=== PATIENT | female | born 1945 ===

== ENCOUNTER 2023-01-01 13:35 | Inpatient (IN) | payer OTHER ==
[2023-01-01 14:09] VITALS: BMI 24.6
[2023-01-01] MEDS ORDERED: ACETAMINOPHEN 500 MG TAB PO PRN ×2 (14:09→20:35)
--- OUTSIDE RECORDS SUMMARY | 2023-01-01 14:16 | XMS REPORT | Continuity of Care Document ---
:1945 Author Organization [facility] t Address [address] [place] [address] Care Team Providers Name Role Phone ASHLEE WILLIS Primary Care Physician Unavailable DARELL LENZ Attending Clinician Unavailable Maida Schilling Attending Clinician Unavailable Ryan Cárdenas Attending Clinician Unavailable AMAN JONES Attending Clinician Unavailable JOSE RAMSEY Attending Clinician Unavailable Eduardo Mcfarlane Attending Clinician Rohini Attending Clinician Unavailable Cathryn Attending Clinician Unavailable EDUARDO MCFARLANE Attending Clinician Unavailable MOY MATOS Attending Clinician Unavailable A_Byrd Attending Clinician Unavailable IHDE_G Attending Clinician Unavailable DR ASHLEE WILLIS Attending Clinician Unavailable [phone] Attending Clinician Unavailable JARROD FERRO Attending Clinician Unavailable Zuniga_S Attending Clinician Unavailable Jose Robledo MD Attending Clinician Kishore Miller MD Attending Clinician [phone] Ely Hurtado Attending Clinician JAQUELINE BAZZI Attending Clinician Unavailable AMBREEN_AFIAA Attending Clinician Unavailable Mina Christianson Attending Clinician Brandon Guerrero Attending Clinician BRANDON GUERRERO Attending Clinician Unavailable Brandon Guerrero Attending Clinician Curtis Attending Clinician Unavailable Kendell Pichardo Attending Clinician GIBSON MACIAS Attending Clinician Unavailable PRICE GEORGE Attending Clinician Unavailable DAYANARA LINDSEY Attending Clinician Unavailable MYAH LIU Attending Clinician Unavailable ARNOLDO DOTY Attending Clinician Unavailable TITO DILLARD Attending Clinician Unavailable FRANCIS KYLE Attending Clinician Unavailable SAVI SKINNER Attending Clinician Unavailable FRANNIE AYALA Attending Clinician Unavailable Maida Schilling Admitting Clinician Unavailable Ryan Cárdenas Admitting Clinician Unavailable G_Pappas Admitting Clinician Unavailable Cathryn Admitting Clinician Unavailable Lita_Star Admitting Clinician Unavailable TIAGO_G Admitting Clinician Unavailable DR ASHLEE WILLIS Admitting Clinician Unavailable Tamia_S Admitting Clinician Unavailable JOSE ROBLEDO Admitting Clinician Unavailable ALEX Admitting Clinician Unavailable Mina Christianson Admitting Clinician Brandon Guerrero Admitting Clinician BRANDON GUERRERO Admitting Clinician Unavailable Curtis Admitting Clinician Unavailable ARNOLDO DOTY Admitting Clinician Unavailable Payers Payer Name Policy Type Policy Number Effective Date Expiration Date S [facility] MEDICARE PART A AND [id number] 2010 B 00:00:00 MEDICARE [id number] MEDICARE [id number] MEDICARE [id number] [place]ICARE B-[place]: [id number] 2010 [employer] 00:00:00 [facility] [id number] 2017 OPTIONS (MEDICARE 00:00:00 SUPPLEMENT) MEDICARE A-[place]: [id number] 2010 [employer] - 00:00:00 [facility] Problems Condition Condition Condition Status Onset Resolution Last Treating Co mments Source Name Details Category Date Date Treatment Clinician Date Rheumatoid Rheumatoid Problem Active M [facility] arthritis Arthritis 2-14 da 00:00: Medical 00 Group Degenerati Degenerati Problem Active [facility] [place] on of on of 5-24 da lumbar Lumbar 00:00: Medical interverte Interverte 00 Gr oup bral disc bral Disc Pain of Pain of Problem Active [place] left hip Left Hip 5-24 da joint Joint 00:00: Medical 00 Group M54.50 M54.50 Diagnosis Active 2021-10-17 Me moria Active 10-15 08:56:00 l 10/15/2021 00:00: [place] [facility] [place] M54.16 M54.16 Diagnosis Active 2020-07-20 Me moria Active 07-13 08:12:00 l 07/13/2020 00:00: [place] [facility] [place] Thyroid Thyroid Problem Active [place] nodule Nodule 07-13 da 00:00: Medical 00 Group Umbilical Umbilical Problem Active [place] hernia Hernia 07-13 da 00:00: Medical 00 Group Uterovagin Uterovagin Problem Active M [place] al al 07-13 da prolapse Prolapse 00:00: Medica l 00 Group Gastroesop Gastroeso Problem Active 2021-10-19 Memoria hageal phageal 11-23 22:06:44 l reflux reflux 00:00: Alessandro disease disease 00 (disorder) (disorder) Active 11/23/2014 Problem 10/19/2021 Data migrated from [facility] on 12/27/14. 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 Herm ruby (disorder) (disorder) Active Problem 11/10/2022 [facility] [place] Neuropathy Neuropath Problem Active 2021-11-22 Memoria (disorder) y 07:02:22 l (disorder) Chacorta n Active Problem 11/22/2021 [facility] Palpitatio Palpitati Problem Active 2022-11-10 Memoria ns ons 15:11:11 l (finding) (finding) Herm ruby Active Problem 11/10/2022 [facility] [place] Disease of Disease Problem Active 2021-11-22 Memoria thyroid of thyroid 07:02:22 l gland gland Alessandro (disorder) (disorder) Active Problem 11/22/2021 [facility] Malignant Malignant Problem Resolve 2021-10-19 Memoria tumor of tumor of d 22:06:44 l thyroid thyroid [place] gland gland (disorder) (disorder) Resolved Problem 10/19/2021 [facility] [place] Hypertensi Hypertens Problem Active 2022-11-10 Memoria ve fidel 15:11:11 l disorder, disorder, Herm ruby systemic systemic arterial arterial (disorder) (disorder) Active Problem 11/10/2022 [facility] [place],[facility] Peripheral Periphera Problem Active 2022-11-10 Memoria nerve l nerve 15:11:11 l disease disease [place] (disorder) (disorder) Active Problem 11/10/2022 [facility] [place] Simple Simple Problem Active 2022-11-10 Yang dipak obesity obesity 15:11:11 l (disorder) (disorder) He rmann Active Problem 11/10/2022 Medical Group,[facility] Lumbosacra Lumbosacr Problem Active 2022-11-10 Memoria l stenosis al 15:11:11 l (disorder) stenosis Herm ruby (disorder) Active Problem 11/10/2022 [facility] [place] 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 15:11:11 l (disorder) (disorder) He rmann Active Problem 11/10/2022 [facility] [place] Deep Deep Problem Resolve 2021-11-22 Yang dipak venous venous d 07:02:22 l thrombosis thrombosis He rmann (disorder) (disorder) Resolved Problem 11/22/2021 [facility] Arthritis Arthritis Problem Active 2022-11-10 Memoria (disorder) (disorder) 15:11:11 l Active [place] Problem 11/10/2022 [facility] [place] Lumbar Lumbar Problem Active 2021-11-22 Yang dipak radiculopa radiculopa 07:02:22 l thy thy [place] (disorder) (disorder) Active Problem 11/22/2021 [facility] History of Past Illness Condition Condition Condition Status Onset Resolution Last Treating Co mments Source Name Details Category Date Date Treatment Clinician Date Radiculopa Radiculop Problem 2019-062020-06-21 2020-06-21 Memoria thy, athy, 2 08:02:07 08:02:07 l lumbar lumbar 18:00: Alessandro region region 00 06/20/2020 06/21/2020 [facility] Other Other Problem 2019-062020-05-25 2020-05-25 M emoria interverte interverte 2-02 05:02:23 05:02:23 l bral disc bral disc 18:00: Herm ruby displaceme displaceme 00 nt, lumbar nt, lumbar region region 05/23/2020 0 [facility] Allergies, Adverse Reactions, Alerts Allergy Allergy Status Severity Reaction(s) Onset Inactive Treating Comm ents Source Name Type Date Date Clinician codeine DA Active MO NAUSEA [facility] 6-29 Clear 00:00: Dey 00 [facility] carisopr DA Active MO REDNESS [facility] odol 6-29 Clear 00:00: Dey 00 [facility] tetracyc DA Active MO REDNESS [facility] line 6-29 Clear 00:00: Dey 00 [facility] Codeine Propensi Active GI Methodi ty to Intolerance 01-10 st adverse 00:00: Hospita reaction 00 l s to drug Codeine Allergy Active [place] to 5-03 da substanc 00:00: Medical e 00 Group Carisopr Allergy Active [place] odol to 5-03 da substanc 00:00: Medical e 00 Group codeine< codeine< Active Memori a sup>1</s sup>1</s 6-04 l up> up> 05:00: Alessandro 00 tetracyc tetracyc Active Memori a line line 6-04 l topical< topical< 05:00: [place] n sup>2</s sup>2</s 00 up> up> CODEINE DA Active UNKNOWN [facility] ADRIAMYC DA Active SEVERE [facility] [place] [facility] RELA Allergy Active [place] to da substanc Medical e Group Social History Social Habit Start Date Stop Date Quantity Comments Source [facility] History of Social 2022-01-13 2022-01-[address] function 00:00:00 00:00:00 Hospital Alcohol intake 2022-01-13 2022-01-13 Current drinker Metho dist 00:00:00 00:00:00 of alcohol Hospital (finding) Alcohol Comment 2022-01-10 2022-01-10 rarely [facility] 00:[facility] 00:[facility]00 Hospital Tobacco use and 2022-01-10 2022-01-10 Smokeless [facility] exposure 00:00:00 00:00:00 tobacco non-user Hospital Social History 2021-10-17 2021-10-17 [facility] 14:24:40 14:24:40 Sex Ass[birth year] [facility] 00:00[facility] 00:00:00 Hospital Smoking Status Start Date Stop Date Source Tobacco smoking status [facility] Medications Ordered Filled Start Stop Current Ordering Indication Dosage Frequency Signature Comments Components Source Medication Medication Date Date Medication? Clinician (SIG) Name Name gabapentin Yes 600 mg = 1 M emoria 600 mg oral 3-31 tab, PO, l tablet 19:29: QID, # 120 Liv nn 00 tab, 1 Refill(s), Pharmacy: [id number], 162.56, cm, 09/19/22 13:41:00 CDT, Height, 73.636, kg, 09/19/22 13:41:00 CDT, Weight gabapentin 3-0 Yes 600 mg = 1 M emoria 600 mg oral 3-31 tab, PO, l tablet 19:29: QID, # 120 Liv nn 00 tab, 1 Refill(s), Pharmacy: [id number], 162.56, cm, 09/19/22 13:41:00 CDT, Height, 73.636, kg, 09/19/22 13:41:00 CDT, Weight gabapentin 3-0 Yes 600 mg = 1 M emoria 600 mg oral 3-31 tab, PO, l tablet 19:29: QID, # 120 Liv nn 00 tab, 1 Refill(s), Pharmacy: [id number], 162.56, cm, 09/19/22 13:41:00 CDT, Height, 73.636, kg, 09/19/22 13:41:00 CDT, Weight Tylenol 3-0 Yes PO, 0 Memoria 3-31 Refill(s) l 19:06: Alessandro 00 Tylenol 2023-0 Yes PO, 0 Memoria 3-31 Refill(s) l 19:06: [place] 00 Tylenol 2023-0 Yes PO, 0 Memoria 3-31 Refill(s) l 19:06: Alessandro 00 levothyroxi 2021-0 Yes 150ug QD Take 150 M ethodi ne 7-[address] (SYNTHROID) 10:10: mouth Hospi ta 150 mcg 01 daily. l tablet metoprolol 2021-0 Yes 25mg QD Take 25 mg M ethodi succinate 7-[address] XL 10:10: daily. Hospita (TOPROL-XL) 01 l 25 mg 24 hr tablet dexamethaso 2021-0 Yes .5mg QD Take 0.5 Me thodi ne 7-[address] (DECADRON) 10:10: mouth Hospit a 0.5 MG 01 daily. l tablet meloxicam 2021-0 Yes 15mg QD Take 15 mg Me thodi (MOBIC) 15 7-[address] mg tablet 10:10: daily. Hospit a 01 l atorvastati Yes 20mg QD Take 20 mg Methodi n (LIPITOR) 7-[address] 20 mg 10:10: daily. Hospita tablet 01 Default OP l ins azaTHIOprin Yes 50mg QD Take 50 mg Methodi e (IMURAN) 7-[address] 50 mg 10:10: daily. Hospita tablet 01 l gabapentin 0 Yes 600mg Q.25D Take 600 M ethodi (NEURONTIN) 7-[address] 600 mg 10:10: mouth 4 Hospita tablet 01 (four) l times a day. zolpidem 0 Yes 10mg QD Take 10 mg Met hodi (AMBIEN) 10 7-[address] mg tablet 10:10: nightly as Ho spita 01 needed for l sleep. ergocalcife Yes 7000U QD Take 7,000 Methodi rol, 7-[address] vitamin D2, 10:10: mouth Hospi ta (VITAMIN D2 01 daily. l ORAL) ferrous Yes 325mg QD Take 325 Metho di sulfate 7-[address] (iron) 325 10:10: mouth Hospit a (65 FE) MG 01 daily with l tablet breakfast. vitamin B 0 Yes 300mg QD Take 300 Met hodi comp and 7-[address] vit C no.6 10:10: mouth Hospit a (VITAMIN B 01 daily. l COMP WITH VIT C NO.6 ORAL) KRILL OIL 0 Yes 350mg QD Take 350 Met hodi ORAL 7-[address] 10:10: mouth Hospita 01 daily. l red yeast 0 Yes 1200mg QD Take 1,200 Methodi rice 600 mg 7-[address] tablet 10:10: mouth Hospita 01 daily. l multivitami 2021-0 Yes 1{tbl} QD Take 1 Me thodi n tablet 7-[address] 10:10: mouth Hospita 01 daily. l beta-carote 2021-0 Yes QD Take by Met hodi ne,A,-vits 7-[address] C,E/mins 10:10: daily. Hospita (OCUVITE 01 l ORAL) calcium 2021-0 Yes 1200mg QD Take 1,200 Me thodi carbonate 7-[address] (CALCIUM 10:10: mouth Hospita 600 ORAL) 01 daily. l aspirin 2021-0 Yes 81mg QD Take 81 mg Meth gabbi (ECOTRIN) 7-[address] 81 MG 10:10: daily. Hospita enteric l coated tablet POTASSIUM 2021-0 Yes 99mg QD Take 99 mg Me thodi ORAL 7-[address] 10:10: daily. Hospita 01 l vitamin B 2021-0 Yes 300mg QD Take 300 Met hodi comp and 7-[address] vit C no.6 10:10: mouth Hospit a (VITAMIN B 01 daily. l COMP WITH VIT C NO.6 ORAL) KRILL OIL 2021-0 Yes 350mg QD Take 350 Met hodi ORAL 7-[address] 10:10: mouth Hospita 01 daily. l red yeast 0 Yes 1200mg QD Take 1,200 Methodi rice 600 mg 7-[address] tablet 10:10: mouth Hospita 01 daily. l multivitami 0 Yes 1{tbl} QD Take 1 Me thodi n tablet 7-[address] 10:10: mouth Hospita 01 daily. l beta-carote 0 Yes QD Take by Met hodi ne,A,-vits 7-[address] C,E/mins 10:10: daily. Hospita (OCUVITE 01 l ORAL) calcium 2021-0 Yes 1200mg QD Take 1,200 Me thodi carbonate 7-[address] (CALCIUM 10:10: mouth Hospita 600 ORAL) 01 daily. l aspirin 0 Yes 81mg QD Take 81 mg Meth gabbi (ECOTRIN) 7-[address] 81 MG 10:10: daily. Hospita enteric l coated tablet POTASSIUM 2021-0 Yes 99mg QD Take 99 mg Me thodi ORAL 7-[address] 10:10: daily. Hospita 01 l levothyroxi 2021-0 Yes 150ug QD Take 150 M ethodi ne 7-[address] (SYNTHROID) 10:10: mouth Hospi ta 150 mcg 01 daily. l tablet metoprolol 0 Yes 25mg QD Take 25 mg M ethodi succinate 7-[address] XL 10:10: daily. Hospita (TOPROL-XL) 01 l 25 mg 24 hr tablet dexamethaso 2022-0 Yes .5mg QD Take 0.5 Me thodi ne 7-[address] (DECADRON) 10:10: mouth Hospit a 0.5 MG 01 daily. l tablet meloxicam Yes 15mg QD Take 15 mg Me thodi (MOBIC) 15 7-[address] mg tablet 10:10: daily. Hospit a 01 l atorvastati Yes 20mg QD Take 20 mg Methodi n (LIPITOR) 7-[address] 20 mg 10:10: daily. Hospita tablet 01 Default OP l ins azaTHIOprin Yes 50mg QD Take 50 mg Methodi e (IMURAN) 7-[address] 50 mg 10:10: daily. Hospita tablet 01 l gabapentin 0 Yes 600mg Q.25D Take 600 M ethodi (NEURONTIN) 7-[address] 600 mg 10:10: mouth 4 Hospita tablet 01 (four) l times a day. zolpidem 0 Yes 10mg QD Take 10 mg Met hodi (AMBIEN) 10 7-[address] mg tablet 10:10: nightly as Ho spita 01 needed for l sleep. ergocalcife Yes 7000U QD Take 7,000 Methodi rol, 7-[address] vitamin D2, 10:10: mouth Hospi ta (VITAMIN D2 01 daily. l ORAL) ferrous 0 Yes 325mg QD Take 325 Metho di sulfate 7-[address] (iron) 325 10:10: mouth Hospit a (65 FE) MG 01 daily with l tablet breakfast. vitamin B 0 Yes 300mg QD Take 300 Met hodi comp and 7-[address] vit C no.6 10:10: mouth Hospit a (VITAMIN B 01 daily. l COMP WITH VIT C NO.6 ORAL) KRILL OIL 0 Yes 350mg QD Take 350 Met hodi ORAL 7-[address] 10:10: mouth Hospita 01 daily. l red yeast 0 Yes 1200mg QD Take 1,200 Methodi rice 600 mg 7-[address] tablet 10:10: mouth Hospita 01 daily. l multivitami 0 Yes 1{tbl} QD Take 1 Me thodi n tablet 7-[address] 10:10: mouth Hospita 01 daily. l beta-carote 2021-0 Yes QD Take by Met howell ne,A,-vits - mouth st C,E/mins 10:10: daily. Hospita (OCUVITE 01 l ORAL) calcium 2021-0 Yes 1200mg QD Take 1,200 Me thodi carbonate 7-[address] (CALCIUM 10:10: mouth Hospita 600 ORAL) 01 daily. l aspirin 2021-0 Yes 81mg QD Take 81 mg Meth gabbi (ECOTRIN) 7-[address] 81 MG 10:10: daily. Hospita enteric l coated tablet POTASSIUM Yes 99mg QD Take 99 mg Me thodi ORAL 7-[address] 10:10: daily. Hospita 01 l levothyroxi Yes 150ug QD Take 150 M ethodi ne 7-[address] (SYNTHROID) 10:10: mouth Hospi ta 150 mcg 01 daily. l tablet metoprolol Yes 25mg QD Take 25 mg M ethodi succinate - by mouth st XL 10:10: daily. Hospita (TOPROL-XL) l 25 mg 24 hr tablet dexamethaso 0 Yes .5mg QD Take 0.5 Me thodi ne 7-[address] (DECADRON) 10:10: mouth Hospit a 0.5 MG 01 daily. l tablet meloxicam 0 Yes 15mg QD Take 15 mg Me thodi (MOBIC) 15 - by mouth st mg tablet 10:10: daily. Hospit a 01 l atorvastati 0 Yes 20mg QD Take 20 mg Methodi n (LIPITOR) 7-[address] 20 mg 10:10: daily. Hospita tablet 01 Default OP l ins azaTHIOprin 2021-0 Yes 50mg QD Take 50 mg Methodi e (IMURAN) 7-[address] 50 mg 10:10: daily. Hospita tablet 01 l gabapentin 2021-0 Yes 600mg Q.25D Take 600 M ethodi (NEURONTIN) 7-[address] 600 mg 10:10: mouth 4 Hospita tablet 01 (four) l times a day. zolpidem 2021-0 Yes 10mg QD Take 10 mg Met hodi (AMBIEN) 10 7-[address] mg tablet 10:10: nightly as Ho spita 01 needed for l sleep. ergocalcife 0 Yes 7000U QD Take 7,000 Methodi rol, 7-[address] vitamin D2, 10:10: mouth Hospi ta (VITAMIN D2 01 daily. l ORAL) ferrous 0 Yes 325mg QD Take 325 Metho di sulfate 7-[address] (iron) 325 10:10: mouth Hospit a (65 FE) MG 01 daily with l tablet breakfast. vitamin B Yes 300mg QD Take 300 Met hodi comp and 7-[address] vit C no.6 10:10: mouth Hospit a (VITAMIN B 01 daily. l COMP WITH VIT C NO.6 ORAL) KRILL OIL Yes 350mg QD Take 350 Met hodi ORAL 7-[address] 10:10: mouth Hospita 01 daily. l red yeast Yes 1200mg QD Take 1,200 Methodi rice 600 mg 7-[address] tablet 10:10: mouth Hospita 01 daily. l multivitami Yes 1{tbl} QD Take 1 Me thodi n tablet 7-[address] 10:10: mouth Hospita 01 daily. l beta-carote Yes QD Take by Met hodi ne,A,-vits 7-[address] C,E/mins 10:10: daily. Hospita (OCUVITE 01 l ORAL) calcium 0 Yes 1200mg QD Take 1,200 Me thodi carbonate 7-[address] (CALCIUM 10:10: mouth Hospita 600 ORAL) 01 daily. l aspirin 0 Yes 81mg QD Take 81 mg Meth gabbi (ECOTRIN) 7-[address] 81 MG 10:10: daily. Hospita enteric l coated tablet POTASSIUM 0 Yes 99mg QD Take 99 mg Me thodi ORAL 7-[address] 10:10: daily. Hospita 01 l levothyroxi Yes 150ug QD Take 150 M ethodi ne 7-[address] (SYNTHROID) 10:10: mouth Hospi ta 150 mcg 01 daily. l tablet metoprolol Yes 25mg QD Take 25 mg M ethodi succinate 7-[address] XL 10:10: daily. Hospita (TOPROL-XL) 01 l 25 mg 24 hr tablet dexamethaso 2021-0 Yes .5mg QD Take 0.5 Me thodi ne 7-[address] (DECADRON) 10:10: mouth Hospit a 0.5 MG 01 daily. l tablet meloxicam 2021-0 Yes 15mg QD Take 15 mg Me thodi (MOBIC) 15 7-[address] mg tablet 10:10: daily. Hospit a 01 l atorvastati 2021-0 Yes 20mg QD Take 20 mg Methodi n (LIPITOR) 7-[address] 20 mg 10:10: daily. Hospita tablet 01 Default OP l ins azaTHIOprin 0 Yes 50mg QD Take 50 mg Methodi e (IMURAN) 7-[address] 50 mg 10:10: daily. Hospita tablet 01 l gabapentin 2021-0 Yes 600mg Q.25D Take 600 M ethodi (NEURONTIN) 7-[address] 600 mg 10:10: mouth 4 Hospita tablet 01 (four) l times a day. zolpidem 2021-0 Yes 10mg QD Take 10 mg Met hodi (AMBIEN) 10 7-[address] mg tablet 10:10: nightly as Ho spita 01 needed for l sleep. ergocalcife 2021-0 Yes 7000U QD Take 7,000 Methodi rol, 7-[address] vitamin D2, 10:10: mouth Hospi ta (VITAMIN D2 01 daily. l ORAL) ferrous 2021-0 Yes 325mg QD Take 325 Metho di sulfate 7-[address] (iron) 325 10:10: mouth Hospit a (65 FE) MG 01 daily with l tablet breakfast. vitamin B 2021-0 Yes 300mg QD Take 300 Met hodi comp and 7-[address] vit C no.6 10:10: mouth Hospit a (VITAMIN B 01 daily. l COMP WITH VIT C NO.6 ORAL) KRILL OIL 2021-0 Yes 350mg QD Take 350 Met hodi ORAL 7-[address] 10:10: mouth Hospita 01 daily. l red yeast 2021-0 Yes 1200mg QD Take 1,200 Methodi rice 600 mg 7-[address] tablet 10:10: mouth Hospita 01 daily. l multivitami 2021- Yes 1{tbl} QD Take 1 Me thodi n tablet 7-[address] 10:10: mouth Hospita 01 daily. l beta-carote 2021-0 Yes QD Take by Met hodi ne,A,-vits 7-[address] C,E/mins 10:10: daily. Hospita (OCUVITE 01 l ORAL) calcium Yes 1200mg QD Take 1,200 Me thodi carbonate 7-[address] (CALCIUM 10:10: mouth Hospita 600 ORAL) 01 daily. l aspirin Yes 81mg QD Take 81 mg Meth gabbi (ECOTRIN) 7-[address] 81 MG 10:10: daily. Hospita enteric l coated tablet POTASSIUM Yes 99mg QD Take 99 mg Me thodi ORAL 7-[address] 10:10: daily. Hospita 01 l levothyroxi Yes 150ug QD Take 150 M ethodi ne 7-[address] (SYNTHROID) 10:10: mouth Hospi ta 150 mcg 01 daily. l tablet metoprolol Yes 25mg QD Take 25 mg M ethodi succinate 7-[address] XL 10:10: daily. Hospita (TOPROL-XL) l 25 mg 24 hr tablet dexamethaso Yes .5mg QD Take 0.5 Me thodi ne 7-[address] (DECADRON) 10:10: mouth Hospit a 0.5 MG 01 daily. l tablet meloxicam Yes 15mg QD Take 15 mg Me thodi (MOBIC) 15 7-[address] mg tablet 10:10: daily. Hospit a l atorvastati Yes 20mg QD Take 20 mg Methodi n (LIPITOR) 7-[address] 20 mg 10:10: daily. Hospita tablet 01 Default OP l ins azaTHIOprin 0 Yes 50mg QD Take 50 mg Methodi e (IMURAN) 7-[address] 50 mg 10:10: daily. Hospita tablet l gabapentin 0 Yes 600mg Q.25D Take 600 M ethodi (NEURONTIN) 7-[address] 600 mg 10:10: mouth 4 Hospita tablet 01 (four) l times a day. zolpidem Yes 10mg QD Take 10 mg Met hodi (AMBIEN) 10 7-[address] mg tablet 10:10: nightly as Ho spita 01 needed for l sleep. ergocalcife Yes 7000U QD Take 7,000 Methodi rol, 7-[address] vitamin D2, 10:10: mouth Hospi ta (VITAMIN D2 01 daily. l ORAL) ferrous Yes 325mg QD Take 325 Metho di sulfate 7-[address] (iron) 325 10:10: mouth Hospit a (65 FE) MG 01 daily with l tablet breakfast. dexamethaso dexamethaso No dexamethas [place] ne 0.5 mg ne 0.5 mg 5-24 one 0.5 mg da tablet tablet 00:00: tablet Medical 00 Group Ocuvite Yes PO, Daily, Yang dipak 4-28 0 l 14:41: Refill(s) Alessandro 00 Ocuvite Yes PO, Daily, Yang dipak 4-28 0 l 14:41: Refill(s) Alessandro 00 Ocuvite 0 Yes PO, Daily, Yang dipak 4-28 0 l 14:41: Refill(s) Alessandro 00 Calcium 600 Yes 1 tab, PO, Memoria +D oral 4-28 BID, # 270 l tablet 14:40: tab, 0 Alessandro 00 Refill(s) Calcium 600 0 Yes 1 tab, PO, Memoria +D oral 4-28 BID, # 270 l tablet 14:40: tab, 0 Alessandro 00 Refill(s) Calcium 600 Yes 1 tab, PO, Memoria +D oral 4-28 BID, # 270 l tablet 14:40: tab, 0 [place] 00 Refill(s) Farnaz Yes See Memoria Antartic 4-28 Instructio l Krill Oil 14:37: ns, 350 mg He rmann 00 PO Daily, 0 Refill(s) Farnaz Yes See Memoria Antartic 4-28 Instructio l Krill Oil 14:37: ns, 350 mg He rmann 00 PO Daily, 0 Refill(s) Farnaz 2021-0 Yes See Memoria Antartic -28 Instructio l Krill Oil 14:37: ns, 350 mg He rmann 00 PO Daily, 0 Refill(s) Vitamin B6 2021-0 Yes 100 mg = 1 M emoria 100 mg oral 4-28 tab, PO, l tablet 14:36: TID, # 10 Chacorta n 00 tab, 0 Refill(s) Vitamin B6 0 Yes 100 mg = 1 M emoria 100 mg oral 4-28 tab, PO, l tablet 14:36: TID, # 10 [place] n 00 tab, 0 Refill(s) Vitamin B6 0 Yes 100 mg = 1 M emoria 100 mg oral 4-28 tab, PO, l tablet 14:36: TID, # 10 Ch[place] n 00 tab, 0 Refill(s) iron Yes See Memoria sulfate 4-28 Instructio l 14:35: ns, 65 mg Alessandro 00 PO daily, 0 Refill(s) iron 0 Yes See Memoria sulfate 4-28 Instructio l 14:35: ns, 65 mg Manlius 00 PO daily, 0 Refill(s) iron 0 Yes See Memoria sulfate 4-28 Instructio l 14:35: ns, 65 mg Man[place]us 00 PO daily, 0 Refill(s) atorvastati 0 Yes 20 mg = 1 M emoria n 20 mg 4-28 tab, PO, l oral tablet 14:34: Bedtime, # Manlius 00 30 tab, 0 Refill(s) atorvastati 0 Yes 20 mg = 1 M emoria n 20 mg 4-28 tab, PO, l oral tablet 14:34: Bedtime, # Manlius 00 30 tab, 0 Refill(s) atorvastati 2021-0 Yes 20 mg = 1 M emoria n 20 mg 4-28 tab, PO, l oral tablet 14:34: Bedtime, # Manlius 00 30 tab, 0 Refill(s) metoprolol 0 Yes 25 mg = 1 Me moria 25 mg oral 4-28 tab, PO, l tablet, 14:33: Daily, # Chacorta n extended 00 30 tab, 0 release Refill(s) dexamethaso 2021-0 Yes 0.5 mg = 1 Memoria ne 0.5 mg 4-28 tab, PO, l oral tablet 14:33: Daily, # Madhu rmann 00 20 tab, 0 Refill(s) metoprolol 2021-0 Yes 25 mg = 1 Me moria 25 mg oral 4-28 tab, PO, l tablet, 14:33: Daily, # Chacorta n extended 00 30 tab, 0 release Refill(s) dexamethaso 2021-0 Yes 0.5 mg = 1 Memoria ne 0.5 mg 4-28 tab, PO, l oral tablet 14:33: Daily, # Madhu rmann 00 20 tab, 0 Refill(s) metoprolol 2021-0 Yes 25 mg = 1 Me moria 25 mg oral 4-28 tab, PO, l tablet, 14:33: Daily, # Chacorta n extended 00 30 tab, 0 release Refill(s) dexamethaso 2021-0 Yes 0.5 mg = 1 Memoria ne 0.5 mg 4-28 tab, PO, l oral tablet 14:33: Daily, # Madhu rmann 00 20 tab, 0 Refill(s) levothyroxi 2021-0 Yes 150 Memori a ne 150 mcg 4-28 microgram l (0.15 mg) 14:32: = 1 tab, Herm ruby oral tablet 00 PO, Daily, # 30 tab, 0 Refill(s) Melatonin 5 2021-0 Yes 5 mg = 1 Me moria mg oral 4-28 tab, PO, l tablet 14:32: Bedtime, Manlius PRN for insomnia, # 60 tab, 0 Refill(s) levothyroxi 2021-0 Yes 150 Memori a ne 150 mcg 4-28 microgram l (0.15 mg) 14:32: = 1 tab, Herm ruby oral tablet 00 PO, Daily, # 30 tab, 0 Refill(s) Melatonin 5 2021-0 Yes 5 mg = 1 Me moria mg oral 4-28 tab, PO, l tablet 14:32: Bedtime, Manlius 00 PRN for insomnia, # 60 tab, 0 Refill(s) levothyroxi 2021-0 Yes 150 Memori a ne 150 mcg 4-28 microgram l (0.15 mg) 14:32: = 1 tab, Herm ruby oral tablet 00 PO, Daily, # 30 tab, 0 Refill(s) Melatonin 5 2021-0 Yes 5 mg = 1 Me moria mg oral 4-28 tab, PO, l tablet 14:32: Bedtime, Alessandro 00 PRN for insomnia, # 60 tab, 0 Refill(s) acetaminoph 2021-0 Yes 500 mg = 1 Memoria en 500 mg 4-28 tab, PO, l oral 14:31: BID, PRN Alessandro tablet. 00 Pain Score 4-6, # 28 tab, 0 Refill(s) acetaminoph 2021-0 Yes 500 mg = 1 Memoria en 500 mg 4-28 tab, PO, l oral 14:31: BID, PRN Alessandro tablet. 00 Pain Score 4-6, # 28 tab, 0 Refill(s) acetaminoph 2021-0 Yes 500 mg = 1 Memoria en 500 mg 4-28 tab, PO, l oral 14:31: BID, PRN Manlius tablet. 00 Pain Score 4-6, # 28 tab, 0 Refill(s) [facility] [place] No 500 mL, Memoria Medication 2-30 Soln-IV, l 14:41: IV, Once, first dose 06/20/20 8:41:00 [employer], stop date 06/20/20 8:41:00 [employer] [facility] [place] No 500 mL, Memoria Medication 2-30 Soln-IV, l 14:41: IV, Once, first dose 06/20/20 8:41:00 [employer], stop date 06/20/20 8:41:00 [employer] [facility] [place] No 500 mL, Memoria Medication 2-30 Soln-IV, l 14:41: IV, Once, first dose 06/20/20 8:41:00 [employer], stop date 06/20/20 8:41:00 [employer] [facility] [place] No 500 mL, Memoria Medication 2-30 Soln-IV, l 14:41: IV, Once, Alessandro 00 first dose 06/20/20 8:41:00 [employer], stop date 06/20/20 8:41:00 [employer] LR 1,000 mL 2019-06 No 1,000 mL, M emoria 2-30 IV, 75 l 14:25: mL/hr, Alessandro 00 start date 06/20/20 8:25:00 [employer], 1.89, m2 Saline Lock 2019-06 No 10 mL, Yang dipak Flush 2-30 Soln, IV l 14:25: Push, As Indicated PRN for flush, first dose 06/20/20 8:25:00 [employer] Ondansetron 2019-06 No 4 mg = 2 Me moria 2-30 mL, l 14:25: Injection, Alessandro 00 IV Push, q15min PRN for nausea, order duration: 2 doses, first dose 06/20/20 8:25:00 [employer], stop date Limited # of times Labetalol 2019-06 No 5 mg = 1 Yang dipak 2-30 mL, l 14:25: Injection, Alessandro 00 IV Push, As Indicated PRN for hypertensi on, first dose 06/20/20 8:25:00 [employer], SBP Hold Parameter: less than 110 mmHg, HR Hold Parameter: less than 60 bpm LR 1,000 mL 2019-06 No 1,000 mL, M emoria 2-30 IV, 75 l 14:25: mL/hr, start date 06/20/20 8:25:00 [employer], 1.89, m2 Saline Lock 2019-06 No 10 mL, Yang dipak Flush 2-30 Soln, IV l 14:25: Push, As Indicated PRN for flush, first dose 06/20/20 8:25:00 [employer] Ondansetron 2019-06 No 4 mg = 2 Me moria 2-30 mL, l 14:25: Injection, IV Push, q15min PRN for nausea, order duration: 2 doses, first dose 06/20/20 8:25:00 [employer], stop date Limited # of times Labetalol 2019-06 No 5 mg = 1 Yang dipak 2-30 mL, l 14:25: Injection, Alessandro 00 IV Push, As Indicated PRN for hypertensi on, first dose 06/20/20 8:25:00 [employer] HEL[employer], SBP Hold Parameter: less than 110 mmHg, HR Hold Parameter: less than 60 bpm LR 1,000 mL 2019-06 No 1,000 mL, M emoria 2-30 IV, 75 l 14:25: mL/hr, start date 06/20/20 8:25:00 [employer], 1.89, m2 Saline Lock 2019-06 No 10 mL, Yang dipak Flush 2-30 Soln, IV l 14:25: Push, As Indicated PRN for flush, first dose 06/20/20 8:25:00 [employer] Ondansetron 2019-06 No 4 mg = 2 Me moria 2-30 mL, l 14:25: Injection, IV Push, q15min PRN for nausea, order duration: 2 doses, first dose 06/20/20 8:25:00 [employer], stop date Limited # of times Labetalol 2019-06 No 5 mg = 1 Yang dipak 2-30 mL, l 14:25: Injection, Manlius 00 IV Push, As Indicated PRN for hypertensi on, first dose 06/20/20 8:25:00 [employer]MAN HEL[employer], SBP Hold Parameter: less than 110 mmHg, HR Hold Parameter: less than 60 bpm LR 1,000 mL 2019-06 No 1,000 mL, M emoria 2-30 IV, 75 l 14:25: mL/hr, start date 06/20/20 8:25:00 [employer]MAN HEL[employer], 1.89, m2 Saline Lock 2019-06 No 10 mL, Yang dipak Flush 2-30 Soln, IV l 14:25: Push, As Indicated PRN for flush, first dose 06/20/20 8:25:00 [employer] Ondansetron 2019-06 No 4 mg = 2 Me moria 2-30 mL, l 14:25: Injection, IV Push, q15min PRN for nausea, order duration: 2 doses, first dose 06/20/20 8:25:00 [employer], stop date Limited # of times Labetalol 2019-06 No 5 mg = 1 Yang dipak 2-30 mL, l 14:25: Injection, IV Push, As Indicated PRN for hypertensi on, first dose 06/20/20 8:25:00 [employer], SBP Hold Parameter: less than 110 mmHg, HR Hold Parameter: less than 60 bpm midazolam 2019-06 No 1 mg = 1 Yang dipak 2-30 mL, l 14:23: Injection, IV, Once, first dose 06/20/20 8:23:00 [employer], stop date 06/20/20 8:23:00 [employer] fentaNYL 2019- No 50 mcg = 1 Mem oria 2-30 mL, l 14:23: Injection, Alessandro 00 IV, Once, first dose 06/20/20 8:23:00 [employer], stop date 06/20/20 8:23:00 [employer] midazolam 2019- No 1 mg = 1 Yang dipak 2-30 mL, l 14:23: Injection, Alessandro 00 IV, Once, first dose 06/20/20 8:23:00 [employer], stop date 06/20/20 8:23:00 [employer]MAN HEL[employer] fentaNYL 2019- No 50 mcg = 1 Mem oria 2-30 mL, l 14:23: Injection, Manlius 00 IV, Once, first dose 06/20/20 8:23:00 [employer], stop date 06/20/20 8:23:00 [employer] midazolam 2019- No 1 mg = 1 Yang dipak 2-30 mL, l 14:23: Injection, Alessandro 00 IV, Once, first dose 06/20/20 8:23:00 [employer]MAN [employer], stop date 06/20/20 8:23:00 [employer]MAN HEL[employer] fentaNYL 2019- No 50 mcg = 1 Mem oria 2-30 mL, l 14:23: Injection, Alessandro 00 IV, Once, first dose 06/20/20 8:23:00 [employer]MAN HEL[employer], stop date 06/20/20 8:23:00 [employer] midazolam 2019- No 1 mg = 1 Yang dipak 2-30 mL, l 14:23: Injection, Man[place]us 00 IV, Once, first dose 06/20/20 8:23:00 [employer]MAN HEL[employer], stop date 06/20/20 8:23:00 [employer]MAN HEL[employer] fentaNYL 2019- No 50 mcg = 1 Mem oria 2-30 mL, l 14:23: Injection, Alessandro 00 IV, Once, first dose 06/20/20 8:23:00 [employer]MAN HEL[employer], stop date 06/20/20 8:23:00 [employer] midazolam 2020- No 1 mg = 1 Yang dipak 2-30 mL, l 14:18: Injection, Alessandro 00 IV, Once, first dose 06/20/20 8:18:00 [employer]MAN HEL[employer], stop date 06/20/20 8:18:00 [employer]MAN HELPER fentaNYL 2020- No 50 mcg = 1 Mem oria 2-30 mL, l 14:18: Injection, Manlius 00 IV, Once, first dose 06/20/20 8:18:00 [employer]MAN HEL[employer], stop date 06/20/20 8:18:00 [employer]MAN [employer] midazolam 2019- No 1 mg = 1 Yang dipak 2-30 mL, l 14:18: Injection, Manlius 00 IV, Once, first dose 06/20/20 8:18:00 [employer]MAN HEL[employer], stop date 06/20/20 8:18:00 [employer]MAN HEL[employer] fentaNYL 2019-06 No 50 mcg = 1 Mem oria 2-30 mL, l 14:18: Injection, Alessandro 00 IV, Once, first dose 06/20/20 8:18:00 [employer]MAN HELPER, stop date 06/20/20 8:18:00 [employer]MAN HEL[employer] midazolam 2019-06 No 1 mg = 1 Yang dipak 2-30 mL, l 14:18: Injection, Man[place]us 00 IV, Once, first dose 06/20/20 8:18:00 [employer]MAN HELPER, stop date 06/20/20 8:18:00 FI[employer]MAN HELPER fentaNYL 2019-06 No 50 mcg = 1 Mem oria 2-30 mL, l 14:18: Injection, Alessandro 00 IV, Once, first dose 06/20/20 8:18:00 [employer]MAN HEL[employer], stop date 06/20/20 8:18:00 [employer]MAN HEL[employer] midazolam 2019-06 No 1 mg = 1 Yang dipak 2-30 mL, l 14:18: Injection, Alessandro 00 IV, Once, first dose 06/20/20 8:18:00 [employer]MAN HELPER, stop date 06/20/20 8:18:00 [employer]MAN HELPER fentaNYL 2019-06 No 50 mcg = 1 Mem oria 2-30 mL, l 14:18: Injection, Alessandro 00 IV, Once, first dose 06/20/20 8:18:00 [employer]MAN HEL[employer], stop date 06/20/20 8:18:00 [employer]MAN HEL[employer] LR 1,000 mL 2019-06 No 1,000 mL, M emoria 2-30 IV, 30 l 12:31: mL/hr, Alessandro 00 start date 06/20/20 6:31:00 [employer] HEL[employer], 1.89, m2 Lidocaine 2019-06 No 0.2 mL, Memor ia 2% 0.2 mL 2-30 Injection, l IV Start 12:31: Subcutaneo Her martinez [[facility]] 00 us, Once PRN for other (see comment), first dose 06/20/20 6:31:00 [employer]MAN HEL[employer] LR 1,000 mL 2019-06 No 1,000 mL, M emoria 2-30 IV, 30 l 12:31: mL/hr, start date 06/20/20 6:31:00 [employer]MAN HELPER, 1.89, m2 Lidocaine 2019-06 No 0.2 mL, Memor ia 2% 0.2 mL 2-30 Injection, l IV Start 12:31: Subcutaneo [facility] [[facility]] us, Once PRN for other (see comment), first dose 06/20/20 6:31:00 [employer]MAN HELPER LR 1,000 mL 2019-06 No 1,000 mL, M emoria 2-30 IV, 30 l 12:31: mL/hr, start date 06/20/20 6:31:00 [employer]MAN HELPER, 1.89, m2 Lidocaine 2019-06 No 0.2 mL, Memor ia 2% 0.2 mL 2-30 Injection, l IV Start 12:31: Subcutaneo [facility] [[facility]] , Once PRN for other (see comment), first dose 06/20/20 6:31:00 [employer]MAN HEL[employer] LR 1,000 mL 2019-06 No 1,000 mL, M emoria 2-30 IV, 30 l 12:31: mL/hr, start date 06/20/20 6:31:00 [employer]MAN HELPER, 1.89, m2 Lidocaine 2019-06 No 0.2 mL, Memor ia 2% 0.2 mL 2-30 Injection, l IV Start 12:31: Subcutaneo [facility] [[facility]] us, Once PRN for other (see comment), first dose 06/20/20 6:31:00 [employer] Misc 2019-06 No 600 mL, Memoria Medication 2-02 Soln-IV, l 18:05: IV, Once, first dose 05/23/20 12:05:00 [employer]MAN HEL[employer], stop date 05/23/20 12:05:00 [employer]MAN [employer] Misc 2019-06 No 600 mL, Memoria Medication 2-02 Soln-IV, l 18:05: IV, Once, first dose 05/23/20 12:05:00 [employer]MAN HELPER, stop date 05/23/20 12:05:00 [employer]MAN [employer] Misc 2019-06 No 600 mL, Memoria Medication 2- Soln-IV, l 18:05: IV, Once, first dose 05/23/20 12:05:00 FI[employer]MAN HELPER, stop date 05/23/20 12:05:00 [employer]MAN HELPER Misc 2019-06 No 600 mL, Memoria Medication - Soln-IV, l 18:05: IV, Once, first dose 05/23/20 12:05:00 [employer]MAN HELPER, stop date 05/23/20 12:05:00 FIREMAN HELPER LR 1,000 mL 2019-06 No 1,000 mL, M emoria 2-02 IV, 75 l 17:57: mL/hr, start date 05/23/20 11:57:00 FI[employer]MAN HELPER, 1.89, m2 Saline Lock 2019-06 No 10 mL, Yang dipak Flush - Soln, IV l 17:57: Push, As Indicated PRN for flush, first dose 05/23/20 11:57:00 [employer] Demerol HCl 2019-06 No 12.5 mg = M emoria 2-02 0.5 mL, l 17:57: Injection, IV Push, Once PRN for shivers, first dose 05/23/20 11:57:00 [employer] Albuterol 2019-06 No 2.5 mg = 3 Me moria 0.83 MG/ML 2-02 mL, Soln, l Inhalant 17:57: NEB, Once Herm ruby Solution 00 PRN for wheezing, first dose 05/23/20 11:57:00 [employer] Levalbutero 2019-06 No 0.63 mg = M emoria l 0.21 -02 3 mL, l MG/ML 17:57: Soln, NEB, Chacorta n Inhalant 00 Once PRN Solution for [Xopenex] wheezing, first dose 05/23/20 11:57:00 [employer] Ondansetron 2019-06 No 4 mg = 2 Me moria 2-02 mL, l 17:57: Injection, IV Push, q15min PRN for nausea, order duration: 2 doses, first dose 05/23/20 11:57:00 [employer]MAN HEL[employer], stop date Limited # of times Promethazin 2019-06 No 12.5 mg = M emoria e 2-02 0.5 mL, l 17:57: Injection, Manlius 00 IM, Once PRN for vomiting, first dose 05/23/20 11:57:00 [employer] Diphenhydra 2019-06 No 25 mg = Mem oria mine 2-02 0.5 mL, l 17:57: Injection, IV Push, Once PRN for itching, first dose 05/23/20 11:57:00 FIREMAN HELPER LR 1,000 mL 2019-06 No 1,000 mL, M emoria 2-02 IV, 75 l 17:57: mL/hr, start date 05/23/20 11:57:00 FIREMAN HELPER, 1.89, m2 Saline Lock 2019-06 No 10 mL, Yang dipak Flush -02 Soln, IV l 17:57: Push, As Indicated PRN for flush, first dose 05/23/20 11:57:00 [employer]MAN HEL[employer] Demerol HCl 2019-06 No 12.5 mg = M emoria 2-02 0.5 mL, l 17:57: Injection, IV Push, Once PRN for shivers, first dose 05/23/20 11:57:00 [employer] Albuterol 2019-06 No 2.5 mg = 3 Me moria 0.83 MG/ML 2-02 mL, Soln, l Inhalant 17:57: NEB, Once Herm ruby Solution 00 PRN for wheezing, first dose 05/23/20 11:57:00 [employer] Levalbutero 2019-06 No 0.63 mg = M emoria l 0.21 2-02 3 mL, l MG/ML 17:57: Soln, NEB, Chacorta n Inhalant 00 Once PRN Solution for [Xopenex] wheezing, first dose 05/23/20 11:57:00 [employer]MAN HELPER Ondansetron 2019-06 No 4 mg = 2 Me moria 2-02 mL, l 17:57: Injection, IV Push, q15min PRN for nausea, order duration: 2 doses, first dose 05/23/20 11:57:00 [employer]MAN HELPER, stop date Limited # of times Promethazin 2019-06 No 12.5 mg = M emoria e 2-02 0.5 mL, l 17:57: Injection, Manlius IM, Once PRN for vomiting, first dose 05/23/20 11:57:00 [employer]MAN HELPER Diphenhydra 2019-06 No 25 mg = Mem oria mine 2-02 0.5 mL, l 17:57: Injection, Alessandro IV Push, Once PRN for itching, first dose 05/23/20 11:57:00 FIREMAN HELPER LR 1,000 mL 2019-06 No 1,000 mL, M emoria 2-02 IV, 75 l 17:57: mL/hr, start date 05/23/20 11:57:00 FI[employer]MAN HELPER, 1.89, m2 Saline Lock 2019-06 No 10 mL, Yang dipak Flush -02 Soln, IV l 17:57: Push, As Alessandro 00 Indicated PRN for flush, first dose 05/23/20 11:57:00 [employer]MAN HELPER Demerol HCl 2019-06 No 12.5 mg = M emoria 2-02 0.5 mL, l 17:57: Injection, Alessandro 00 IV Push, Once PRN for shivers, first dose 05/23/20 11:57:00 [employer] HEL[employer] Albuterol 2019-06 No 2.5 mg = 3 Me moria 0.83 MG/ML 2-02 mL, Soln, l Inhalant 17:57: NEB, Once Herm ruby Solution 00 PRN for wheezing, first dose 05/23/20 11:57:00 [employer]MAN HELPER Levalbutero 2019-06 No 0.63 mg = M emoria l 0.21 2-02 3 mL, l MG/ML 17:57: Soln, NEB, Chacorta n Inhalant 00 Once PRN Solution for [Xopenex] wheezing, first dose 05/23/20 11:57:00 [employer]MAN HELPER Ondansetron 2019-06 No 4 mg = 2 Me moria 2-02 mL, l 17:57: Injection, Manlius IV Push, q15min PRN for nausea, order duration: 2 doses, first dose 05/23/20 11:57:00 FI[employer]MAN HELPER, stop date Limited # of times Promethazin 2019-06 No 12.5 mg = M emoria e 2-02 0.5 mL, l 17:57: Injection, Alessandro 00 IM, Once PRN for vomiting, first dose 05/23/20 11:57:00 [employer] HEL[employer] Diphenhydra 2019-06 No 25 mg = Mem oria mine 2-02 0.5 mL, l 17:57: Injection, Manlius IV Push, Once PRN for itching, first dose 05/23/20 11:57:00 FIREMAN HELPER LR 1,000 mL 2019-06 No 1,000 mL, M emoria 2-02 IV, 75 l 17:57: mL/hr, Manlius start date 05/23/20 11:57:00 FIREMAN HELPER, 1.89, m2 Saline Lock 2019-06 No 10 mL, Yang dipak Flush -02 Soln, IV l 17:57: Push, As Manlius Indicated PRN for flush, first dose 05/23/20 11:57:00 FI[employer]MAN HELPER Demerol HCl 2019-06 No 12.5 mg = M emoria 2-02 0.5 mL, l 17:57: Injection, Manlius IV Push, Once PRN for shivers, first dose 05/23/20 11:57:00 [employer]MAN HELPER Albuterol 2019-06 No 2.5 mg = 3 Me moria 0.83 MG/ML 2-02 mL, Soln, l Inhalant 17:57: NEB, Once Herm ruby Solution 00 PRN for wheezing, first dose 05/23/20 11:57:00 [employer]MAN HELPER Levalbutero 2019-06 No 0.63 mg = M emoria l 0.21 2-02 3 mL, l MG/ML 17:57: Soln, NEB, Chacorta n Inhalant 00 Once PRN Solution for [Xopenex] wheezing, first dose 05/23/20 11:57:00 [employer]MAN HELPER Ondansetron 2019-06 No 4 mg = 2 Me moria 2-02 mL, l 17:57: Injection, Alessandro IV Push, q15min PRN for nausea, order duration: 2 doses, first dose 05/23/20 11:57:00 FI[employer]MAN HELPER, stop date Limited # of times Promethazin 2019-06 No 12.5 mg = M emoria e 2-02 0.5 mL, l 17:57: Injection, Manlius 00 IM, Once PRN for vomiting, first dose 05/23/20 11:57:00 [employer]MAN HELPER Diphenhydra 2019-06 No 25 mg = Mem oria mine 2-02 0.5 mL, l 17:57: Injection, Man[place]us 00 IV Push, Once PRN for itching, first dose 05/23/20 11:57:00 FI[employer]MAN HELPER fentaNYL 2019-06 No 100 mcg = Yang dipak 2-02 2 mL, l 17:48: Injection, Manlius 00 IV, Once, first dose 05/23/20 11:48:00 FI[employer]MAN HELPER, stop date 05/23/20 11:48:00 [employer]MAN HELPER midazolam 2019-06 No 2 mg = 2 Yang dipak 2-02 mL, l 17:48: Injection, Alessandro 00 IV, Once, first dose 05/23/20 11:48:00 FI[employer]MAN HELPER, stop date 05/23/20 11:48:00 FI[employer]MAN HELPER fentaNYL 2019-06 No 100 mcg = Yang dipak 2-02 2 mL, l 17:48: Injection, Alessandro 00 IV, Once, first dose 05/23/20 11:48:00 FI[employer]MAN HELPER, stop date 05/23/20 11:48:00 [employer]MAN HELPER midazolam 2019-06 No 2 mg = 2 Yang dipak 2-02 mL, l 17:48: Injection, Alessandro 00 IV, Once, first dose 05/23/20 11:48:00 FIREMAN HELPER, stop date 05/23/20 11:48:00 FIREMAN HELPER fentaNYL 2019-06 No 100 mcg = Yang dipak 2-02 2 mL, l 17:48: Injection, Manlius 00 IV, Once, first dose 05/23/20 11:48:00 FIREMAN HELPER, stop date 05/23/20 11:48:00 FI[employer]MAN HELPER midazolam 2019-06 No 2 mg = 2 Yang dipak 2-02 mL, l 17:48: Injection, Alessandro 00 IV, Once, first dose 05/23/20 11:48:00 FIREMAN HELPER, stop date 05/23/20 11:48:00 FIREMAN HELPER fentaNYL 2019-06 No 100 mcg = Yang dipak 2-02 2 mL, l 17:48: Injection, Manlius 00 IV, Once, first dose 05/23/20 11:48:00 FIREMAN HELPER, stop date 05/23/20 11:48:00 FI[employer]MAN HELPER midazolam 2019-06 No 2 mg = 2 Yang dipak 2-02 mL, l 17:48: Injection, Manlius 00 IV, Once, first dose 05/23/20 11:48:00 FI[employer]MAN HELPER, stop date 05/23/20 11:48:00 [employer]MAN HELPER Aspirin 81 2019- Yes 81 mg = 1 Me moria MG Enteric 2-02 tabs, l Coated 16:37: Oral, Manlius Tablet 00 Daily, 0 Refill(s), [facility] aspirin 81 2019-06 Yes 81 mg = 1 Me moria mg oral 2-02 tabs, l delayed 16:37: Oral, Manlius release 00 Daily, 0 tablet Refill(s), [facility] aspirin 81 2019-06 Yes 81 mg = 1 Me moria mg oral 2-02 tabs, l delayed 16:37: Oral, Alessandro release 00 Daily, 0 tablet Refill(s), [facility] Aspirin 81 2019-06 Yes 81 mg = 1 Me moria MG Enteric 2-02 tabs, l Coated 16:37: Oral, Alessandro Tablet 00 Daily, 0 Refill(s), [facility] Aspirin 81 2019-06 Yes 81 mg = 1 Me moria MG Enteric 2-02 tabs, l Coated 16:37: Oral, Manlius Tablet 00 Daily, 0 Refill(s), [facility] aspirin 81 2019-06 Yes 81 mg = 1 Me moria mg oral 2-02 tabs, l delayed 16:37: Oral, Alessandro release 00 Daily, 0 tablet Refill(s), [facility] Aspirin 81 2019-06 Yes 81 mg = 1 Me moria MG Enteric 2-02 tabs, l Coated 16:37: Oral, Alessandro Tablet 00 Daily, 0 Refill(s), [facility] aspirin 81 2019-06 Yes 81 mg = 1 Me moria mg oral 2-02 tabs, l delayed 16:37: Oral, Alessandro release 00 Daily, 0 tablet Refill(s), [facility] Dexamethaso 2019-06 Yes 0.5 mg = 1 Memoria ne 0.5 MG 2-02 tabs, l Oral Tablet 16:34: Oral, Liv nn 00 Daily, 0 Refill(s), pain/infla mmation azaTHIOprin 2019-06 Yes 50 mg = 1 M emoria e 50 mg 2-02 tabs, l oral tablet 16:34: Oral, Liv nn 00 Daily, 0 Refill(s), Arthritis meloxicam 2019-06 Yes 15 mg = 1 Mem oria 15 MG Oral 2-02 tabs, l Tablet 16:34: Oral, Manlius 00 Daily, 0 Refill(s), Back Pain dexamethaso 2019-06 Yes 0.5 mg = 1 Memoria ne 0.5 mg 2-02 tabs, l oral tablet 16:34: Oral, Liv nn 00 Daily, 0 Refill(s), pain/infla mmation meloxicam 2020- Yes 15 mg = 1 Mem oria 15 mg oral 2-02 tabs, l tablet 16:34: Oral, Manlius 00 Daily, 0 Refill(s), Back Pain dexamethaso 2020- Yes 0.5 mg = 1 Memoria ne 0.5 mg 2-02 tabs, l oral tablet 16:34: Oral, Liv nn 00 Daily, 0 Refill(s), pain/infla mmation azaTHIOprin 2020- Yes 50 mg = 1 M emoria e 50 mg 2-02 tabs, l oral tablet 16:34: Oral, Liv nn 00 Daily, 0 Refill(s), Arthritis meloxicam 2019- Yes 15 mg = 1 Mem oria 15 mg oral 2-02 tabs, l tablet 16:34: Oral, Manlius 00 Daily, 0 Refill(s), Back Pain Dexamethaso 2019- Yes 0.5 mg = 1 Memoria ne 0.5 MG 2-02 tabs, l Oral Tablet 16:34: Oral, Liv nn 00 Daily, 0 Refill(s), pain/infla mmation meloxicam 2020-1 Yes 15 mg = 1 Mem oria 15 MG Oral 2-02 tabs, l Tablet 16:34: Oral, Alessandro 00 Daily, 0 Refill(s), Back Pain Dexamethaso 2020- Yes 0.5 mg = 1 Memoria ne 0.5 MG 2-02 tabs, l Oral Tablet 16:34: Oral, Liv nn 00 Daily, 0 Refill(s), pain/infla mmation azaTHIOprin 2020-1 Yes 50 mg = 1 M emoria e 50 mg 2-02 tabs, l oral tablet 16:34: Oral, Liv nn 00 Daily, 0 Refill(s), Arthritis meloxicam 2020- Yes 15 mg = 1 Mem oria 15 MG Oral 2-02 tabs, l Tablet 16:34: Oral, Alessandro 00 Daily, 0 Refill(s), Back Pain dexamethaso 2020- Yes 0.5 mg = 1 Memoria ne 0.5 mg 2-02 tabs, l oral tablet 16:34: Oral, Liv nn 00 Daily, 0 Refill(s), pain/infla mmation meloxicam 2019-06 Yes 15 mg = 1 Mem oria 15 mg oral 2-02 tabs, l tablet 16:34: Oral, Manlius 00 Daily, 0 Refill(s), Back Pain Dexamethaso 2019-06 Yes 0.5 mg = 1 Memoria ne 0.5 MG 2-02 tabs, l Oral Tablet 16:34: Oral, Liv nn 00 Daily, 0 Refill(s), pain/infla mmation azaTHIOprin 2019-06 Yes 50 mg = 1 M emoria e 50 mg 2-02 tabs, l oral tablet 16:34: Oral, Liv nn 00 Daily, 0 Refill(s), Arthritis meloxicam 2019-06 Yes 15 mg = 1 Mem oria 15 MG Oral 2-02 tabs, l Tablet 16:34: Oral, Alessandro 00 Daily, 0 Refill(s), Back Pain dexamethaso 2019-06 Yes 0.5 mg = 1 Memoria ne 0.5 mg 2-02 tabs, l oral tablet 16:34: Oral, Liv nn 00 Daily, 0 Refill(s), pain/infla mmation meloxicam 2019-06 Yes 15 mg = 1 Mem oria 15 mg oral 2-02 tabs, l tablet 16:34: Oral, Alessandro 00 Daily, 0 Refill(s), Back Pain Levothyroxi 2019-06 Yes 150 mcg = M emoria ne Sodium 2-02 1 tabs, l 0.15 MG 16:33: Oral, Manlius Oral Tablet 00 Daily, 0 [Euthyrox] Refill(s), Hypothyroi d Metoprolol 2019-06 Yes 25 mg = 1 Me moria Succinate 2-02 tabs, l ER 25 mg 16:33: Oral, Alessandro oral 00 Daily, 0 tablet, Refill(s), extended HTN release Euthyrox 2019-06 Yes 150 mcg = Yang dipak 150 mcg 2-02 1 tabs, l (0.15 mg) 16:33: Oral, Alessandro oral tablet 00 Daily, 0 Refill(s), Hypothyroi d Euthyrox 2019-06 Yes 150 mcg = Yang dipak 150 mcg - 1 tabs, l (0.15 mg) 16:33: Oral, Manlius oral tablet 00 Daily, 0 Refill(s), Hypothyroi d Metoprolol 2019-06 Yes 25 mg = 1 Me moria Succinate 2-02 tabs, l ER 25 mg 16:33: Oral, Alessandro oral 00 Daily, 0 tablet, Refill(s), extended HTN release Levothyroxi 2019-06 Yes 150 mcg = M emoria ne Sodium 2-02 1 tabs, l 0.15 MG 16:33: Oral, Manlius Oral Tablet 00 Daily, 0 [Euthyrox] Refill(s), Hypothyroi d Levothyroxi 2019-06 Yes 150 mcg = M emoria ne Sodium 2-02 1 tabs, l 0.15 MG 16:33: Oral, Alessandro Oral Tablet 00 Daily, 0 [Euthyrox] Refill(s), Hypothyroi d Metoprolol 2019-06 Yes 25 mg = 1 Me moria Succinate 2-02 tabs, l ER 25 mg 16:33: Oral, Alessandro oral 00 Daily, 0 tablet, Refill(s), extended HTN release Euthyrox 2019-06 Yes 150 mcg = Yang dipak 150 mcg 2- 1 tabs, l (0.15 mg) 16:33: Oral, Manlius oral tablet 00 Daily, 0 Refill(s), Hypothyroi d Levothyroxi 2019-06 Yes 150 mcg = M emoria ne Sodium 2-02 1 tabs, l 0.15 MG 16:33: Oral, Manlius Oral Tablet 00 Daily, 0 [Euthyrox] Refill(s), Hypothyroi d Metoprolol 2019-06 Yes 25 mg = 1 Me moria Succinate 2-02 tabs, l ER 25 mg 16:33: Oral, Manlius oral 00 Daily, 0 tablet, Refill(s), extended HTN release Euthyrox 2019-06 Yes 150 mcg = Yang dipak 150 mcg 2- 1 tabs, l (0.15 mg) 16:33: Oral, Alessandro oral tablet 00 Daily, 0 Refill(s), Hypothyroi d gabapentin 2019-06 Yes 600 mg = 1 M emoria 600 MG Oral 2-02 tabs, l Tablet 16:32: Oral, TID, Liv nn 00 0 Refill(s), Back Pain atorvastati 2020- Yes 20 mg = 1 M emoria n 20 mg 2-02 tabs, l oral tablet 16:32: Oral, Liv nn 00 Daily, 0 Refill(s), High cholestero l gabapentin 2020- Yes 600 mg = 1 M emoria 600 mg oral 2-02 tabs, l tablet 16:32: Oral, TID, Liv nn 00 0 Refill(s), Back Pain gabapentin 2019-06 Yes 600 mg = 1 M emoria 600 mg oral 2-02 tabs, l tablet 16:32: Oral, TID, Liv nn 00 0 Refill(s), Back Pain atorvastati 2019-06 Yes 20 mg = 1 M emoria n 20 mg 2-02 tabs, l oral tablet 16:32: Oral, Liv nn 00 Daily, 0 Refill(s), High cholestero l gabapentin 2019-06 Yes 600 mg = 1 M emoria 600 MG Oral 2-02 tabs, l Tablet 16:32: Oral, TID, Liv nn 00 0 Refill(s), Back Pain gabapentin 2019-06 Yes 600 mg = 1 M emoria 600 MG Oral 2-02 tabs, l Tablet 16:32: Oral, TID, Liv nn 00 0 Refill(s), Back Pain atorvastati 2019-06 Yes 20 mg = 1 M emoria n 20 mg 2-02 tabs, l oral tablet 16:32: Oral, Liv nn 00 Daily, 0 Refill(s), High cholestero l gabapentin 2019- Yes 600 mg = 1 M emoria 600 mg oral 2-02 tabs, l tablet 16:32: Oral, TID, Liv nn 00 0 Refill(s), Back Pain gabapentin 2019-06 Yes 600 mg = 1 M emoria 600 MG Oral 2-02 tabs, l Tablet 16:32: Oral, TID, Liv nn 00 0 Refill(s), Back Pain atorvastati 2019-06 Yes 20 mg = 1 M emoria n 20 mg 2-02 tabs, l oral tablet 16:32: Oral, Liv nn 00 Daily, 0 Refill(s), High cholestero l gabapentin 2019-06 Yes 600 mg = 1 M emoria 600 mg oral 2-02 tabs, l tablet 16:32: Oral, TID, Liv nn 00 0 Refill(s), Back Pain LR 1,000 mL 2019- No 1,000 mL, M emoria 2-02 IV, 30 l 15:32: mL/hr, start date 05/23/20 9:32:00 [employer] Lidocaine 2019-06 No 0.2 mL, Memor ia 2% 0.2 mL 2- Injection, l IV Start 15:32: Subcutaneo [facility]] us, Once PRN for other (see comment), first dose 05/23/20 9:32:00 [employer] LR 1,000 mL 2019-06 No 1,000 mL, M emoria 2-02 IV, 30 l 15:32: mL/hr, start date 05/23/20 9:32:00 [employer] Lidocaine 2019-06 No 0.2 mL, Memor ia 2% 0.2 mL 2 Injection, l IV Start 15:32: Subcutaneo [facility] [[facility]] us, Once PRN for other (see comment), first dose 05/23/20 9:32:00 [employer] LR 1,000 mL 2019-06 No 1,000 mL, M emoria 2-02 IV, 30 l 15:32: mL/hr, start date 05/23/20 9:32:00 [employer] Lidocaine 2019-06 No 0.2 mL, Memor ia 2% 0.2 mL 202 Injection, l IV Start 15:32: Subcutaneo [facility] [[facility]] us, Once PRN for other (see comment), first dose 05/23/20 9:32:00 [employer] LR 1,000 mL 2019-06 No 1,000 mL, M emoria 2-02 IV, 30 l 15:32: mL/hr, start date 05/23/20 9:32:00 [employer] Lidocaine 2019-06 No 0.2 mL, Memor ia 2% 0.2 mL 2-02 Injection, l IV Start 15:32: Subcutaneo [facility] [[facility]] us, Once PRN for other (see comment), first dose 05/23/20 9:32:00 [employer] Calcium 600 2019-0 Yes 1 tab, PO, Memoria +D oral 7-08 TID, 0 l tablet 19:41: Refill(s) Chacorta n 00 Aspirin 2018-0 Yes 0 Memoria 7-08 Refill(s) l 19:41: Alessandro 00 Elliott 2018-0 Yes 99 mg = 1 Memoria Potassium 7-08 tab, PO, l 99 oral 19:41: Daily, 0 Chacorta n tablet 00 Refill(s) meloxicam Yes 15 mg = 1 Mem oria 15 mg oral 7-08 tab, PO, l tablet 19:41: Daily, # Man[place]us 00 30 tab, 0 Refill(s) azaTHIOprin Yes 50 mg = 1 M emoria e 50 mg 7-08 tab, PO, l oral tablet 19:41: Daily, 0 He rmann 00 Refill(s) Elliott Yes 99 mg = 1 Memoria Potassium 7-08 tab, PO, l 99 oral 19:41: Daily, 0 Chacorta n tablet 00 Refill(s) red yeast Yes 1,200 mg = Me moria rice 600 mg 708 2 cap, PO, l oral 19:41: Daily, 0 [place] capsule 00 Refill(s) aspirin 2018-0 Yes 81 mg, Memoria 7-08 Daily, 0 l 19:41: Refill(s) [place] 00 Aqueous 2018-0 Yes See Memoria Vitamin D 7-08 Instructio l 19:41: ns, 7000 Alessandro 00 PO Daily, 0 Refill(s) fluconazole 2018-0 Yes 100 mg = 1 Memoria 100 mg oral 7-08 tab, PO, l tablet 19:41: Daily, 0 Man[place]us 00 Refill(s) metoprolol 2018- Yes 50 mg = 1 Me moria 50 mg oral 7-08 tab, PO, l tablet, 19:41: Daily, # Chacorta n extended 00 30 tab, 0 release Refill(s) atorvastati Yes 40 mg = 1 M emoria n 40 mg 7-08 tab, PO, l oral tablet 19:41: Bedtime, # Manlius 00 30 tab, 0 Refill(s) rivaroxaban 2018-0 Yes 20 mg = 1 M emoria 20 MG Oral 7-08 tab, PO, l Tablet 19:41: QPM, # 30 Chacorta n [Xarelto] 00 tab, 3 Refill(s) gabapentin Yes 600 mg = 1 M emoria 600 MG Oral 7-08 tab, PO, l Tablet 19:41: TID, 0 Alessandro 00 Refill(s) Dexamethaso Yes 0 Memori a ne 708 Refill(s) l 19:41: [place] Folcaps Yes 1 cap, PO, Yang dipak [place] 3 7-08 Daily, 0 l oral 19:41: Refill(s) [place] capsule 00 Ocuvite 0 Yes PO, Daily, Yang dipak 7-08 0 l 19:41: Refill(s) [place] zolpidem 10 Yes 10 mg = 1 M emoria mg oral 7-08 tab, PO, l tablet 19:41: Bedtime, 0 Liv nn 00 Refill(s) fluconazole Yes 100 mg = 1 Memoria 100 mg oral 7-08 tab, PO, l tablet 19:41: Daily, 0 Alessandro 00 Refill(s) metoprolol Yes 50 mg = 1 Me moria 50 mg oral 7-08 tab, PO, l tablet, 19:41: Daily, # Chacorta n extended 00 30 tab, 0 release Refill(s) atorvastati Yes 40 mg = 1 M emoria n 40 mg 7-08 tab, PO, l oral tablet 19:41: Bedtime, # Alessandro 00 30 tab, 0 Refill(s) rivaroxaban Yes 20 mg = 1 M emoria 20 MG Oral 7-08 tab, PO, l Tablet 19:41: QPM, # 30 Chacorta n [Xarelto] 00 tab, 3 Refill(s) gabapentin Yes 600 mg = 1 M emoria 600 MG Oral 7-08 tab, PO, l Tablet 19:41: TID, 0 Man[place]us 00 Refill(s) Dexamethaso Yes 0 Memori a ne 708 Refill(s) l 19:41: Alessandro Folcaps Yes 1 cap, PO, Yang dipak [place] 3 7-08 Daily, 0 l oral 19:41: Refill(s) [place] capsule 00 Ocuvite 2019-0 Yes PO, Daily, Yang dipak 7-08 0 l 19:41: Refill(s) [place] 00 zolpidem 10 Yes 10 mg = 1 M emoria mg oral 7-08 tab, PO, l tablet 19:41: Bedtime, 0 Liv nn 00 Refill(s) Calcium 600 2019-0 Yes 1 tab, PO, Memoria +D oral 7-08 TID, 0 l tablet 19:41: Refill(s) Chacorta n 00 Aspirin 2018-0 Yes 0 Memoria 7-08 Refill(s) l 19:41: Alessandro 00 Elliott Yes 99 mg = 1 Memoria Potassium 7-08 tab, PO, l 99 oral 19:41: Daily, 0 Chacorta n tablet 00 Refill(s) meloxicam Yes 15 mg = 1 Mem oria 15 mg oral 7-08 tab, PO, l tablet 19:41: Daily, # Alessandro 00 30 tab, 0 Refill(s) azaTHIOprin Yes 50 mg = 1 M emoria e 50 mg 7-08 tab, PO, l oral tablet 19:41: Daily, 0 He rmann 00 Refill(s) Elliott Yes 99 mg = 1 Memoria Potassium 7-08 tab, PO, l 99 oral 19:41: Daily, 0 Chacorta n tablet 00 Refill(s) red yeast 0 Yes 1,200 mg = Me moria rice 600 mg 7-08 2 cap, PO, l oral 19:41: Daily, 0 Alessandro capsule 00 Refill(s) aspirin Yes 81 mg, Memoria 7-08 Daily, 0 l 19:41: Refill(s) Man[place]us 00 Aqueous 2018-0 Yes See Memoria Vitamin D 7-08 Instructio l 19:41: ns, 7000 Manlius 00 PO Daily, 0 Refill(s) fluconazole 2018-0 Yes 100 mg = 1 Memoria 100 mg oral 7-08 tab, PO, l tablet 19:41: Daily, 0 Man[place]us 00 Refill(s) metoprolol Yes 50 mg = 1 Me moria 50 mg oral 7-08 tab, PO, l tablet, 19:41: Daily, # Chacorta n extended 00 30 tab, 0 release Refill(s) atorvastati 2019- Yes 40 mg = 1 M emoria n 40 mg 7-08 tab, PO, l oral tablet 19:41: Bedtime, # Manlius 00 30 tab, 0 Refill(s) rivaroxaban 2019-0 Yes 20 mg = 1 M emoria 20 MG Oral 7-08 tab, PO, l Tablet 19:41: QPM, # 30 Chacorta n [Xarelto] 00 tab, 3 Refill(s) gabapentin 2019- Yes 600 mg = 1 M emoria 600 MG Oral 7-08 tab, PO, l Tablet 19:41: TID, 0 Manlius 00 Refill(s) Dexamethaso 2019-0 Yes 0 Memori a ne 7-08 Refill(s) l 19:41: Man[place] 00 Folcaps 0 Yes 1 cap, PO, Yang dipak [place] 3 7-08 Daily, 0 l oral 19:41: Refill(s) Alessandro capsule 00 Ocuvite 2019-0 Yes PO, Daily, Yang dipak 7-08 0 l 19:41: Refill(s) [place] 00 zolpidem 10 Yes 10 mg = 1 M emoria mg oral 7-08 tab, PO, l tablet 19:41: Bedtime, 0 Liv nn 00 Refill(s) Calcium 600 2018-0 Yes 1 tab, PO, Memoria +D oral 7-08 TID, 0 l tablet 19:41: Refill(s) Chacorta n 00 Aspirin 2018-0 Yes 0 Memoria 7-08 Refill(s) l 19:41: Man[place]us 00 Elliott 2018-0 Yes 99 mg = 1 Memoria Potassium 7-08 tab, PO, l 99 oral 19:41: Daily, 0 Chacorta n tablet 00 Refill(s) meloxicam 2018-0 Yes 15 mg = 1 Mem oria 15 mg oral 7-08 tab, PO, l tablet 19:41: Daily, # Alessandro 00 30 tab, 0 Refill(s) azaTHIOprin 2019-0 Yes 50 mg = 1 M emoria e 50 mg 7-08 tab, PO, l oral tablet 19:41: Daily, 0 He rmann 00 Refill(s) Elliott 2019-0 Yes 99 mg = 1 Memoria Potassium 7-08 tab, PO, l 99 oral 19:41: Daily, 0 Chacorta n tablet 00 Refill(s) red yeast Yes 1,200 mg = Me moria rice 600 mg 12-27 2 cap, PO, l oral 19:41: Daily, 0 Alessandro capsule 00 Refill(s) aspirin Yes 81 mg, Memoria 12-27 Daily, 0 l 19:41: Refill(s) Alessandro 00 Aqueous Yes See Memoria Vitamin D 12-27 Instructio l 19:41: ns, 7000 Alessandro 00 PO Daily, 0 Refill(s) metoprolol metoprolol No metoprolol [place] succinate succinate succinate da ER 25 mg ER 25 mg ER 25 mg Med ical tablet,exte tablet,exte tablet,ext Group nded nded ended release 24 release 24 release 24 hr TAKE 1 hr TAKE 1 hr TAKE 1 TABLET BY TABLET BY TABLET BY MOUTH ONCE MOUTH ONCE MOUTH ONCE DAILY DAILY DAILY atorvastati atorvastati No atorvastat [place] n 20 mg n 20 mg in 20 mg da tablet TAKE tablet TAKE tablet Medical 1 TABLET BY 1 TABLET BY TAKE 1 Group MOUTH ONCE MOUTH ONCE TABLET BY DAILY DAILY MOUTH ONCE DAILY azathioprin azathioprin No azathiopri [place] e 50 mg e 50 mg ne 50 mg da tablet Take tablet Take tablet Medical 1 tablet 1 tablet Take 1 Group every day every day tablet by oral by oral every day route for route for by oral 90 days. 90 days. route for 90 days. [facility] No 1 Q1D [facility] [place] Chewable Chewable Chewable da Low Dose Low Dose Low Dose Med ical Aspirin 81 Aspirin 81 Aspirin 81 Group mg tablet mg tablet mg tablet Chew 1 Chew 1 Chew 1 tablet tablet tablet every day every day every day by oral by oral by oral route. route. route. dexamethaso dexamethaso No dexamethas [place] ne 0.5 mg ne 0.5 mg one 0.5 mg da tablet tablet tablet Medical Group Euthyrox Euthyrox No Euthyrox [facility] 150 mcg 150 mcg 150 mcg da tablet TAKE tablet TAKE tablet Medical 1 TABLET BY 1 TABLET BY TAKE 1 Group MOUTH IN MOUTH IN TABLET BY THE MORNING THE MORNING MOUTH IN ON AN EMPTY ON AN EMPTY THE STOMACH STOMACH MORNING ON AN EMPTY STOMACH gabapentin gabapentin No gabapentin [place] 600 mg 600 mg 600 mg da tablet TAKE tablet TAKE tablet Medical 1 TABLET BY 1 TABLET BY TAKE 1 Group MOUTH 4 MOUTH 4 TABLET BY TIMES DAILY TIMES DAILY MOUTH 4 TIMES DAILY meloxicam meloxicam No meloxicam [place] 15 mg 15 mg 15 mg da tablet Take tablet Take tablet Medical 1 tablet 1 tablet Take 1 Group every day every day tablet by oral by oral every day route for route for by oral 90 days. 90 days. route for 90 days. metoprolol metoprolol No metoprolol [place] succinate succinate succinate da ER 25 mg ER 25 mg ER 25 mg Med ical tablet,exte tablet,exte tablet,ext Group nded nded ended release 24 release 24 release 24 hr TAKE 1 hr TAKE 1 hr TAKE 1 TABLET BY TABLET BY TABLET BY MOUTH ONCE MOUTH ONCE MOUTH ONCE DAILY DAILY DAILY atorvastati atorvastati No atorvastat [place] n 20 mg n 20 mg in 20 mg da tablet TAKE tablet TAKE tablet Medical 1 TABLET BY 1 TABLET BY TAKE 1 Group MOUTH ONCE MOUTH ONCE TABLET BY DAILY DAILY MOUTH ONCE DAILY azathioprin azathioprin No azathiopri [place] e 50 mg e 50 mg ne 50 mg da tablet Take tablet Take tablet Medical 1 tablet 1 tablet Take 1 Group every day every day tablet by oral by oral every day route for route for by oral 90 days. 90 days. route for 90 days. [facility] No 1 Q1D [facility] [place] Chewable Chewable Chewable da Low Dose Low Dose Low Dose Med ical Aspirin 81 Aspirin 81 Aspirin 81 Group mg tablet mg tablet mg tablet Chew 1 Chew 1 Chew 1 tablet tablet tablet every day every day every day by oral by oral by oral route. route. route. Calcium 600 Calcium 600 No Calcium [place] + D(3) 1 + D(3) 1 600 + D(3) d a TAB PO BID TAB PO BID 1 TAB PO Medical BID Group Complete Complete No Complete [facility] [place] Multivitami Multivitami Multivitam da n 1 TAB PO n 1 TAB PO in 1 TAB Medical QD QD PO QD Group Euthyrox Euthyrox No Euthyrox [facility] 150 mcg 150 mcg 150 mcg da tablet TAKE tablet TAKE tablet Medical 1 TABLET BY 1 TABLET BY TAKE 1 Group MOUTH IN MOUTH IN TABLET BY THE MORNING THE MORNING MOUTH IN ON AN EMPTY ON AN EMPTY THE STOMACH STOMACH MORNING ON AN EMPTY STOMACH gabapentin gabapentin No gabapentin [place] 600 mg 600 mg 600 mg da tablet TAKE tablet TAKE tablet Medical 1 TABLET BY 1 TABLET BY TAKE 1 Group MOUTH 4 MOUTH 4 TABLET BY TIMES DAILY TIMES DAILY MOUTH 4 TIMES DAILY iron 65 mg iron 65 mg No 1 Q1D iron 65 mg [place] tablet Take tablet Take tablet da 1 tablet 1 tablet Take 1 Medic al every day every day tablet Mireya up by oral by oral every day route. route. by oral route. MegaRed MegaRed No MegaRed [place]-3 [place]-3 da [employer] [facility] [employer] [facility] meloxicam meloxicam No meloxicam [place] 15 mg 15 mg 15 mg da tablet Take tablet Take tablet Medical 1 tablet 1 tablet Take 1 Group every day every day tablet by oral by oral every day route for route for by oral 90 days. 90 days. route for 90 days. metoprolol metoprolol No metoprolol [place] succinate succinate succinate da ER 25 mg ER 25 mg ER 25 mg Med ical tablet,exte tablet,exte tablet,ext Group nded nded ended release 24 release 24 release 24 hr TAKE 1 hr TAKE 1 hr TAKE 1 TABLET BY TABLET BY TABLET BY MOUTH ONCE MOUTH ONCE MOUTH ONCE DAILY DAILY DAILY Ocuvite 1 Ocuvite 1 No Ocuvite 1 [place] TAB PO BID TAB PO BID TAB PO BID da Medical Group potassium potassium No potassium [place] gluconate 1 gluconate 1 gluconate da TAB PO QD TAB PO QD 1 TAB PO M edical QD Group valacyclovi valacyclovi No valacyclov [place] r 1 gram r 1 gram ir 1 gram da tablet TAKE tablet TAKE tablet Medical 1 TABLET BY 1 TABLET BY TAKE 1 Group MOUTH EVERY MOUTH EVERY TABLET BY 8 HOURS FOR 8 HOURS FOR MOUTH 7 DAYS 7 DAYS EVERY 8 HOURS FOR 7 DAYS Vitamin D3 Vitamin D3 No 2 TID Vitamin D3 [place] 25 mcg 25 mcg 25 mcg da (1,000 (1,000 (1,000 Medical unit) unit) unit) Group tablet Take tablet Take tablet 2 tablets 3 2 tablets 3 Take 2 times a day times a day tablets 3 by oral by oral times a route. route. day by oral route. atorvastati atorvastati No atorvastat [place] n 20 mg n 20 mg in 20 mg da tablet TAKE tablet TAKE tablet Medical 1 TABLET BY 1 TABLET BY TAKE 1 Group MOUTH ONCE MOUTH ONCE TABLET BY DAILY DAILY MOUTH ONCE DAILY azathioprin azathioprin No azathiopri [place] e 50 mg e 50 mg ne 50 mg da tablet Take tablet Take tablet Medical 1 tablet 1 tablet Take 1 Group every day every day tablet by oral by oral every day route for route for by oral 90 days. 90 days. route for 90 days. [facility] No 1 Q1D [facility] [place] Chewable Chewable Chewable da Low Dose Low Dose Low Dose Med ical Aspirin 81 Aspirin 81 Aspirin 81 Group mg tablet mg tablet mg tablet Chew 1 Chew 1 Chew 1 tablet tablet tablet every day every day every day by oral by oral by oral route. route. route. Calcium 600 Calcium 600 No Calcium [place] + D(3) 1 + D(3) 1 600 + D(3) d a TAB PO BID TAB PO BID 1 TAB PO Medical BID Group Complete Complete No Complete [place] Multivitami Multivitami Multivitam da n 1 TAB PO n 1 TAB PO in 1 TAB Medical QD QD PO QD Group dexamethaso dexamethaso No dexamethas [place] ne 0.5 mg ne 0.5 mg one 0.5 mg da tablet tablet tablet Medical Group Euthyrox Euthyrox No Euthyrox [place] 150 mcg 150 mcg 150 mcg da tablet TAKE tablet TAKE tablet Medical 1 TABLET BY 1 TABLET BY TAKE 1 Group MOUTH IN MOUTH IN TABLET BY THE MORNING THE MORNING MOUTH IN ON AN EMPTY ON AN EMPTY THE STOMACH STOMACH MORNING ON AN EMPTY STOMACH gabapentin gabapentin No gabapentin [place] 600 mg 600 mg 600 mg da tablet TAKE tablet TAKE tablet Medical 1 TABLET BY 1 TABLET BY TAKE 1 Group MOUTH 4 MOUTH 4 TABLET BY TIMES DAILY TIMES DAILY MOUTH 4 TIMES DAILY iron 65 mg iron 65 mg No 1 Q1D iron 65 mg [place] tablet Take tablet Take tablet da 1 tablet 1 tablet Take 1 Medic al every day every day tablet Mireya up by oral by oral every day route. route. by oral route. MegaRed MegaRed No MegaRed [place]-3 [place]-3 da [employer] [facility] meloxicam meloxicam No meloxicam [place] 15 mg 15 mg 15 mg da tablet Take tablet Take tablet Medical 1 tablet 1 tablet Take 1 Group every day every day tablet by oral by oral every day route for route for by oral 90 days. 90 days. route for 90 days. metoprolol metoprolol No metoprolol [place] succinate succinate succinate da ER 25 mg ER 25 mg ER 25 mg Med ical tablet,exte tablet,exte tablet,ext Group nded nded ended release 24 release 24 release 24 hr TAKE 1 hr TAKE 1 hr TAKE 1 TABLET BY TABLET BY TABLET BY MOUTH ONCE MOUTH ONCE MOUTH ONCE DAILY DAILY DAILY Ocuvite 1 Ocuvite 1 No Ocuvite 1 [place] TAB PO BID TAB PO BID TAB PO BID da Medical Group potassium potassium No potassium [place] gluconate 1 gluconate 1 gluconate da TAB PO QD TAB PO QD 1 TAB PO M edical QD Group valacyclovi valacyclovi No valacyclov [place] r 1 gram r 1 gram ir 1 gram da tablet TAKE tablet TAKE tablet Medical 1 TABLET BY 1 TABLET BY TAKE 1 Group MOUTH EVERY MOUTH EVERY TABLET BY 8 HOURS FOR 8 HOURS FOR MOUTH 7 DAYS 7 DAYS EVERY 8 HOURS FOR 7 DAYS Vitamin D3 Vitamin D3 No 2 TID Vitamin D3 [place] 25 mcg 25 mcg 25 mcg da (1,000 (1,000 (1,000 Medical unit) unit) unit) Group tablet Take tablet Take tablet 2 tablets 3 2 tablets 3 Take 2 times a day times a day tablets 3 by oral by oral times a route. route. day by oral route. atorvastati atorvastati No atorvastat [place] n 20 mg n 20 mg in 20 mg da tablet TAKE tablet TAKE tablet Medical 1 TABLET BY 1 TABLET BY TAKE 1 Group MOUTH ONCE MOUTH ONCE TABLET BY DAILY DAILY MOUTH ONCE DAILY azathioprin azathioprin No azathiopri [place] e 50 mg e 50 mg ne 50 mg da tablet Take tablet Take tablet Medical 1 tablet 1 tablet Take 1 Group every day every day tablet by oral by oral every day route for route for by oral 90 days. 90 days. route for 90 days. [facility] No 1 Q1D [facility] [place] Chewable Chewable Chewable da Low Dose Low Dose Low Dose Med ical Aspirin 81 Aspirin 81 Aspirin 81 Group mg tablet mg tablet mg tablet Chew 1 Chew 1 Chew 1 tablet tablet tablet every day every day every day by oral by oral by oral route. route. route. Calcium 600 Calcium 600 No Calcium [place] + D(3) 1 + D(3) 1 600 + D(3) d a TAB PO BID TAB PO BID 1 TAB PO Medical BID Group Complete Complete No Complete [place] Multivitami Multivitami Multivitam da n 1 TAB PO n 1 TAB PO in 1 TAB Medical QD QD PO QD Group dexamethaso dexamethaso No dexamethas [place] ne 0.5 mg ne 0.5 mg one 0.5 mg da tablet tablet tablet Medical Group Euthyrox Euthyrox No Euthyrox [place] 150 mcg 150 mcg 150 mcg da tablet TAKE tablet TAKE tablet Medical 1 TABLET BY 1 TABLET BY TAKE 1 Group MOUTH IN MOUTH IN TABLET BY THE MORNING THE MORNING MOUTH IN ON AN EMPTY ON AN EMPTY THE STOMACH STOMACH MORNING ON AN EMPTY STOMACH gabapentin gabapentin No gabapentin [place] 600 mg 600 mg 600 mg da tablet TAKE tablet TAKE tablet Medical 1 TABLET BY 1 TABLET BY TAKE 1 Group MOUTH 4 MOUTH 4 TABLET BY TIMES DAILY TIMES DAILY MOUTH 4 TIMES DAILY iron 65 mg iron 65 mg No 1 Q1D iron 65 mg [place] tablet Take tablet Take tablet da 1 tablet 1 tablet Take 1 Medic al every day every day tablet Mireya up by oral by oral every day route. route. by oral route. MegaRed MegaRed No MegaRed [place]-3 [place]-3 da [employer] [facility] [employer] [facility] meloxicam meloxicam No meloxicam [place] 15 mg 15 mg 15 mg da tablet Take tablet Take tablet Medical 1 tablet 1 tablet Take 1 Group every day every day tablet by oral by oral every day route for route for by oral 90 days. 90 days. route for 90 days. metoprolol metoprolol No metoprolol [place] succinate succinate succinate da ER 25 mg ER 25 mg ER 25 mg Med ical tablet,exte tablet,exte tablet,ext Group nded nded ended release 24 release 24 release 24 hr TAKE 1 hr TAKE 1 hr TAKE 1 TABLET BY TABLET BY TABLET BY MOUTH ONCE MOUTH ONCE MOUTH ONCE DAILY DAILY DAILY Ocuvite 1 Ocuvite 1 No Ocuvite 1 [place] TAB PO BID TAB PO BID TAB PO BID da Medical Group potassium potassium No potassium [place] gluconate 1 gluconate 1 gluconate da TAB PO QD TAB PO QD 1 TAB PO M edical QD Group valacyclovi valacyclovi No valacyclov [place] r 1 gram r 1 gram ir 1 gram da tablet TAKE tablet TAKE tablet Medical 1 TABLET BY 1 TABLET BY TAKE 1 Group MOUTH EVERY MOUTH EVERY TABLET BY 8 HOURS FOR 8 HOURS FOR MOUTH 7 DAYS 7 DAYS EVERY 8 HOURS FOR 7 DAYS Vitamin D3 Vitamin D3 No 2 TID Vitamin D3 [place] 25 mcg 25 mcg 25 mcg da (1,000 (1,000 (1,000 Medical unit) unit) unit) Group tablet Take tablet Take tablet 2 tablets 3 2 tablets 3 Take 2 times a day times a day tablets 3 by oral by oral times a route. route. day by oral route. atorvastati atorvastati No atorvastat [place] n 20 mg n 20 mg in 20 mg da tablet TAKE tablet TAKE tablet Medical 1 TABLET BY 1 TABLET BY TAKE 1 Group MOUTH ONCE MOUTH ONCE TABLET BY DAILY DAILY MOUTH ONCE DAILY azathioprin azathioprin No azathiopri [place] e 50 mg e 50 mg ne 50 mg da tablet Take tablet Take tablet Medical 1 tablet 1 tablet Take 1 Group every day every day tablet by oral by oral every day route for route for by oral 90 days. 90 days. route for 90 days. [facility] No 1 Q1D [facility] [place] Chewable Chewable Chewable da Low Dose Low Dose Low Dose Med ical Aspirin 81 Aspirin 81 Aspirin 81 Group mg tablet mg tablet mg tablet Chew 1 Chew 1 Chew 1 tablet tablet tablet every day every day every day by oral by oral by oral route. route. route. Calcium 600 Calcium 600 No Calcium [place] + D(3) 1 + D(3) 1 600 + D(3) d a TAB PO BID TAB PO BID 1 TAB PO Medical BID Group Complete Complete No Complete [place] Multivitami Multivitami Multivitam da n 1 TAB PO n 1 TAB PO in 1 TAB Medical QD QD PO QD Group dexamethaso dexamethaso No dexamethas [place] ne 0.5 mg ne 0.5 mg one 0.5 mg da tablet tablet tablet Medical Group Euthyrox Euthyrox No Euthyrox [place] 150 mcg 150 mcg 150 mcg da tablet TAKE tablet TAKE tablet Medical 1 TABLET BY 1 TABLET BY TAKE 1 Group MOUTH IN MOUTH IN TABLET BY THE MORNING THE MORNING MOUTH IN ON AN EMPTY ON AN EMPTY THE STOMACH STOMACH MORNING ON AN EMPTY STOMACH gabapentin gabapentin No gabapentin [place] 600 mg 600 mg 600 mg da tablet TAKE tablet TAKE tablet Medical 1 TABLET BY 1 TABLET BY TAKE 1 Group MOUTH 4 MOUTH 4 TABLET BY TIMES DAILY TIMES DAILY MOUTH 4 TIMES DAILY iron 65 mg iron 65 mg No 1 Q1D iron 65 mg [facility] tablet Take tablet Take tablet da 1 tablet 1 tablet Take 1 Medic al every day every day tablet Mireya up by oral by oral every day route. route. by oral route. MegaRed MegaRed No MegaRed [place]-[facility] [place]-3 da [employer] [facility] [employer] [facility] meloxicam meloxicam No meloxicam [place] 15 mg 15 mg 15 mg da tablet Take tablet Take tablet Medical 1 tablet 1 tablet Take 1 Group every day every day tablet by oral by oral every day route for route for by oral 90 days. 90 days. route for 90 days. metoprolol metoprolol No metoprolol [place] succinate succinate succinate da ER 25 mg ER 25 mg ER 25 mg Med ical tablet,exte tablet,exte tablet,ext Group nded nded ended release 24 release 24 release 24 hr TAKE 1 hr TAKE 1 hr TAKE 1 TABLET BY TABLET BY TABLET BY MOUTH ONCE MOUTH ONCE MOUTH ONCE DAILY DAILY DAILY Ocuvite 1 Ocuvite 1 No Ocuvite 1 [place] TAB PO BID TAB PO BID TAB PO BID da Medical Group potassium potassium No potassium [place] gluconate 1 gluconate 1 gluconate da TAB PO QD TAB PO QD 1 TAB PO M edical QD Group valacyclovi valacyclovi No valacyclov [place] r 1 gram r 1 gram ir 1 gram da tablet TAKE tablet TAKE tablet Medical 1 TABLET BY 1 TABLET BY TAKE 1 Group MOUTH EVERY MOUTH EVERY TABLET BY 8 HOURS FOR 8 HOURS FOR MOUTH 7 DAYS 7 DAYS EVERY 8 HOURS FOR 7 DAYS Vitamin D3 Vitamin D3 No 2 TID Vitamin D3 [place] 25 mcg 25 mcg 25 mcg da (1,000 (1,000 (1,000 Medical unit) unit) unit) Group tablet Take tablet Take tablet 2 tablets 3 2 tablets 3 Take 2 times a day times a day tablets 3 by oral by oral times a route. route. day by oral route. atorvastati atorvastati No atorvastat [place] n 20 mg n 20 mg in 20 mg da tablet TAKE tablet TAKE tablet Medical 1 TABLET BY 1 TABLET BY TAKE 1 Group MOUTH ONCE MOUTH ONCE TABLET BY DAILY DAILY MOUTH ONCE DAILY azathioprin azathioprin No azathiopri [place] e 50 mg e 50 mg ne 50 mg da tablet Take tablet Take tablet Medical 1 tablet 1 tablet Take 1 Group every day every day tablet by oral by oral every day route for route for by oral 90 days. 90 days. route for 90 days. [facility] No 1 Q1D [facility] [place] Chewable Chewable Chewable da Low Dose Low Dose Low Dose Med ical Aspirin 81 Aspirin 81 Aspirin 81 Group mg tablet mg tablet mg tablet Chew 1 Chew 1 Chew 1 tablet tablet tablet every day every day every day by oral by oral by oral route. route. route. BinaxNOW BinaxNOW No BinaxNOW [facility] COVID-19 Ag COVID-19 Ag COVID-19 da Self Test Self Test Ag Self Me dical kit Use as kit Use as Test kit Group Directed on Directed on Use as the Package the Package Directed on the Package Calcium 600 Calcium 600 No Calcium [place] + D(3) 1 + D(3) 1 600 + D(3) d a TAB PO BID TAB PO BID 1 TAB PO Medical BID Group Complete Complete No Complete [facility] [place] Multivitami Multivitami Multivitam da n 1 TAB PO n 1 TAB PO in 1 TAB Medical QD QD PO QD Group dexamethaso dexamethaso No dexamethas [place] ne 0.5 mg ne 0.5 mg one 0.5 mg da tablet tablet tablet Medical Group Euthyrox Euthyrox No Euthyrox [place] 150 mcg 150 mcg 150 mcg da tablet TAKE tablet TAKE tablet Medical 1 TABLET BY 1 TABLET BY TAKE 1 Group MOUTH IN MOUTH IN TABLET BY THE MORNING THE MORNING MOUTH IN ON AN EMPTY ON AN EMPTY THE STOMACH STOMACH MORNING ON AN EMPTY STOMACH gabapentin gabapentin No gabapentin [facility] 600 mg 600 mg 600 mg da tablet TAKE tablet TAKE tablet Medical 1 TABLET BY 1 TABLET BY TAKE 1 Group MOUTH 4 MOUTH 4 TABLET BY TIMES DAILY TIMES DAILY MOUTH 4 TIMES DAILY iron 65 mg iron 65 mg No 1 Q1D iron 65 mg [facility] tablet Take tablet Take tablet da 1 tablet 1 tablet Take 1 Medic al every day every day tablet Mireya up by oral by oral every day route. route. by oral route. MegaRed MegaRed No [facility]Red [facility] [place] [place] [place] meloxicam meloxicam No meloxicam [facility] 15 mg 15 mg 15 mg da tablet Take tablet Take tablet Medical 1 tablet 1 tablet Take 1 Group every day every day tablet by oral by oral every day route for route for by oral 90 days. 90 days. route for 90 days. metoprolol metoprolol No metoprolol [facility] succinate succinate succinate da ER 25 mg ER 25 mg ER 25 mg Med ical tablet,exte tablet,exte tablet,ext Group nded nded ended release 24 release 24 release 24 hr TAKE 1 hr TAKE 1 hr TAKE 1 TABLET BY TABLET BY TABLET BY MOUTH ONCE MOUTH ONCE MOUTH ONCE DAILY DAILY DAILY Ocuvite 1 Ocuvite 1 No Ocuvite 1 [facility] TAB PO BID TAB PO BID TAB PO BID [facility] potassium potassium No potassium [facility] gluconate 1 gluconate 1 gluconate da TAB PO QD TAB PO QD 1 TAB PO M edical QD Group valacyclovi valacyclovi No valacyclov [place] r 1 gram r 1 gram ir 1 gram da tablet TAKE tablet TAKE tablet Medical 1 TABLET BY 1 TABLET BY TAKE 1 Group MOUTH EVERY MOUTH EVERY TABLET BY 8 HOURS FOR 8 HOURS FOR MOUTH 7 DAYS 7 DAYS EVERY 8 HOURS FOR 7 DAYS Vitamin D3 Vitamin D3 No 2 TID Vitamin D3 [facility] 25 mcg 25 mcg 25 mcg da (1,000 (1,000 (1,000 Medical unit) unit) unit) Group tablet Take tablet Take tablet 2 tablets 3 2 tablets 3 Take 2 times a day times a day tablets 3 by oral by oral times a route. route. day by oral route. atorvastati atorvastati No atorvastat [place] n 20 mg n 20 mg in 20 mg da tablet TAKE tablet TAKE tablet Medical 1 TABLET BY 1 TABLET BY TAKE 1 Group MOUTH ONCE MOUTH ONCE TABLET BY DAILY DAILY MOUTH ONCE DAILY azathioprin azathioprin No azathiopri [place] e 50 mg e 50 mg ne 50 mg da tablet Take tablet Take tablet Medical 1 tablet 1 tablet Take 1 Group every day every day tablet by oral by oral every day route for route for by oral 90 days. 90 days. route for 90 days. [facility] No 1 Q1D [facility] Chewable Chewable Chewable da Low Dose Low Dose Low Dose Med ical Aspirin 81 Aspirin 81 Aspirin 81 Group mg tablet mg tablet mg tablet Chew 1 Chew 1 Chew 1 tablet tablet tablet every day every day every day by oral by oral by oral route. route. route. BinaxNOW BinaxNOW No BinaxNOW [facility] COVID-19 Ag COVID-19 Ag COVID-19 da Self Test Self Test Ag Self Me dical kit Use as kit Use as Test kit Group Directed on Directed on Use as the Package the Package Directed on the Package Calcium 600 Calcium 600 No Calcium [facility] + D(3) 1 + D(3) 1 600 + D(3) d a TAB PO BID TAB PO BID 1 TAB PO Medical BID Group Complete Complete No Complete [facility] Multivitami Multivitami Multivitam da n 1 TAB PO n 1 TAB PO in 1 TAB Medical QD QD PO QD Group dexamethaso dexamethaso No dexamethas [facility] ne 0.5 mg ne 0.5 mg one 0.5 mg da tablet tablet tablet Medical Group Euthyrox Euthyrox No Euthyrox [facility] 150 mcg 150 mcg 150 mcg da tablet TAKE tablet TAKE tablet Medical 1 TABLET BY 1 TABLET BY TAKE 1 Group MOUTH IN MOUTH IN TABLET BY THE MORNING THE MORNING MOUTH IN ON AN EMPTY ON AN EMPTY THE STOMACH STOMACH MORNING ON AN EMPTY STOMACH gabapentin gabapentin No gabapentin [facility] 600 mg 600 mg 600 mg da tablet TAKE tablet TAKE tablet Medical 1 TABLET BY 1 TABLET BY TAKE 1 Group MOUTH 4 MOUTH 4 TABLET BY TIMES DAILY TIMES DAILY MOUTH 4 TIMES DAILY iron 65 mg iron 65 mg No 1 Q1D iron 65 mg [facility] tablet Take tablet Take tablet da 1 tablet 1 tablet Take 1 Medic al every day every day tablet Mireya up by oral by oral every day route. route. by oral route. MegaRed MegaRed No [facility]Red [facility] [place] [place] [place] [employer] [facility] Take (1) Take (1) Take (1) M[facility]ya up capsule by capsule by capsule by mouth once mouth once mouth once daily daily daily meloxicam meloxicam No meloxicam [facility] 15 mg 15 mg 15 mg da tablet Take tablet Take tablet Medical 1 tablet 1 tablet Take 1 Group every day every day tablet by oral by oral every day route for route for by oral 90 days. 90 days. route for 90 days. metoprolol metoprolol No metoprolol [facility] succinate succinate succinate da ER 25 mg ER 25 mg ER 25 mg Med ical tablet,exte tablet,exte tablet,ext Group nded nded ended release 24 release 24 release 24 hr TAKE 1 hr TAKE 1 hr TAKE 1 TABLET BY TABLET BY TABLET BY MOUTH ONCE MOUTH ONCE MOUTH ONCE DAILY DAILY DAILY Ocuvite 1 Ocuvite 1 No Ocuvite 1 [facility] TAB PO BID TAB PO BID TAB PO BID [facility] potassium potassium No potassium [facility] gluconate 1 gluconate 1 gluconate da TAB PO QD TAB PO QD 1 TAB PO M edical QD Group Vitamin D3 Vitamin D3 No 2 TID Vitamin D3 [facility] 25 mcg 25 mcg 25 mcg da (1,000 (1,000 (1,000 Medical unit) unit) unit) Group tablet Take tablet Take tablet 2 tablets 3 2 tablets 3 Take 2 times a day times a day tablets 3 by oral by oral times a route. route. day by oral route. atorvastati atorvastati No atorvastat [place] n 20 mg n 20 mg in 20 mg da tablet TAKE tablet TAKE tablet Medical 1 TABLET BY 1 TABLET BY TAKE 1 Group MOUTH ONCE MOUTH ONCE TABLET BY DAILY DAILY MOUTH ONCE DAILY azathioprin azathioprin No azathiopri [place] e 50 mg e 50 mg ne 50 mg da tablet Take tablet Take tablet Medical 1 tablet 1 tablet Take 1 Group every day every day tablet by oral by oral every day route for route for by oral 90 days. 90 days. route for 90 days. [facility] No 1 Q1D [facility] Chewable Chewable Chewable da Low Dose Low Dose Low Dose Med ical Aspirin 81 Aspirin 81 Aspirin 81 Group mg tablet mg tablet mg tablet Chew 1 Chew 1 Chew 1 tablet tablet tablet every day every day every day by oral by oral by oral route. route. route. BinaxNOW BinaxNOW No BinaxNOW [facility] COVID-19 Ag COVID-19 Ag COVID-19 da Self Test Self Test Ag Self Me dical kit Use as kit Use as Test kit Group Directed on Directed on Use as the Package the Package Directed on the Package Calcium 600 Calcium 600 No Calcium [facility] + D(3) 1 + D(3) 1 600 + D(3) d a TAB PO BID TAB PO BID 1 TAB PO Medical BID Group Complete Complete No Complete [facility] Multivitami Multivitami Multivitam da n 1 TAB PO n 1 TAB PO in 1 TAB Medical QD QD PO QD Group dexamethaso dexamethaso No dexamethas [place] ne 0.5 mg ne 0.5 mg one 0.5 mg da tablet tablet tablet Medical Group Euthyrox Euthyrox No Euthyrox [facility] 150 mcg 150 mcg 150 mcg da tablet TAKE tablet TAKE tablet Medical 1 TABLET BY 1 TABLET BY TAKE 1 Group MOUTH IN MOUTH IN TABLET BY THE MORNING THE MORNING MOUTH IN ON AN EMPTY ON AN EMPTY THE STOMACH STOMACH MORNING ON AN EMPTY STOMACH gabapentin gabapentin No gabapentin [place] 600 mg 600 mg 600 mg da tablet TAKE tablet TAKE tablet Medical 1 TABLET BY 1 TABLET BY TAKE 1 Group MOUTH 4 MOUTH 4 TABLET BY TIMES DAILY TIMES DAILY MOUTH 4 TIMES DAILY iron 65 mg iron 65 mg No 1 Q1D iron 65 mg [facility] tablet Take tablet Take tablet da 1 tablet 1 tablet Take 1 Medic al every day every day tablet Mireya up by oral by oral every day route. route. by oral route. MegaRed MegaRed No [facility]Red [facility] [facility] [place] [place] [place] [employer] [facility] Take (1) Take (1) Take (1) M[facility] up capsule by capsule by capsule by mouth once mouth once mouth once daily daily daily meloxicam meloxicam No meloxicam [facility] 15 mg 15 mg 15 mg da tablet Take tablet Take tablet Medical 1 tablet 1 tablet Take 1 Group every day every day tablet by oral by oral every day route for route for by oral 90 days. 90 days. route for 90 days. metoprolol metoprolol No metoprolol [facility] succinate succinate succinate da ER 25 mg ER 25 mg ER 25 mg Med ical tablet,exte tablet,exte tablet,ext Group nded nded ended release 24 release 24 release 24 hr TAKE 1 hr TAKE 1 hr TAKE 1 TABLET BY TABLET BY TABLET BY MOUTH ONCE MOUTH ONCE MOUTH ONCE DAILY DAILY DAILY Ocuvite 1 Ocuvite 1 No Ocuvite 1 [facility] TAB PO BID TAB PO BID TAB PO BID [facility] potassium potassium No potassium [facility] gluconate 1 gluconate 1 gluconate da TAB PO QD TAB PO QD 1 TAB PO M edical QD Group Vitamin D3 Vitamin D3 No 2 TID Vitamin D3 [facility] 25 mcg 25 mcg 25 mcg da (1,000 (1,000 (1,000 Medical unit) unit) unit) Group tablet Take tablet Take tablet 2 tablets 3 2 tablets 3 Take 2 times a day times a day tablets 3 by oral by oral times a route. route. day by oral route. atorvastati atorvastati No atorvastat [place] n 20 mg n 20 mg in 20 mg da tablet TAKE tablet TAKE tablet Medical 1 TABLET BY 1 TABLET BY TAKE 1 Group MOUTH ONCE MOUTH ONCE TABLET BY DAILY DAILY MOUTH ONCE DAILY azathioprin azathioprin No azathiopri [place] e 50 mg e 50 mg ne 50 mg da tablet Take tablet Take tablet Medical 1 tablet 1 tablet Take 1 Group every day every day tablet by oral by oral every day route for route for by oral 90 days. 90 days. route for 90 days. [facility] No 1 Q1D [facility] Chewable Chewable Chewable da Low Dose Low Dose Low Dose Med ical Aspirin 81 Aspirin 81 Aspirin 81 Group mg tablet mg tablet mg tablet Chew 1 Chew 1 Chew 1 tablet tablet tablet every day every day every day by oral by oral by oral route. route. route. dexamethaso dexamethaso No dexamethas [place] ne 0.5 mg ne 0.5 mg one 0.5 mg da tablet tablet tablet Medical Group Euthyrox Euthyrox No Euthyrox [facility] 150 mcg 150 mcg 150 mcg da tablet TAKE tablet TAKE tablet Medical 1 TABLET BY 1 TABLET BY TAKE 1 Group MOUTH IN MOUTH IN TABLET BY THE MORNING THE MORNING MOUTH IN ON AN EMPTY ON AN EMPTY THE STOMACH STOMACH MORNING ON AN EMPTY STOMACH gabapentin gabapentin No gabapentin [place] 600 mg 600 mg 600 mg da tablet TAKE tablet TAKE tablet Medical 1 TABLET BY 1 TABLET BY TAKE 1 Group MOUTH 4 MOUTH 4 TABLET BY TIMES DAILY TIMES DAILY MOUTH 4 TIMES DAILY meloxicam meloxicam No meloxicam [facility] 15 mg 15 mg 15 mg da tablet Take tablet Take tablet Medical 1 tablet 1 tablet Take 1 Group every day every day tablet by oral by oral every day route for route for by oral 90 days. 90 days. route for 90 days. Immunizations Ordered Immunization Filled Immunization Date Status Commen ts Source Name Name [id number]- 2021-04-01 Completed [facility] [id number] 00:00:00 [facility] ruby [id number]- 2021-04-01 Completed [facility] [id number] 00:00:00 [facility] ruby [id number] 2021-04-01 Completed [facility] [id number] 00:00:00 [facility] [id number] 2020-09-27 Completed [facility] [id number] 00:00:00 [facility] [id number] 2020-09-27 Completed [facility] [id number] 00:00:00 [facility] [id number] 2020-09-27 Completed [facility] [id number] 00:00:00 [facility] [id number] 2020-09-06 Completed [facility] [id number] 00:00:00 [facility] [id number] 2020-09-06 Completed [facility] [id number] 00:00:00 [facility] [id number] 2020-09-06 Completed [facility] [id number] 00:00:00 [facility] Vital Signs Vital Name Observation Time Observation Value Comments Source BP Diastolic 2022-10-02 00:00:00 66 mm[Hg] [facility] Height 2022-10-02 00:00:00 66 [in_i] [facility] BMI (Body Mass 2022-10-02 00:00:00 26.3 kg/m2 [facility] BP Systolic 2022-10-02 00:00:00 135 mm[Hg] [facility] Body Weight 2022-10-02 00:00:00 163 [lb_av] [facility] BP Diastolic 2022-09-30 00:00:00 67 mm[Hg] [facility] Height 2022-09-30 00:00:00 66 [in_i] [facility] BMI (Body Mass 2022-09-30 00:00:00 26 kg/m2 [facility] BP Systolic 2022-09-30 00:00:00 117 mm[Hg] [facility] Body Weight 2022-09-30 00:00:00 161 [lb_av] [facility] BP Diastolic 2022-08-05 00:00:00 72 mm[Hg] [facility] Height 2022-08-05 00:00:00 66 [in_i] [facility] BMI (Body Mass 2022-08-05 00:00:00 26.1 kg/m2 [facility]) [facility] BP Systolic 2022-08-05 00:00:00 164 mm[Hg] [facility] Body Weight 2022-08-05 00:00:00 2587.2 [oz_av] [facility] BP Diastolic 2022-06-03 00:00:00 73 mm[Hg] [facility] Height 2022-06-03 00:00:00 66 [in_i] [facility] BMI (Body Mass 2022-06-03 00:00:00 25.5 kg/m2 [facility] BP Systolic 2022-06-03 00:00:00 146 mm[Hg] [facility] Body Weight 2022-06-03 00:00:00 2529.6 [oz_av] [facility] BP Diastolic 2022-04-29 00:00:00 72 mm[Hg] [facility] Height 2022-04-29 00:00:00 66 [in_i] [facility] BMI (Body Mass 2022-04-29 00:00:00 25.5 kg/m2 [facility] BP Systolic 2022-04-29 00:00:00 138 mm[Hg] [facility] Body Weight 2022-04-29 00:00:00 158 [lb_av] [facility] BP Diastolic 2022-04-15 00:00:00 64 mm[Hg] [facility] Height 2022-04-15 00:00:00 66 [in_i] [facility] BMI (Body Mass 2022-04-15 00:00:00 25.7 kg/m2 [facility] BP Systolic 2022-04-15 00:00:00 130 mm[Hg] [facility] Body Weight 2022-04-15 00:00:00 159 [lb_av] [facility] BP Diastolic 2022-04-01 00:00:00 64 mm[Hg] [facility] Height 2022-04-01 00:00:00 66 [in_i] [facility] BP Systolic 2022-04-01 00:00:00 136 mm[Hg] [facility] Body Weight 2022-04-01 00:00:00 157 [lb_av] [facility] BP Diastolic 2022-01-07 00:00:00 71 mm[Hg] [facility] Height 2022-01-07 00:00:00 66 [in_i] [facility] BMI (Body Mass 2022-01-07 00:00:00 25 kg/m2 [facility] BP Systolic 2022-01-07 00:00:00 158 mm[Hg] [facility] Body Weight 2022-01-07 00:00:00 2473.6 [oz_av] [facility] BP Diastolic 2021-11-12 00:00:00 73 mm[Hg] [facility] Height 2021-11-12 00:00:00 66 [in_i] [facility] BMI (Body Mass 2021-11-12 00:00:00 25.6 kg/m2 [facility] BP Systolic 2021-11-12 00:00:00 147 mm[Hg] [facility] Body Weight 2021-11-12 00:00:00 2540.8 [oz_av] [facility] BP Diastolic 2021-10-01 00:00:00 68 mm[Hg] [facility] Height 2021-10-01 00:00:00 66 [in_i] [facility] BMI (Body Mass 2021-10-01 00:00:00 26.3 kg/m2 [facility] BP Systolic 2021-10-01 00:00:00 136 mm[Hg] [facility] Body Weight 2021-10-01 00:00:00 163 [lb_av] [facility] BP Diastolic 2021-09-17 00:00:00 60 mm[Hg] [facility] Height 2021-09-17 00:00:00 66 [in_i] [facility] BMI (Body Mass 2021-09-17 00:00:00 26.8 kg/m2 [facility] BP Systolic 2021-09-17 00:00:00 120 mm[Hg] [facility] Body Weight 2021-09-17 00:00:00 166 [lb_av] [facility] BP Diastolic 2021-09-03 00:00:00 62 mm[Hg] [facility] Height 2021-09-03 00:00:00 66 [in_i] [facility] BMI (Body Mass 2021-09-03 00:00:00 26.8 kg/m2 [facility] BP Systolic 2021-09-03 00:00:00 124 mm[Hg] [facility] Body Weight 2021-09-03 00:00:00 166 [lb_av] [facility] BP Diastolic 2021-07-15 00:00:00 69 mm[Hg] [facility] Height 2021-07-15 00:00:00 66 [in_i] [facility] BMI (Body Mass 2021-07-15 00:00:00 28.1 kg/m2 [facility] BP Systolic 2021-07-15 00:00:00 146 mm[Hg] [facility] Body Weight 2021-07-15 00:00:00 174.2 [lb_av] [facility] BP Diastolic 2021-01-10 00:00:00 59 mm[Hg] [facility] Height 2021-01-10 00:00:00 66 [in_i] [facility] BMI (Body Mass 2021-01-10 00:00:00 28.4 kg/m2 [facility] BP Systolic 2021-01-10 00:00:00 98 mm[Hg] [facility] Body Weight 2021-01-10 00:00:00 176 [lb_av] [facility] BP Diastolic 2020-05-04 00:00:00 59 mm[Hg] [facility] Height 2020-05-04 00:00:00 66 [in_i] [facility] BMI (Body Mass 2020-05-04 00:00:00 28.8 kg/m2 [facility] BP Systolic 2020-05-04 00:00:00 103 mm[Hg] [facility] Body Weight 2020-05-04 00:00:00 2851 [oz_av] [facility] BP Diastolic 2020-04-23 00:00:00 65 mm[Hg] [facility] Height 2020-04-23 00:00:00 66 [in_i] [facility] BMI (Body Mass 2020-04-23 00:00:00 28.8 kg/m2 [facility] BP Systolic 2020-04-23 00:00:00 143 mm[Hg] [facility] Body Weight 2020-04-23 00:00:00 178.7 [lb_av] [facility] BP Diastolic 2020-04-09 00:00:00 61 mm[Hg] [facility] Height 2020-04-09 00:00:00 66 [in_i] [facility] BMI (Body Mass 2020-04-09 00:00:00 28.6 kg/m2 [facility] BP Systolic 2020-04-09 00:00:00 129 mm[Hg] [facility] Body Weight 2020-04-09 00:00:00 177 [lb_av] [facility] BP Diastolic 2020-03-19 00:00:00 76 mm[Hg] [facility] Height 2020-03-19 00:00:00 66 [in_i] [facility] BMI (Body Mass 2020-03-19 00:00:00 28.3 kg/m2 [facility] BP Systolic 2020-03-19 00:00:00 140 mm[Hg] [facility] Body Weight 2020-03-19 00:00:00 175.4 [lb_av] [facility] BP Diastolic 2019-05-27 00:00:00 65 mm[Hg] [facility] Height 2019-05-27 00:00:00 66 [in_i] [facility] BMI (Body Mass 2019-05-27 00:00:00 28.6 kg/m2 [facility] BP Systolic 2019-05-27 00:00:00 130 mm[Hg] [facility] Body Weight 2019-05-27 00:00:00 2834 [oz_av] [facility] BP Diastolic 2019-01-20 00:00:00 62 mm[Hg] [facility] Height 2019-01-20 00:00:00 66 [in_i] [facility] BMI (Body Mass 2019-01-20 00:00:00 28.9 kg/m2 [facility] BP Systolic 2019-01-20 00:00:00 125 mm[Hg] [facility] Body Weight 2019-01-20 00:00:00 179 [lb_av] [facility] BP Diastolic 2019-01-06 00:00:00 62 mm[Hg] [facility] Height 2019-01-06 00:00:00 66 [in_i] [facility] BMI (Body Mass 2019-01-06 00:00:00 28.9 kg/m2 [facility] BP Systolic 2019-01-06 00:00:00 130 mm[Hg] [facility] Body Weight 2019-01-06 00:00:00 179 [lb_av] [facility] BP Diastolic 2018-07-13 00:00:00 51 mm[Hg] [facility] Height 2018-07-13 00:00:00 66 [in_i] [facility] BMI (Body Mass 2018-07-13 00:00:00 29.2 kg/m2 [facility] BP Systolic 2018-07-13 00:00:00 129 mm[Hg] [facility] Body Weight 2018-07-13 00:00:00 181 [lb_av] [facility] Systolic (mm Hg) 2022-11-07 14:41:00 [facility] Diastolic (mm Hg) 2022-11-07 14:41:00 [facility] Heart Rate 2022-11-07 14:41:00 [facility] Height 2022-11-07 14:41:00 5 [ft_i] [facility] Weight 2022-11-07 14:41:00 [facility] BMI Calculated 2022-11-07 14:41:00 [facility] Systolic (mm Hg) 2022-09-19 18:41:00 [facility] Diastolic (mm Hg) 2022-09-19 18:41:00 [facility] Heart Rate 2022-09-19 18:41:00 [facility] Height 2022-09-19 18:41:00 5 [ft_i] [facility] Weight 2022-09-19 18:41:00 [facility] BMI Calculated 2022-09-19 18:41:00 [facility] Systolic blood 2022-01-10 14:48:00 141 mm[Hg] [facility] pressure Diastolic blood 2022-01-10 14:48:00 67 mm[Hg] [facility] pressure Heart rate 2022-01-10 14:48:00 63 /min [facility] Respiratory rate 2022-01-10 14:48:00 20 /min [facility] Oxygen saturation in 2022-01-10 14:48:00 95 /min [facility] Arterial blood by Pulse oximetry Body temperature 2022-01-10 14:30:00 36.56 Casi [facility] Body height 2022-01-10 12:37:00 167.6 cm [facility] Body weight 2022-01-10 12:37:00 69.854 kg [facility] BMI 2022-01-10 12:37:00 24.86 kg/m2 [facility] Systolic (mm Hg) 2021-10-17 16:15:00 [facility] Diastolic (mm Hg) 2021-10-17 16:15:00 [facility] Respitory Rate 2021-10-17 16:15:00 [facility] Systolic (mm Hg) 2021-10-17 16:00:00 [facility] [place] Diastolic (mm Hg) 2021-10-17 16:00:00 [facility] [place] Respitory Rate 2021-10-17 16:00:00 [facility] Systolic (mm Hg) 2021-10-17 15:45:00 [facility] Diastolic (mm Hg) 2021-10-17 15:45:00 [facility] Respitory Rate 2021-10-17 15:45:00 [facility] Height 2021-10-17 14:23:00 167.64 cm [facility] Weight 2021-10-17 14:23:00 [facility] BMI Calculated 2021-10-17 14:23:00 [facility] Systolic (mm Hg) 2020-07-20 16:30:00 [facility] Diastolic (mm Hg) 2020-07-20 16:30:00 [facility] Respitory Rate 2020-07-20 16:30:00 [facility] Systolic (mm Hg) 2020-07-20 16:15:00 [facility] Diastolic (mm Hg) 2020-07-20 16:15:00 [facility] Respitory Rate 2020-07-20 16:15:00 [facility] Systolic (mm Hg) 2020-07-20 16:00:00 [facility] Diastolic (mm Hg) 2020-07-20 16:00:00 [facility] Respitory Rate 2020-07-20 16:00:00 [facility] Height 2020-07-20 14:51:00 167.64 cm [facility] Weight 2020-07-20 14:51:00 [facility] BMI Calculated 2020-07-20 14:51:00 [facility] Respitory Rate 2020-06-20 15:25:00 [facility] Systolic (mm Hg) 2020-06-20 15:25:00 [facility] [place] Diastolic (mm Hg) 2020-06-20 15:25:00 [facility] Systolic (mm Hg) 2020-06-20 14:50:00 [facility] Diastolic (mm Hg) 2020-06-20 14:50:00 [facility] Heart Rate 2020-06-20 14:50:00 [facility] Respitory Rate 2020-06-20 14:50:00 [facility] Heart Rate 2020-06-20 14:40:00 [facility] Respitory Rate 2020-06-20 14:40:00 [facility] Systolic (mm Hg) 2020-06-20 14:40:00 [facility] Diastolic (mm Hg) 2020-06-20 14:40:00 [facility] Temperature Oral (F) 2020-06-20 14:30:00 37 Casi [facility] Heart Rate 2020-06-20 14:30:00 [facility] Temperature Oral (F) 2020-06-20 12:37:00 36.5 Casi [facility] Height 2020-06-20 12:37:00 167.64 cm [facility] Height 2020-06-18 20:43:00 167.64 cm [facility] Respitory Rate 2020-05-23 18:48:00 [facility] Systolic (mm Hg) 2020-05-23 18:48:00 [facility] Diastolic (mm Hg) 2020-05-23 18:48:00 [facility] Heart Rate 2020-05-23 18:20:00 [facility] Respitory Rate 2020-05-23 18:20:00 [facility] Systolic (mm Hg) 2020-05-23 18:20:00 [facility] Diastolic (mm Hg) 2020-05-23 18:20:00 [facility] Heart Rate 2020-05-23 18:10:00 [facility] Respitory Rate 2020-05-23 18:10:00 [facility] Systolic (mm Hg) 2020-05-23 18:10:00 [facility] Diastolic (mm Hg) 2020-05-23 18:10:00 [facility] Temperature Oral (F) 2020-05-23 18:00:00 37 Casi [facility] Heart Rate 2020-05-23 18:00:00 [facility] Temperature Oral (F) 2020-05-23 16:20:00 37 Casi [facility] Height 2020-05-23 16:20:00 167.64 cm [facility] Weight 2018-12-27 19:35:00 [facility] BMI Calculated 2018-12-27 19:35:00 [facility] Height 2018-12-27 19:35:00 165.1 cm [facility] Systolic (mm Hg) 2018-12-27 19:35:00 [facility] Diastolic (mm Hg) 2018-12-27 19:35:00 [facility] Heart Rate 2018-12-27 19:35:00 [facility] Procedures Procedure Date / Time Performing Clinician Source Performed [id number] 2022-12-24 00:00:00 KYLSU [facility] unlisted imaging order 2022-10-02 00:00:00 [facility] [place] < 1 HOUR 2022-01-10 14:27:00 [facility], STEROID, SPINE, 2022-01-10 14:10:00 [facility] LUMBAR, EPIDURAL, SINGLE XR, hip, unilateral 2021-11-12 00:00:00 [facility] FLUOROSCOPIC GUIDANCE AND 2020-06-20 14:24:00 Me morial Manlius LOCALIZATION OF NEEDLE OR CATHETER TIP; SPINE INJ. 71766 (Bilateral)<sup>1</sup> INJ.CATH PLACE OF 2020-06-20 14:24:00 [facility] ermann DIAG/THERA.SUBSTANCE EPIDURAL OR SUBARACHNOID LUMBAR/SACRAL 05117 (Bilateral)<sup>2</sup> FLUOROSCOPIC GUIDANCE AND 2020-05-23 17:55:00 Me morial Alessandro LOCALIZATION OF NEEDLE OR CATHETER TIP; SPINE INJ. 50803 (Left)<sup>1</sup> INJ.CATH PLACE OF 2020-05-23 17:55:00 [facility] ermann DIAG/THERA.SUBSTANCE EPIDURAL OR SUBARACHNOID LUMBAR/SACRAL 94204 (Left)<sup>2</sup> US, transvaginal 2020-04-09 00:00:00 [facility] US, transvaginal 2020-03-19 00:00:00 [facility] US, pelvis 2019-05-27 00:00:00 [facility] Colonoscopy 2011-06-22 00:00:00 [facility] Thyroid Surgery [facility] Anesth Repair of Hernia [facility] Caesarean Section [facility] Tubal Ligation [facility] Tonsillectomy [facility] Biopsy<sup>1</sup> [facility] ruby Fundoplication [facility] Cholecystectomy [facility] Bilateral tubal ligation Memoria l [facility] section [facility] Thyroide[facility] Tonsillectomy [facility] C/S [facility] cholecystectomy [facility] Hiatal hernia [facility] T&A [facility] thyroidectomy [facility] Plan of Care Planned Activity Planned Date Details Comments Source Future Scheduled Test 2022-12-29 Hepatitis C screening [facility] 08:35:45 (procedure) [code = 537044163] Future Scheduled Test 2022-12-29 SHINGLES VACCINES (1 [facility] 08:35:45 of 2) [code = SHINGLES VACCINES (1 of 2)] Future Scheduled Test 2022-12-29 [address] [facility] 08:35:45 VACCINE (1 - PCV) [code = 65+ PNEUMOCOCCAL VACCINE (1 - PCV)] Future Scheduled Test 2022-12-29 COVID-19 VACCINE (4 - [facility] 08:35:45 Booster for Pfizer series) [code = COVID-19 VACCINE (4 - Booster for Pfizer series)] Future Scheduled Test 2022-12-29 INFLUENZA VACCINE [facility] 08:35:45 [code = INFLUENZA VACCINE] Future Scheduled Test 2022-12-29 Hepatitis C screening [facility] 08:35:45 (procedure) [code = 045205046] Future Scheduled Test 2022-12-29 SHINGLES VACCINES (1 [facility] 08:35:45 of 2) [code = SHINGLES VACCINES (1 of 2)] Future Scheduled Test 2022-12-29 65+ [address]UMOC[address] [facility] 08:35:45 VACCINE (1 - PCV) [code = 65+ PNEUMOCOCCAL VACCINE (1 - PCV)] Future Scheduled Test 2022-12-29 COVID-19 VACCINE (4 [facility] 08:35:45 Booster for Pfizer series) [code = COVID-19 VACCINE (4 - Booster for Pfizer series)] Future Scheduled Test 2022-12-29 INFLUENZA VACCINE [facility] 08:35:45 [code = INFLUENZA VACCINE] Future Scheduled Test 2022-12-08 Hepatitis C screening [facility] 19:26:05 (procedure) [code = 161303500] Future Scheduled Test 2022-12-08 SHINGLES VACCINES (1 [facility] 19:26:05 of 2) [code = SHINGLES VACCINES (1 of 2)] Future Scheduled Test 2022-12-08 [address]+ [address] [facility] 19:26:05 VACCINE (1 - PCV) [code = 65+ PNEUMOCOCCAL VACCINE (1 - PCV)] Future Scheduled Test 2022-12-08 COVID-19 VACCINE ([address] [place] [address] 19:26:05 Booster for Pfizer series) [code = COVID-19 VACCINE (4 - Booster for Pfizer series)] Future Scheduled Test 2022-12-08 INFLUENZA VACCINE [facility] 19:26:05 [code = INFLUENZA VACCINE] Diagnostic Test 2022-10-02 urinalysis, dipstick [facility] Pending 00:00:00 [code = urinalysis, Group dipstick] Diagnostic Test 2022-10-02 culture, urine [code [facility] Pending 00:00:00 = culture, urine] Group Future Scheduled Test 2022-02-12 HEPATITIS B VACCINES [facility] 10:48:57 (1 of 3 - 3-dose series) [code = HEPATITIS B VACCINES (1 of 3 - 3-dose series)] Future Scheduled Test 2022-02-12 Hepatitis C screening [facility] 10:48:57 (procedure) [code = [id number]] Future Scheduled Test 2022-02-12 SHINGLES VACCINES (1 [facility] 10:48:57 of 2) [code = SHINGLES VACCINES (1 of 2)] Future Scheduled Test 2022-02-12 COLONOSCOPY SCREENING [facility] 10:48:57 [code = COLONOSCOPY SCREENING] Future Scheduled Test 2022-02-12 65+ PNEUMOCOCCAL [facility] 10:48:57 VACCINE (1 - PCV) [code = 65+ PNEUMOCOCCAL VACCINE (1 - PCV)] Future Scheduled Test 2022-02-12 COVID-19 VACCINE (4 - [facility] 10:48:57 Booster for Pfizer series) [code = COVID-19 VACCINE (4 - Booster for Pfizer series)] Future Scheduled Test 2022-02-12 INFLUENZA VACCINE [facility] 10:48:57 [code = INFLUENZA VACCINE] Future Scheduled Test 2022-02-12 HEPATITIS B VACCINES [facility] 10:48:57 (1 of 3 - 3-dose series) [code = HEPATITIS B VACCINES (1 of 3 - 3-dose series)] Future Scheduled Test 2022-02-12 Hepatitis C screening [facility] 10:48:57 (procedure) [code = [id number]] Future Scheduled Test 2022-02-12 SHINGLES VACCINES (1 [facility] 10:48:57 of 2) [code = SHINGLES VACCINES (1 of 2)] Future Scheduled Test 2022-02-12 COLONOSCOPY SCREENING [facility] 10:48:57 [code = COLONOSCOPY SCREENING] Future Scheduled Test 2022-02-12 65+ PNEUMOCOCCAL [facility] 10:48:57 VACCINE (1 - PCV) [code = 65+ PNEUMOCOCCAL VACCINE (1 - PCV)] Future Scheduled Test 2022-02-12 COVID-19 VACCINE (4 - [facility] 10:48:57 Booster for Pfizer series) [code = COVID-19 VACCINE (4 - Booster for Pfizer series)] Future Scheduled Test 2022-02-12 INFLUENZA VACCINE [facility] 10:48:57 [code = INFLUENZA VACCINE] Future Appointment 2029-01-20 Mike Vanegas, [address] [place] [address] Medical 00:00:00 [facility] [address], [place] [address] Instructions [facility] Encounters Start End Encounter Admission Attending Care Care Encounter Source Date/Time Date/Time Type Type Clinicians Facility Department ID 2022-12-31 Outpatient [facility] [id number] [place] 11:22:04 [id number] [facility] 2022-12-29 Outpatient [facility] [id number] [place] 09:11:57 [id number] [facility] 2022-12-26 Outpatient [facility] [id number] [place] 00:44:50 [id number] [facility] 2022-11-03 Inpatient JOSE RAUL LENZ [facility] [id number] [facility] 14:00:00 DARELL [id number] Critical access hospital 2021-12-30 Outpatient ELCAMPO ELCAMPO [id number] El 11:21:30 [id number] [facility] 2021-12-29 Outpatient ELCAMPO ELCAMPO [id number] El 15:53:17 [id number] [facility] 2023-03-05 2023-03-05 Outpatient TAMMI PANG [id number] Memoria 10:30:00 10:30:00 03 jay jay Man[facility] 2023-03-05 2023-03-05 Outpatient POLY PANG [id number] [facility]oria 10:30:00 10:30:00 03 l Manlius 2022-12-24 2023-01-01 Inpatient GEM Montesinos INTE [id number] [facility] 06:50:00 12:28:00 Musaddiq 00 [facility] 2022-12-18 2022-12-18 Outpatient JOSE RAUL Schilling, HCAPM 3DAY [id number] [facility] 08:00:00 09:00:00 Musaddiq 68 [facility] 2022-10-21 2022-11-19 Outpatient JOSE RAUL JONES [facility] [id number] [place] 07:00:00 00:01:00 BJARTIE -[id number] Critical access hospital 2022-11-11 2022-11-11 Outpatient JOSE RAUL RAMSEY [facility] [id number] [place] 12:57:00 12:57:00 GLEN -[id number] Critical access hospital 2022-11-10 2022-11-10 Outpatient JOSE RAUL LENZ [facility] [id number] [place] 13:54:00 13:54:00 DARELL -[id number] Critical access hospital 2022-11-07 2022-11-08 Outpatient MHIE MNA [id number] Memoria 15:00:00 04:59:59 Neurology 02 l Antonio Francois 2022-11-07 2022-11-08 Outpatient MHIE MNA [id number] Memoria 15:00:00 04:59:59 Neurology 02 l Antonio Francois 2022-11-07 2022-11-07 Outpatient DEMOND Mcfarlane MHMISCHER [id number] 10:00:00 23:59:59 Eduardo 02 Nile 2022-11-07 2022-11-07 Outpatient MHIE MHIE [id number] Memoria 10:00:00 10:00:00 02 jay jay Francois 2022-10-17 2022-10-19 Outpatient JOSE RAUL JONES [facility] [id number] [place] 13:00:00 00:01:00 EDWARD -[id number] Critical access hospital 2022-10-15 2022-10-15 Outpatient JOSE RAUL JONES [facility] [id number] [place] 13:00:00 13:00:00 EDWARD -[id number] Critical access hospital 2022-10-13 2022-10-13 Outpatient JOSE RAUL KAREN [facility] [id number] [place] 13:00:00 13:00:00 AMAN -[id number] Critical access hospital 2022-10-10 2022-10-10 Outpatient JOSE RAUL JONES, [facility] [id number] [place] 13:00:00 13:00:00 EDWARD -[id number] da [facility] 2022-10-08 2022-10-08 Outpatient JOSE RAUL JONES, [facility] [id number] [place] 13:00:00 13:00:00 EDWARD -[id number] da [facility] 2022-10-06 2022-10-06 Outpatient JOSE RAUL JONES, [facility] [id number] [place] 13:00:00 13:00:00 EDWARD -[id number] da [facility] 2022-10-03 2022-10-03 Outpatient JOSE RAUL JONES [facility] [id number] [place] 12:58:00 12:58:00 EDWARD -[id number] da [facility] 2022-10-02 2022-10-02 Outpatient JOSE RAUL YOANNA [facility] [id number] [place] 14:30:00 14:30:00 DARELL -[id number] da [facility] 2022-10-02 2022-10-02 [place] [id number] [place] 00:00:00 00:00:00 0413 [facility] 2022-10-02 2022-10-02 Outpatient G_Pappas MMG MMG [id number] [place] 00:00:00 00:00:00 0417 da [facility] 2022-10-02 2022-10-02 Outpatient G_Pappas MMG MMG [id number] [place] 00:00:00 00:00:00 0510 da [facility] 2022-10-02 2022-10-02 Darell [facility] [place] - [id number] M atagor 00:00:00 00:00:00 Discovery vianey Lenz MD: [address] [place] [address] , Ph. [phone] 2022-10-01 2022-10-01 Outpatient JOSE RAUL JONES [facility] [id number] [place] 13:00:00 13:00:00 EDWARD -[id number] Critical access hospital 2022-09-30 2022-09-30 [facility] [place] [facility] [id number] M at[facility]or 00:00:00 00:00:00 Discovery vianey Huff MD: [address] [facility], [facility] [address], [place] [address] , Ph. 2022-09-29 2022-09-29 Outpatient JOSE RAUL JONES [facility] [id number] [place] 08:01:00 08:01:00 EDWARD -[id number] Critical access hospital 2022-09-29 2022-09-29 Outpatient SoteroNishlissette [facility] [id number] [place] 00:00:00 00:00:00 0410 [facility] 2022-09-29 2022-09-29 Outpatient [facility]ishlissette [facility] [id number] [place] 00:00:00 00:00:00 0411 [facility] 2022-09-24 2022-09-24 Outpatient JOSE RAUL MCFARLANE [facility] [id number] [place] 07:50:00 07:50:00 EDUARDO -[id number] Critical access hospital 2022-09-19 2022-09-20 Outpatient MHIE MNA [id number] Memoria 18:30:00 04:59:59 Neurology 01 l Antonio Francois 2022-09-19 2022-09-20 Outpatient MHIE MNA [id number] Memoria 18:30:00 04:59:59 Neurology 01 l Antonio Francois 2022-09-19 2022-09-19 Outpatient Denys, MISCHER MHMISCHER [id number] 13:30:00 23:59:59 Eduardo Dowd 2022-09-19 2022-09-19 Outpatient MHIE MHIE [id number] Memoria 13:30:00 13:30:00 01 jay jay Francois 2022-09-15 2022-09-15 Outpatient JOSE RAUL MATOS [facility] [id number] [place] 13:14:00 13:14:00 MOY -[id number] Critical access hospital 2022-08-05 2022-08-05 Jaqueline N MMG [place] - [id number] M atagor 00:00:00 00:00:00 MD Star: Discovery winters [address] [place] [address], [facility] [address] , Ph. 2022-08-04 2022-08-04 Outpatient A_Byrd MMG MMG [id number] [place] 00:00:00 00:00:00 0213 Medical Group 2022-08-04 2022-08-04 Outpatient A_Byrd MMG MMG [id number] [place] 00:00:00 00:00:00 0214 [facility] 2022-06-04 2022-06-04 Outpatient JOSE RAUL RAMSEY, [facility] [id number] [place] 10:05:00 10:05:00 [id number] Critical [facility] hospital 2022-06-03 2022-06-03 Outpatient IHDE_G MMG MMG [id number] [place] 00:00:00 00:00:00 1213 [facility] 2022-06-03 2022-06-03 Jaqueline N MMG [place] - [id number] M at[place]or 00:00:00 00:00:00 MD Star: Discovery winters [address] [place] [address] [place] [address] , Ph. 2022-04-29 2022-04-29 Outpatient IHDE_G MMG MMG [id number] [place] 00:00:00 00:00:00 1108 [facility] 2022-04-29 2022-04-29 Óscar MMG [place] - [id number] M atagor 00:00:00 00:00:00 Gareth Juan MD: Medical Medica [address], [place] [address] , Ph. [phone] 2022-04-15 2022-04-15 Outpatient IHDE_G MMG MMG [id number] [place] 00:00:00 00:00:00 1025 Medical Group 2022-04-15 2022-04-15 Óscar MMG [place] - [id number] M atagor 00:00:00 00:00:00 Gareth Juan MD: Medical Medica [address] [facility] [address], [place] [address] , Ph. [phone] 2022-04-01 2022-04-01 [place] [id number] [place] 00:00:00 00:00:00 1011 Medical Group 2022-04-01 2022-04-01 Óscar MMG [place] - [id number] M atagor 00:00:00 00:00:00 Gareth Juan MD: Medical Medica [address] [facility] [address], [place] [address] , Ph. [phone] 2022-02-26 2022-02-26 Outpatient ASHLEE TERRY [facility] [id number] 11:15:00 11:45:00 [id number] [facility] 2022-02-19 2022-02-19 Emergency ER [facility] [id number] [place] 12:31:00 13:32:00 [id number] Critical [facility] hospital 2022-02-19 2022-02-19 Outpatient Zuniga_S MMG MMG [id number] [place] 00:00:00 00:00:00 0831 Medical Group 2022-01-10 2022-01-10 [facility], 1.2.840.1 [id number] Methodi 07:11:00 10:10:00 Encounter Jose 11043.1.[address] 3.430.2.7 Hospit a .3.259808 l .8 2022-01-10 2022-01-10 [facility], 1.2.840.1 [id number] Methodi 07:11:00 10:10:00 Encounter Jose 14819.1.[address] 3.430.2.7 Hospit a .3.205178 l .8 2022-01-10 2022-01-10 Anesthesia Kishore Miller 1.2.8 40.1 [id number] Methodi 09:09:00 09:27:00 Event Ely Pfeiffer 42686.1.[address] 3.430.2.7 Hospit a .3.166085 l .8 2022-01-10 2022-01-10 Anesthesia Kishore Miller 1.2.8 40.1 [id number] Methodi 09:09:00 09:27:00 Event Ely Pfeiffer 03994.1.[address] 3.430.2.7 Hospit a .3.716401 l .8 2022-01-10 2022-01-10 Surgery Basava, 1.2.840.1 [id number] 1583 Methodi 09:00:00 09:16:[address] 3.430.2.7 Hospit a .3.735712 l .8 2022-01-10 2022-01-10 Surgery Basava, 1.2.840.1 [id number] 4634 Methodi 09:00:00 09:16:[address] 3.430.2.7 Hospit a .3.108285 l .8 2022-01-10 2022-01-10 Travel 1.2.840.1 1.2.378.841 6534 [id number] Methodi 00:00:00 00:00:[address] 3.430.2.7 0.2.7.3.698 Ho spita .3.026860 084.8 l .8 2022-01-10 2022-01-10 Travel 1.2.840.1 1.2.647.437 7197 [id number] Methodi 00:00:00 00:00:[address] 3.430.2.7 0.2.7.3.698 Ho spita .3.261111 084.8 l .8 2022-01-07 2022-01-07 Outpatient JOSE RAUL JAQUELINE BAZZI [facility] [id number] [place] 09:14:00 09:14:00 -[id number] Critical access hospital 2022-01-07 2022-01-07 Jaqueline Garcia [facility] [place] - [id number] [place] 00:00:00 00:00:00 MD Star: [address] [employer] [facility] [address], [facility], [place] [address] , Ph. 2022-01-01 2022-01-01 Outpatient [facility] [id number] [place] 03:06:00 03:06:00 HAN 0713 [facility] 2021-12-29 2021-12-29 Outpatient ASHLEE TERRY [facility] [id number] El 15:58:00 16:30:00 [id number] [facility] 2021-11-21 2021-11-22 Outpatient [facility] [id number] Memoria 18:45:34 04:59:59 r [facility] 2021-11-21 2021-11-22 Outpatient [facility] [id number] Memoria 18:45:34 04:59:59 r [facility] 2021-11-21 2021-11-21 Outpatient nullFlavo [facility] [id number] Memoria 13:45:34 23:59:59 r jay jay Manlius 2021-11-21 2021-11-21 Outpatient Etminan, [id number] 13:45:34 23:59:59 Mohammad 8 2021-11-12 2021-11-12 Outpatient JAQUELINE OLSEN [facility] D000 [id number] [place] 14:17:00 14:17:00 -[id number] Critical access hospital 2021-11-12 2021-11-12 Jaqueline Garcia [facility] [place] - [id number] [place] 00:00:00 00:00:00 MD Star: [address] [place] [address] 201[facility] [address] , Ph. 2021-10-17 2021-10-17 Bedded [facility] [id number] Memoria 13:48:00 17:00:00 Outpatient r Manlius 01 l [place] [facility] 2021-10-17 2021-10-17 [facility] [id number] Memoria 13:48:00 17:00:00 Outpatient r Manlius 01 l [place] [facility] [place] 2021-10-17 2021-10-17 Outpatient Barge, MHSL SL [id number] 08:48:00 12:00:00 Brandon 01 Ace 2021-10-17 2021-10-17 Outpatient BARGE, MHFB MHFB [id number] MHFB 08:48:00 12:00:00 BRANDON 2021-10-01 2021-10-01 Óscar IHDE_G [facility] [place] - [id number] [place] 00:00:00 00:00:00 Gareth Juan MD: [address], [place] [address] , Ph. [phone] 2021-09-17 2021-09-17 Óscar IHDE_G [facility] [place] - [id number] [place] 00:00:00 00:00:00 Gareth Juan MD: [address], [place] [address] , Ph. [phone] 2021-09-03 2021-09-03 Óscar IHDE_G [facility] [place] - [id number] [place] 00:00:00 00:00:00 Gareth Juan MD: [address], [place] [address] , Ph. [phone] 2021-07-15 2021-07-15 Darell G_Pappas MM [place] - [id number] [place] 00:00:00 00:00:00 Discovery Yoanna 0124 da MD: [address] [place] [address] , Ph. [phone] 2021-01-10 2021-01-10 Darell Jim[place]app[place] - [id number] [place] 00:00:00 00:00:00 Discovery Yoanna 0722 da MD: [address] [place] [address] , Ph. [phone] 2021-01-04 2021-01-04 Outpatient TonyPappas BELKISG [facility] [id number] [place] 11:44:00 11:44:00 0716 [facility] 2020-10-22 2020-10-22 Outpatient JOSE RAUL RAMSEY, [facility] [id number] [place] 05:37:00 05:37:00 [id number] Critical access hospital 2020-10-05 2020-10-05 Outpatient JOSE RAUL RAMSEY [facility] [id number] [place] 09:00:00 09:00:00 [id number] Critical access hospital 2020-09-04 2020-09-04 Outpatient JOSE RAUL RAMSEY [facility] [id number] [place] 10:32:00 10:32:00 [id number] Critical access hospital 2020-07-20 2020-07-20 [facility]ded [facility] [id number] Memoria 14:01:00 16:45:00 Outpatient r Manlius 00 l [place] [facility] 2020-07-20 2020-07-20 Bedded nullFlavo [facility] [id number] Memoria 14:01:00 16:45:00 Outpatient r Alessandro 00 l [place] [facility] 2020-07-20 2020-07-20 Outpatient ENOC GuerreroSL S [id number] 08:01:00 10:45:00 Brandon U 00 2020-07-20 2020-07-20 Outpatient Yolanda MHSL [facility] [id number] 08:01:00 10:45:00 Brandon U 2020-07-20 2020-07-20 Outpatient YOLANDA, MHFB MHFB [id number] MHFB 08:01:00 10:45:00 BRANDON 2020-06-20 2020-06-20 Outpatient nullFlavo [facility] [id number] Memoria 12:23:05 15:34:00 [facility] 2020-06-20 2020-06-20 Outpatient nullFlavo [facility] [id number] Memoria 12:23:05 15:34:00 [facility] 2020-06-20 2020-06-20 Outpatient Etminan, [id number] 06:23:05 09:34:00 [place] [address] 2020-06-20 2020-06-20 Outpatient nullFlavo [facility] [id number] Memoria 06:23:05 09:34:00 r [facility] 2020-05-27 2020-05-27 Outpatient Hawkins_M MMG MMG [id number] [place] 01:04:00 01:04:00 1206 [facility] 2020-05-23 2020-05-23 Outpatient nullFlavo [facility] [id number] Memoria 15:49:02 18:58:00 r [facility] 2020-05-23 2020-05-23 Outpatient nullFlavo [facility] [id number] Memoria 15:49:02 18:58:00 r [facility] 2020-05-23 2020-05-23 Outpatient Etminan, [id number] 09:49:02 12:58:00 [facility] 2020-05-23 2020-05-23 Outpatient nullFlavo SGS [id number] Memoria 09:49:02 12:58:00 r [facility] 2020-05-09 2020-05-09 Outpatient Hawkins_M MMG MMG [id number] [place] 02:45:00 02:45:00 1118 [facility] 2020-05-07 2020-05-07 Outpatient Hawkins_M MMG MMG [id number] [place] 07:32:00 07:32:00 1116 [facility] 2020-05-04 2020-05-04 Marcelina Bus[place] - [id number] [place] 00:00:00 00:00:00 Debby Leonard 1113 [place] [facility] METALS ANALYST: [address] [place] [address] , Ph. 2020-04-24 2020-04-24 Outpatient G_Pappas MMG MMG [id number] [place] 12:18:00 12:18:00 1103 vianey [facility] 2020-04-23 2020-04-23 Darell G_[place] - [id number] [place] 00:00:00 00:00:00 Discovery Yoanna 1102 da MD: [address] [place] [phone] , Ph. [phone] 2020-04-20 2020-04-20 Outpatient G[facility] [id number] [place] 11:52:00 11:52:00 1030 [facility] 2020-04-09 2020-04-09 Darell G_[place] MMG [place] - [id number] [place] 00:00:00 00:00:00 Discovery Yoanna 1019 da MD: [address] [place] [phone] , Ph. [phone] 2020-03-19 2020-03-19 Darell G_[place] MMG [place] - [address] [place] 00:00:00 00:00:00 Discovery Yoanna 0928 da MD: [address] [place] [phone] , Ph. [phone] 2019-07-02 2019-07-02 Outpatient G_[facility] [id number] [place] 11:53:00 11:53:00 0111 [facility] 2019-05-27 2019-05-27 [place] MMG [place] - [address] [place] 00:00:00 00:00:00 Discovery Yoanna 1206 vianey MD: [address] [place] [address] [address] [address] , Ph. [phone] 2019-01-20 2019-01-20 [place] - [address] [place] 00:00:00 00:00:00 Guilherme DO: Discovery [address] [place] [address] 201, [facility] [place] [address] , Ph. [phone] 2019-01-06 2019-01-06 Mike PIÑA [place] - [address] [place] 00:00:00 00:00:00 Guilherme, DO: [address] [place] [address] 201, [place] [address] , Ph. [phone] 2018-12-27 2018-12-28 Outpatient nullFlavo [facility] [id number] [place] 19:30:00 04:59:59 r Gastroenter 00 l phillip Contreras 2018-12-27 2018-12-28 Outpatient nullFlavo [facility] [id number] [place] 19:30:00 04:59:59 r Gastroenter 00 l phillip Francois Seymour 2018-12-27 2018-12-27 Outpatient Pichardo, [facility] [id number] 14:30:00 23:59:59 Kendell Sung 00 2018-12-27 2018-12-27 Outpatient MHIE MHIE [id number] [place] 14:30:00 14:30:00 00 jay jay Francois 2018-07-13 2018-07-13 Outpatient JOSE RAUL LENZ, VICTORINAC [facility] [id number] [place] 10:41:00 10:41:00 DARELL [id number] vianey [facility] 2018-07-13 2018-07-13 [place] - [id number] [place] 00:00:00 00:00:00 Discovery Yoanna 0122 vianey MD: 17[address] [facility] [id number] , Ph. [phone] 2018-04-28 2018-04-29 Emergency ER COLLEEN, [facility] [id number] [place] 20:33:00 00:55:00 GIBSON -[id number] salma a [facility] 2017-07-10 2017-07-10 Outpatient JOSE RAUL GEORGE, [facility] [id number] [place] 15:25:00 15:25:00 PRICE -[id number] Critical access hospital 2016-03-17 2016-03-17 Outpatient JOSE RAUL LENZ, [facility] [id number] [place] 16:45:00 16:45:00 DARELL -[id number] Critical access hospital 2016-01-24 2016-01-24 Outpatient JOSE RAUL RAMSEY, [facility] [id number] [place] 09:03:00 09:03:00 JOSE -[id number] Critical access hospital 2015-12-10 2015-12-10 Outpatient JOSE RAUL LENZ, [facility] [id number] [place] 12:52:00 12:52:00 DARELL -[id number] Critical access hospital 2015-09-07 2015-09-07 Outpatient JOSE RAUL LINDSEY, [facility] [id number] [place] 15:09:00 15:09:00 DAYANARA -[id number] Critical access hospital 2015-02-15 2015-02-15 Outpatient JOSE RAUL LIU, [facility] [id number] [place] 10:25:00 10:25:00 MYAH -[id number] Critical access hospital 2014-01-08 2014-01-09 Inpatient ER SOREN, [facility] [id number] [place] 18:30:00 19:21:00 ARNOLDO -[id number] Critical access hospital 2013-02-16 2013-02-16 Outpatient JOSE RAUL RAMSEY, [facility] [id number] [place] 08:09:00 08:09:00 JOSE -[id number] Critical access hospital 2012-07-28 2012-07-28 Outpatient JOSE RAUL RAMSEY, [facility] [id number] [place] 08:05:00 08:05:00 JOSE -[id number] Critical access hospital 2008-03-26 2008-03-27 Emergency ER BA, TITO [facility] [id number] [place] 22:33:00 01:00:00 -[id number] Critical access hospital 2006-07-25 2006-07-26 Emergency ER ALEJANDRA [facility] [id number] [place] 22:19:00 00:45:00 SILVINA, -[id number] FRANCIS [facility] 2005-11-08 2005-11-08 Emergency ER SUSANNE, [facility] [id number] [place] 09:19:00 12:20:00 SAVI -[id number] Critical access hospital 2003-05-29 2003-05-29 Emergency ER JAMIE, [facility] [id number] [place] 12:05:00 15:00:00 FRANNIE -[id number] Critical access hospital Results Test Description Test Time Test Comments Results Result Comments Source BASIC METABOLIC PANEL 2023-01-01 04:23:00 Test Item Value Reference Range Interpretation Comme nts SODIUM (test code = NA) 138 mmol/L 134-147 N POTASSIUM (test code = 3.8 mmol/L 3.4-5.0 N K) CHLORIDE (test code = 104 mmol/L 100-108 N CL) CARBON DIOXIDE (test 26 mmol/L 21-32 N code = CO2) ANION GAP (test code = 8.0 GAP calc 4.0-15.0 N GAP) GLUCOSE (test code = 116 MG/DL 70-110 H GLU) BLOOD UREA NITROGEN 19 MG/DL 7-18 H (test code = BUN) GLOMERULAR FILTRATION >=60 max estimate >60 T he Glomerular Filtration RATE (test code = GFR) estGFR Rate is a calculated parameterbased on serum Creatinine, pat ient age and sex. GFR values less than 60 mL/min/1.73 squ are meters are indicative ofChronic Kidney Disease. Values less than 15 mL/min/ 1.73square meters indicate Kidney failure. The ca lculation forGFR is based on the CKD-EPI (2020) calculation. This formulais race indifferent and is the recommended for karlos for GFRby the [facility] Kidney Foundation for Adults.The GFR will not ca lculate if the sex is unkn own or if thepatient's ag e is <18 years. CREATININE (test code = 0.8 MG/DL 0.6-1.0 N CREAT) CALCIUM (test code = CA) 8.0 MG/DL 8.5-10.1 L [id number] 04:23:00 Test Item Value Reference Range Interpretation Comments PHOSPHOROUS (test code = PHOS) 3.6 MG/DL 2.5-4.9 N [id number] 04:23:00 Test Item Value Reference Range Interpretation Comments MAGNESIUM (test code = MAG) 2.1 MG/DL 1.8-2.4 N CBC W/AUTO [id number] 04:15:00 Test Item Value Reference Range Interpretation Comments WHITE BLOOD CELL (test code = 6.8 K/mm3 3.5-11.0 N WBC) RED BLOOD CELL (test code = 2.61 M/mm3 4.70-6.10 L RBC) HEMOGLOBIN (test code = HGB) 7.7 G/DL 10.4-14.9 L HEMATOCRIT (test code = HCT) 23.6 % 31.5-44.1 L MEAN CELL VOLUME (test code = 90.4 Fl 84.5-98.6 N MCV) MEAN CELL HGB (test code = MCH) 29.5 pg 27.0-34.2 N MEAN CELL HGB CONCETRATION 32.6 G/DL 31.5-34.0 N (test code = MCHC) RED CELL DISTRIBUTION WIDTH 13.8 SD 11.5-14.5 N (test code = RDW) PLATELET COUNT (test code = 267 K/mm3 150-450 N PLT) MEAN PLATELET VOLUME (test code 10.00 fL 7.0-10.5 N = MPV) NEUTROPHIL % (test code = NT%) 72.7 % 40-76 N IMMATURE GRANULOCYTE % (test 4.0 % 0.0-5.0 N code = IG%) LYMPHOCYTE % (test code = LY%) 12.3 % 20.5-51.1 L MONOCYTE % (test code = MO%) 9.2 % 1.7-9.3 N EOSINOPHIL % (test code = EO%) 1.5 % 0.0-6.0 N BASOPHIL % (test code = BA%) 0.3 % 0.0-2.0 N NUCLEATED RBC % (test code = 0.0 /100WBC% 0.0-1.0 N NRBC%) NEUTROPHIL # (test code = NT#) 4.9 K/mm3 1.8-7.6 N IMMATURE GRANULOCYTE # (test 0.27 x10 3/uL 0.00-0.03 H code = IG#) LYMPHOCYTE # (test code = LY#) 0.8 K/mm3 0.6-3.2 N MONOCYTE # (test code = MO#) 0.6 K/mm3 0.3-1.1 N EOSINOPHIL # (test code = EO#) 0.1 K/mm3 0.0-0.4 N BASOPHIL # (test code = BA#) 0.0 K/mm3 0.0-0.1 N NUCLEATED RBC # (test code = 0.0 K/mm3 0.0-0.1 N NRBC#) MANUAL DIFF REQUIRED (test code NO DIFF/SCN CRITERIA = MDIFF) - XR CHEST 1 [id number] 20:08:00 [facility] 1945 Sex: F Name: MALISSA BEAVERS [facility] : 1945 Age/S: 77 / F [id number] Unit #: [id number] Loc: [place] [address] Phys: Pal Forrest MD Acct: [id number] Dis Date: Status: ADM IN PHONE #:[phone] Exam Date: 12/31/2022 8837 FAX #: Reason: SOB EXAMS: CPT: [id number] XR CHEST 1 V 74720 Fluoro Time: DAP (Gy m2): Air Kerma (mGy): EXAMINATION: - XR CHEST 1 V INDICATION: SOB COMPARISON: 12/25/2022 LOCATION: H96 FINDINGS/ IMPRESSION: Right upper extremity PICC terminates at level of superior cavoatrial junction. Mildly enlarged cardiac silhouette. Scattered atelectasis similar to prior. No pneumothorax or visible pleural fluid. at 2007 Reported and signed by: Meng Pickering M.D. CC: Pal Forrest MD; Ryan Cárdenas MD; Maida Schilling MD PAGE 1 Signed Report Name: AMLISSA BEAVERS : 1945 Age/S: 77 / F [id number] Unit #: [id number] Loc: [place] [address] Phys: Pal Forrest MD Acct: [id number] Dis Date: Status: ADM IN PHONE #: [phone] Exam Date: 12/31/2022 1846 FAX #: Reason: SOB EXAMS: CPT: [id number] XR CHEST 1 V 72312 Fluoro Time: DAP (Gy m2): Air Kerma (mGy): (Continued) Technologist: Marcelina Wynne RT(R)(CT) Trnscb Date/Time: 12/31/2022 (2007) [id number] Orig Print D/T: S: 12/31/2022 (2010) PAGE 2 Signed ReportBASIC METABOLIC [id number] 04:11:00 Test Item Value Reference Range Interpretation Comments SODIUM (test code 138 mmol/L 134-147 N = NA) POTASSIUM (test 4.1 mmol/L 3.4-5.0 N code = K) CHLORIDE (test 105 mmol/L 100-108 N code = CL) CARBON DIOXIDE 26 mmol/L 21-32 N (test code = CO2) ANION GAP (test 7.0 GAP calc 4.0-15.0 N code = GAP) GLUCOSE (test code 112 MG/DL 70-110 H = GLU) BLOOD UREA 16 MG/DL 7-18 N NITROGEN (test code = BUN) GLOMERULAR >=60 max >60 The Glomerular FILTRATION RATE estimate estGFR Filtratio n Rate is a (test code = GFR) calculated parameterbased on serum Creatinin e, patient age and sex. GFR valuesless than 60 mL/min/1.73 square meters are julián cative ofChronic Kidne y Disease. Values less than 15 mL/min/1.73squa re meters indicate Kidney failure. The calculation for GFR is based on the CK D-EPI (2020) calculat ion. This formulais race indifferent and is the recommended formula for GFR by the National Kidney Foundation for Adults.The GFR will not calculate i f the sex is unknown or if thepatient's ag e is <18 years. CREATININE (test 0.6 MG/DL 0.6-1.0 N code = CREAT) CALCIUM (test code 8.3 MG/DL 8.5-10.1 L = CA) [id number] 04:11:00 Test Item Value Reference Range Interpretation Comments PHOSPHOROUS (test code = PHOS) 3.2 MG/DL 2.5-4.9 N [id number] 04:11:00 Test Item Value Reference Range Interpretation Comments MAGNESIUM (test code = MAG) 2.2 MG/DL 1.8-2.4 N CBC W/AUTO [id number] 03:43:00 Test Item Value Reference Range Interpretation Comments WHITE BLOOD CELL (test code = 6.0 K/mm3 3.5-11.0 N WBC) RED BLOOD CELL (test code = 2.46 M/mm3 4.70-6.10 L RBC) HEMOGLOBIN (test code = HGB) 7.3 G/DL 10.4-14.9 L HEMATOCRIT (test code = HCT) 22.3 % 31.5-44.1 L MEAN CELL VOLUME (test code = 90.7 Fl 84.5-98.6 N MCV) MEAN CELL HGB (test code = MCH) 29.7 pg 27.0-34.2 N MEAN CELL HGB CONCETRATION 32.7 G/DL 31.5-34.0 N (test code = MCHC) RED CELL DISTRIBUTION WIDTH 13.6 SD 11.5-14.5 N (test code = RDW) PLATELET COUNT (test code = 240 K/mm3 150-450 N PLT) MEAN PLATELET VOLUME (test code 10.20 fL 7.0-10.5 N = MPV) NEUTROPHIL % (test code = NT%) 71.5 % 40-76 IMMATURE GRANULOCYTE % (test 1.3 % 0.0-5.0 N code = IG%) LYMPHOCYTE % (test code = LY%) 15.9 % 20.5-51.1 L MONOCYTE % (test code = MO%) 9.3 % 1.7-9.3 N EOSINOPHIL % (test code = EO%) 1.7 % 0.0-6.0 N BASOPHIL % (test code = BA%) 0.3 % 0.0-2.0 N NUCLEATED RBC % (test code = 0.0 /100WBC% 0.0-1.0 N NRBC%) NEUTROPHIL # (test code = NT#) 4.3 K/mm3 1.8-7.6 N IMMATURE GRANULOCYTE # (test 0.08 x10 3/uL 0.00-0.03 H code = IG#) LYMPHOCYTE # (test code = LY#) 1.0 K/mm3 0.6-3.2 N MONOCYTE # (test code = MO#) 0.6 K/mm3 0.3-1.1 N EOSINOPHIL # (test code = EO#) 0.1 K/mm3 0.0-0.4 N BASOPHIL # (test code = BA#) 0.0 K/mm3 0.0-0.1 N NUCLEATED RBC # (test code = 0.0 K/mm3 0.0-0.1 N NRBC#) MANUAL DIFF REQUIRED (test code NO DIFF/SCN CRITERIA = MDIFF) - [facility] [id number] 14:55:00 [facility] 1945 Sex: F Name: MALISSA BEAVERS [facility] : 1945 Age/S: 77 / F [address] Unit #: [id number]: [place] [address] Phys: Maida Schilling MD Acct: [id number] Dis Date: Status: ADM IN PHONE #: [phone] Exam Date: 12/30/2022 1454 FAX #: Reason: RLE swelling, r/o DVT EXAMS: CPT: [id number] [address] EXAMINATION: - DUP VEIN UNI RT INDICATION: RLE swelling, r/o DVT COMPARISON: 12/27/2022 LOCATION: H96 TECHNIQUE: Grayscale, color Doppler, and spectral Doppler images were obtained of the deep veins of the right lower extremity, including compression maneuvers. FINDINGS: Common femoral, femoral, popliteal, and visualized calf veins are patent. Left common femoral vein is also patent. Visualized segments opacified with color Doppler analysis and exhibited waveforms on spectral Doppler analysis. IMPRESSION: No evidence of deep vein thrombosis in the right lower extremity. at 1455 Reported and signed by: Meng Pickering M.D. CC: Ryan Cárdenas MD; Maida Schilling MD Technologist: Angelic Jones Trnhib Date/Time: 12/30/2022 (1455) [id number] PAGE 1 Signed Report Name: MALISSA BEAVERS : 1945 Age/S: 77 / F [address] [facility] Unit #: [id number] Loc: [place] [address] Phys: Maida Schilling MD Acct: [id number] Dis Date: Status: ADM IN PHONE #: [phone] Exam Date: 12/30/2022 1453 FAX #: Reason: RLE swelling, r/o DVT EXAMS: CPT: [id number] [place] [address] (Continued) Orig Print D/T: S: 12/30/2022 (1458) Probe: PAGE 2 Signed ReportBASIC METABOLIC [id number] 05:48:00 Test Item Value Reference Range Interpretation Comments SODIUM (test code 139 mmol/L 134-147 N = NA) POTASSIUM (test 4.0 mmol/L 3.4-5.0 N code = K) CHLORIDE (test 107 mmol/L 100-108 N code = CL) CARBON DIOXIDE 25 mmol/L 21-32 N (test code = CO2) ANION GAP (test 7.0 GAP calc 4.0-15.0 N code = GAP) GLUCOSE (test code 109 MG/DL 70-110 N = GLU) BLOOD UREA 17 MG/DL 7-18 N NITROGEN (test code = BUN) GLOMERULAR >=60 max >60 The Glomerular FILTRATION RATE estimate estGFR Filtratio n Rate is a (test code = GFR) calculated parameterbased on serum Creatinin e, patient age and sex. GFR valuesless than 60 mL/min/1.73 square meters are julián cative ofChronic Kidne y Disease. Values less than 15 mL/min/1.73squa re meters indicate Kidney failure. The calculation for GFR is based on the CK D-EPI (2020) calculat ion. This formulais race indifferent and is the recommended formula for GFR by the National Kidney Foundation for Adults.The GFR will not calculate i f the sex is unknown or if thepatient's ag e is <18 years. CREATININE (test 0.6 MG/DL 0.6-1.0 N code = CREAT) CALCIUM (test code 7.9 MG/DL 8.5-10.1 L = CA) [id number] 05:48:00 Test Item Value Reference Range Interpretation Comments PHOSPHOROUS (test code = PHOS) 2.5 MG/DL 2.5-4.9 N [id number] 05:48:00 Test Item Value Reference Range Interpretation Comments MAGNESIUM (test code = MAG) 2.1 MG/DL 1.8-2.4 N CBC W/AUTO [id number] 05:31:00 Test Item Value Reference Range Interpretation Comments WHITE BLOOD CELL (test code = 7.0 K/mm3 3.5-11.0 N WBC) RED BLOOD CELL (test code = 2.50 M/mm3 4.70-6.10 L RBC) HEMOGLOBIN (test code = HGB) 7.6 G/DL 10.4-14.9 L HEMATOCRIT (test code = HCT) 23.2 % 31.5-44.1 L MEAN CELL VOLUME (test code = 92.8 Fl 84.5-98.6 N MCV) MEAN CELL HGB (test code = MCH) 30.4 pg 27.0-34.2 N MEAN CELL HGB CONCETRATION 32.8 G/DL 31.5-34.0 N (test code = MCHC) RED CELL DISTRIBUTION WIDTH 13.8 SD 11.5-14.5 N (test code = RDW) PLATELET COUNT (test code = 200 K/mm3 150-450 N PLT) MEAN PLATELET VOLUME (test code 10.20 fL 7.0-10.5 N = MPV) NEUTROPHIL % (test code = NT%) 80.3 % 40-76 H IMMATURE GRANULOCYTE % (test 0.9 % 0.0-5.0 N code = IG%) LYMPHOCYTE % (test code = LY%) 11.0 % 20.5-51.1 L MONOCYTE % (test code = MO%) 6.8 % 1.7-9.3 N EOSINOPHIL % (test code = EO%) 0.9 % 0.0-6.0 N BASOPHIL % (test code = BA%) 0.1 % 0.0-2.0 N NUCLEATED RBC % (test code = 0.0 /100WBC% 0.0-1.0 N NRBC%) NEUTROPHIL # (test code = NT#) 5.7 K/mm3 1.8-7.6 N IMMATURE GRANULOCYTE # (test 0.06 x10 3/uL 0.00-0.03 H code = IG#) LYMPHOCYTE # (test code = LY#) 0.8 K/mm3 0.6-3.2 N MONOCYTE # (test code = MO#) 0.5 K/mm3 0.3-1.1 N EOSINOPHIL # (test code = EO#) 0.1 K/mm3 0.0-0.4 N BASOPHIL # (test code = BA#) 0.0 K/mm3 0.0-0.1 N NUCLEATED RBC # (test code = 0.0 K/mm3 0.0-0.1 N NRBC#) MANUAL DIFF REQUIRED (test code NO DIFF/SCN CRITERIA = MDIFF) CBC W/AUTO [id number] 06:13:00 Test Item Value Reference Range Interpretation Comments WHITE BLOOD CELL 7.8 K/mm3 3.5-11.0 N (test code = WBC) RED BLOOD CELL (test 2.48 M/mm3 4.70-6.10 L code = RBC) HEMOGLOBIN (test code 7.4 G/DL 10.4-14.9 L = HGB) HEMATOCRIT (test code 23.2 % 31.5-44.1 L = HCT) MEAN CELL VOLUME 93.5 Fl 84.5-98.6 N (test code = MCV) MEAN CELL HGB (test 29.8 pg 27.0-34.2 N code = MCH) MEAN CELL HGB 31.9 G/DL 31.5-34.0 N CONCETRATION (test code = MCHC) RED CELL DISTRIBUTION 13.6 SD 11.5-14.5 N WIDTH (test code = RDW) PLATELET COUNT (test 192 K/mm3 150-450 N code = PLT) MEAN PLATELET VOLUME 10.10 fL 7.0-10.5 N (test code = MPV) NEUTROPHIL % (test 83.8 % 40-76 H code = NT%) IMMATURE GRANULOCYTE 0.5 % 0.0-5.0 N % (test code = IG%) LYMPHOCYTE % (test 7.5 % 20.5-51.1 L code = LY%) MONOCYTE % (test code 7.5 % 1.7-9.3 N = MO%) EOSINOPHIL % (test 0.6 % 0.0-6.0 N code = EO%) BASOPHIL % (test code 0.1 % 0.0-2.0 N = BA%) NUCLEATED RBC % (test 0.0 /100WBC% 0.0-1.0 N code = NRBC%) NEUTROPHIL # (test 6.5 K/mm3 1.8-7.6 N code = NT#) IMMATURE GRANULOCYTE 0.04 x10 3/uL 0.00-0.03 H # (test code = IG#) LYMPHOCYTE # (test 0.6 K/mm3 0.6-3.2 N code = LY#) MONOCYTE # (test code 0.6 K/mm3 0.3-1.1 N = MO#) EOSINOPHIL # (test 0.1 K/mm3 0.0-0.4 N code = EO#) BASOPHIL # (test code 0.0 K/mm3 0.0-0.1 N = BA#) NUCLEATED RBC # (test 0.0 K/mm3 0.0-0.1 N code = NRBC#) MANUAL DIFF REQUIRED NO DIFF/SCN CRITERIA SLIDE Shea ACOSTA (test code = MDIFF) CONSISTA NT WITH AUTO DIFFERENTI AL. BASIC METABOLIC [id number] 03:32:00 Test Item Value Reference Range Interpretation Comments SODIUM (test code 140 mmol/L 134-147 N = NA) POTASSIUM (test 4.0 mmol/L 3.4-5.0 N code = K) CHLORIDE (test 109 mmol/L 100-108 H code = CL) CARBON DIOXIDE 26 mmol/L 21-32 N (test code = CO2) ANION GAP (test 5.0 GAP calc 4.0-15.0 N code = GAP) GLUCOSE (test code 124 MG/DL 70-110 H = GLU) BLOOD UREA 16 MG/DL 7-18 N NITROGEN (test code = BUN) GLOMERULAR >=60 max >60 The Glomerular FILTRATION RATE estimate estGFR Filtratio n Rate is a (test code = GFR) calculated parameterbased on serum Creatinin e, patient age and sex. GFR valuesless than 60 mL/min/1.73 square meters are julián cative ofChronic Kidne y Disease. Values less than 15 mL/min/1.73squa re meters indicate Kidney failure. The calculation for GFR is based on the CK D-EPI (2020) calculat ion. This formulais race indifferent and is the recommended formula for GFR by the National Kidney Foundation for Adults.The GFR will not calculate i f the sex is unknown or if thepatient's ag e is <18 years. CREATININE (test 0.7 MG/DL 0.6-1.0 N code = CREAT) CALCIUM (test code 7.6 MG/DL 8.5-10.1 L = CA) [id number] 03:32:00 Test Item Value Reference Range Interpretation Comments PHOSPHOROUS (test code = PHOS) 2.4 MG/DL 2.5-4.9 L [id number] 03:32:00 Test Item Value Reference Range Interpretation Comments MAGNESIUM (test code = MAG) 2.1 MG/DL 1.8-2.4 N CBC W/AUTO [id number] 04:00:00 Test Item Value Reference Range Interpretation Comments WHITE BLOOD CELL (test code = 7.3 K/mm3 3.5-11.0 N WBC) RED BLOOD CELL (test code = 2.46 M/mm3 4.70-6.10 L RBC) HEMOGLOBIN (test code = HGB) 7.4 G/DL 10.4-14.9 L HEMATOCRIT (test code = HCT) 22.2 % 31.5-44.1 L MEAN CELL VOLUME (test code = 90.2 Fl 84.5-98.6 N MCV) MEAN CELL HGB (test code = MCH) 30.1 pg 27.0-34.2 N MEAN CELL HGB CONCETRATION 33.3 G/DL 31.5-34.0 N (test code = MCHC) RED CELL DISTRIBUTION WIDTH 13.5 SD 11.5-14.5 N (test code = RDW) PLATELET COUNT (test code = 184 K/mm3 150-450 N PLT) MEAN PLATELET VOLUME (test code 10.30 fL 7.0-10.5 N = MPV) NEUTROPHIL % (test code = NT%) 85.4 % 40-76 H IMMATURE GRANULOCYTE % (test 0.4 % 0.0-5.0 N code = IG%) LYMPHOCYTE % (test code = LY%) 6.7 % 20.5-51.1 L MONOCYTE % (test code = MO%) 7.3 % 1.7-9.3 N EOSINOPHIL % (test code = EO%) 0.1 % 0.0-6.0 N BASOPHIL % (test code = BA%) 0.1 % 0.0-2.0 N NUCLEATED RBC % (test code = 0.0 /100WBC% 0.0-1.0 N NRBC%) NEUTROPHIL # (test code = NT#) 6.2 K/mm3 1.8-7.6 N IMMATURE GRANULOCYTE # (test 0.03 x10 3/uL 0.00-0.03 N code = IG#) LYMPHOCYTE # (test code = LY#) 0.5 K/mm3 0.6-3.2 L MONOCYTE # (test code = MO#) 0.5 K/mm3 0.3-1.1 N EOSINOPHIL # (test code = EO#) 0.0 K/mm3 0.0-0.4 N BASOPHIL # (test code = BA#) 0.0 K/mm3 0.0-0.1 N NUCLEATED RBC # (test code = 0.0 K/mm3 0.0-0.1 N NRBC#) MANUAL DIFF REQUIRED (test code NO DIFF/SCN CRITERIA = MDIFF) BASIC METABOLIC [id number] 03:32:00 Test Item Value Reference Range Interpretation Comments SODIUM (test code 138 mmol/L 134-147 N = NA) POTASSIUM (test 4.0 mmol/L 3.4-5.0 N code = K) CHLORIDE (test 109 mmol/L 100-108 H code = CL) CARBON DIOXIDE 26 mmol/L 21-32 N (test code = CO2) ANION GAP (test 3.0 GAP calc 4.0-15.0 L code = GAP) GLUCOSE (test code 121 MG/DL 70-110 H = GLU) BLOOD UREA 12 MG/DL 7-18 N NITROGEN (test code = BUN) GLOMERULAR >=60 max >60 The Glomerular FILTRATION RATE estimate estGFR Filtratio n Rate is a (test code = GFR) calculated parameterbased on serum Creatinin e, patient age and sex. GFR valuesless than 60 mL/min/1.73 square meters are julián cative ofChronic Kidne y Disease. Values less than 15 mL/min/1.73squa re meters indicate Kidney failure. The calculation for GFR is based on the CK D-EPI (2020) calculat ion. This formulais race indifferent and is the recommended formula for GFR by the National Kidney Foundation for Adults.The GFR will not calculate i f the sex is unknown or if thepatient's ag e is <18 years. CREATININE (test 0.6 MG/DL 0.6-1.0 N code = CREAT) CALCIUM (test code 7.9 MG/DL 8.5-10.1 L = CA) [id number] 03:32:00 Test Item Value Reference Range Interpretation Comments PHOSPHOROUS (test code = PHOS) 2.6 MG/DL 2.5-4.9 N [id number] 03:32:00 Test Item Value Reference Range Interpretation Comments MAGNESIUM (test code = MAG) 2.1 MG/DL 1.8-2.4 N - DUP VEIN [id number] 14:14:00 [facility] 1945 Sex: F Name: MALISSA BEAVERS [facility] : 1945 Age/S: 77 / F [address] [place] Unit #: [id number]: Eve Bruno [address] Phys: Christy Daniel Acct: [id number] Dis Date: Status: ADM IN PHONE #: [phone] Exam Date: 12/27/2022 1404 FAX #: Reason: r/o dvt EXAMS: CPT: [id number] DUP VEIN CASTRO [id number] LOCATION: [facility] INDICATION: Rule out DVT STUDY: Duplex venous ultrasound examination of the bilateral lower extremities. COMPARISON: None TECHNIQUE: Grayscale, color Doppler and spectral imagesof the bilateral lower extremity venous systems was performed. FINDINGS: The right common femoral, deep femoral and greater saphenous veins are not visualized on this exam due to overlying bandaging. The left common femoral, bilateral femoral (proximal, mid, and distal aspects), bilateral popliteal, bilateral anterior tibial and bilateral posterior tibial veins are compressible without evidence of a filling defect to suggest venous thrombosis. Spectral images demonstrate normal augmentation. IMPRESSION: No evidence of DVT within the visualized portions of the deep veins with limitations as above. at 1414 Reported and signed by: Gucci Dowd M.D. CC: Ryan Cárdenas MD; Christy Daniel; Maida Schilling MD Technologist: Jasmine Nguyen Trnhib Date/Time: 12/27/2022 (5969) [email or web address] PAGE 1 Signed Report Name: MALISSA BEAVERS [facility] : 1945 Age/S: 77 / F [address] [place] Unit #: [id number] Loc: [place] [address] Phys: EulogioevinmichaeleveChristy MSN Acct: [id number] Dis Date: Status: ADM IN PHONE #: [phone] Exam Date:12/27/2022 1404 FAX #: Reason: r/o dvt EXAMS: CPT: [id number] DUP VEIN CASTRO [id number] (Continued) Orig Print D/T: S: 12/27/2022 (1417) Probe: PAGE 2 Signed ReportTROP-I HIGH [id number] 10:38:00 Test Item Value Reference Range Interpretation Comments TROP-I HIGH 451.5 ng/L 0-54 HH CAUTION: Units of the SENSITIVITY (test current te st methodology code = TROPIHS) (ng/L) diffe rfrom the prior test meth odology (ng/mL) by a fa ctor of 1000. 9 9th Percentile Uppe r Reference Limit (URL):Females: 54 ng/LMales: 79 n g/L In order to distin guish acute elevation s of high sensitivitytrop onin from other clinical conditions, the FourthUniversal Definition of M yocardial Infarction stressesclinica l assessment and the demonstration o f a rise and/orfall in s erial troponin result s above the URL. Result s from different metho dologies should not be c omparedto one another as quantitative re sults and URLs may varyby method. CBC W/AUTO [id number] 05:46:00 Test Item Value Reference Range Interpretation Comments WHITE BLOOD CELL (test code = 6.9 K/mm3 3.5-11.0 N WBC) RED BLOOD CELL (test code = 2.56 M/mm3 4.70-6.10 L RBC) HEMOGLOBIN (test code = HGB) 7.7 G/DL 10.4-14.9 L HEMATOCRIT (test code = HCT) 23.5 % 31.5-44.1 L MEAN CELL VOLUME (test code = 91.8 Fl 84.5-98.6 N MCV) MEAN CELL HGB (test code = MCH) 30.1 pg 27.0-34.2 N MEAN CELL HGB CONCETRATION 32.8 G/DL 31.5-34.0 N (test code = MCHC) RED CELL DISTRIBUTION WIDTH 13.8 SD 11.5-14.5 N (test code = RDW) PLATELET COUNT (test code = 182 K/mm3 150-450 N PLT) MEAN PLATELET VOLUME (test code 10.90 fL 7.0-10.5 H = MPV) NEUTROPHIL % (test code = NT%) 83.8 % 40-76 H IMMATURE GRANULOCYTE % (test 0.4 % 0.0-5.0 N code = IG%) LYMPHOCYTE % (test code = LY%) 8.1 % 20.5-51.1 L MONOCYTE % (test code = MO%) 7.3 % 1.7-9.3 N EOSINOPHIL % (test code = EO%) 0.1 % 0.0-6.0 N BASOPHIL % (test code = BA%) 0.3 % 0.0-2.0 N NUCLEATED RBC % (test code = 0.0 /100WBC% 0.0-1.0 N NRBC%) NEUTROPHIL # (test code = NT#) 5.8 K/mm3 1.8-7.6 N IMMATURE GRANULOCYTE # (test 0.03 x10 3/uL 0.00-0.03 N code = IG#) LYMPHOCYTE # (test code = LY#) 0.6 K/mm3 0.6-3.2 N MONOCYTE # (test code = MO#) 0.5 K/mm3 0.3-1.1 N EOSINOPHIL # (test code = EO#) 0.0 K/mm3 0.0-0.4 N BASOPHIL # (test code = BA#) 0.0 K/mm3 0.0-0.1 N NUCLEATED RBC # (test code = 0.0 K/mm3 0.0-0.1 N NRBC#) MANUAL DIFF REQUIRED (test code NO DIFF/SCN CRITERIA = MDIFF) BASIC METABOLIC [id number] 03:34:00 Test Item Value Reference Range Interpretation Comments SODIUM (test code 137 mmol/L 134-147 N = NA) POTASSIUM (test 4.1 mmol/L 3.4-5.0 N code = K) CHLORIDE (test 109 mmol/L 100-108 H code = CL) CARBON DIOXIDE 25 mmol/L 21-32 N (test code = CO2) ANION GAP (test 3.0 GAP calc 4.0-15.0 L code = GAP) GLUCOSE (test code 118 MG/DL 70-110 H = GLU) BLOOD UREA 16 MG/DL 7-18 N NITROGEN (test code = BUN) GLOMERULAR >=60 max >60 The Glomerular FILTRATION RATE estimate estGFR Filtratio n Rate is a (test code = GFR) calculated parameterbased on serum Creatinin e, patient age and sex. GFR valuesless than 60 mL/min/1.73 square meters are julián cative ofChronic Kidne y Disease. Values less than 15 mL/min/1.73squa re meters indicate Kidney failure. The calculation for GFR is based on the CK D-EPI (2020) calculat ion. This formulais race indifferent and is the recommended formula for GFR by the National Kidney Foundation for Adults.The GFR will not calculate i f the sex is unknown or if thepatient's ag e is <18 years. CREATININE (test 0.7 MG/DL 0.6-1.0 N code = CREAT) CALCIUM (test code 7.7 MG/DL 8.5-10.1 L = CA) [id number] 03:34:00 Test Item Value Reference Range Interpretation Comments PHOSPHOROUS (test code = PHOS) 2.9 MG/DL 2.5-4.9 N [id number] 03:34:00 Test Item Value Reference Range Interpretation Comments MAGNESIUM (test code = MAG) 2.1 MG/DL 1.8-2.4 N CBC W/AUTO [id number] 05:26:00 Test Item Value Reference Range Interpretation Comments WHITE BLOOD CELL (test code = 7.2 K/mm3 3.5-11.0 N WBC) RED BLOOD CELL (test code = 2.83 M/mm3 4.70-6.10 L RBC) HEMOGLOBIN (test code = HGB) 8.4 G/DL 10.4-14.9 L HEMATOCRIT (test code = HCT) 26.3 % 31.5-44.1 L MEAN CELL VOLUME (test code = 92.9 Fl 84.5-98.6 N MCV) MEAN CELL HGB (test code = MCH) 29.7 pg 27.0-34.2 N MEAN CELL HGB CONCETRATION 31.9 G/DL 31.5-34.0 N (test code = MCHC) RED CELL DISTRIBUTION WIDTH 13.5 SD 11.5-14.5 N (test code = RDW) PLATELET COUNT (test code = 174 K/mm3 150-450 N PLT) MEAN PLATELET VOLUME (test code 10.20 fL 7.0-10.5 N = MPV) NEUTROPHIL % (test code = NT%) 83.6 % 40-76 H IMMATURE GRANULOCYTE % (test 0.4 % 0.0-5.0 N code = IG%) LYMPHOCYTE % (test code = LY%) 6.6 % 20.5-51.1 L MONOCYTE % (test code = MO%) 9.0 % 1.7-9.3 N EOSINOPHIL % (test code = EO%) 0.1 % 0.0-6.0 N BASOPHIL % (test code = BA%) 0.3 % 0.0-2.0 N NUCLEATED RBC % (test code = 0.0 /100WBC% 0.0-1.0 N NRBC%) NEUTROPHIL # (test code = NT#) 6.1 K/mm3 1.8-7.6 N IMMATURE GRANULOCYTE # (test 0.03 x10 3/uL 0.00-0.03 N code = IG#) LYMPHOCYTE # (test code = LY#) 0.5 K/mm3 0.6-3.2 L MONOCYTE # (test code = MO#) 0.7 K/mm3 0.3-1.1 N EOSINOPHIL # (test code = EO#) 0.0 K/mm3 0.0-0.4 N BASOPHIL # (test code = BA#) 0.0 K/mm3 0.0-0.1 N NUCLEATED RBC # (test code = 0.0 K/mm3 0.0-0.1 N NRBC#) MANUAL DIFF REQUIRED (test code NO DIFF/SCN CRITERIA = MDIFF) BASIC METABOLIC [id number] 02:05:00 Test Item Value Reference Range Interpretation Comments SODIUM (test code 137 mmol/L 134-147 N = NA) POTASSIUM (test 4.2 mmol/L 3.4-5.0 N code = K) CHLORIDE (test 107 mmol/L 100-108 N code = CL) CARBON DIOXIDE 25 mmol/L 21-32 N (test code = CO2) ANION GAP (test 5.0 GAP calc 4.0-15.0 N code = GAP) GLUCOSE (test code 136 MG/DL 70-110 H = GLU) BLOOD UREA 19 MG/DL 7-18 H NITROGEN (test code = BUN) GLOMERULAR >=60 max >60 The Glomerular FILTRATION RATE estimate estGFR Filtratio n Rate is a (test code = GFR) calculated parameterbased on serum Creatinin e, patient age and sex. GFR valuesless than 60 mL/min/1.73 square meters are julián cative ofChronic Kidne y Disease. Values less than 15 mL/min/1.73squa re meters indicate Kidney failure. The calculation for GFR is based on the CK D-EPI (2020) calculat ion. This formulais race indifferent and is the recommended formula for GFR by the National Kidney Foundation for Adults.The GFR will not calculate i f the sex is unknown or if thepatient's ag e is <18 years. CREATININE (test 0.9 MG/DL 0.6-1.0 N code = CREAT) CALCIUM (test code 7.6 MG/DL 8.5-10.1 L = CA) [id number] 02:05:00 Test Item Value Reference Range Interpretation Comments PHOSPHOROUS (test code = PHOS) 3.1 MG/DL 2.5-4.9 N [id number] 02:05:00 Test Item Value Reference Range Interpretation Comments MAGNESIUM (test code = MAG) 2.1 MG/DL 1.8-2.4 N - CTA CHEST FOR [id number] 17:17:00 [facility] 1945 Sex: F Name: MALISSA BEAVERS : 1945 Age/S: 77 / F [address] Unit #: [id number]: [place] [address] Phys: Chrsity Daniel MSN Acct: [id number] Dis Date: Status: ADM IN PHONE #: [phone] Exam Date: 12/25/2022 4580 FAX #: Reason: hypoxia/elevated dimer EXAMS: CPT: [id number] [place] [id number] EXAMINATION: - CTA CHEST FOR PE LOCATION: T18 CLINICAL HISTORY/INDICATION:hypoxia/elevated dimer COMPARISON: Radiograph obtained on the same date TECHNIQUE: Axial CT images were obtained from the thoracic inlet to the adrenal glands after intravenous contrast administration, per PE protocol. Maximum intensity projection reconstruction images were also performed on a separate workstation and submitted for interpretation. This examination was performed according to our departmental dose optimization program, which includes automated exposure control, adjustment of the mA and/or kV according to patient size, and/or use of iterative reconstruction technique. FINDINGS: STATE MENT: Unless otherwise specified, incidental findings do not require dedicated imaging follow-up. PULMONARY ARTERIES: There are no filling defects in the pulmonary arteries. The main pulmonary artery is upper normal in size to slightly enlarged measuring 3 cm. LINES/TUBES/DEVICE: Right-sided PICC linetip is in the right atrium. THYROID GLAND: Not well-visualized and may be very small or surgically absent. HEART AND MEDIASTINUM: The heart is mildly enlarged. There is no pericardial effusion.. Conventional branching pattern of the aorta without aneurysm or dissection. Origins of great vessels are patent.. Coronary artery calcification is noted. Esophagus is unremarkable. ADENOPATHY: None. LUNGS AND AIRWAYS: There are low lung volumes with dependent consolidative opacities and some air bronchogramsthe lower lobes and dependent upper lobes which likely represent dependent atelectasis. Aspiration changes can also be considered. Mild mosaic/groundglass appearance to the lungs may be related to atelectasis and air trapping. Pneumonitis or mild edema is also on the differential. PAGE 1 Signed Report(CONTINUED) Name: MALISSA BEAVERS [facility] : 1945 Age/S: 77 / F [address] [place] Unit #: [id number] Loc: [place] [address] Phys: Chrisyt Daniel MSN Acct: [id number] Dis Date: Status: ADM IN PHONE #: [phone] Exam Date: 12/25/2022 1655 FAX #: Reason: hypoxia/elevated dimer EX AMS: CPT: [id number] [place] [address] (Continued) PLEURA: No pneumothorax or pleural effusion.EXTERNAL SOFT TISSUE: No abnormalities. UPPER ABDOMEN: The liver, pancreas, spleen and adrenal glands are unremarkable. BONES: Degenerative change involving the spine is present. IMPRESSION: No evidence of pulmonary embolus. Mild prominence of the main pulmonary artery be seen with pulmonary artery hypertension. Mild cardiomegaly. Low lung volumes with bilateral lung opacities likely related to atelectasis. Correlate clinically for pneumonia, aspiration or mild edema. Coronary artery calcification. at 1717 Reported and signed by: Kelley Ogden MD CC: Ryan Cárdenas MD; Christy Daniel; Maida Schilling MD Technologist:Benedicto Coker, RT(R); Abdulaziz CTDI: DLP: Trnscb Date/Time: 12/25/2022 (1717) [email or web address] Orig Print D/T: S: 12/25/2022 (1720) PAGE 2 Signed Report- XR CHEST 1 [id number] 11:51:00 [facility] 1945 Sex: F Name: MALISSA BEAVERS : 1945 Age/S: 77 / F [address] Unit #: [id number]: [place] [address] Phys: Paolo Miller MD Acct: [id number] Dis Date: Status: ADM IN PHONE #: [phone] Exam Date: 12/25/2022 1138 FAX #: Reason: POST RIGHT PICC PLACEMENT EXAMS: CPT: [id number] XR CHEST 1 V 20187 Fluoro Time: DAP (Gy m2): Air Kerma (mGy): Location Code: S17 EXAMINATION: - XRCHEST 1 V CLINICAL INDICATION: Female, 77 years year old with POST RIGHT PICC PLACEMENT COMPARISON: Chest x-ray December 25, 2022 at 1040 hours FINDINGS: Single view(s) of the chest submitted. Support Devices: Right-sided PICC line tip is projected over the cavoatrial junction. Heart: Enlarged cardiac silhouette is stable in size. Mediastinum: Mediastinal contours are unchanged. Lungs: Pulmonary vessels are enlarged consistent with congestion. Streaky left lung base opacities probably represent atelectasis. No evidence of new focal consolidation. Pleura: No pleural effusion is identified. No pneumothorax is present. Bones: Visualized skeleton is stable in appearance. IMPRESSION: Right-sided PICC line tip is projected over the cavoatrial junction. at 1151 Reported and signed by: Paolo Miller M.D. CC: Ryan Cárdenas MD; Paolo Miller MD; Maida Schilling MD PAGE 1 Signed Report Name: MALISSA BEAVERS : 1945 Age/S: [id number] Unit #: [id number] Loc: [place] [address] Phys: Paolo Miller MD Acct: [id number] Dis Date: Status: ADM IN PHONE #: [phone] Exam Date: 12/25/2022 1138 FAX #: Reason: POST RIGHT PICC PLACEMENT EXAMS: CPT: [id number] XR CHEST 1 V 20426 Fluoro Time: DAP (Gy m2): Air Kerma (mGy): (Continued) Technologist: Kayy Franks Trnscb Date/Time: 12/25/2022 (1151) [email or web address] Orig Print D/T: S: 12/25/2022 (0822) PAGE 2 Signed Report- XR CHEST 1 [id number] 10:57:00 [facility] : 1945 Sex: F Name: MALISSA BEAVERS [facility] : 1945 Age/S: 77 / F [address] Unit #: [id number]: [place] [address] Phys: Pal Forrest MD Acct: [id number] Dis Date: Status: ADM IN PHONE #: [phone] Exam Date: 12/25/2022 1042 FAX #: Reason: SOB EXAMS: CPT: [id number] XR CHEST 1 V 09703 F luoro Time: DAP (Gy m2): Air Kerma (mGy): Location: B2 EXAM: - XR CHEST 1 V DATE: 12/25/2022 10:41 AMHISTORY: SOB COMPARISON: Chest x-ray 12/18/2022 FINDINGS: No airspace consolidation or large pleural effusions. No pneumothorax. Subsegmental atelectasis in both lung bases. Prominence of the cardiac joão houette.. No bony lesions. IMPRESSION: Segmental atelectasis in both lung bases. at 1057 Reported and signed by: Brenda Reyes M.D. CC: Pal Forrest MD; Ryan Cárdenas MD; Maida Schilling MD PAGE 1 Signed Report Name: MALISSA BEAVERS [place] : 1945 Age/S: 77 / F [address] Unit #: [id number] Loc: [place] [address] Phys: Pal Forrest MD Acct: [id number] Dis Date: Status: ADM IN PHONE #: [phone] Date: 12/25/2022 1042 FAX #: Reason: SOB EXAMS: CPT: [id number] XR CHEST 1 V 25271 Fluoro Time:DAP (Gy m2): Air Kerma (mGy): (Continued) Technologist: Kayy Franks Trnscb Date/Time: 12/25/2022 ( 1756) [email or web address] Orig Print D/T: S: 12/25/2022 (7395) PAGE 2 Signed ReportCBC W/AUTO [id number] 08:32:00 Test Item Value Reference Range Interpretation Comments WHITE BLOOD CELL (test code = 10.9 K/mm3 3.5-11.0 N WBC) RED BLOOD CELL (test code = 2.84 M/mm3 4.70-6.10 L RBC) HEMOGLOBIN (test code = HGB) 8.5 G/DL 10.4-14.9 L HEMATOCRIT (test code = HCT) 26.2 % 31.5-44.1 L MEAN CELL VOLUME (test code = 92.3 Fl 84.5-98.6 N MCV) MEAN CELL HGB (test code = MCH) 29.9 pg 27.0-34.2 N MEAN CELL HGB CONCETRATION 32.4 G/DL 31.5-34.0 N (test code = MCHC) RED CELL DISTRIBUTION WIDTH 13.9 SD 11.5-14.5 N (test code = RDW) PLATELET COUNT (test code = 279 K/mm3 150-450 N PLT) MEAN PLATELET VOLUME (test code 10.80 fL 7.0-10.5 H = MPV) NEUTROPHIL % (test code = NT%) 83.6 % 40-76 H IMMATURE GRANULOCYTE % (test 0.4 % 0.0-5.0 N code = IG%) LYMPHOCYTE % (test code = LY%) 7.1 % 20.5-51.1 L MONOCYTE % (test code = MO%) 8.8 % 1.7-9.3 N EOSINOPHIL % (test code = EO%) 0.0 % 0.0-6.0 N BASOPHIL % (test code = BA%) 0.1 % 0.0-2.0 N NUCLEATED RBC % (test code = 0.0 /100WBC% 0.0-1.0 N NRBC%) NEUTROPHIL # (test code = NT#) 9.1 K/mm3 1.8-7.6 H IMMATURE GRANULOCYTE # (test 0.04 x10 3/uL 0.00-0.03 H code = IG#) LYMPHOCYTE # (test code = LY#) 0.8 K/mm3 0.6-3.2 N MONOCYTE # (test code = MO#) 1.0 K/mm3 0.3-1.1 N EOSINOPHIL # (test code = EO#) 0.0 K/mm3 0.0-0.4 N BASOPHIL # (test code = BA#) 0.0 K/mm3 0.0-0.1 N NUCLEATED RBC # (test code = 0.0 K/mm3 0.0-0.1 N NRBC#) MANUAL DIFF REQUIRED (test code NO DIFF/SCN CRITERIA = MDIFF) BASIC METABOLIC [id number] 08:30:00 Test Item Value Reference Range Interpretation Comments SODIUM (test code = 133 mmol/L 134-147 L NA) POTASSIUM (test 4.3 mmol/L 3.4-5.0 N code = K) CHLORIDE (test code 103 mmol/L 100-108 N = CL) CARBON DIOXIDE 24 mmol/L 21-32 N (test code = CO2) ANION GAP (test 6.0 GAP calc 4.0-15.0 N code = GAP) GLUCOSE (test code 128 MG/DL 70-110 H = GLU) BLOOD UREA NITROGEN 23 MG/DL 7-18 H (test code = BUN) GLOMERULAR 58 estGFR >60 L The Glomerular FILTRATION RATE Filtration R ate is a (test code = GFR) calculated parameterbased on serum Creatinin e, patient age and sex. GFR valuesless than 60 mL/min/1.73 squ are meters are julián cative ofChronic Kidne y Disease. Values less than 15 mL/min/1.73squa re meters indicate Kidney failure. The calculation for GFR is based on the CK D-EPI (2020) calculat ion. This formulais race indifferent and is the recommended for karlos for GFRby the N ational Kidney Foundati on for Adults.The GFR will not calculate i f the sex is unknown or if thepatient's ag e is <18 years. CREATININE (test 1.0 MG/DL 0.6-1.0 N code = CREAT) CALCIUM (test code 8.0 MG/DL 8.5-10.1 L = CA) PROTHROMBIN [id number] 00:15:00 Test Item Value Reference Range Interpretation Comments PT PATIENT (test 11.4 SECONDS 9.3-12.9 N code = PTP) INTERNATIONAL NORMAL 1.03 INR Unit 0.8-1.2 N TARGE T INR BY RATIO (test code = INDICATIO N Indication INR) INR1. Prophylax is of venous thrombos is 2.0 - 3.0 (orthoped ic surgery), Proph ylaxis of venous throm bosis (other than hig h-risk surgery), Treat ment of Deep Vein Thrombosis/Pulm onary Embolism, Preve ntion of systemic emb olism - Tissue heart va lves, Acute Myocardia l Infarction (to prevent systemic emboli sm), Valvular heart disease, Acute Myocardial Infa rction (to prevent sys temic embolism), Valv ular heart disease, Atrial Fibrillation, Bileaflet mecha nical valve in aortic position.2. Mec hanical prosthetic valv es (high risk), 2. 5 - 3.5 Presence of Lup us Anticoagulant o r Antiphospholipi d Antibodies, Pre vention of systemic emb olism - Acute Myocardia l Infarction (to prevent recurrent infar ct). THROMBOPLASTIN TIME [id number] 00:15:00 Test Item Value Reference Range Interpretation Comments THROMBOPLASTIN TIME PARTIAL 27.0 SECONDS 26-35 N (test code = PTT) [id number] 00:15:00 Test Item Value Reference Range Interpretation Comments FIBRINOGEN (test code = FIB) 357 mg/dL 185-453 N [id number] 00:15:00 Test Item Value Reference Range Interpretation Comments D-DIMER (test 2574 ng/mLFEU 215-500 HH THROMBOSIS AN D/OR PULMONARY code = EMBOLISM AND TH E CLINICAL DDIMER) CUT-OFF VALUE F OR EXCLUSION (500 ng/mL FEU) OF THESE CONDITIONSIS VA LIDATED BY THE MANUFACTURE R OF THE METHOD. A NEGAT FIDEL D-DIMER RESULT WHEN COM BINED WITH A CLINICALASSESSM ENT OF LOW PRETEST PROBABI LITY HAS BEEN SHOWN TO H AVEA HIGH NEGATIVE PREDIC TIVE VALUE OF DVT OR PE. D -DIMER VALUES >500 ng/ mL FEU ARE NOT DIAGNOSTIC FOR DVT, PEor DIC WITHOU T OTHER CONFIRMATORY TE STS AND APPROPRIATECLIN ICAL EUALUATIONS. CBC W/O [id number] 23:02:00 Test Item Value Reference Range Interpretation Comments WHITE BLOOD CELL (test code = WBC) 13.9 K/mm3 3.5-11.0 H RED BLOOD CELL (test code = RBC) 3.15 M/mm3 4.70-6.10 L HEMOGLOBIN (test code = HGB) 9.4 G/DL 10.4-14.9 L HEMATOCRIT (test code = HCT) 28.8 % 31.5-44.1 L MEAN CELL VOLUME (test code = MCV) 91.4 Fl 84.5-98.6 N MEAN CELL HGB (test code = MCH) 29.8 pg 27.0-34.2 N MEAN CELL HGB CONCETRATION (test 32.6 G/DL 31.5-34.0 N code = MCHC) RED CELL DISTRIBUTION WIDTH (test 13.5 SD 11.5-14.5 N code = RDW) PLATELET COUNT (test code = PLT) 284 K/mm3 150-450 N MEAN PLATELET VOLUME (test code = 10.70 fL 7.0-10.5 H MPV) BASIC METABOLIC [id number] 23:00:00 Test Item Value Reference Range Interpretation Comments SODIUM (test code 135 mmol/L 134-147 N = NA) POTASSIUM (test 4.7 mmol/L 3.4-5.0 N code = K) CHLORIDE (test 102 mmol/L 100-108 N code = CL) CARBON DIOXIDE 23 mmol/L 21-32 N (test code = CO2) ANION GAP (test 10.0 GAP calc 4.0-15.0 N code = GAP) GLUCOSE (test code 192 MG/DL 70-110 H = GLU) BLOOD UREA 24 MG/DL 7-18 H NITROGEN (test code = BUN) GLOMERULAR 42 estGFR >60 L The Glomerular FILTRATION RATE Filtration R ate is a (test code = GFR) calculated parameterbased on serum Creatinin e, patient age and sex. GFR valuesless than 60 mL/min/1.73 squ are meters are julián cative ofChronic Kidne y Disease. Values less than 15 mL/min/1.73squa re meters indicate Kidney failure. The calculation for GFR is based on the CK D-EPI (2020) calculat ion. This formulais race indifferent and is the recommended for karlos for GFRby the [facility] Kidney Foundati on for Adults.The GFR will not calculate i f the sex is unknown or if thepatient's ag e is <18 years. CREATININE (test 1.3 MG/DL 0.6-1.0 H code = CREAT) CALCIUM (test code 8.2 MG/DL 8.5-10.1 L = CA) - XR [id number] 20:20:00 [facility] 1945 Sex: F Name: MALISSA BEAVERS [facility] : 1945 Age/S: 77 / F [address] [place] Unit #: [id number]: [place] [address] Phys: Ryan Cárdenas MD Acct: [id number] Dis Date: Status: ADM IN PHONE #: [phone] Exam Date: 12/24/20222011 FAX #: Reason: postop EXAMS: CPT: [id number] XR PELVIS 92158 Fluoro Time: DAP (Gy m2): Air Kerma (mGy): Location code: H5 Pelvis: Single frontal view Indication: postop. Comparison: None Findings: No evidence of fracture. No sclerotic or lytic lesion is seen.The sacroiliac joints and pubic symphysis are unremarkable. Left hip joint is unremarkable. Recentlyplaced right hip prosthesis. Components are in good alignment and are well seated. Overlying skin yomaira and small air in the soft tissues. Visualized aspects of the sacrum are normal in appearance. The lowermost lumbar spine is unremarkable. Air-filled nondistended small bowel loops in the pelvis, consistent with ileus. Impression: 1. Right hip prosthesis. No evidence of complication. 2.Air-filled nondistended small bowel loops in the pelvis, consistent with ileus. at 2019 Reported and signed by: Leon Orozco M.D. CC: Ryan Cárdenas MD PAGE 1 Signed Report Name: [facility]AV[facility] 1945 Age/S:77 / F [address] [place] Unit #: [id number] Loc: [place] [address] Phys: Ryan Cárdenas MD Acct: [id number] Dis Date: Status: ADM IN PHONE #: [phone] Exam Date: 12/24/20222011 FAX #: Reason:postop EXAMS: CPT: [id number] XR PELVIS 71447 Fluoro Time: DAP (Gy m2): Air Kerma (mGy): (Continued)Technologist: Aubrie Todd Trnscb Date/Time: 12/24/2022 (2019) [email or web address] Orig Print D/T: S: 12/24/2022 (2022) PAGE 2 Signed ReportTROP-I HIGH [id number] 16:58:00 Test Item Value Reference Range Interpretation Comments TROP-I HIGH 10.9 ng/L 0-54 N CAUTION: Units of the SENSITIVITY (test current te st methodology code = TROPIHS) (ng/L) diffe rfrom the prior test meth odology (ng/mL) by a fa ctor of 1000. 99t h Percentile Uppe r Reference Limit (URL):Fem ales: 54 ng/LMales: 79 n g/L In order to distin [facility] acute elevations of h igh sensitivitytrop onin from other clinical conditions, the FourthUnive rsal Definition of M yocardial Infarction stressesclinica l assessment and the demonstration o f a rise and/orfall in s erial troponin result s above the URL. Results fr om different metho dologies should not be c omparedto one another as quantitative re sults and URLs may varyby method. [id number] 16:57:00 Test Item Value Reference Range Interpretation Comments MAGNESIUM (test code = MAG) 1.9 MG/DL 1.8-2.4 N THYROID STIMULATING [id number] 16:57:00 Test Item Value Reference Range Interpretation Comments THYROID STIMULATING HORMONE 0.878 mcIU/ML 0.340-4.820 N (test code = TSH) TROP-I HIGH [id number] 16:57:00 Test Item Value Reference Range Interpretation Comments TROP-I HIGH 10.6 ng/L 0-54 N CAUTION: Units of the SENSITIVITY (test current te st methodology code = TROPIHS) (ng/L) diffe rfrom the prior test meth odology (ng/mL) by a fa ctor of 1000. 99t h Percentile Uppe r Reference Limit (URL):Fem ales: 54 ng/LMales: 79 n g/L In order to distin [facility] acute elevations of h igh sensitivitytrop onin from other clinical conditions, the FourthUnive rsal Definition of M yocardial Infarction stressesclinica l assessment and the demonstration o f a rise and/orfall in s erial troponin result s above the URL. Results fr om different metho dologies should not be c omparedto one another as quantitative re sults and URLs may varyby method. - XR FLUOROSCOPY 0-60 [id number] 10:36:00 [facility] 1945 Sex: F Name: MALISSA BEAVERS [facility] : 1945 Age/S: 77 / F [address] Unit #: [id number] Loc: [place] [address] Phys: Ryan Cárdenas MD Acct: [id number] Dis Date: Status: ADM IN PHONE #: [phone] Exam Date: 12/24/2022 1029 FAX #: Reason: R TOT HIP EXAMS: CPT: [id number] XR FLUOROSCOPY 0-60 MIN 67759 Fluoro Time: 29 DAP (Gy m2): Air Kerma (mGy): EXAM: - XR FLUOROSCOPY 0-60 MIN HISTORY: R TOT HIP Location code:C3 COMPARISON: None available time of interpretation. FINDINGS: Intraoperative fluoroscopy was provided for ORIF. Radiologist was not present for the procedure. Please see west rgical report. IMPRESSION: 1. As above. Reference air kerma: 3.7 mGy at 1036 Reported and signed by: Gonsalo Vaughn MD CC: Ryan Cárdenas MD PAGE 1 Signed Report [facility] 1945 Age/S: 77 / F [address] Unit #: [id number] Loc: [place] [address] Phys: Ryan Cárdenas MD Acct: [id number] Dis Date: Status: ADM IN PHONE #: [phone] Exam Date: 12/24/2022 1029 FAX #: Reason: R TOT HIP EXAMS: CPT: [id number] XR FLUOROSCOPY 0-60 MIN 05600 Fluoro Time: 29 DAP (Gy m2): AirKerma (mGy): (Continued) Technologist: Rashad Paiz, RT(R) Trnscb Date/Time: 12/24/2022 (1036)[email or web address] Orig Print D/T: S: 12/24/2022 (2749) PAGE 2 Signed Report- XR CHEST 1 [id number] 15:08:00 [facility] : 1945 Sex: F Name: MALISSA BEAVERS [facility] : 1945 Age/S: 77 / F [address] Unit #: [id number] Loc: [place] [address] Phys: Gucci Collins MD Acct: [id number] Dis Date: Status: PRE SDC PHONE#: [phone] Exam Date: 12/18/2022 1239 FAX #: Reason: PRE OP EXAMS: CPT: [id number] XR CHEST 1 [id number] Fluoro Time: DAP (Gy m2): Air Kerma (mGy): Location Code: S17 EXAMINATION: - XR CHEST 1 V CLINICAL INDICATION: Female, 77 years year old with PRE OP COMPARISON: None. FINDINGS: Single view(s) of the chest submitted. Support Devices: None. Heart: Cardiac silhouette is normal in size. Mediastinum: Mediastinal contours are normal. Lungs: Pulmonary vessels are normal in size. Streaky bibasilar opacities may represent atelectasis or scarring. Slightly more patchy appearance of the left lung base.Pleura: No pleural effusion is identified. No pneumothorax is present. Bones: Visualized skeleton isintact. IMPRESSION: Streaky bibasilar opacities may represent atelectasis or scarring. Slightly morepatchy appearance of the left lung base, cannot exclude superimposed infection. Correlation with lateral chest radiograph or CT may be of further value if indicated. at [id number] Reported and signed by: Paolo Miller M.D. CC: Ryan Cárdenas MD; Gucci Collins MD PAGE 1 Signed Report Name: MALISSA BEAVERS [place] [facility] [facility] 1945 Age/S: 77 / F [id number] [place] Unit #: [id number] Loc: [place] [address] Phys: Gucci Collins MD Acct: [id number] Dis Date: Status: PRE SDC PHONE #: [phone] Exam Date: 12/18/2022 1234 FAX #: Reason: PREOP EXAMS: CPT: [id number] XR CHEST 1 V [id number] Fluoro Time: DAP (Gy m2): Air Kerma (mGy): (Continued) Technologist: Aubrie Ponce Trnscb Date/Time: 12/18/2022 (1508) [id number] Orig Print D/T: S: 12/18/2022 (0471) PAGE 2 Signed ReportSED [id number] 14:09:00 Test Item Value Reference Range Interpretation Comments SED RATE (test code = SEDW) 21 mm/hr 0-20 H SED RATE [id number] 14:08:00 Test Item Value Reference Range Interpretation Comments SED RATE WESTERGREN (test code = 21 mm/hr 0-20 H SEDW) THROMBOPLASTIN TIME [id number] 12:56:00 Test Item Value Reference Range Interpretation Comments THROMBOPLASTIN TIME PARTIAL 31.3 SECONDS 26-35 N (test code = PTT) PROTHROMBIN [id number] 12:56:00 Test Item Value Reference Range Interpretation Comments PT PATIENT (test 10.5 SECONDS 9.3-12.9 N code = PTP) INTERNATIONAL NORMAL 0.95 INR Unit 0.8-1.2 N TARGE T INR BY RATIO (test code = INDICATIO N Indication INR) INR1. Prophylax is of venous thrombos is 2.0 - 3.0 (orthoped ic surgery), Proph ylaxis of venous throm bosis (other than hig h-risk surgery), Treat ment of Deep Vein Thrombosis/Pulm onary Embolism, Preve ntion of systemic emb olism - Tissue heart va lves, Acute Myocardia l Infarction (to prevent systemic emboli sm), Valvular heart disease, Acute Myocardial Infa rction (to prevent sys temic embolism), Valv ular heart disease, Atrial Fibrillation, Bileaflet mecha nical valve in aortic position.2. Mec hanical prosthetic valv es (high risk), 2. 5 - 3.5 Presence of Lup us Anticoagulant o r Antiphospholipi d Antibodies, Pre vention of systemic emb olism - Acute Myocardia l Infarction (to prevent recurrent infar ct). CBC W/AUTO [id number] 12:37:00 Test Item Value Reference Range Interpretation Comments WHITE BLOOD CELL (test code = 4.4 K/mm3 3.5-11.0 N WBC) RED BLOOD CELL (test code = 3.94 M/mm3 4.70-6.10 L RBC) HEMOGLOBIN (test code = HGB) 11.7 G/DL 10.4-14.9 N HEMATOCRIT (test code = HCT) 36.2 % 31.5-44.1 N MEAN CELL VOLUME (test code = 91.9 Fl 84.5-98.6 N MCV) MEAN CELL HGB (test code = MCH) 29.7 pg 27.0-34.2 N MEAN CELL HGB CONCETRATION 32.3 G/DL 31.5-34.0 N (test code = MCHC) RED CELL DISTRIBUTION WIDTH 13.3 SD 11.5-14.5 N (test code = RDW) PLATELET COUNT (test code = 289 K/mm3 150-450 N PLT) MEAN PLATELET VOLUME (test code 10.70 fL 7.0-10.5 H = MPV) NEUTROPHIL % (test code = NT%) 61.2 % 40-76 N IMMATURE GRANULOCYTE % (test 0.5 % 0.0-5.0 N code = IG%) LYMPHOCYTE % (test code = LY%) 24.5 % 20.5-51.1 N MONOCYTE % (test code = MO%) 10.6 % 1.7-9.3 H EOSINOPHIL % (test code = EO%) 2.5 % 0.0-6.0 N BASOPHIL % (test code = BA%) 0.7 % 0.0-2.0 N NUCLEATED RBC % (test code = 0.0 /100WBC% 0.0-1.0 N NRBC%) NEUTROPHIL # (test code = NT#) 2.7 K/mm3 1.8-7.6 N IMMATURE GRANULOCYTE # (test 0.02 x10 3/uL 0.00-0.03 N code = IG#) LYMPHOCYTE # (test code = LY#) 1.1 K/mm3 0.6-3.2 N MONOCYTE # (test code = MO#) 0.5 K/mm3 0.3-1.1 N EOSINOPHIL # (test code = EO#) 0.1 K/mm3 0.0-0.4 N BASOPHIL # (test code = BA#) 0.0 K/mm3 0.0-0.1 N NUCLEATED RBC # (test code = 0.0 K/mm3 0.0-0.1 N NRBC#) MANUAL DIFF REQUIRED (test code NO DIFF/SCN CRITERIA = MDIFF) BASIC METABOLIC [id number] 12:35:00 Test Item Value Reference Range Interpretation Comments SODIUM (test code 136 mmol/L 134-147 N = NA) POTASSIUM (test 4.2 mmol/L 3.4-5.0 N code = K) CHLORIDE (test 105 mmol/L 100-108 N code = CL) CARBON DIOXIDE 27 mmol/L 21-32 N (test code = CO2) ANION GAP (test 4.0 GAP calc 4.0-15.0 N code = GAP) GLUCOSE (test code 99 MG/DL 70-110 N = GLU) BLOOD UREA 22 MG/DL 7-18 H NITROGEN (test code = BUN) GLOMERULAR >=60 max >60 The Glomerular FILTRATION RATE estimate estGFR Filtratio n Rate is a (test code = GFR) calculated parameterbased on serum Creatinin e, patient age and sex. GFR valuesless than 60 mL/min/1.73 square meters are julián cative ofChronic Kidne y Disease. Values less than 15 mL/min/1.73squa re meters indicate Kidney failure. The calculation for GFR is based on the CK D-EPI (2020) calculat ion. This formulais race indifferent and is the recommended formula for GFR by the National Kidney Foundation for Adults.The GFR will not calculate i f the sex is unknown or if thepatient's ag e is <18 years. CREATININE (test 0.9 MG/DL 0.6-1.0 N code = CREAT) CALCIUM (test code 8.7 MG/DL 8.5-10.1 N = CA) C REACTIVE [id number] 12:35:00 Test Item Value Reference Range Interpretation Comments C REACTIVE PROTEIN (test code = 0.349 MG/DL 0.000-0.3 H CRP) culture,urine pres id [id number] 08:46:00 Test Item Value Reference Range Interpretation Comments culture,urine (test scant skin ole. no code = culture,urine) pathogen present at 2 days. [facility] Urine by [id number] 08:48:00 Test Item Value Reference Range Interpretation Comments culture,urine (test no growth after 1 day code = culture,urine) [facility] CentralUrinalysis macro (dipstick) panel - [id number] 13:33:04 Test Item Value Reference Range Interpretation Comments Leukocytes (test code = Leukocytes) Small Nitrite (test code = Nitrite) negative Urobilinogen (test code = .2 Urobilinogen) Protein (test code = Protein) Negative pH (test code = pH) 6.0 Blood (test code = Blood) Negative Specific [place] (test code = 1.020 Specific [place]) Ketone (test code = Ketone) Negative Bilirubin (test code = Bilirubin) Negative Glucose (test code = Glucose) Negative Appearance (test code = Appearance) Clear Color (test code = Color) Yellow [facility] Central[facility]inalysis macro (dipstick) panel - [id number] 13:33:04 Test Item Value Reference Range Interpretation Comments Leukocytes (test code = Leukocytes) Small Nitrite (test code = Nitrite) negative Urobilinogen (test code = .2 Urobilinogen) Protein (test code = Protein) Negative pH (test code = pH) 6.0 Blood (test code = Blood) Negative Specific [place] (test code = 1.020 Specific [place]) Ketone (test code = Ketone) Negative Bilirubin (test code = Bilirubin) Negative Glucose (test code = Glucose) Negative Appearance (test code = Appearance) Clear Color (test code = Color) Yellow [facility] [id number] 07:59:00 Test Item Value Reference Range Interpretation Comments quest collection (test code = quest quest collection) [facility] [id number] 07:59:00 Test Item Value Reference Range Interpretation Comments quest collection (test code = quest quest collection) [facility] [id number] 07:59:00 Test Item Value Reference Range Interpretation Comments quest collection (test code = quest quest collection) [facility]2023-04-05 05:00:00 Test Item Value Reference Range Interpretation Comments Vitamin B1 (test code = Vitamin B1) 145 78-185 [facility] HospitalXxqjbduKYCPENNEG2847-69-76 05:00:00 Test Item Value Reference Range Interpretation Comments Vitamin B6 (test code = Vitamin B6) 120.2 2.1-21.7 [facility] HospitalOuznmekCIPVUPVLJ4262-80-02 05:00:00 Test Item Value Reference Range Interpretation Comments Vitamin B1 (test code = Vitamin B1) 145 78-185 [facility] CampusWrcmuzePHLIQRMQC6357-69-73 05:00:00 Test Item Value Reference Range Interpretation Comments Vitamin B1 (test code = Vitamin B1) 145 78-185 [facility] HospitalAnfwfzuNDQWMMNHA4357-01-32 05:00:00 Test Item Value Reference Range Interpretation Comments Vitamin B6 (test code = Vitamin B6) 120.2 2.1-21.7 [facility] HospitalTwonzafZQOPZPROF1536-30-15 05:00:00 Test Item Value Reference Range Interpretation Comments Vitamin B6 (test code = Vitamin B6) 120.2 2.1-21.7 [facility]PsswcfvLWNZVKEPFPKO8716-89-14 14:25:00 Test Item Value Reference Range Interpretation Comments POC Sodium (test code = POC Sodium) 136 135-145 [facility] HospitalWlzxtrgVNGIVWYOPBDD5184-52-96 14:25:00 Test Item Value Reference Range Interpretation Comments POC Potassium (test code = POC 5.0 3.5-5.1 Potassium) [facility] HospitalIxbsfjdZTBKFFOHQOHR6439-33-18 14:25:00 Test Item Value Reference Range Interpretation Comments POC Chloride (test code = POC Chloride) 100 95-109 [facility] HospitalMnqnpnbACCGGGWLUUPO1114-09-26 14:25:00 Test Item Value Reference Range Interpretation Comments POC Carbon Dioxide (test code = POC 27 24-32 Carbon Dioxide) [facility] HospitalZmvthkbHLDEZIBFHQLU7496-24-14 14:25:00 Test Item Value Reference Range Interpretation Comments POC BUN (test code = POC BUN) 20 7-22 [facility] HospitalKiiyjstTPMKNYLGJKLI2101-48-54 14:25:00 Test Item Value Reference Range Interpretation Comments POC Creatinine (test code = POC 0.9 0.5-1.4 Creatinine) [facility] HospitalKijsukaULFABEWKLJYY2858-36-13 14:25:00 Test Item Value Reference Range Interpretation Comments POC Glucose (test code = POC Glucose) 92 70-99 [facility] HospitalGttcyilHQFVFAEGCIKG5494-80-07 14:25:00 Test Item Value Reference Range Interpretation Comments POC Ion Ca (test code = POC Ion Ca) 1.21 1.05-1.25 [facility] HospitalZpdunirAEVRTEZVPCUF8291-85-73 14:25:00 Test Item Value Reference Range Interpretation Comments POC Hemoglobin (test code = POC 12.2 12.0-16.0 Hemoglobin) [facility] HospitalQiblbxjEEJOQHIZQJFE8203-80-47 14:25:00 Test Item Value Reference Range Interpretation Comments POC Hematocrit (test code = POC 36.0 36.0-48.0 Hematocrit) [facility] HospitalEknfozeDDGMHBROUEIK8830-80-33 14:25:00 Test Item Value Reference Range Interpretation Comments POC AGAP (test code = POC AGAP) 15.0 10.0-20.0 [facility] HospitalZpkzewfIRTKDLBXNGKF4877-04-07 14:25:00 Test Item Value Reference Range Interpretation Comments eGFR (test code = eGFR) 62 [facility] HospitalEpkgvrpTFKJORGZNHYG1835-82-07 14:25:00 Test Item Value Reference Range Interpretation Comments POC Sodium (test code = POC Sodium) 136 135-145 [facility] HospitalRaajanoDIZVWMDGYFQL7249-21-19 14:25:00 Test Item Value Reference Range Interpretation Comments POC Potassium (test code = POC 5.0 3.5-5.1 Potassium) [facility] HospitalDipuobiFBAZDUGAMUSL0398-92-90 14:25:00 Test Item Value Reference Range Interpretation Comments POC Chloride (test code = POC Chloride) 100 95-109 [facility] HospitalKjgdqkhMELJSQYECTHT2103-09-34 14:25:00 Test Item Value Reference Range Interpretation Comments POC Carbon Dioxide (test code = POC 27 24-32 Carbon Dioxide) [facility] HospitalAmnxlmzNQPLXPMJYKOY4478-82-92 14:25:00 Test Item Value Reference Range Interpretation Comments POC BUN (test code = POC BUN) 20 7-22 [facility] HospitalAhwbtziBQCCXLKFFRMO5355-04-72 14:25:00 Test Item Value Reference Range Interpretation Comments POC Creatinine (test code = POC 0.9 0.5-1.4 Creatinine) [facility] HospitalCrdgihoWPPQFNHFZEEU9932-89-85 14:25:00 Test Item Value Reference Range Interpretation Comments POC Glucose (test code = POC Glucose) 92 70-99 [facility] HospitalZwraujmELBHSKRFFBPH0367-38-60 14:25:00 Test Item Value Reference Range Interpretation Comments POC Ion Ca (test code = POC Ion Ca) 1.21 1.05-1.25 [facility] HospitalDifxivkDZQEHZQJOREC9691-22-87 14:25:00 Test Item Value Reference Range Interpretation Comments POC Hemoglobin (test code = POC 12.2 12.0-16.0 Hemoglobin) [facility] HospitalMmftqxvEEYOLOZGHCAA0918-09-35 14:25:00 Test Item Value Reference Range Interpretation Comments POC Hematocrit (test code = POC 36.0 36.0-48.0 Hematocrit) [facility] HospitalRjlcswoYSBEAHXQQREC4356-23-59 14:25:00 Test Item Value Reference Range Interpretation Comments POC AGAP (test code = POC AGAP) 15.0 10.0-20.0 [facility] HospitalFeyirjeHAMITASPWNCB0147-88-73 14:25:00 Test Item Value Reference Range Interpretation Comments eGFR (test code = eGFR) 62 [facility] HospitalIyijbuqZZOPHVRSNXCC4113-87-71 14:25:00 Test Item Value Reference Range Interpretation Comments POC Sodium (test code = POC Sodium) 136 135-145 [facility] HospitalWllrplrKOJAIYEECWVZ9434-33-68 14:25:00 Test Item Value Reference Range Interpretation Comments POC Potassium (test code = POC 5.0 3.5-5.1 Potassium) [facility] HospitalIokbrduEACHXKTHOQVF0039-37-89 14:25:00 Test Item Value Reference Range Interpretation Comments POC Chloride (test code = POC Chloride) 100 95-109 [facility] HospitalUylwtqeOSCEYRRTXJHV4317-84-56 14:25:00 Test Item Value Reference Range Interpretation Comments POC Carbon Dioxide (test code = POC 27 24-32 Carbon Dioxide) [facility] HospitalDijblkgFFZTGSGZVXQM8268-99-60 14:25:00 Test Item Value Reference Range Interpretation Comments POC BUN (test code = POC BUN) 20 7-22 [facility] HospitalQvfevovVJBHMHWYMOXC2448-56-66 14:25:00 Test Item Value Reference Range Interpretation Comments POC Creatinine (test code = POC 0.9 0.5-1.4 Creatinine) [facility] HospitalEotfqymLSWWPMUJNMMW9967-55-18 14:25:00 Test Item Value Reference Range Interpretation Comments POC Glucose (test code = POC Glucose) 92 70-99 [facility] HospitalHrdbmqpVUGZZURPZUVT8768-39-76 14:25:00 Test Item Value Reference Range Interpretation Comments POC Ion Ca (test code = POC Ion Ca) 1.21 1.05-1.25 [facility] HospitalVihilfpVHSHGXERMUBD1914-58-01 14:25:00 Test Item Value Reference Range Interpretation Comments POC Hemoglobin (test code = POC 12.2 12.0-16.0 Hemoglobin) [facility] HospitalOaempksWTMWUGNQGXBD6336-29-78 14:25:00 Test Item Value Reference Range Interpretation Comments POC Hematocrit (test code = POC 36.0 36.0-48.0 Hematocrit) [facility] HospitalQrzapgzVKELLIWAQVSW7926-53-72 14:25:00 Test Item Value Reference Range Interpretation Comments POC AGAP (test code = POC AGAP) 15.0 10.0-20.0 [facility] HospitalCqfdwmcIPTTJYCDFSYH3617-02-54 14:25:00 Test Item Value Reference Range Interpretation Comments eGFR (test code = eGFR) 62 [facility] AllianceannMicroscopic observation [Identifier] in Vaginal fluid by Wet pnwhzbxmjug9807-65-42 14:32:30 Test Item Value Reference Range Interpretation Comments Clue Cells (test code = Clue Cells) negative WBCs (test code = WBCs) positive Trichomonads (test code = negative Trichomonads) Epithelial cells (test code = abnormal Epithelial cells) RBCs (test code = RBCs) negative [facility] CentralUcvvtSTILXOXXVDIJ1954-08-48 14:52:00 Test Item Value Reference Range Interpretation Comments POC Sodium (test code = POC Sodium) 138 135-145 [facility] HospitalPrfrkihEBEAUGRDFFXM1078-94-76 14:52:00 Test Item Value Reference Range Interpretation Comments POC Potassium (test code = POC 4.9 3.5-5.1 Potassium) [facility] HospitalNdyyasdXNFWLJRQKBHE6429-15-00 14:52:00 Test Item Value Reference Range Interpretation Comments POC Chloride (test code = POC Chloride) 99 95-109 [facility] HospitalSrkxbwfAOYNHSWDYJRO2094-34-05 14:52:00 Test Item Value Reference Range Interpretation Comments POC Carbon Dioxide (test code = POC 27 24-32 Carbon Dioxide) [facility] HospitalApynlvdEVLBATEXLYTS9616-48-25 14:52:00 Test Item Value Reference Range Interpretation Comments POC BUN (test code = POC BUN) 18 7-22 [facility] HospitalVfrpvknRLVAUMFNEDSK2674-01-63 14:52:00 Test Item Value Reference Range Interpretation Comments POC Creatinine (test code = POC 0.9 0.5-1.4 Creatinine) [facility] HospitalXadommoYRDFRDHPMNMZ6056-11-12 14:52:00 Test Item Value Reference Range Interpretation Comments POC Glucose (test code = POC Glucose) 115 70-99 [facility] HospitalOtrnpuoDVXNOSZSGKSU1514-32-66 14:52:00 Test Item Value Reference Range Interpretation Comments POC Ion Ca (test code = POC Ion Ca) 1.25 1.05-1.25 [facility] HospitalFyiubnwHGWZVUAQQRHR4687-34-67 14:52:00 Test Item Value Reference Range Interpretation Comments POC Hemoglobin (test code = POC 12.2 12.0-16.0 Hemoglobin) [facility] HospitalFhapzbeGLYGFPMQEBVB2708-73-69 14:52:00 Test Item Value Reference Range Interpretation Comments POC Hematocrit (test code = POC 36.0 36.0-48.0 Hematocrit) [facility] HospitalYhzxfvbYDMTIBTNZIJN0416-37-55 14:52:00 Test Item Value Reference Range Interpretation Comments POC AGAP (test code = POC AGAP) 18.0 10.0-20.0 [facility] HospitalBzwibymSBHPISEUSPAK5670-27-48 14:52:00 Test Item Value Reference Range Interpretation Comments eGFR (test code = eGFR) 63 [facility] HospitalNlksfynBWWVPCOVDOSK5568-00-19 14:52:00 Test Item Value Reference Range Interpretation Comments POC Disclaimer (test code See Note = POC Disclaimer) *NA*(07/20/20 8:52 AM) [facility] HospitalMnuicmhTDOWUAJMYYED4533-85-20 14:52:00 Test Item Value Reference Range Interpretation Comments POC Sodium (test code = POC Sodium) 138 135-145 [facility] HospitalPfygloaOVWKKLPXEXLM0403-86-81 14:52:00 Test Item Value Reference Range Interpretation Comments POC Potassium (test code = POC 4.9 3.5-5.1 Potassium) [facility] HospitalOzsriigIOEYOYJOJNBJ6314-10-23 14:52:00 Test Item Value Reference Range Interpretation Comments POC Chloride (test code = POC Chloride) 99 95-109 [facility] HospitalYdimxzkAPQZMTXJKRMH7536-54-20 14:52:00 Test Item Value Reference Range Interpretation Comments POC Carbon Dioxide (test code = POC 27 24-32 Carbon Dioxide) [facility] HospitalOwasdyjMTKLNKXIXDDJ8097-93-39 14:52:00 Test Item Value Reference Range Interpretation Comments POC BUN (test code = POC BUN) 18 7-22 [facility] HospitalKqdcgjwJTHSZLHMAAHB7337-09-99 14:52:00 Test Item Value Reference Range Interpretation Comments POC Creatinine (test code = POC 0.9 0.5-1.4 Creatinine) [facility] HospitalGsouoztJWHRVNTHJTQI4109-78-39 14:52:00 Test Item Value Reference Range Interpretation Comments POC Glucose (test code = POC Glucose) 115 70-99 [facility] HospitalXosupqiWBZCUHFHTAYB1193-45-04 14:52:00 Test Item Value Reference Range Interpretation Comments POC Ion Ca (test code = POC Ion Ca) 1.25 1.05-1.25 [facility] HospitalRaugwsgPIXWYJQQVQUA2676-50-54 14:52:00 Test Item Value Reference Range Interpretation Comments POC Hemoglobin (test code = POC 12.2 12.0-16.0 Hemoglobin) [facility] HospitalGlcpyuoMZVQHBTPMADZ0786-88-15 14:52:00 Test Item Value Reference Range Interpretation Comments POC Hematocrit (test code = POC 36.0 36.0-48.0 Hematocrit) [facility] HospitalEyrwagfQQTZLUJLQUFF9184-90-85 14:52:00 Test Item Value Reference Range Interpretation Comments POC AGAP (test code = POC AGAP) 18.0 10.0-20.0 [facility] HospitalLshcwluVYWFQEGHJEVN3042-45-90 14:52:00 Test Item Value Reference Range Interpretation Comments eGFR (test code = eGFR) 63 [facility] HospitalEmgibcpEIKDOPJHMQAQ5665-06-11 14:52:00 Test Item Value Reference Range Interpretation Comments POC Disclaimer (test code See Note = POC Disclaimer) *NA*(07/20/20 8:52 AM) [facility] HospitalNpfwnrtATRXJMUUEUGI6866-83-97 14:52:00 Test Item Value Reference Range Interpretation Comments POC Sodium (test code = POC Sodium) 138 135-145 [facility] HospitalPtlcbnvRIYQCQBSYOXH1533-74-22 14:52:00 Test Item Value Reference Range Interpretation Comments POC Potassium (test code = POC 4.9 3.5-5.1 Potassium) [facility] HospitalCkxkskxTXDYSCQACZYR9862-59-64 14:52:00 Test Item Value Reference Range Interpretation Comments POC Chloride (test code = POC Chloride) 99 95-109 [facility] HospitalIcascflSDLTVOIKSIEW6637-38-02 14:52:00 Test Item Value Reference Range Interpretation Comments POC Carbon Dioxide (test code = POC 27 24-32 Carbon Dioxide) [facility] HospitalOmvndpkNCTJEMGCIZOE0986-08-36 14:52:00 Test Item Value Reference Range Interpretation Comments POC BUN (test code = POC BUN) 18 7-22 [facility] HospitalKzaebreKWQCGOKUPNVB7749-95-22 14:52:00 Test Item Value Reference Range Interpretation Comments POC Creatinine (test code = POC 0.9 0.5-1.4 Creatinine) [facility] HospitalGmkexpdGFNWFUKGFSRO3677-91-43 14:52:00 Test Item Value Reference Range Interpretation Comments POC Glucose (test code = POC Glucose) 115 70-99 [facility] HospitalNxpbcprIGMMUTCLYPCV4509-64-92 14:52:00 Test Item Value Reference Range Interpretation Comments POC Ion Ca (test code = POC Ion Ca) 1.25 1.05-1.25 [facility] HospitalOgpggcdZTOTTMRZPFOJ3763-96-34 14:52:00 Test Item Value Reference Range Interpretation Comments POC Hemoglobin (test code = POC 12.2 12.0-16.0 Hemoglobin) [facility] HospitalMwljnvxXKJYBYRTIWQP5078-35-54 14:52:00 Test Item Value Reference Range Interpretation Comments POC Hematocrit (test code = POC 36.0 36.0-48.0 Hematocrit) [facility] HospitalUcbdindOGARHFUXHKKJ4358-89-33 14:52:00 Test Item Value Reference Range Interpretation Comments POC AGAP (test code = POC AGAP) 18.0 10.0-20.0 [facility] HospitalGlmqblcTFGLEPZCJERL8809-89-25 14:52:00 Test Item Value Reference Range Interpretation Comments eGFR (test code = eGFR) 63 [facility] HospitalIbycuyrKRSRBJPWUOMF6209-40-05 14:52:00 Test Item Value Reference Range Interpretation Comments POC Disclaimer (test code See Note = POC Disclaimer) *NA*(07/20/20 8:52 AM) [facility]plfkqbKWJNAYVHUZ2825-03-81 20:02:00 Test Item Value Reference Range Interpretation Comments Coronavirus (COVID-19) Not Detected CAMELIA (test code = *NA*(07/18/20 2:02 PM) Coronavirus (COVID-19) CAMELIA) [facility] DallasBqazissQEPCEPROQT1552-17-02 20:02:00 Test Item Value Reference Range Interpretation Comments Coronavirus (COVID-19) Not Detected CAMELIA (test code = *NA*(07/18/20 2:02 PM) Coronavirus (COVID-19) CAMELIA) [facility] DallasZijhbksDWBLNLNDXY8884-82-68 20:02:00 Test Item Value Reference Range Interpretation Comments Coronavirus (COVID-19) Not Detected CAMELIA (test code = *NA*(07/18/20 2:02 PM) Coronavirus (COVID-19) CAMELIA) [facility] Pathology biopsy [id number] 00:00:00 Test Item Value Reference Range Interpretation Comments gynecologic biopsy (test code = see results gynecologic biopsy) [facility] Pathology biopsy mssxwx9522-14-29 00:00:00 Test Item Value Reference Range Interpretation Comments gynecologic biopsy (test code = see results gynecologic biopsy) [facility] Pathology biopsy kpjdkt5689-26-75 00:00:00 Test Item Value Reference Range Interpretation Comments gynecologic biopsy (test code = see results gynecologic biopsy) [facility] (dipstick) panel - Tlqfz6084-56-77 14:49:10 Test Item Value Reference Range Interpretation Comments Leukocytes (test code = Large Leukocytes) Nitrite (test code = Nitrite) negative Urobilinogen (test code = .2 Urobilinogen) Protein (test code = Protein) 30 pH (test code = pH) 5.5 Blood (test code = Blood) Moderate Specific [place] (test code = 1.025 Specific [place]) Ketone (test code = Ketone) Trace Bilirubin (test code = Negative Bilirubin) Glucose (test code = Glucose) Negative Appearance (test code = Slightly Cloudy Appearance) Color (test code = Color) Yellow [facility] macro (dipstick) panel - [id number] 14:49:10 Test Item Value Reference Range Interpretation Comments Leukocytes (test code = Large Leukocytes) Nitrite (test code = Nitrite) negative Urobilinogen (test code = .2 Urobilinogen) Protein (test code = Protein) 30 pH (test code = pH) 5.5 Blood (test code = Blood) Moderate Specific [place] (test code = 1.025 Specific [place]) Ketone (test code = Ketone) Trace Bilirubin (test code = Negative Bilirubin) Glucose (test code = Glucose) Negative Appearance (test code = Slightly Cloudy Appearance) Color (test code = Color) Yellow [facility] (dipstick) panel - [id number] 14:49:10 Test Item Value Reference Range Interpretation Comments Leukocytes (test code = Large Leukocytes) Nitrite (test code = Nitrite) negative Urobilinogen (test code = .2 Urobilinogen) Protein (test code = Protein) 30 pH (test code = pH) 5.5 Blood (test code = Blood) Moderate Specific [place] (test code = 1.025 Specific [place]) Ketone (test code = Ketone) Trace Bilirubin (test code = Negative Bilirubin) Glucose (test code = Glucose) Negative Appearance (test code = Slightly Cloudy Appearance) Color (test code = Color) Yellow [facility] macro (dipstick) panel - [id number] 14:49:10 Test Item Value Reference Range Interpretation Comments Leukocytes (test code = Large Leukocytes) Nitrite (test code = Nitrite) negative Urobilinogen (test code = .2 Urobilinogen) Protein (test code = Protein) 30 pH (test code = pH) 5.5 Blood (test code = Blood) Moderate Specific [place] (test code = 1.025 Specific [place]) Ketone (test code = Ketone) Trace Bilirubin (test code = Negative Bilirubin) Glucose (test code = Glucose) Negative Appearance (test code = Slightly Cloudy Appearance) Color (test code = Color) Yellow [facility] (dipstick) panel - [id number] 16:16:47 Test Item Value Reference Range Interpretation Comments Leukocytes (test code = Leukocytes) Large Nitrite (test code = Nitrite) negative Urobilinogen (test code = .2 Urobilinogen) Protein (test code = Protein) Negative pH (test code = pH) 5.5 Blood (test code = Blood) Negative Specific [place] (test code = 1.020 Specific [place]) Ketone (test code = Ketone) Negative Bilirubin (test code = Bilirubin) Negative Glucose (test code = Glucose) Negative Appearance (test code = Appearance) Cloudy Color (test code = Color) Yellow [facility] macro (dipstick) panel - [id number] 16:16:47 Test Item Value Reference Range Interpretation Comments Leukocytes (test code = Leukocytes) Large Nitrite (test code = Nitrite) negative Urobilinogen (test code = .2 Urobilinogen) Protein (test code = Protein) Negative pH (test code = pH) 5.5 Blood (test code = Blood) Negative Specific [place] (test code = 1.020 Specific [place]) Ketone (test code = Ketone) Negative Bilirubin (test code = Bilirubin) Negative Glucose (test code = Glucose) Negative Appearance (test code = Appearance) Cloudy Color (test code = Color) Yellow [facility] [id number] 23:30:29 Test Item Value Reference Range Interpretation Comments Cholesterol Total 105 mg/dL 0-200 RISK OF HE ART (test code = DISEASEPublishe d by Cholesterol Total) [employer] [place] Optimal Borderl ine Increased RiskC HOL <200 200-239 >240TRI G <150 150-199 >200HDL Male >60 <40HDL Fema le >60 <50LDL <100 130 -159 >160LDL Near op timal is 100-129 Triglycerides (test 123 mg/dL 9-200 code = Triglycerides) HDL (test code = HDL) 39 mg/dL 50-60 L LDL (test code = LDL) 41 mg/dL 0-130 The eq uation being used in this calcula tion is LDL = (Chol - H DL) - (Trig / 5) VLDL (test code = 25 mg/dL 5-40 The equati on being used VLDL) in this calcula tion is VLDL = Trig / 5 Chol/HDL (test code = 2.7 ratio 0.0-4.4 Chol/HDL) LDL/HDL Ratio (test 1 N The equa tion being used code = LDL/HDL Ratio) in thi s calculation is LDL/HDL Ratio=L DL Calc/HDL Chol Comprehensive Metabolic [id number] 23:30:28 Test Item Value Reference Range Interpretation Comments Sodium Level (test 142.0 mmol/L 135.0-145.0 code = Sodium Level) Potassium Level 4.6 mmol/L 3.5-5.1 (test code = Potassium Level) Chloride Level (test 104 mmol/L 98-105 code = Chloride Level) CO2 (test code = 27 mmol/L 22-29 CO2) Anion Gap (test code 11 mmol/L 7-16 = Anion Gap) BUN (test code = 22.80 mg/dL 8.00-23.00 BUN) Creatinine Level 1.00 mg/dL 0.50-0.90 H (test code = Creatinine Level) BUN/Creat Ratio 23 N (test code = BUN/Creat Ratio) Glucose Level (test 103 mg/dL 70-115 code = Glucose Level) Calcium Level (test 8.9 mg/dL 8.3-10.5 code = Calcium Level) Alk Phos (test code 71 U/L 35-104 = Alk Phos) Bilirubin Total 0.4 mg/dL 0.1-0.9 (test code = Bilirubin Total) Albumin Level (test 4.3 g/dL 3.5-5.2 code = Albumin Level) Protein Total (test 6.4 g/dL 6.4-8.3 code = Protein Total) ALT (test code = 16 U/L 1-33 ALT) AST (test code = 25 U/L 1-32 AST) Globulin (test code 2.1 g/dL 2.9-3.1 L = Globulin) A/G Ratio (test code 2.0 ratio N = A/G Ratio) eGFR AA (test code = >60 N eGFR (e stimated eGFR AA) mL/min/1.73 m2 Glomerular Filtration Rate ) is an estimated va lue, calculated from the patient's serum creatinine usin g the MDRD equation. It is NOT the patient 's actual GFR. The eGFR provides a more clinically usef ul measure of kidn ey disease than se rum creatinine alone.This calculation souleymane es sex and race in to account, if the information is provided. If th e race is not provided, and t he patient is -Kaylee n, multiply by 1.2 12. If sex is not provided, and t he patient is fema le, multiply by 0.7 42. Results for pat ients <18 years of ag e have not been validated by th e MDRD study and should be interpreted wit h caution. eGFR R esult Interpretation: eGFR > or = 60 is in the Normal RangeeGF R < 60 may mean kid kasey diseaseeGFR < 1 5 may mean kidney failure Rang es recommended by the National Kidney Foundation, http://nkdep.ni h.gov Comprehensive Metabolic [id number] 23:30:28 Test Item Value Reference Range Interpretation Comments Sodium Level (test 142.0 mmol/L 135.0-145.0 code = Sodium Level) Potassium Level 4.6 mmol/L 3.5-5.1 (test code = Potassium Level) Chloride Level (test 104 mmol/L 98-105 code = Chloride Level) CO2 (test code = 27 mmol/L 22-29 CO2) Anion Gap (test code 11 mmol/L 7-16 = Anion Gap) BUN (test code = 22.80 mg/dL 8.00-23.00 BUN) Creatinine Level 1.00 mg/dL 0.50-0.90 H (test code = Creatinine Level) BUN/Creat Ratio 23 N (test code = BUN/Creat Ratio) Glucose Level (test 103 mg/dL 70-115 code = Glucose Level) Calcium Level (test 8.9 mg/dL 8.3-10.5 code = Calcium Level) Alk Phos (test code 71 U/L 35-104 = Alk Phos) Bilirubin Total 0.4 mg/dL 0.1-0.9 (test code = Bilirubin Total) Albumin Level (test 4.3 g/dL 3.5-5.2 code = Albumin Level) Protein Total (test 6.4 g/dL 6.4-8.3 code = Protein Total) ALT (test code = 16 U/L 1-33 ALT) AST (test code = 25 U/L 1-32 AST) Globulin (test code 2.1 g/dL 2.9-3.1 L = Globulin) A/G Ratio (test code 2.0 ratio N = A/G Ratio) eGFR AA (test code = >60 N eGFR (e stimated eGFR AA) mL/min/1.73 m2 Glomerular Filtration Rate ) is an estimated va lue, calculated from the patient's serum creatinine usin g the MDRD equation. It is NOT the patient 's actual GFR. The eGFR provides a more clinically usef ul measure of kidn ey disease than se rum creatinine alone.This calculation souleymane es sex and race in to account, if the information is provided. If th e race is not provided, and t he patient is -Kaylee n, multiply by 1.2 12. If sex is not provided, and t he patient is fema le, multiply by 0.7 42. Results for pat ients <18 years of ag e have not been validated by [facility] MDRD study and should be interpreted wit h caution. eGFR R esult Interpretation: eGFR > or = 60 is in the Normal RangeeGF R < 60 may mean kid kasey diseaseeGFR < 1 5 may mean kidney failure Rang es recommended by the National Kidney Foundation, http://nkdep.ni h.gov eGFR Non-AA (test 54.35 N eGFR (iraida mated code = eGFR Non-AA) mL/min/1.73 m2 Glomer ular Filtration Rate ) is an estimated va lue, calculated from the patient's serum creatinine usin g the MDRD equation. It is NOT the patient 's actual GFR. The eGFR provides a more clinically usef ul measure of kidn ey disease than se rum creatinine alone.This calculation souleymane es sex and race in to account, if the information is provided. If th e race is not provided, and t he patient is -Kaylee n, multiply by 1.2 12. If sex is not provided, and t he patient is fema le, multiply by 0.7 42. Results for pat ients <18 years of ag e have not been validated by [facility] MDRD study and should be interpreted wit h caution. eGFR R esult Interpretation: eGFR > or = 60 is in the Normal RangeeGF R < 60 may mean kid kasey diseaseeGFR < 1 5 may mean kidney failure Rang es recommended by the National Kidney Foundation, http://nkdep.ni h.gov Comprehensive Metabolic [id number] 23:30:28 Test Item Value Reference Range Interpretation Comments Sodium Level (test code = Sodium 142.0 mmol/L 135.0-145.0 Level) Potassium Level (test code = 4.6 mmol/L 3.5-5.1 Potassium Level) Chloride Level (test code = 104 mmol/L 98-105 Chloride Level) CO2 (test code = CO2) 27 mmol/L 22-29 Anion Gap (test code = Anion 11 mmol/L 7-16 Gap) BUN (test code = BUN) 22.80 mg/dL 8.00-23.00 Creatinine Level (test code = 1.00 mg/dL 0.50-0.90 H Creatinine Level) BUN/Creat Ratio (test code = 23 N BUN/Creat Ratio) Glucose Level (test code = 103 mg/dL 70-115 Glucose Level) Calcium Level (test code = 8.9 mg/dL 8.3-10.5 Calcium Level) Alk Phos (test code = Alk Phos) 71 U/L 35-104 Bilirubin Total (test code = 0.4 mg/dL 0.1-0.9 Bilirubin Total) Albumin Level (test code = 4.3 g/dL 3.5-5.2 Albumin Level) Protein Total (test code = 6.4 g/dL 6.4-8.3 Protein Total) ALT (test code = ALT) 16 U/L 1-33 AST (test code = AST) 25 U/L 1-32 Globulin (test code = Globulin) 2.1 g/dL 2.9-3.1 L A/G Ratio (test code = A/G 2.0 ratio N Ratio) Complete Blood Count with [id number] 23:22:39 Test Item Value Reference Range Interpretation Comments WBC (test code = WBC) 5.3 x10 4.4-10.5 RBC (test code = RBC) 3.23 x10 3.75-5.20 L Hgb (test code = Hgb) 9.6 g/dL 12.2-14.8 L MCV (test code = MCV) 95.70 fL 80.00-100.00 Hct (test code = Hct) 30.9 % 36.5-44.4 L MCHC (test code = 31.10 g/dL 32.00-37.50 L MCHC) RDW CV (test code = 14.5 % 11.5-14.5 RDW CV) MCH (test code = MCH) 29.7 pg 27.0-32.5 Platelets (test code = 261.0 x10 140.0-440.0 Platelets) MPV (test code = MPV) 12.0 fL N Slide Review (test Auto Auto Result cr eated by code = Slide Review) GL_SJM_ SLIDE_REV_AUTO nRBC (test code = 0 N nRBC) NRBC Abs (test code = 0.00 x10 N NRBC Abs) IPF (test code = IPF) 0 % N Automated [id number] 23:22:39 Test Item Value Reference Range Interpretation Comments Neutro Auto (test code = Neutro 65.7 % 36.0-70.0 Auto) Lymph Auto (test code = Lymph Auto) 21.7 % 12.0-44.0 Coos Auto (test code = Coos Auto) 8.9 % 0.0-11.0 Eos, Auto (test code = Eos, Auto) 2.5 % 0.0-7.0 Basophil Auto (test code = Basophil 0.8 % 0.0-2.0 Auto) Neutro Absolute (test code = Neutro 3.5 x10 1.6-7.4 Absolute) Lymph Absolute (test code = Lymph 1.14 x10 .50-4.60 Absolute) Coos Absolute (test code = Coos .47 x10 .00-1.20 Absolute) Eos Absolute (test code = Eos 0.13 x10 0.00-0.74 Absolute) Baso Absolute (test code = Baso 0.04 x10 0.00-0.21 Absolute) IG [id number] 23:22:39 Test Item Value Reference Range Interpretation Comments IG (test code = IG) 0.4 % 0.0-5.0 IG Abs (test code = IG Abs) 0 x10 N Urinalysis macro (dipstick) panel - [id number] 10:07:00 Test Item Value Reference Range Interpretation Comments Leukocytes (test code = Large Leukocytes) Nitrite (test code = negative Nitrite) Urobilinogen (test code = .2 Urobilinogen) Protein (test code = Negative Protein) pH (test code = pH) 6.5 Blood (test code = Blood) Hemolyzed: Trace Specific [place] (test code 1.020 = Specific [place]) Ketone (test code = Ketone) Negative Bilirubin (test code = Negative Bilirubin) Glucose (test code = Negative Glucose) Appearance (test code = Clear Appearance) Color (test code = Color) Yellow [facility] Notes Date/Time Note Provider Source 2023-01-01 10:24:00-00:00 [facility] ([facility]) Pulmonology Progress Note REPORT#:[id number] REPORT STATUS: Signed DATE:01/01/23 TIME:1024 PATIENT: MALISSA BEAVERS UNIT #: [id number] ROOM/BED: [address] : [birth year] AGE: 77 SEX: F ATTEND: Laz Schilling MD ADM AUTHOR: Pal Forrest MD * ALL edits or amendments must be made on the [employer]/computer document * Subjective Chief complaint: less SOB Mild cough no chest pain Review of Systems ROS Eyes: Denies: diplopia, eye pain. Respiratory: Denies: pleurisy, pleuritic pain. GI: Denies: hematemesis, hematochezia. Musculoskeletal: Reports: joint pain, myalgias. Psych: Denies: hostile, insomnia. Objective General VS/I O: Last Documented: Result Date Time Pulse Ox 96 01/02 912 B/P 99/54 01/02 912 B/P Mean 69.0 01/02 912 O2 Delivery Room air 01/02 912 Temp 36.6 01/02 912 Pulse 99 01/02 912 Resp 16 01/02 912 FiO2 21 01/01 709 O2 Flow Rate 2 12/29 1049 PATIENT WEIGHT: Weight (lb): 163 Weight (oz): 5.48 Weight (kg): 74.091 Medications: Active Meds + DC'd Last 24 Hrs Albuterol/Ipratropium (DUONEB) 3 ML RTQ6H NEB Dexamethasone (DECADRON) 1 MG TID PO Enoxaparin Sodium (lovENOX) 40 MG DAILY SUBQ Sodium Chloride (SODIUM CHLORIDE) 10 ML BID IV Sodium Chloride (SODIUM CHLORIDE) 10 ML ASDIR MT N IV Dopamine HCl/Dextrose (DOPamine 400MG IN 5% DEXT BRO) 250 ML ASDIR IV Iopamidol (ISOVUE-370) 100 ML ONCE PRN IV Sodium Chloride (SODIUM CHLORIDE 0.9%) 100 ML ON CE PRN IV Docusate Sodium (COLACE) 100 MG BID PO Meloxicam (MOBIC) 15 MG DAILY PO Norepinephrine/Dextrose (LEVOPHED 4 MG/250 ML) 2 50 ML ASDIR IV Levothyroxine Sodium (SYNTHROID) 150 MCG DAILY@0 600 PO Atorvastatin Calcium (LIPITOR) 20 MG BEDTIME PO Gabapentin (NEURONTIN) 600 MG TID PO Ondansetron HCl (ZOFRAN) 8 MG Q8H PRN PRN PO Ondansetron HCl (ZOFRAN) 8 MG Q8H PRN PRN IV Acetaminophen (TYLENOL) 650 MG Q4H PRN PRN PO Hydrocodone Bitart/Acetaminophen (NORCO 7.5/325) 1 TAB Q4H PRN PRN PO Hydrocodone Bitart/Acetaminophen (NORCO 7.5/325) 2 TAB Q4H PRN PRN PO Results Findings/Data: Laboratory Tests 01/01/23357: [Embedded Image Not Available] Laboratory Tests 01/01 358 Chemistry Sodium (134 - 147 mmol/L) 138 Potassium (3.4 - 5.0 mmol/L) 3.8 Chloride (100 - 108 mmol/L) 104 Carbon Dioxide (21 - 32 mmol/L) 26 Anion Gap (4.0 - 15.0 GAP calc) 8.0 BUN (7 - 18 MG/DL) 19 H Creatinine (0.6 - 1.0 MG/DL) 0.8 Glomerular Filtr Rate (>60 estGFR) >=60 max est imate Glucose (70 - 110 MG/DL) 116 H Calcium (8.5 - 10.1 MG/DL) 8.0 L Phosphorus (2.5 - 4.9 MG/DL) 3.6 Magnesium (1.8 - 2.4 MG/DL) 2.1 Laboratory Tests 01/01 358 Hematology WBC (3.5 - 11.0 K/mm3) 6.8 RBC (4.70 - 6.10 M/mm3) 2.61 L Hgb (10.4 - 14.9 G/DL) 7.7 L Hct (31.5 - 44.1 %) 23.6 L MCV (84.5 - 98.6 Fl) 90.4 MCH (27.0 - 34.2 pg) 29.5 MCHC (31.5 - 34.0 G/DL) 32.6 RDW (11.5 - 14.5 SD) 13.8 Plt Count (150 - 450 K/mm3) 267 MPV (7.0 - 10.5 fL) 10.00 Neut % (Auto) (40 - 76 %) 72.7 Lymph % (Auto) (20.5 - 51.1 %) 12.3 L [place] % (Auto) (1.7 - 9.3 %) 9.2 Eos % (Auto) (0.0 - 6.0 %) 1.5 Baso % (Auto) (0.0 - 2.0 %) 0.3 Neut # (Auto) (1.8 - 7.6 K/mm3) 4.9 Lymph # (Auto) (0.6 - 3.2 K/mm3) 0.8 [place] # (Auto) (0.3 - 1.1 K/mm3) 0.6 Eos # (Auto) (0.0 - 0.4 K/mm3) 0.1 Baso # (Auto) (0.0 - 0.1 K/mm3) 0.0 Abs Immat Gran (auto) (0.00 - 0.03 x10 3/uL) 0. 27 H Add Manual Diff (CRITERIA DIFF/SCN) NO Immature Gran % (0.0 - 5.0 %) 4.0 Nucleated RBC % (0.0 - 1.0 /100WBC%) 0.0 Radiology data: Recent Impressions: RADIOLOGY - XR CHEST 1 V 12/31 598 Report Impression - Status: SIGNED Entered: 12/31/20222010 IMPRESSION: Right upper extremity PICC terminates at level o f superior cavoatrial junction. Mildly enlarged cardiac silhouette. Sc attered atelectasis similar to prior. No pneumothorax or visible ple ural fluid. Impression By: [email or web address] - Meng Pickering M.D. Free Text Obj Notes Free Text Obj Notes: General appearance: Alert and oriented not in di stress Head and neck. Normocephalic atraumatic, no pall or no jaundice, no goiter CV: S1-S2 regular rate and rhythm, no murmur Lungs: Fair air entry bilaterally, no rales no w heezes no rhonchi Abdomen: Soft lax nontender, no masses Extremities: No lower limb edema, no cyanosis no clubbing Neurologic: Alert and oriented, intact cranial n erves, no focal deficit Skin: Intact, no lesions Lymphatic: No lymphadenopathy appreciated Diagnosis, Assessment Plan Hospital course to date: 1. Status post encephalopathy and seizure 2/ , bradycardia with intermittent tachycardia 3. Status post hip surgery Seen and examined CXR reviewed and stable Duonbes Q 6 hours EP and cardiology are on board PT OT placement planning today Input and output monitoring Supportive care' DVT prophylaxis Consultants: orthopedics Electronically Signed by Pal Forrest MD on 12/20 09/11 at 1025 RPT #: [id number] END OF REPORT 2022-12-31 16:17:00-00:00 [facility] ([facility]) Discharge Summary REPORT#:[id number] REPORT STATUS: Signed DATE:12/31/22 TIME:1617 PATIENT: MALISSA BEAVERS UNIT #: [id number] ROOM/BED: [place] [address] : 45 AGE: 77 SEX: F ATTEND: Laz Schilling MD ADM AUTHOR: Maida Schilling MD * ALL edits or amendments must be made on the [employer]/computer document * See Addendum General Information Discharge date: 12/31/22 Discharge diagnosis: 77-year-old female patient w ith history of hypertension hypothyroidism, admitted for: Symptomatic bradycardia due to beta-cheryl give n secondary to arrhythmias- significantly improved, held all beta-blockers, transfer out of ICU #Arrhythmia, symptomatic-for which patient was started on metoprolol 25 mg every 6 hours the patient became hypotensive a nd developed bradycardia-resolved, may resume low-dose beta-cheryl when okay with card iology as out patient Patient reported recent cardiac work-up with a c ardiologist prior to surgery Monitor closely on telemetry and treat genia manany Cardiology consult, appreciate input #Hypotension-resolved Given IV fluids Cardiology consult PAD No vascular intervention planned per Dr. Miller #Osteoarthritis, severe right lower extremity Status post right to do hip arthroplasty Pain management with [place] and morphine as neede d PT OT evaluate and treat Dheeraj Wu following #Possible CAD Per patient and , her recent cardiac work -up shows some blockage. She could not describe the results of the cardiac wo rk-up Records requested from patient's cardiology Cardiology consulted here On aspirin and statin #Hypertension, controlled Resume home medications, held BB #Hypothyroidism Resume home dose levothyroxine #Elevated D-dimer CTA neg for PE # anemia - monitor h and h DVT prophylaxis with Lovenox Full code Case management for rehab placement, continue PT OT Right lower extremity pain a nd swelling-venous Dopplers - neg and ruled out DVT ok to dc to SNF Hospital course: 77-year-old female patient w ith history of hypertension hypothyroidism, admitted for: Symptomatic bradycardia due to beta-cheryl give n secondary to arrhythmias- significantly improved, held all beta-blockers, transfer out of ICU #Arrhythmia, symptomatic-for which patient was started on metoprolol 25 mg every 6 hours the patient became hypotensive a nd developed bradycardia-resolved, may resume low-dose beta-cheryl when okay with card iology as out patient Patient reported recent cardiac work-up with a c ardiologist prior to surgery Monitor closely on telemetry and treat yesica yoder Cardiology consult, appreciate input #Hypotension-resolved Given IV fluids Cardiology consult PAD No vascular intervention planned per Dr. Miller #Osteoarthritis, severe right lower extremity Status post right to do hip arthroplasty Pain management with [place] and morphine as neede d PT OT evaluate and treat Dheeraj Wu following #Possible CAD Per patient and , her recent cardiac work -up shows some blockage. She could not describe the results of the cardiac wo rk-up Records requested from patient's cardiology Cardiology consulted here On aspirin and statin #Hypertension, controlled Resume home medications, held BB #Hypothyroidism Resume home dose levothyroxine #Elevated D-dimer CTA neg for PE # anemia - monitor h and h DVT prophylaxis with Lovenox Full code Case management for rehab placement, continue PT OT Right lower extremity pain a nd swelling-venous Dopplers - neg and ruled out DVT ok to dc to SNF Consultants: orthopedics Pt. condition on discharge: improved, stable Med Rec Med Rec Discharge meds: Stop taking the following medications: LEVOTHYROXINE (SYNTHROID) 150 MCG TAB 150 MICROGRAM ORAL DAILY. Continue taking these medications: LEVOTHYROXINE (SYNTHROID) 150 MCG TAB 150 MICROGRAM ORAL DAILY. METOPROLOL SUCC XL (TOPROL XL) 25 MG TAB.SR.24H 25 MILLIGRAM ORAL DAILY. dexAMETHasone (dexAMETHasone) 0.5 MG TAB 1 MILLIGRAM ORAL THREE TIMES A DAY. MELOXICAM (MOBIC) 15 MG TAB 15 MILLIGRAM ORAL DAILY. ATORVASTATIN (LIPITOR) 20 MG TAB 20 MILLIGRAM ORAL DAILY. azaTHIOprine (IMURAN) 50 MG TAB 50 MILLIGRAM ORAL DAILY. GABAPENTIN (NEURONTIN) 600 MG TAB 600 MILLIGRAM ORAL FOUR TIMES A DAY. ACETAMINOPHEN (TYLENOL) 325 MG TAB 325 MILLIGRAM ORAL EVERY 6 HOURS NEEDED. as needed for PAIN [KRILL OIL] 350 MILLIGRAM ORAL DAILY. [VIT D] 7,000 MILLIGRAM ORAL DAILY. CALCIUM CARBONATE (CALTRATE 600 MG) 600 MG CALCI UM (1,500 MG) TAB 600 MILLIGRAM ORAL TWICE DAILY. POTASSIUM GLUCONATE (POTASSIUM) 595 MG (99 MG) T AB 99 MILLIGRAM ORAL DAILY. VIT C/E/ZN/COPPR/LUTEIN/ZEAXAN (OCUVITE LUTEIN) 60 MG-13.5 MG-15 MG-2 MG-6 MG CAP 1 CAPSULE ORAL DAILY. RED YEAST RICE EXTRACT (RED YEAST 600MG RICE EXT RACT) 600 MG CAP 1,200 MILLIGRAM ORAL DAILY. Objective VS/I O Last Documented: Result Date Time Pulse Ox 97 12/31 1617 O2 Delivery Room air 12/31 1617 B/P 125/58 12/31 1610 B/P Mean 80.5 12/31 1610 Temp 98.1 12/31 1610 Pulse 68 12/31 1610 Resp 18 12/31 1610 FiO2 21 12/30 2021 O2 Flow Rate 2 12/29 1049 24 hour I O ending at 0700: 12/31 0700 12/30 1900 Intake Total 440 Output Total 3100 1025 Balance -3100 -585 Intake, Oral 440 Output, Urine 3100 1025 PATIENT WEIGHT: Weight (lb): 163 Weight (oz): 5.48 Weight (kg): 74.091 General appearance: awake ENT: normal nose Cardiovascular: regular rate rhythm GI: soft Discharge Instructions PCP PCP: PCP: Ryan Cárdenas MD )( [facility] to: [facility] Discharge Instructions Additional Discharge Routines: PCP Follow-Up )( Diet: Regular )( Activity: As Tolerated Prescriptions: none Discharge management: greater than 30 mins Follow-up Appointments PCP follow up: PCP: Ryan Cárdenas MD PCP follow up timeframe: In 1-2 weeks Electronically Signed by Maida Schilling MD on 0 12/31/22 at 1619 Addendum 1: 01/01/23 1027 by Maida Schilling MD ok to dc to rehab today Electronically Signed by Maida Schilling MD on 0 01/01/23 at 1027 RPT #: [id number] END OF REPORT 2022-12-31 15:52:00-00:00 [facility] ([facility]) Pulmonology Progress Note REPORT#:[id number] REPORT STATUS: Signed DATE:12/31/22 TIME:1552 PATIENT: MALISSA BEAVERS UNIT #: [id number] ROOM/BED: [place] [address] : 45 AGE: 77 SEX: F ATTEND: Laz Schilling MD ADM AUTHOR: Pal Forrest MD * ALL edits or amendments must be made on the [employer]/computer document * Subjective Chief complaint: mild SOB Mild cough no chest pain Review of Systems ROS Eyes: Denies: diplopia, eye pain. Respiratory: Denies: pleurisy, pleuritic pain. GI: Denies: hematemesis, hematochezia. Musculoskeletal: Reports: joint pain, myalgias. Psych: Denies: hostile, insomnia. Objective General VS/I O: Last Documented: Result Date Time Pulse Ox 97 12/31 1203 B/P 137/57 12/31 1203 B/P Mean 83.6 12/31 1203 Temp 36.5 12/31 1203 Pulse 65 12/31 1203 Resp 18 12/31 1203 O2 Delivery Room air 12/31 0450 FiO2 21 12/30 2021 O2 Flow Rate 2 12/29 1049 24 hour I O ending at 0700: 12/31 0700 12/30 1900 Intake Total 440 Output Total 3100 1025 Balance -3100 -585 Intake, Oral 440 Output, Urine 3100 1025 PATIENT WEIGHT: Weight (lb): 163 Weight (oz): 5.48 Weight (kg): 74.091 Medications: Active Meds + DC'd Last 24 Hrs Dexamethasone (DECADRON) 1 MG TID PO Enoxaparin Sodium (lovENOX) 40 MG DAILY SUBQ Sodium Chloride (SODIUM CHLORIDE) 10 ML BID IV Sodium Chloride (SODIUM CHLORIDE) 10 ML ASDIR MT N IV Dopamine HCl/Dextrose (DOPamine 400MG IN 5% DEXT BRO) 250 ML ASDIR IV Iopamidol (ISOVUE-370) 100 ML ONCE PRN IV Sodium Chloride (SODIUM CHLORIDE 0.9%) 100 ML ON CE PRN IV Docusate Sodium (COLACE) 100 MG BID PO Meloxicam (MOBIC) 15 MG DAILY PO Norepinephrine/Dextrose (LEVOPHED 4 MG/250 ML) 2 50 ML ASDIR IV Levothyroxine Sodium (SYNTHROID) 150 MCG DAILY@0 600 PO Atorvastatin Calcium (LIPITOR) 20 MG BEDTIME PO Celecoxib (CeleBREX) 200 MG 0900,2100 PO (DC) Gabapentin (NEURONTIN) 600 MG TID PO Ondansetron HCl (ZOFRAN) 8 MG Q8H PRN PRN PO Ondansetron HCl (ZOFRAN) 8 MG Q8H PRN PRN IV Acetaminophen (TYLENOL) 650 MG Q4H PRN PRN PO Hydrocodone Bitart/Acetaminophen (NORCO 7.5/325) 1 TAB Q4H PRN PRN PO Hydrocodone Bitart/Acetaminophen (NORCO 7.5/325) 2 TAB Q4H PRN PRN PO Results Findings/Data: Laboratory Tests 12/31/22 033: [Embedded Image Not Available] 12/31/22331: [Embedded Image Not Available] Laboratory Tests 12/31 332 Chemistry Sodium (134 - 147 mmol/L) 138 Potassium (3.4 - 5.0 mmol/L) 4.1 Chloride (100 - 108 mmol/L) 105 Carbon Dioxide (21 - 32 mmol/L) 26 Anion Gap (4.0 - 15.0 GAP calc) 7.0 BUN (7 - 18 MG/DL) 16 Creatinine (0.6 - 1.0 MG/DL) 0.6 Glomerular Filtr Rate (>60 estGFR) >=60 max est imate Glucose (70 - 110 MG/DL) 112 H Calcium (8.5 - 10.1 MG/DL) 8.3 L Phosphorus (2.5 - 4.9 MG/DL) 3.2 Magnesium (1.8 - 2.4 MG/DL) 2.2 Laboratory Tests 12/31 0332 Hematology WBC (3.5 - 11.0 K/mm3) 6.0 RBC (4.70 - 6.10 M/mm3) 2.46 L Hgb (10.4 - 14.9 G/DL) 7.3 L Hct (31.5 - 44.1 %) 22.3 L MCV (84.5 - 98.6 Fl) 90.7 MCH (27.0 - 34.2 pg) 29.7 MCHC (31.5 - 34.0 G/DL) 32.7 RDW (11.5 - 14.5 SD) 13.6 Plt Count (150 - 450 K/mm3) 240 MPV (7.0 - 10.5 fL) 10.20 Neut % (Auto) (40 - 76 %) 71.5 Lymph % (Auto) (20.5 - 51.1 %) 15.9 L Coos % (Auto) (1.7 - 9.3 %) 9.3 Eos % (Auto) (0.0 - 6.0 %) 1.7 Baso % (Auto) (0.0 - 2.0 %) 0.3 Neut # (Auto) (1.8 - 7.6 K/mm3) 4.3 Lymph # (Auto) (0.6 - 3.2 K/mm3) 1.0 Coos # (Auto) (0.3 - 1.1 K/mm3) 0.6 Eos # (Auto) (0.0 - 0.4 K/mm3) 0.1 Baso # (Auto) (0.0 - 0.1 K/mm3) 0.0 Abs Immat Gran (auto) (0.00 - 0.03 x10 3/uL) 0. 08 H Add Manual Diff (CRITERIA DIFF/SCN) NO Immature Gran % (0.0 - 5.0 %) 1.3 Nucleated RBC % (0.0 - 1.0 /100WBC%) 0.0 Free Text Obj Notes Free Text Obj Notes: General appearance: Alert and oriented not in di stress Head and neck. Normocephalic atraumatic, no pall or no jaundice, no goiter CV: S1-S2 regular rate and rhythm, no murmur Lungs: Fair air entry bilaterally, no rales no w heezes no rhonchi Abdomen: Soft lax nontender, no masses Extremities: No lower limb edema, no cyanosis no clubbing Neurologic: Alert and oriented, intact cranial n erves, no focal deficit Skin: Intact, no lesions Lymphatic: No lymphadenopathy appreciated Diagnosis, Assessment Plan Hospital course to date: 1. Status post encephalopathy and seizure 2/ , bradycardia with intermittent tachycardia 3. Status post hip surgery Seen and examined CXR ordered Duonbes Q 6 hours EP and cardiology are on board PT OT placement planning Input and output monitoring Supportive care' DVT prophylaxis Electronically Signed by Pal Forrest MD on 12/20 08/14 at 1553 RPT #: [id number] END OF REPORT 2022-12-30 11:29:00-00:00 [facility] ([facility]) Hospitalist Progress Note REPORT#:[id number] REPORT STATUS: Signed DATE:12/30/22 TIME:1129 PATIENT: MALISSA BEAVERS UNIT #: [id number] ROOM/BED: [address] : 45 AGE: 77 SEX: F ATTEND: Laz Schilling MD ADM AUTHOR: Maida Schilling MD * ALL edits or amendments must be made on the [employer]/computer document * Subjective Chief complaint: Complains of right lower extremity swelling and pain, no fever, no chills HPI: Patient admitted for postoperative manag ement of hip arthroplasty. She has had arrhythmia postprocedure. Rajinder prado was initially tachycardic in the 120s to 140s and beta-cheryl was ordered. Earlier today, she bec traci bradycardic and was symptomatic with. She was also hypotensive and w as started on Levophed. D- dimer significantly elevated now with CTA to rul e out PE. She is only therapeutic dose Lovenox at this time. She was o n prophylactic dose postoperatively. We are transferring her to ICU for close observation. Cardiology is consulted Objective General VS/I O: Vital Signs: Date Time Temp Pulse Resp B/P B/P Pulse O2 O2 F low FiO2 Mean Ox Delivery Rate 12/30 1107 98.1 68 16 130/66 87.7 98 Room air 12/30 0705 97.9 69 16 148/70 95.6 97 Room air 12/30 0445 98.4 65 17 158/64 95.5 97 12/30 0012 99.1 70 17 152/66 94.7 96 12/29 2117 96 Room air 21 12/29 1916 97.7 68 17 130/58 81.9 96 12/29 1548 97.9 70 18 147/61 89.9 96 12/29 1134 98.1 74 18 114/64 80.4 93 24 hour I O ending at 0700: 12/30 0700 12/29 1900 Intake Total Output Total 1200 1500 Balance -1200 -1500 Number 1 Bowel Movements Output, Urine 1200 1500 PATIENT WEIGHT: Weight (lb): 163 Weight (oz): 5.48 Weight (kg): 74.091 Dietitian nutrition assessment The data set between the solid lines has been im ported from the dietitian's assessment. BMI Calculated: 28.0 Nutrition related diagnosis: Overweight Nutrition diagnosis details: BMI 25-29.9 Nutrition problem: No nutrition diagnosis Nutrition etiology: Nutrition signs and symptoms: Nutrition prescription: Recommend continue regul ar diet and add Ensure High Protein supplement once daily. Encourage intake at least 50% meals and supplements Dietitian name: Vasyl Song, DIET Assessment completed: 12/26/22 Physical Exam General appearance: awake Head/Eyes: atraumatic, clear cornea, EOMI, normo cephalic, PERRL Neck: full range of motion, non-tender, normal t hyroid Cardiovascular: bradycardic, tachycardic, No pal pable pedal pulses Respiratory: aerating well, clear to auscultatio n, symmetric expansion Abdomen: non-tender, normal bowel sounds, soft Extremities: abnormal capillary refill ( RLE pain/swelling), decreased range of motion, ble w/o palpable pulses Musculoskeletal: decreased ROM Neuro/SNAKER DRIVING HORSES: alert, oriented X 3, normal speech Skin: dressing and brace over incision Lymphatics: no lymphadenopathy Results Findings/Data: Laboratory Tests 12/30 0506 Chemistry Sodium (134 - 147 mmol/L) 139 Potassium (3.4 - 5.0 mmol/L) 4.0 Chloride (100 - 108 mmol/L) 107 Carbon Dioxide (21 - 32 mmol/L) 25 Anion Gap (4.0 - 15.0 GAP calc) 7.0 BUN (7 - 18 MG/DL) 17 Creatinine (0.6 - 1.0 MG/DL) 0.6 Glomerular Filtr Rate (>60 estGFR) >=60 max es timate Glucose (70 - 110 MG/DL) 109 Calcium (8.5 - 10.1 MG/DL) 7.9 L Phosphorus (2.5 - 4.9 MG/DL) 2.5 Magnesium (1.8 - 2.4 MG/DL) 2.1 Laboratory Tests 12/30 0506 Hematology WBC (3.5 - 11.0 K/mm3) 7.0 RBC (4.70 - 6.10 M/mm3) 2.50 L Hgb (10.4 - 14.9 G/DL) 7.6 L Hct (31.5 - 44.1 %) 23.2 L MCV (84.5 - 98.6 Fl) 92.8 MCH (27.0 - 34.2 pg) 30.4 MCHC (31.5 - 34.0 G/DL) 32.8 RDW (11.5 - 14.5 SD) 13.8 Plt Count (150 - 450 K/mm3) 200 MPV (7.0 - 10.5 fL) 10.20 Neut % (Auto) (40 - 76 %) 80.3 H Lymph % (Auto) (20.5 - 51.1 %) 11.0 L Coos % (Auto) (1.7 - 9.3 %) 6.8 Eos % (Auto) (0.0 - 6.0 %) 0.9 Baso % (Auto) (0.0 - 2.0 %) 0.1 Neut # (Auto) (1.8 - 7.6 K/mm3) 5.7 Lymph # (Auto) (0.6 - 3.2 K/mm3) 0.8 Coos # (Auto) (0.3 - 1.1 K/mm3) 0.5 Eos # (Auto) (0.0 - 0.4 K/mm3) 0.1 Baso # (Auto) (0.0 - 0.1 K/mm3) 0.0 Abs Immat Gran (auto) (0.00 - 0.03 x10 3/uL) 0. 06 H Add Manual Diff (CRITERIA DIFF/SCN) NO Immature Gran % (0.0 - 5.0 %) 0.9 Nucleated RBC % (0.0 - 1.0 /100WBC%) 0.0 Diagnosis, Assessment Plan Free Text DxA P Notes Free text DxA P notes: 77-year-old female patient w ith history of hypertension hypothyroidism, admitted for: Symptomatic bradycardia due to beta-cheryl give n secondary to arrhythmias- significantly improved, held all beta-blockers, transfer out of ICU #Arrhythmia, symptomatic-for which patient was started on metoprolol 25 mg every 6 hours the patient became hypotensive a nd developed bradycardia-resolved, may resume low-dose beta-cheryl when okay with card iology Patient reports recent cardiac work-up with a ca rdiologist prior to surgery Monitor closely on telemetry and treat yesica yoder Cardiology consult, appreciate input #Hypotension-resolved Given IV fluids Cardiology consult PAD No vascular intervention planned per Dr. Miller #Osteoarthritis, severe right lower extremity Status post right to do hip arthroplasty Admit to telemetry Routine vital signs Strict I's and O's Pain management with [place] and morphine as neede d PT OT evaluate and treat Dr. Cárdenas, Ortho following #Possible CAD Per patient and , her recent cardiac work -up shows some blockage. She could not describe the results of the cardiac wo rk-up Records requested from patient's cardiology Cardiology consulted here On aspirin and statin #Hypertension, controlled Resume home medications, held BB #Hypothyroidism Resume home dose levothyroxine #Elevated D-dimer CTA neg for PE # anemia - monitor h and h DVT prophylaxis with Lovenox Full code Case management for rehab placement, continue PT OT Right lower extremity pain and swelling-venous D opplers rule out DVT Electronically Signed by Maida Schilling MD on 0 12/30/22 at 1130 RPT #: [id number] END OF REPORT 2022-12-29 15:31:00-00:00 [facility] ([facility]) Hospitalist Progress Note REPORT#:[id number] REPORT STATUS: Signed DATE:12/29/22 TIME:1531 PATIENT: MALISSA BEAVERS UNIT #: [id number] ROOM/BED: [place] [address] : 45 AGE: 77 SEX: F ATTEND: Curtis Schilling MD ADM AUTHOR: Maida Schilling MD * ALL edits or amendments must be made on the [employer]/computer document * Subjective Chief complaint: Stable no new complaints HPI: Patient admitted for postoperative manag ement of hip arthroplasty. She has had arrhythmia postprocedure. Sh e was initially tachycardic in the 120s to 140s and beta-cheryl was ordered. Earlier today, she bec traci bradycardic and was symptomatic with. She was also hypotensive and w as started on Levophed. D- dimer significantly elevated now with CTA to rul e out PE. She is only therapeutic dose Lovenox at this time. She was o n prophylactic dose postoperatively. We are transferring her to ICU for close observation. Cardiology is consulted Objective General VS/I O: Vital Signs: Date Time Temp Pulse Resp B/P B/P Pulse O2 O2 F low FiO2 Mean Ox Delivery Rate 12/29 1134 98.1 74 18 114/64 80.4 93 12/29 1049 2 12/29 0726 98.2 65 18 153/62 92.2 97 12/29 0403 98.6 68 16 136/70 91.8 93 Room air 12/29 0042 Nasal 2 cannula 12/29 0010 98.6 73 16 159/70 99.6 95 Room air 07/09 2054 96 Nasal 2 28 cannula 12/28 1929 98.4 75 16 139/61 87.1 96 Room air 12/28 1711 98.2 75 12 125/56 78.8 96 24 hour I O ending at 0700: 12/29 0712/28 1900 Intake Total Output Total 1999 170 Balance -1999 -1699 Output, Urine 1999 1700 PATIENT WEIGHT: Weight (lb): 163 Weight (oz): 5.48 Weight (kg): 74.091 Dietitian nutrition assessment General any The data set between the solid lines has been imported from the dietitian's assessment. BMI Calculated: 28.0 Nutrition related diagnosis: Overweight Nutrition diagnosis details: BMI 25-29.9 Nutrition problem: No nutrition diagnosis Nutrition etiology: Nutrition signs and symptoms: Nutrition prescription: Recommend continue regul ar diet and add Ensure High Protein supplement once daily. Encourage intake at least 50% meals and supplements Dietitian name: Vasyl Song, DIET Assessment completed: 12/26/22 Physical Exam General appearance: awake Head/Eyes: atraumatic, clear cornea, EOMI, normo cephalic, PERRL Neck: full range of motion, non-tender, normal t hyroid Cardiovascular: bradycardic, tachycardic, No pal pable pedal pulses Respiratory: aerating well, clear to auscultatio n, symmetric expansion Abdomen: non-tender, normal bowel sounds, soft Extremities: decreased range of motion, ble w/o palpable pulses Musculoskeletal: decreased ROM Neuro/SNAKER DRIVING HORSES: alert, oriented X 3, normal speech Skin: dressing and brace over incision Lymphatics: no lymphadenopathy Results Findings/Data: Laboratory Tests 12/29 031 Chemistry Sodium (134 - 147 mmol/L) 140 Potassium (3.4 - 5.0 mmol/L) 4.0 Chloride (100 - 108 mmol/L) 109 H Carbon Dioxide (21 - 32 mmol/L) 26 Anion Gap (4.0 - 15.0 GAP calc) 5.0 BUN (7 - 18 MG/DL) 16 Creatinine (0.6 - 1.0 MG/DL) 0.7 Glomerular Filtr Rate (>60 estGFR) >=60 max es timate Glucose (70 - 110 MG/DL) 124 H Calcium (8.5 - 10.1 MG/DL) 7.6 L Phosphorus (2.5 - 4.9 MG/DL) 2.4 L Magnesium (1.8 - 2.4 MG/DL) 2.1 Laboratory Tests 12/29 0311 Hematology WBC (3.5 - 11.0 K/mm3) 7.8 RBC (4.70 - 6.10 M/mm3) 2.48 L Hgb (10.4 - 14.9 G/DL) 7.4 L Hct (31.5 - 44.1 %) 23.2 L MCV (84.5 - 98.6 Fl) 93.5 MCH (27.0 - 34.2 pg) 29.8 MCHC (31.5 - 34.0 G/DL) 31.9 RDW (11.5 - 14.5 SD) 13.6 Plt Count (150 - 450 K/mm3) 192 MPV (7.0 - 10.5 fL) 10.10 Neut % (Auto) (40 - 76 %) 83.8 H Lymph % (Auto) (20.5 - 51.1 %) 7.5 L Coos % (Auto) (1.7 - 9.3 %) 7.5 Eos % (Auto) (0.0 - 6.0 %) 0.6 Baso % (Auto) (0.0 - 2.0 %) 0.1 Neut # (Auto) (1.8 - 7.6 K/mm3) 6.5 Lymph # (Auto) (0.6 - 3.2 K/mm3) 0.6 Coos # (Auto) (0.3 - 1.1 K/mm3) 0.6 Eos # (Auto) (0.0 - 0.4 K/mm3) 0.1 Baso # (Auto) (0.0 - 0.1 K/mm3) 0.0 Abs Immat Gran (auto) (0.00 - 0.03 x10 3/uL) 0 .04 H Add Manual Diff (CRITERIA DIFF/SCN) NO Immature Gran % (0.0 - 5.0 %) 0.5 Nucleated RBC % (0.0 - 1.0 /100WBC%) 0.0 Diagnosis, Assessment Plan Free Text DxA P Notes Free text DxA P notes: 77-year-old female patient w ith history of hypertension hypothyroidism, admitted for: Symptomatic bradycardia due to beta-cheryl give n secondary to arrhythmias- significantly improved, held all beta-blockers, transfer out of ICU #Arrhythmia, symptomatic-for which patient was started on metoprolol 25 mg every 6 hours the patient became hypotensive a nd developed bradycardia-resolved, may resume low-dose beta-cheryl when okay with card iology Patient reports recent cardiac work-up with a ca rdiologist prior to surgery Monitor closely on telemetry and treat genia paresh Cardiology consult, appreciate input #Hypotension-resolved Given IV fluids Cardiology consult PAD No vascular intervention planned per Dr. Miller #Osteoarthritis, severe right lower extremity Status post right to do hip arthroplasty Admit to telemetry Routine vital signs Strict I's and O's Pain management with [place] and morphine as neede d PT OT evaluate and treat Dr. Cárdenas, Ortho following #Possible CAD Per patient and , her recent cardiac work -up shows some blockage. She could not describe the results of the cardiac wo rk-up Records requested from patient's cardiology Cardiology consulted here On aspirin and statin #Hypertension, controlled Resume home medications, held BB #Hypothyroidism Resume home dose levothyroxine #Elevated D-dimer CTA neg for PE # anemia - monitor h and h DVT prophylaxis with Lovenox Full code Case management for rehab placement, continue PT OT Electronically Signed by Maida Schilling MD on 0 12/29/22 at 1532 RPT #: [id number] END OF REPORT 2022-12-29 13:33:00-00:00 [facility] ([facility]) Pulmonology Progress Note REPORT#:[id number] REPORT STATUS: Signed DATE:12/29/22 TIME:1333 PATIENT: MALISSA BEAVERS UNIT #: [id number] ROOM/BED: [address]1 : 45 AGE: 77 SEX: F ATTEND: Laz Schilling MD ADM AUTHOR: Pal Forrest MD * ALL edits or amendments must be made on the [employer]/computer document * Subjective Chief complaint: no chest pain mild dizziness No distress Review of Systems ROS Eyes: Denies: diplopia, eye pain. Respiratory: Denies: pleurisy, pleuritic pain. GI: Denies: hematemesis, hematochezia. Musculoskeletal: Reports: joint pain, myalgias. Psych: Denies: hostile, insomnia. Objective General VS/I O: Last Documented: Result Date Time Pulse Ox 93 12/29 1134 B/P 114/64 12/29 1134 B/P Mean 80.4 12/29 1134 Temp 36.7 12/29 1134 Pulse 74 12/29 1134 Resp 18 12/29 1134 O2 Flow Rate 2 12/29 1049 O2 Delivery Room air 12/29 0403 FiO2 28 12/28 2054 24 hour I O ending at 0700: 12/29 0700 12/28 1900 Intake Total Output Total 1999 1700 Balance -1999 -1700 Output, Urine 1999 1700 PATIENT WEIGHT: Weight (lb): 163 Weight (oz): 5.48 Weight (kg): 74.091 Medications: Active Meds + DC'd Last 24 Hrs Sodium Chloride (SODIUM CHLORIDE) 10 ML BID IV Enoxaparin Sodium (lovENOX) 74 MG Q12HR@1800,060 0 SUBQ Sodium Chloride (SODIUM CHLORIDE) 10 ML ASDIR MT N IV Dopamine HCl/Dextrose (DOPamine 400MG IN 5% DEXT BRO) 250 ML ASDIR IV Iopamidol (ISOVUE-370) 100 ML ONCE PRN IV Sodium Chloride (SODIUM CHLORIDE 0.9%) 100 ML ON CE PRN IV Docusate Sodium (COLACE) 100 MG BID PO Meloxicam (MOBIC) 15 MG DAILY PO Mupirocin (BACTROBAN NASAL-ADULT ICU/KYLER MRSA PATIENTS) 1 APPLIC 0900,1700 NASAL (DC) Norepinephrine/Dextrose (LEVOPHED 4 MG/250 ML) 2 50 ML ASDIR IV Levothyroxine Sodium (SYNTHROID) 150 MCG DAILY@0 600 PO Atorvastatin Calcium (LIPITOR) 20 MG BEDTIME PO Celecoxib (CeleBREX) 200 MG 0900,2100 PO Dexamethasone (DECADRON) 1 MG TID PO Gabapentin (NEURONTIN) 600 MG TID PO Cefazolin Sodium (KEFZOL) 1 GM Q8HR IV Sterile Water (WATER FOR INJECTION) 10 ML Ondansetron HCl (ZOFRAN) 8 MG Q8H PRN PRN PO Ondansetron HCl (ZOFRAN) 8 MG Q8H PRN PRN IV Acetaminophen (TYLENOL) 650 MG Q4H PRN PRN PO Hydrocodone Bitart/Acetaminophen (NORCO 7.5/325) 1 TAB Q4H PRN PRN PO Hydrocodone Bitart/Acetaminophen (NORCO 7.5/325) 2 TAB Q4H PRN PRN PO Results Findings/Data: Laboratory Tests 12/29/22310: [Embedded Image Not Available] Laboratory Tests 12/29 310 Chemistry Sodium (134 - 147 mmol/L) 140 Potassium (3.4 - 5.0 mmol/L) 4.0 Chloride (100 - 108 mmol/L) 109 H Carbon Dioxide (21 - 32 mmol/L) 26 Anion Gap (4.0 - 15.0 GAP calc) 5.0 BUN (7 - 18 MG/DL) 16 Creatinine (0.6 - 1.0 MG/DL) 0.7 Glomerular Filtr Rate (>60 estGFR) >=60 max es timate Glucose (70 - 110 MG/DL) 124 H Calcium (8.5 - 10.1 MG/DL) 7.6 L Phosphorus (2.5 - 4.9 MG/DL) 2.4 L Magnesium (1.8 - 2.4 MG/DL) 2.1 Laboratory Tests 12/29 310 Hematology WBC (3.5 - 11.0 K/mm3) 7.8 RBC (4.70 - 6.10 M/mm3) 2.48 L Hgb (10.4 - 14.9 G/DL) 7.4 L Hct (31.5 - 44.1 %) 23.2 L MCV (84.5 - 98.6 Fl) 93.5 MCH (27.0 - 34.2 pg) 29.8 MCHC (31.5 - 34.0 G/DL) 31.9 RDW (11.5 - 14.5 SD) 13.6 Plt Count (150 - 450 K/mm3) 192 MPV (7.0 - 10.5 fL) 10.10 Neut % (Auto) (40 - 76 %) 83.8 H Lymph % (Auto) (20.5 - 51.1 %) 7.5 L Coos % (Auto) (1.7 - 9.3 %) 7.5 Eos % (Auto) (0.0 - 6.0 %) 0.6 Baso % (Auto) (0.0 - 2.0 %) 0.1 Neut # (Auto) (1.8 - 7.6 K/mm3) 6.5 Lymph # (Auto) (0.6 - 3.2 K/mm3) 0.6 Coos # (Auto) (0.3 - 1.1 K/mm3) 0.6 Eos # (Auto) (0.0 - 0.4 K/mm3) 0.1 Baso # (Auto) (0.0 - 0.1 K/mm3) 0.0 Abs Immat Gran (auto) (0.00 - 0.03 x10 3/uL) 0 .04 H Add Manual Diff (CRITERIA DIFF/SCN) NO Immature Gran % (0.0 - 5.0 %) 0.5 Nucleated RBC % (0.0 - 1.0 /100WBC%) 0.0 Free Text Obj Notes Free Text Obj Notes: General appearance: Alert and oriented not in di stress Head and neck. Normocephalic atraumatic, no pall or no jaundice, no goiter CV: S1-S2 regular rate and rhythm, no murmur Lungs: Fair air entry bilaterally, no rales no w heezes no rhonchi Abdomen: Soft lax nontender, no masses Extremities: No lower limb edema, no cyanosis no clubbing Neurologic: Alert and oriented, intact cranial n erves, no focal deficit Skin: Intact, no lesions Lymphatic: No lymphadenopathy appreciated Diagnosis, Assessment Plan Hospital course to date: 1. Status post encephalopathy and seizure 2/ , bradycardia with intermittent tachycardia 3. Status post hip surgery Seen and examined tele EP and cardiology are on board Discussed with EP and ID and need for pacemaker at this point PT OT placement planning Input and output monitoring Supportive care' DVT prophylaxis Discussed with patient and family Electronically Signed by Pal Forrest MD on 12/20 at 1334 RPT #: [id number] END OF REPORT 2022-12-28 14:09:00-00:00 [facility] ([facility] Pulmonology Progress Note REPORT#:[id number] REPORT STATUS: Signed DATE:12/28/22 TIME:1409 PATIENT: MALISSA BEAVERS UNIT #: [id number] ROOM/BED: [place] [address] : 45 AGE: 77 SEX: F ATTEND: Laz Schilling MD ADM AUTHOR: Pal Forrest MD * ALL edits or amendments must be made on the [employer] document * Subjective Chief complaint: no chest pain on room air No distress Review of Systems ROS Eyes: Denies: diplopia, eye pain. Respiratory: Denies: pleurisy, pleuritic pain. GI: Denies: hematemesis, hematochezia. Musculoskeletal: Reports: joint pain, myalgias. Psych: Denies: hostile, insomnia. Objective General VS/I O: Last Documented: Result Date Time Pulse Ox 98 12/28 1139 B/P 133/64 12/28 1139 B/P Mean 87.3 12/28 1139 Temp 36.9 12/28 1139 Pulse 67 12/28 1139 Resp 12 12/28 1139 FiO2 28 12/28 0722 O2 Delivery Nasal cannula 12/28 721 O2 Flow Rate 2 12/28 0722 24 hour I O ending at 0700: 12/28 0700 12/27 1900 Intake Total 1662.00 Output Total 1800 1125 Balance -1800 537.00 Intake, IV 375.00 Intake, Oral 927 Intake, Oral 360 Supplement Output, Urine 1800 1125 PATIENT WEIGHT: Weight (lb): 163 Weight (oz): 5.48 Weight (kg): 74.091 Medications: Active Meds + DC'd Last 24 Hrs Famotidine (PEPCID) 20 MG BID PO (DC) Sodium Chloride (SODIUM CHLORIDE) 10 ML BID IV Enoxaparin Sodium (lovENOX) 74 MG Q12HR@1800,060 0 SUBQ Sodium Chloride (SODIUM CHLORIDE) 10 ML ASDIR P RN IV Dopamine HCl/Dextrose (DOPamine 400MG IN 5% DEXT BRO) 250 ML ASDIR IV Iopamidol (ISOVUE-370) 100 ML ONCE PRN IV Sodium Chloride (SODIUM CHLORIDE 0.9%) 100 ML ON CE PRN IV Docusate Sodium (COLACE) 100 MG BID PO Meloxicam (MOBIC) 15 MG DAILY PO Mupirocin (BACTROBAN NASAL-ADULT ICU/KYLER MRSA PATIENTS) 1 APPLIC 0900,1700 NASAL Norepinephrine/Dextrose (LEVOPHED 4 MG/250 ML) 2 50 ML ASDIR IV Levothyroxine Sodium (SYNTHROID) 150 MCG DAILY@0 600 PO Atorvastatin Calcium (LIPITOR) 20 MG BEDTIME PO Celecoxib (CeleBREX) 200 MG 0900,2100 PO Dexamethasone (DECADRON) 1 MG TID PO Gabapentin (NEURONTIN) 600 MG TID PO Cefazolin Sodium (KEFZOL) 1 GM Q8HR IV Sterile Water (WATER FOR INJECTION) 10 ML Ondansetron HCl (ZOFRAN) 8 MG Q8H PRN PRN PO Ondansetron HCl (ZOFRAN) 8 MG Q8H PRN PRN IV Acetaminophen (TYLENOL) 650 MG Q4H PRN PRN PO Hydrocodone Bitart/Acetaminophen (NORCO 7.5/325) 1 TAB Q4H PRN PRN PO Hydrocodone Bitart/Acetaminophen (NORCO 7.5/325) 2 TAB Q4H PRN PRN PO Results Findings/Data: Laboratory Tests 12/28/22 0247: [Embedded Image Not Available] Laboratory Tests 12/28 246 Chemistry Sodium (134 - 147 mmol/L) 138 Potassium (3.4 - 5.0 mmol/L) 4.0 Chloride (100 - 108 mmol/L) 109 H Carbon Dioxide (21 - 32 mmol/L) 26 Anion Gap (4.0 - 15.0 GAP calc) 3.0 L BUN (7 - 18 MG/DL) 12 Creatinine (0.6 - 1.0 MG/DL) 0.6 Glomerular Filtr Rate (>60 estGFR) >=60 max est imate Glucose (70 - 110 MG/DL) 121 H Calcium (8.5 - 10.1 MG/DL) 7.9 L Phosphorus (2.5 - 4.9 MG/DL) 2.6 Magnesium (1.8 - 2.4 MG/DL) 2.1 Laboratory Tests 12/28 0247 Hematology WBC (3.5 - 11.0 K/mm3) 7.3 RBC (4.70 - 6.10 M/mm3) 2.46 L Hgb (10.4 - 14.9 G/DL) 7.4 L Hct (31.5 - 44.1 %) 22.2 L MCV (84.5 - 98.6 Fl) 90.2 MCH (27.0 - 34.2 pg) 30.1 MCHC (31.5 - 34.0 G/DL) 33.3 RDW (11.5 - 14.5 SD) 13.5 Plt Count (150 - 450 K/mm3) 184 MPV (7.0 - 10.5 fL) 10.30 Neut % (Auto) (40 - 76 %) 85.4 H Lymph % (Auto) (20.5 - 51.1 %) 6.7 L [place]os % (Auto) (1.7 - 9.3 %) 7.3 Eos % (Auto) (0.0 - 6.0 %) 0.1 Baso % (Auto) (0.0 - 2.0 %) 0.1 Neut # (Auto) (1.8 - 7.6 K/mm3) 6.2 Lymph # (Auto) (0.6 - 3.2 K/mm3) 0.5 L [place] # (Auto) (0.3 - 1.1 K/mm3) 0.5 Eos # (Auto) (0.0 - 0.4 K/mm3) 0.0 Baso # (Auto) (0.0 - 0.1 K/mm3) 0.0 Abs Immat Gran (auto) (0.00 - 0.03 x10 3/uL) 0 .03 Add Manual Diff (CRITERIA DIFF/SCN) NO Immature Gran % (0.0 - 5.0 %) 0.4 Nucleated RBC % (0.0 - 1.0 /100WBC%) 0.0 Free Text Obj Notes Free Text Obj Notes: General appearance: Alert and oriented not in di stress Head and neck. Normocephalic atraumatic, no pall or no jaundice, no goiter CV: S1-S2 regular rate and rhythm, no murmur Lungs: Fair air entry bilaterally, no rales no w heezes no rhonchi Abdomen: Soft lax nontender, no masses Extremities: No lower limb edema, no cyanosis no clubbing Neurologic: Alert and oriented, intact cranial n erves, no focal deficit Skin: Intact, no lesions Lymphatic: No lymphadenopathy appreciated Diagnosis, Assessment Plan Hospital course to date: 1. Status post encephalopathy and seizure 2/ , bradycardia with intermittent tachycardia 3. Status post hip surgery Seen and examined could go to tele EP and cardiology are on board Discussed with EP and ID and need for pacemaker at this point PT OT placement planning Input and output monitoring Supportive care' DVT prophylaxis Discussed with patient and family Electronically Signed by Pal Forrest MD on 03/14 at 1410 RPT #: [id number] END OF REPORT 2022-12-28 13:58:00-00:00 [facility] ([facility]) Hospitalist Progress Note REPORT#:[id number] REPORT STATUS: Signed DATE:12/28/22 TIME:1358 PATIENT: MALISSA BEAVERS UNIT #: [id number] ROOM/BED: [place] [address] : 45 AGE: 77 SEX: F ATTEND: Laz Schilling MD ADM AUTHOR: Maida Schilling MD * ALL edits or amendments must be made on the el [employer]/computer document * Subjective Chief complaint: Stable, complains of right hip pain, no nausea, no vomiting, no fever HPI: Patient admitted for postoperative manag ement of hip arthroplasty. She has had arrhythmia postprocedure. Rajinder prado was initially tachycardic in the 120s to 140s and beta-cheryl was ordered. Earlier today, she bec traci bradycardic and was symptomatic with. She was also hypotensive and w as started on Levophed. D- dimer significantly elevated now with CTA to rul e out PE. She is only therapeutic dose Lovenox at this time. She was o n prophylactic dose postoperatively. We are transferring her to ICU for close observation. Cardiology is consulted Objective General VS/I O: Vital Signs: Date Time Temp Pulse Resp B/P B/P Pulse O2 O2 F low FiO2 Mean Ox Delivery Rate 12/28 1139 98.4 67 12 133/64 87.3 98 07/09 0807 98.4 65 12 149/64 92.7 95 07/09 0722 97 Nasal 2 28 cannula 07/09 0446 98.1 61 18 136/69 91.6 97 07/09 0230 64 16 155/69 99 98 07/09 0200 64 8 152/69 99 99 07/09 0130 73 18 142/69 99 99 07/09 0100 65 14 127/58 84 97 07/09 0030 65 13 124/58 84 99 07/09 0000 97.4 Room air 07/09 0000 98 Nasal 3 32 cannula 07/09 0000 66 17 122/60 87 97 07/08 2330 66 19 133/63 91 97 07/08 2300 68 14 129/60 86 98 07/08 2230 66 16 163/71 102 99 07/08 2200 70 18 145/66 95 92 07/08 2130 67 17 114/56 80 94 07/08 2110 73 8 143/67 97 96 07/08 2030 78 39 137/65 93 98 07/08 2000 74 28 132/60 87 97 07/08 1940 97.6 Room air 07/08 1930 73 28 138/63 91 94 07/08 1900 76 29 132/62 89 07/08 1837 78 19 07/08 1830 79 36 121/55 77 07/08 1800 79 23 122/59 85 07/08 1731 82 30 124/57 82 07/08 1730 84 33 07/08 1700 81 20 131/58 84 07/08 1630 78 24 160/69 99 97 07/08 1600 97.4 07/08 1600 69 20 146/67 97 92 07/08 1530 68 21 144/64 92 99 07/08 1500 68 17 166/68 98 94 07/08 1430 69 22 151/70 100 92 07/08 1400 68 16 155/65 93 94 24 hour I O ending at 0700: 07/09 0700 07/08 1900 Intake Total 1662.00 Output Total 1800 1125 Balance -1800 537.00 Intake, IV 375.00 Intake, Oral 927 Intake, Oral 360 Supplement Output, Urine 1800 1125 PATIENT WEIGHT: Weight (lb): 163 Weight (oz): 5.48 Weight (kg): 74.091 Dietitian nutrition assessment The data set between the solid lines has been im ported from the dietitian's assessment. BMI Calculated: 28.0 Nutrition related diagnosis: Overweight Nutrition diagnosis details: BMI 25-29.9 Nutrition problem: No nutrition diagnosis Nutrition etiology: Nutrition signs and symptoms: Nutrition prescription: Recommend continue regul ar diet and add Ensure High Protein supplement once daily. Encourage intake at least 50% meals and supplements Dietitian name: Vasyl Stephaniechandler, DIET Assessment completed: 12/26/22 Physical Exam General appearance: awake Head/Eyes: atraumatic, clear cornea, EOMI, normo cephalic, PERRL Neck: full range of motion, non-tender, normal t hyroid Cardiovascular: bradycardic, tachycardic, No pal pable pedal pulses Respiratory: aerating well, clear to auscultatio n, symmetric expansion Abdomen: non-tender, normal bowel sounds, soft Extremities: decreased range of motion, ble w/o palpable pulses Musculoskeletal: decreased ROM Neuro/SNAKER [employer]IVING HORSES: alert, oriented X 3, normal speech Skin: dressing and brace over incision Lymphatics: no lymphadenopathy Results Findings/Data: Laboratory Tests 12/28 246 Chemistry Sodium (134 - 147 mmol/L) 138 Potassium (3.4 - 5.0 mmol/L) 4.0 Chloride (100 - 108 mmol/L) 109 H Carbon Dioxide (21 - 32 mmol/L) 26 Anion Gap (4.0 - 15.0 GAP calc) 3.0 L BUN (7 - 18 MG/DL) 12 Creatinine (0.6 - 1.0 MG/DL) 0.6 Glomerular Filtr Rate (>60 estGFR) >=60 max est imate Glucose (70 - 110 MG/DL) 121 H Calcium (8.5 - 10.1 MG/DL) 7.9 L Phosphorus (2.5 - 4.9 MG/DL) 2.6 Magnesium (1.8 - 2.4 MG/DL) 2.1 Laboratory Tests 12/28 0247 Hematology WBC (3.5 - 11.0 K/mm3) 7.3 RBC (4.70 - 6.10 M/mm3) 2.46 L Hgb (10.4 - 14.9 G/DL) 7.4 L Hct (31.5 - 44.1 %) 22.2 L MCV (84.5 - 98.6 Fl) 90.2 MCH (27.0 - 34.2 pg) 30.1 MCHC (31.5 - 34.0 G/DL) 33.3 RDW (11.5 - 14.5 SD) 13.5 Plt Count (150 - 450 K/mm3) 184 MPV (7.0 - 10.5 fL) 10.30 Neut % (Auto) (40 - 76 %) 85.4 H Lymph % (Auto) (20.5 - 51.1 %) 6.7 L Coos % (Auto) (1.7 - 9.3 %) 7.3 Eos % (Auto) (0.0 - 6.0 %) 0.1 Baso % (Auto) (0.0 - 2.0 %) 0.1 Neut # (Auto) (1.8 - 7.6 K/mm3) 6.2 Lymph # (Auto) (0.6 - 3.2 K/mm3) 0.5 L Coos # (Auto) (0.3 - 1.1 K/mm3) 0.5 Eos # (Auto) (0.0 - 0.4 K/mm3) 0.0 Baso # (Auto) (0.0 - 0.1 K/mm3) 0.0 Abs Immat Gran (auto) (0.00 - 0.03 x10 3/uL) 0. 03 Add Manual Diff (CRITERIA DIFF/SCN) NO Immature Gran % (0.0 - 5.0 %) 0.4 Nucleated RBC % (0.0 - 1.0 /100WBC%) 0.0 Radiology data: Recent Impressions: ULTRASOUND - DUP VEIN CASTRO 12/27 1404 Report Impression - Status: SIGNED Entered: 12/27/2022 2298 IMPRESSION: No evidence of DVT within the visualized portion s of the deep veins with limitations as above. Impression By: [email or web address] - Gucci Dowd M.D. Diagnosis, Assessment Plan Free Text DxA P Notes Free text DxA P notes: 77-year-old female patient w ith history of hypertension hypothyroidism, admitted for: Symptomatic bradycardia due to beta-cheryl give n secondary to arrhythmias- significantly improved, held all beta-blockers, transfer out of ICU #Arrhythmia, symptomatic-for which patient was started on metoprolol 25 mg every 6 hours the patient became hypotensive a nd developed bradycardia-resolved, may resume low-dose beta-cheryl when okay with card iology Patient reports recent cardiac work-up with a ca rdiologist prior to surgery Monitor closely on telemetry and treat yesica yoder Cardiology consult, appreciate input #Hypotension-resolved Given IV fluids Cardiology consult PAD No vascular intervention planned per Dr. Miller #Osteoarthritis, severe right lower extremity Status post right to do hip arthroplasty Admit to telemetry Routine vital signs Strict I's and O's Pain management with [place] and morphine as neede d PT OT evaluate and treat Dr. Cárdenas, Ortho following #Possible CAD Per patient and , her recent cardiac work -up shows some blockage. She could not describe the results of the cardiac wo rk-up Records requested from patient's cardiology Cardiology consulted here On aspirin and statin #Hypertension, controlled Resume home medications, held BB #Hypothyroidism Resume home dose levothyroxine #Elevated D-dimer CTA neg for PE # anemia - monitor h and h DVT prophylaxis with Lovenox Full code transfer out of ICU Electronically Signed by Maida Schilling MD on 0 12/28/22 at 1359 RPT #: [id number] END OF REPORT 2022-12-27 17:44:00-00:00 [facility] ([facility]) Cardiology Progress Note REPORT#:[id number] REPORT STATUS: Signed DATE:12/27/22 TIME:1744 PATIENT: MALISSA BEAVERS UNIT #: [id number] ROOM/BED: [facility]-1 : 45 AGE: 77 SEX: F ATTEND: Laz Schilling MD ADM AUTHOR: Joseisto Arce MD * ALL edits or amendments must be made on the [employer]/computer document * Subjective HPI: 77-year-old female with a past medical h istory of hypertension, hypothyroidism who presented for elective right hip arthroplast y. The patient is status post successful right hip arthroplasty. In the postop erative period, she was found to have regular tachycardia with a right bundle branch block. She was started on oral metoprolol 25 mg every 6 hours. The chuck ent then was noted to have bradycardia with heart rate in the low 4 0s. Rhythm was sinus. She was noted to be increasingly short of breath. The patient is currently with oxygen saturation of 87% on a nonrebreather. Sh eve denies chest pain or palpitations at this time. She reports that she underwent cardia c evaluation for clearance prior to surgery. She also describes that she wa s told she had a 30% blockage in her coronary, however she denies undergoing h eart catheterization. Free Text Subj Notes Free Text Subj Notes: No acute events overnight. The patient felt that her nerves and anxiety were acting up this morning. Otherwise she reports th at she feels well. Objective General VS/I O: 24 hour I O ending at 0700: 12/28 0700 12/27 1900 Intake Total 1662.00 Output Total 1800 1125 Balance -1800 537.00 Intake, IV 375.00 Intake, Oral 927 Intake, Oral 360 Supplement Output, Urine 1800 1125 Vital Signs: Date Time Temp Pulse Resp B/P B/P Pulse O2 O2 F low FiO2 Mean Ox Delivery Rate 12/28 0807 36.9 65 12 149/64 92.7 95 12/28 0722 97 Nasal 2 28 cannula 12/28 0446 36.7 61 18 136/69 91.6 97 / 0230 64 16 155/69 99 98 / 0200 64 8 152/69 99 99 / 0130 73 18 142/69 99 99 / 0100 65 14 127/58 84 97 07/ 0030 65 13 124/58 84 99 / 0000 36.3 Room air 12/28 0000 98 Nasal 3 32 cannula 12/28 0000 66 17 122/60 87 97 / 2330 66 19 133/63 91 97 / 2300 68 14 129/60 86 98 / 2230 66 16 163/71 102 99 07/08 2200 70 18 145/66 95 92 07/08 2130 67 17 114/56 80 94 07/08 2110 73 8 143/67 97 96 07/08 2030 78 39 137/65 93 98 07/08 2000 74 28 132/60 87 97 07/08 1940 36.4 Room air 07/08 1930 73 28 138/63 91 94 07/08 1900 76 29 132/62 89 07/08 1837 78 19 07/08 1830 79 36 121/55 77 07/08 1800 79 23 122/59 85 07/08 1731 82 30 124/57 82 07/08 1730 84 33 07/08 1700 81 20 131/58 84 07/08 1630 78 24 160/69 99 97 07/08 1600 36.3 07/08 1600 69 20 146/67 97 92 07/08 1530 68 21 144/64 92 99 07/08 1500 68 17 166/68 98 94 07/08 1430 69 22 151/70 100 92 07/08 1400 68 16 155/65 93 94 07/08 1330 71 25 135/63 91 97 07/08 1300 72 22 130/61 88 90 07/08 1257 72 24 97 07/08 1230 73 34 143/75 97 94 07/08 1201 67 29 137/82 103 92 07/08 1200 35.9 07/08 1200 66 23 94 07/08 1131 68 37 163/68 98 87 07/08 1130 66 28 85 07/08 1100 66 17 138/65 93 93 07/08 1030 65 14 151/66 95 95 07/08 1000 67 17 151/67 96 91 07/08 0930 64 16 155/67 96 95 07/08 0901 67 21 95 07/08 0900 70 20 143/68 98 89 PATIENT WEIGHT: Weight (lb): 163 Weight (oz): 5.48 Weight (kg): 74.091 Physical Exam Head/Eyes: clear cornea, PERRL ENT: moist mucosal membranes, normal pharynx Neck: supple/no meningismus, no JVD Cardiovascular: CV assessment: regular rate and rhythm, no gall op, no murmur Respiratory: decreased breath sounds Abdomen: soft, non-tender, no distention Lower extremity: LE assessment: no clubbing, no cyanosis, no abdulaziz ma Neuro/SNAKER [employer]IVING HORSES: alert, oriented X 3, CN II-XII intact Skin: dry, no rash Diagnosis, Assessment Plan Problem List/A P: 1. Sinus tachycardia 2. Hip arthritis 3. Sinus bradycardia 4. Acute hypoxemic respiratory failure 5. Coronary artery disease Free Text DxA P Notes Free Text DxA P Notes: Patient with arrhythmia following hip replacemen t surgery Hemodynamics are currently s table off of any beta-blockers or antihypertensives CTA of the chest was negative for PE DVT prophylaxis per orthopedics Continue aspirin, high intensity statin Continue to monitor on telemetry Electronically Signed by Josesito Arce MD on 03/14 at 0832 RPT #: [id number] END OF REPORT 2022-12-27 14:48:00-00:00 [facility] ([facility] Pulmonology Progress Note REPORT#:[id number] REPORT STATUS: Signed DATE:12/27/22 TIME:1448 PATIENT: MALISSA BEAVERS UNIT #: [id number] ROOM/BED: [place] [address] : 45 AGE: 77 SEX: F ATTEND: Laz Schilling MD ADM AUTHOR: Pal Forrest MD * ALL edits or amendments must be made on the [employer]/computer document * Subjective Chief complaint: less SOB on room air No distress Review of Systems ROS Eyes: Denies: diplopia, eye pain. Respiratory: Denies: pleurisy, pleuritic pain. GI: Denies: hematemesis, hematochezia. Musculoskeletal: Reports: joint pain, myalgias. Objective General VS/I O: Last Documented: Result Date Time Pulse Ox 97 12/27 1257 Pulse 72 12/27 1257 Resp 24 12/27 1257 B/P 143/75 12/27 1230 B/P Mean 97 12/27 1230 Temp 35.8 12/27 08 FiO2 32 12/27 0625 O2 Delivery Nasal cannula 12/27 0625 O2 Flow Rate 3 12/27 0625 24 hour I O ending at 0700: 12/27 0700 12/26 1900 Intake Total 900.00 1315.00 Output Total 920 430 Balance -20.00 885.00 Intake, IV 900.00 625.00 Intake, Oral 420 Intake, Oral 270 Supplement Output, 20 30 Drainage Output, Urine 900 400 PATIENT WEIGHT: Weight (lb): 163 Weight (oz): 5.48 Weight (kg): 74.091 Medications: Active Meds + DC'd Last 24 Hrs Famotidine (PEPCID) 20 MG BID PO Famotidine (PEPCID) 20 MG BID IV (DC) Sodium Chloride (SODIUM CHLORIDE) 10 ML BID IV Enoxaparin Sodium (lovENOX) 74 MG Q12HR@1800,060 0 SUBQ Sodium Chloride (SODIUM CHLORIDE) 10 ML ASDIR MT N IV Dopamine HCl/Dextrose (DOPamine 400MG IN 5% DEXT BRO) 250 ML ASDIR IV Iopamidol (ISOVUE-370) 100 ML ONCE PRN IV Sodium Chloride (SODIUM CHLORIDE 0.9%) 100 ML ON CE PRN IV Docusate Sodium (COLACE) 100 MG BID PO Meloxicam (MOBIC) 15 MG DAILY PO Mupirocin (BACTROBAN NASAL-ADULT ICU/KYLER MRSA PATIENTS) 1 APPLIC 0900,1700 NASAL Norepinephrine/Dextrose (LEVOPHED 4 MG/250 ML) 2 50 ML ASDIR IV Levothyroxine Sodium (SYNTHROID) 150 MCG DAILY@0 600 PO Sodium Chloride (0.9% Sodium Chloride) 1,000 ML .[id number] IV (DC) Atorvastatin Calcium (LIPITOR) 20 MG BEDTIME PO Celecoxib (CeleBREX) 200 MG 0900,2100 PO Dexamethasone (DECADRON) 1 MG TID PO Gabapentin (NEURONTIN) 600 MG TID PO Cefazolin Sodium (KEFZOL) 1 GM Q8HR IV Sterile Water (WATER FOR INJECTION) 10 ML Ondansetron HCl (ZOFRAN) 8 MG Q8H PRN PRN PO Ondansetron HCl (ZOFRAN) 8 MG Q8H PRN PRN IV Acetaminophen (TYLENOL) 650 MG Q4H PRN PRN PO Hydrocodone Bitart/Acetaminophen (NORCO 7.5/325) 1 TAB Q4H PRN PRN PO Hydrocodone Bitart/Acetaminophen (NORCO 7.5/325) 2 TAB Q4H PRN PRN PO Morphine Sulfate (morphine Sulfate) 2 MG Q2H PRN PRN IV (DC) Results Findings/Data: Laboratory Tests 12/27/22 0311: [Embedded Image Not Available] Laboratory Tests 07/08 07/08 0956 0311 Chemistry Sodium (134 - 147 mmol/L) 137 Potassium (3.4 - 5.0 mmol/L) 4.1 Chloride (100 - 108 mmol/L) 109 H Carbon Dioxide (21 - 32 mmol/L) 25 Anion Gap (4.0 - 15.0 GAP calc) 3.0 L BUN (7 - 18 MG/DL) 16 Creatinine (0.6 - 1.0 MG/DL) 0.7 Glomerular Filtr Rate (>60 estGFR) >=60 max est imate Glucose (70 - 110 MG/DL) 118 H Calcium (8.5 - 10.1 MG/DL) 7.7 L Phosphorus (2.5 - 4.9 MG/DL) 2.9 Magnesium (1.8 - 2.4 MG/DL) 2.1 Troponin I High Sens (0 - 54 ng/L) 451.5 *H Laboratory Tests 12/27 0311 Hematology WBC (3.5 - 11.0 K/mm3) 6.9 RBC (4.70 - 6.10 M/mm3) 2.56 L Hgb (10.4 - 14.9 G/DL) 7.7 L Hct (31.5 - 44.1 %) 23.5 L MCV (84.5 - 98.6 Fl) 91.8 MCH (27.0 - 34.2 pg) 30.1 MCHC (31.5 - 34.0 G/DL) 32.8 RDW (11.5 - 14.5 SD) 13.8 Plt Count (150 - 450 K/mm3) 182 MPV (7.0 - 10.5 fL) 10.90 H Neut % (Auto) (40 - 76 %) 83.8 H Lymph % (Auto) (20.5 - 51.1 %) 8.1 L Coos % (Auto) (1.7 - 9.3 %) 7.3 Eos % (Auto) (0.0 - 6.0 %) 0.1 Baso % (Auto) (0.0 - 2.0 %) 0.3 Neut # (Auto) (1.8 - 7.6 K/mm3) 5.8 Lymph # (Auto) (0.6 - 3.2 K/mm3) 0.6 Coos # (Auto) (0.3 - 1.1 K/mm3) 0.5 Eos # (Auto) (0.0 - 0.4 K/mm3) 0.0 Baso # (Auto) (0.0 - 0.1 K/mm3) 0.0 Abs Immat Gran (auto) (0.00 - 0.03 x10 3/uL) 0. 03 Add Manual Diff (CRITERIA DIFF/SCN) NO Immature Gran % (0.0 - 5.0 %) 0.4 Nucleated RBC % (0.0 - 1.0 /100WBC%) 0.0 Radiology data: Recent Impressions: ULTRASOUND - DUP VEIN CASTRO 12/27 1404 Report Impression - Status: SIGNED Entered: 12/27/2022 1417 IMPRESSION: No evidence of DVT within the visualized portion s of the deep veins with limitations as above. Impression By: [email or web address] - Gucci Dowd M.D. Free Text Obj Notes Free Text Obj Notes: General appearance: Alert and oriented not in di stress Head and neck. Normocephalic atraumatic, no pall or no jaundice, no goiter CV: S1-S2 regular rate and rhythm, no murmur Lungs: Fair air entry bilaterally, no rales no w heezes no rhonchi Abdomen: Soft lax nontender, no masses Extremities: No lower limb edema, no cyanosis no clubbing Neurologic: Alert and oriented, intact cranial n erves, no focal deficit Skin: Intact, no lesions Lymphatic: No lymphadenopathy appreciated Diagnosis, Assessment Plan Hospital course to date: 1. Status post encephalopathy and seizure 2/ , bradycardia with intermittent tachycardia 3. Status post hip surgery Seen and examined could go to tele Monitor heart rate EP and cardiology are on board Discussed with EP and ID and need for pacemaker at this point PT OT Input and output monitoring Supportive care Discussed with patient and family Electronically Signed by Pal Forrest MD on 02/11 at 1450 RPT #: [id number] END OF REPORT 2022-12-27 12:03:00-00:00 [facility] ([facility]) Hospitalist Progress Note REPORT#:[id number] REPORT STATUS: Signed DATE:12/27/22 TIME:1203 PATIENT: MALISSA BEAVERS UNIT #: [id number] ROOM/BED: [place] [address]-1 : 45 AGE: 77 SEX: F ATTEND: Laz Schilling MD ADM AUTHOR: Maida Schilling MD * ALL edits or amendments must be made on the el [employer]/computer document * Subjective Chief complaint: Stable, complains of right hip pain, no nausea, no vomiting, no fever HPI: Patient admitted for postoperative manag ement of hip arthroplasty. She has had arrhythmia postprocedure. Sh e was initially tachycardic in the 120s to 140s and beta-cheryl was ordered. Earlier today, she bec traci bradycardic and was symptomatic with. She was also hypotensive and w as started on Levophed. D- dimer significantly elevated now with CTA to rul e out PE. She is only therapeutic dose Lovenox at this time. She was o n prophylactic dose postoperatively. We are transferring her to ICU for close observation. Cardiology is consulted Objective General VS/I O: Vital Signs: Date Time Temp Pulse Resp B/P B/P Pulse O2 O2 F low FiO2 Mean Ox Delivery Rate 07/08 0901 67 21 95 07/08 0900 70 20 143/68 98 89 07/08 0830 64 11 153/66 95 95 07/08 0800 96.5 07/08 0800 68 16 149/68 98 96 07/08 0730 66 21 167/72 103 100 07/08 0700 65 18 153/69 99 99 07/08 0630 62 24 146/68 97 99 07/08 0625 100 Nasal 3 32 cannula 07/08 0615 65 42 137/66 96 97 07/08 0600 64 15 146/70 101 99 07/08 0545 63 19 139/67 96 100 07/08 0530 61 19 146/66 95 100 07/08 0515 64 16 137/65 94 100 07/08 0500 62 25 130/61 88 97 07/08 0445 61 21 124/57 83 100 07/08 0430 63 23 139/63 91 100 07/08 0415 62 23 135/64 92 98 07/08 0400 96.8 Nasal 3 cannula 07/08 0400 63 20 145/65 94 98 07/08 0345 63 23 142/56 93 98 07/08 0331 64 18 157/67 97 100 07/08 0321 67 21 154/67 96 99 07/08 0301 67 31 169/72 103 99 07/08 0245 73 32 161/71 109 87 07/08 0230 66 17 161/75 108 100 07/08 0215 62 17 159/71 102 100 07/08 0200 62 14 164/72 103 99 07/08 0145 65 15 159/78 109 100 07/08 0130 65 16 160/76 109 100 07/08 0115 64 15 162/75 108 100 07/08 0100 63 13 138/66 95 95 07/08 0045 62 12 133/58 89 93 07/08 0030 63 13 131/61 89 92 07/08 0015 63 13 133/64 92 91 07/08 0000 96.7 Nasal 3 cannula 07/08 0000 64 13 134/59 91 91 07/07 2345 64 14 133/57 87 97 07/07 2330 64 12 135/62 89 97 07/07 2315 65 13 142/59 92 95 07/07 2300 64 12 148/67 97 96 07/07 2245 61 14 132/61 89 99 07/07 2230 62 14 136/64 92 96 07/07 2215 62 14 135/61 92 100 07/07 2200 61 15 131/63 90 99 07/07 2145 66 27 121/58 83 96 07/07 2130 66 29 142/66 95 98 07/07 2115 64 18 145/64 92 98 07/07 2100 64 24 107/53 76 96 07/07 2045 66 42 131/58 89 96 07/07 2036 83 39 96 07/07 2029 66 135/62 89 96 07/07 2014 65 36 131/56 86 97 07/07 2001 96 Nasal 3 32 cannula 07/07 1999 68 30 145/64 95 96 07/07 1945 71 30 139/64 92 96 07/07 1930 69 23 139/66 95 96 07/07 1920 96.9 Nasal 3 cannula 07/07 1920 Nasal 3 cannula 07/07 1915 70 28 125/57 85 96 07/07 1900 71 20 115/59 82 97 07/07 1849 69 19 97 07/07 1845 71 23 104/52 75 97 07/07 1830 72 28 129/60 86 97 07/07 1816 77 36 127/59 85 97 07/07 1815 80 28 95 07/07 1800 74 46 127/60 87 96 07/07 1745 73 23 120/55 79 97 07/07 1730 74 22 131/63 90 98 07/07 1715 73 29 133/63 90 99 07/07 1700 70 25 154/67 96 99 07/07 1645 70 36 133/67 94 80 07/07 1630 64 16 123/61 88 98 07/07 1615 64 16 120/58 83 98 07/07 1600 96.9 07/07 1600 64 15 117/58 84 98 07/07 1545 63 15 124/56 83 98 07/07 1530 64 16 128/60 88 99 07/07 1515 67 19 127/61 87 97 07/07 1512 67 18 97 07/07 1500 66 21 126/60 86 97 07/07 1445 68 35 132/68 94 98 07/07 1430 67 19 137/63 92 97 07/07 1415 66 10 134/63 91 98 07/07 1400 67 16 142/60 87 98 07/07 1345 66 16 148/68 98 97 07/07 1330 66 14 138/62 89 98 07/07 1315 66 20 139/63 90 97 07/07 1300 66 28 137/65 93 100 07/07 1245 66 25 125/60 87 98 07/07 1230 67 19 139/63 90 99 07/07 1215 64 17 129/60 86 100 24 hour I O ending at 0700: 07/08 0700 07/07 1900 Intake Total 900.00 1315.00 Output Total 920 430 Balance -20.00 885.00 Intake, IV 900.00 625.00 Intake, Oral 420 Intake, Oral 270 Supplement Output, 20 30 Drainage Output, Urine 900 400 PATIENT WEIGHT: Weight (lb): 163 Weight (oz): 5.48 Weight (kg): 74.091 Dietitian nutrition assessment The data set between the solid lines has been im ported from the dietitian's assessment. BMI Calculated: 28.0 Nutrition related diagnosis: Overweight Nutrition diagnosis details: BMI 25-29.9 Nutrition problem: No nutrition diagnosis Nutrition etiology: Nutrition signs and symptoms: Nutrition prescription: Recommend continue regul ar diet and add Ensure High Protein supplement once daily. Encourage intake at least 50% meals and supplements Dietitian name: Vasyl Song, DIET Assessment completed: 12/26/22 Physical Exam General appearance: awake Head/Eyes: atraumatic, clear cornea, EOMI, normo cephalic, PERRL Neck: full range of motion, non-tender, normal t hyroid Cardiovascular: bradycardic, tachycardic, No pal pable pedal pulses Respiratory: aerating well, clear to auscultatio n, symmetric expansion Abdomen: non-tender, normal bowel sounds, soft Extremities: decreased range of motion, ble w/o palpable pulses Musculoskeletal: decreased ROM Neuro/SNAKER [employer]IVING HORSES: alert, oriented X 3, normal speech Skin: dressing and brace over incision Lymphatics: no lymphadenopathy Results Findings/Data: Laboratory Tests 12/27 12/27 0956 0311 Chemistry Sodium (134 - 147 mmol/L) 137 Potassium (3.4 - 5.0 mmol/L) 4.1 Chloride (100 - 108 mmol/L) 109 H Carbon Dioxide (21 - 32 mmol/L) 25 Anion Gap (4.0 - 15.0 GAP calc) 3.0 L BUN (7 - 18 MG/DL) 16 Creatinine (0.6 - 1.0 MG/DL) 0.7 Glomerular Filtr Rate (>60 estGFR) >=60 max est imate Glucose (70 - 110 MG/DL) 118 H Calcium (8.5 - 10.1 MG/DL) 7.7 L Phosphorus (2.5 - 4.9 MG/DL) 2.9 Magnesium (1.8 - 2.4 MG/DL) 2.1 Troponin I High Sens (0 - 54 ng/L) 451.5 *H Laboratory Tests 12/27 0311 Hematology WBC (3.5 - 11.0 K/mm3) 6.9 RBC (4.70 - 6.10 M/mm3) 2.56 L Hgb (10.4 - 14.9 G/DL) 7.7 L Hct (31.5 - 44.1 %) 23.5 L MCV (84.5 - 98.6 Fl) 91.8 MCH (27.0 - 34.2 pg) 30.1 MCHC (31.5 - 34.0 G/DL) 32.8 RDW (11.5 - 14.5 SD) 13.8 Plt Count (150 - 450 K/mm3) 182 MPV (7.0 - 10.5 fL) 10.90 H Neut % (Auto) (40 - 76 %) 83.8 H Lymph % (Auto) (20.5 - 51.1 %) 8.1 L Coos % (Auto) (1.7 - 9.3 %) 7.3 Eos % (Auto) (0.0 - 6.0 %) 0.1 Baso % (Auto) (0.0 - 2.0 %) 0.3 Neut # (Auto) (1.8 - 7.6 K/mm3) 5.8 Lymph # (Auto) (0.6 - 3.2 K/mm3) 0.6 Coos # (Auto) (0.3 - 1.1 K/mm3) 0.5 Eos # (Auto) (0.0 - 0.4 K/mm3) 0.0 Baso # (Auto) (0.0 - 0.1 K/mm3) 0.0 Abs Immat Gran (auto) (0.00 - 0.03 x10 3/uL) 0. 03 Add Manual Diff (CRITERIA DIFF/SCN) NO Immature Gran % (0.0 - 5.0 %) 0.4 Nucleated RBC % (0.0 - 1.0 /100WBC%) 0.0 Diagnosis, Assessment Plan Free Text DxA P Notes Free text DxA P notes: 77-year-old female patient w ith history of hypertension hypothyroidism, admitted for: Symptomatic bradycardia due to beta-cheryl give n secondary to arrhythmias- significantly improved, held all beta-blockers, may transfer out of ICU #Arrhythmia, symptomatic-for which patient was started on metoprolol 25 mg every 6 hours the patient became hypotensive a nd developed bradycardia-resolved, may resume low-dose beta-cheryl when okay with card iology Patient reports recent cardiac work-up with a ca rdiologist prior to surgery Monitor closely on telemetry and treat yesica yoder TSH, troponin, and electrolytes pending Cardiology consult, appreciate input Transferred to ICU #Hypotension-resolved Given IV fluids Cardiology consult PAD No vascular intervention planned per Dr. Miller #Osteoarthritis, severe right lower extremity Status post right to do hip arthroplasty Admit to telemetry Routine vital signs Strict I's and O's Pain management with Had[place] and morphine as neede d PT OT evaluate and treat Dheeraj Wu following #Possible CAD Per patient and , her recent cardiac work -up shows some blockage. She could not describe the results of the cardiac wo rk-up Records requested from patient's cardiology Cardiology consulted here On aspirin and statin #Hypertension, controlled Resume home medications, hold BB #Hypothyroidism Resume home dose levothyroxine #Elevated D-dimer CTA neg for PE # anemia - monitor h and h DVT prophylaxis with Lovenox Full code May transfer out of ICU Electronically Signed by Maida Schilling MD on 0 12/27/22 at 1205 RPT #: [id number] END OF REPORT 2022-12-26 18:42:00-00:00 [facility] ([facility]) Cardiology Progress Note REPORT#:[id number] REPORT STATUS: Signed DATE:12/26/22 TIME:1841 PATIENT: MALISSA BEAVERS UNIT #: [id number] ROOM/BED: [place] [id number] : 45 AGE: 77 SEX: F ATTEND: Laz Schilling MD ADM AUTHOR: Josesito Arce MD * ALL edits or amendments must be made on the el [employer]/computer document * Subjective HPI: 77-year-old female with a past medical h istory of hypertension, hypothyroidism who presented for elective right hip arthroplast y. The patient is status post successful right hip arthroplasty. In the postop erative period, she was found to have regular tachycardia with a right bundle branch block. She was started on oral metoprolol 25 mg every 6 hours. The chuck ent then was noted to have bradycardia with heart rate in the low 4 0s. Rhythm was sinus. She was noted to be increasingly short of breath. The patient is currently with oxygen saturation of 87% on a nonrebreather. Rajinder prado denies chest pain or palpitations at this time. She reports that she underwent cardia c evaluation for clearance prior to surgery. She also describes that she wa s told she had a 30% blockage in her coronary, however she denies undergoing h eart catheterization. Free Text Subj Notes Free Text Subj Notes: No acute events overnight. Patient is resting co mfortably on nasal cannula oxygen. Objective General VS/I O: 24 hour I O ending at 0700: 12/27 0700 12/26 1900 Intake Total 900.00 1315.00 Output Total 920 430 Balance -20.00 885.00 Intake, IV 900.00 625.00 Intake, Oral 420 Intake, Oral 270 Supplement Output, 20 30 Drainage Output, Urine 900 400 Vital Signs: Date Time Temp Pulse Resp B/P B/P Pulse O2 O2 F low FiO2 Mean Ox Delivery Rate 12/27 0800 35.8 / 0630 62 24 146/68 97 99 07/08 0625 100 Nasal 3 32 cannula 07/08 0615 65 42 137/66 96 97 07/08 0600 64 15 146/70 101 99 07/08 0545 63 19 139/67 96 100 07/08 0530 61 19 146/66 95 100 07/08 0515 64 16 137/65 94 100 07/08 0500 62 25 130/61 88 97 07/08 0445 61 21 124/57 83 100 07/08 0430 63 23 139/63 91 100 07/08 0415 62 23 135/64 92 98 07/08 0400 36.0 Nasal 3 cannula 07/08 0400 63 20 145/65 94 98 07/08 0345 63 23 142/56 93 98 07/08 0331 64 18 157/67 97 100 07/08 0321 67 21 154/67 96 99 07/08 0301 67 31 169/72 103 99 07/08 0245 73 32 161/71 109 87 07/08 0230 66 17 161/75 108 100 07/08 0215 62 17 159/71 102 100 07/08 0200 62 14 164/72 103 99 07/08 0145 65 15 159/78 109 100 07/08 0130 65 16 160/76 109 100 07/08 0115 64 15 162/75 108 100 07/08 0100 63 13 138/66 95 95 07/08 0045 62 12 133/58 89 93 07/08 0030 63 13 131/61 89 92 07/08 0015 63 13 133/64 92 91 07/08 0000 35.9 Nasal 3 cannula 07/08 0000 64 13 134/59 91 91 07/07 2345 64 14 133/57 87 97 07/07 2330 64 12 135/62 89 97 07/07 2315 65 13 142/59 92 95 07/07 2300 64 12 148/67 97 96 07/07 2245 61 14 132/61 89 99 07/07 2230 62 14 136/64 92 96 07/07 2215 62 14 135/61 92 100 07/07 2200 61 15 131/63 90 99 07/07 2145 66 27 121/58 83 96 07/07 2130 66 29 142/66 95 98 07/07 2115 64 18 145/64 92 98 07/07 2100 64 24 107/53 76 96 07/07 2045 66 42 131/58 89 96 07/07 2036 83 39 96 07/07 2029 66 135/62 89 96 07/07 2014 65 36 131/56 86 97 07/07 2001 96 Nasal 3 32 cannula 07/07 1999 68 30 145/64 95 96 07/07 1945 71 30 139/64 92 96 07/07 1930 69 23 139/66 95 96 07/07 1920 36.1 Nasal 3 cannula 07/07 1920 Nasal 3 cannula 07/07 1915 70 28 125/57 85 96 07/07 1900 71 20 115/59 82 97 07/07 1849 69 19 97 07/07 1845 71 23 104/52 75 97 07/07 1830 72 28 129/60 86 97 07/07 1816 77 36 127/59 85 97 07/07 1815 80 28 95 07/07 1800 74 46 127/60 87 96 07/07 1745 73 23 120/55 79 97 07/07 1730 74 22 131/63 90 98 07/07 1715 73 29 133/63 90 99 07/07 1700 70 25 154/67 96 99 07/07 1645 70 36 133/67 94 80 07/07 1630 64 16 123/61 88 98 07/07 1615 64 16 120/58 83 98 07/07 1600 36.1 07/07 1600 64 15 117/58 84 98 07/07 1545 63 15 124/56 83 98 07/07 1530 64 16 128/60 88 99 07/07 1515 67 19 127/61 87 97 07/07 1512 67 18 97 07/07 1500 66 21 126/60 86 97 07/07 1445 68 35 132/68 94 98 07/07 1430 67 19 137/63 92 97 07/07 1415 66 10 134/63 91 98 07/07 1400 67 16 142/60 87 98 07/07 1345 66 16 148/68 98 97 07/07 1330 66 14 138/62 89 98 07/07 1315 66 20 139/63 90 97 07/07 1300 66 28 137/65 93 100 07/07 1245 66 25 125/60 87 98 07/07 1230 67 19 139/63 90 99 07/07 1215 64 17 129/60 86 100 07/07 1201 68 20 153/67 97 98 07/07 1200 36.2 07/07 1200 69 19 98 07/07 1145 65 20 127/60 87 96 07/07 1130 63 19 137/63 90 07/07 1115 69 39 07/07 1104 65 30 142/64 92 97 07/07 1100 65 21 138/63 90 95 07/07 1054 65 36 81 07/07 1045 66 23 134/63 92 76 07/07 1030 65 19 136/64 92 97 07/07 1015 64 20 132/61 88 99 07/07 1000 62 119/57 84 97 07/07 0945 64 33 130/60 87 98 07/07 0930 62 16 130/63 91 99 07/07 0915 64 4 139/57 93 98 07/07 0900 67 22 159/69 99 98 07/07 0845 72 33 116/58 84 96 PATIENT WEIGHT: Weight (lb): 163 Weight (oz): 5.48 Weight (kg): 74.091 Physical Exam Head/Eyes: clear cornea, PERRL ENT: moist mucosal membranes, normal pharynx Neck: supple/no meningismus, no JVD Cardiovascular: CV assessment: regular rate and rhythm, no gall op, no murmur Respiratory: decreased breath sounds Abdomen: soft, non-tender, no distention Lower extremity: LE assessment: no clubbing, no cyanosis, no abdulaziz ma Neuro/SNAKER DRIVING HORSES: alert, oriented X 3, CN II-XII intact Skin: dry, no rash Review of Systems Free Text ROS Notes Free Text ROS Notes: General: Denies fatigue, weight changes, fever, chills Eyes: Denies discharge, pain, visual changes ENT: denies epistaxis, sore throat, tinnitus Pulmonary: + shortness of breath, no cough, whee zing, increased work of breathing Cardiovascular: Denies chest pain, + shortness of breath, no palpitations, lower extremity edema, syncope Gastrointestinal: Denies abdominal pain, diarrhe a, nausea, vomiting, melena Endocrine: denies intolerance to heat or cold te mperatures, denies polyuria, polydipsia, polyphasia Neurology: Denies headache, numbness, or weaknes s Musculoskeletal: Denies joint stiffness or pain Psychiatry: Denies depression, suicidal ideation Diagnosis, Assessment Plan Problem List/A P: 1. Sinus tachycardia 2. Hip arthritis 3. Sinus bradycardia 4. Acute hypoxemic respiratory failure 5. Coronary artery disease Free Text DxA P Notes Free Text DxA P Notes: Patient with arrhythmia following hip replacemen t surgery Was started on metoprolol 25 mg p.o. every 6 wit h subsequent bradycardia Recommend holding all beta-blockers at this time Heart rate and blood pressur e currently well controlled, will hold on initiation of any beta-blockers at this time CTA of the chest was negative for PE DVT prophylaxis per orthopedics Recommend aspirin, high intensity statin Continue to monitor on telemetry Electronically Signed by Josesito Arce MD on 02/11 at 0847 [facility] #: [id number] END OF REPORT 2022-12-26 12:54:00-00:00 [facility] ([facility]) Hospitalist Progress Note REPORT#:[id number] REPORT STATUS: Signed DATE:12/26/22 TIME:1254 PATIENT: MALISSA BEAVERS UNIT #: [id number] ROOM/BED: [place] [address]-1 : 45 AGE: 77 SEX: F ATTEND: Laz Schilling MD ADM AUTHOR: Maida Schilling MD * ALL edits or amendments must be made on the el [employer]/computer document * Subjective Chief complaint: Stable, complains of right hip pain, no nausea, no vomiting, no fever HPI: Patient admitted for postoperative manag ement of hip arthroplasty. She has had arrhythmia postprocedure. Rajinder prado was initially tachycardic in the 120s to 140s and beta-cheryl was ordered. Earlier today, she bec traci bradycardic and was symptomatic with. She was also hypotensive and w as started on Levophed. D- dimer significantly elevated now with CTA to rul e out PE. She is only therapeutic dose Lovenox at this time. She was o n prophylactic dose postoperatively. We are transferring her to ICU for close observation. Cardiology is consulted Objective General VS/I O: Vital Signs: Date Time Temp Pulse Resp B/P B/P Pulse O2 O2 Flow FiO2 Mean Ox Delivery Rate 07/07 1054 65 36 81 07/07 1045 66 23 134/63 92 76 07/07 1030 65 19 136/64 92 97 07/07 1015 64 20 132/61 88 99 07/07 1000 62 119/57 84 97 07/07 0945 64 33 130/60 87 98 07/07 0930 62 16 130/63 91 99 07/07 0915 64 4 139/57 93 98 07/07 0900 67 22 159/69 99 98 07/07 0845 72 33 116/58 84 96 07/07 0830 66 29 132/62 89 97 07/07 0815 70 30 131/61 88 99 07/07 0800 96.8 07/07 0800 68 15 151/67 96 93 07/07 0745 71 27 129/60 88 99 07/07 0730 71 19 145/68 98 98 07/07 0715 69 24 144/67 96 96 07/07 0700 68 17 137/64 92 96 07/07 0650 96 Nasal 4 36 cannula 07/07 0645 66 15 135/60 90 96 07/07 0630 67 26 132/60 87 96 07/07 0615 72 21 119/58 84 97 07/07 0600 85 26 126/61 88 94 07/07 0545 70 17 124/66 90 95 07/07 0530 70 15 123/60 87 97 07/07 0515 69 24 127/62 88 97 07/07 0500 66 15 126/59 84 97 07/07 0445 65 15 129/56 86 98 07/07 0430 67 16 127/59 85 97 07/07 0415 67 16 136/56 85 97 07/07 0400 97.3 Nasal 4 cannula 07/07 0400 78 17 127/60 87 98 07/07 0345 79 13 124/60 86 92 07/07 0330 77 14 122/63 87 94 07/07 0315 76 15 127/67 91 98 07/07 0300 70 31 124/61 88 98 07/07 0245 82 16 122/59 85 96 07/07 0230 78 14 120/57 82 94 07/07 0215 69 14 121/58 84 97 07/07 0200 69 14 122/58 83 95 07/07 0145 75 18 123/56 83 98 07/07 0130 69 14 116/57 82 94 07/07 0115 67 14 113/56 80 94 07/07 0100 65 13 120/53 84 97 07/07 0045 64 13 125/59 85 94 07/07 0030 63 16 116/56 80 96 07/07 0015 70 18 122/58 84 98 07/07 0000 97.5 Nasal 5 cannula 07/07 0000 70 13 111/57 81 90 07/06 2345 66 26 114/56 81 95 07/06 2330 71 19 116/55 79 92 07/06 2315 70 13 140/58 88 89 07/06 2300 72 13 129/62 89 94 07/06 2245 70 27 121/57 82 95 07/06 2230 75 15 129/62 89 97 07/06 2215 75 15 130/61 88 93 07/06 2200 83 24 142/65 93 97 07/06 2145 79 19 134/64 92 93 07/06 2130 76 27 133/60 86 93 07/06 2115 70 15 117/53 82 95 07/06 2100 72 14 128/60 86 89 07/06 2045 65 16 116/57 82 92 07/06 2042 69 36 112/55 79 97 07/06 2030 56 15 77/37 53 97 07/06 2014 57 20 88/44 63 97 07/06 1999 97.3 Nasal 4 cannula 07/06 1999 Nasal cannula 07/06 1999 58 22 90/48 66 97 07/06 1945 57 21 98/51 70 97 07/06 1934 95 Nasal 4 36 cannula 07/06 1930 58 22 107/53 76 97 07/06 1916 59 24 97/47 68 99 07/06 1900 59 24 108/53 76 100 07/06 1836 58 23 97/49 71 97 07/06 1830 60 21 96/46 67 98 07/06 1815 68 36 106/49 71 82 07/06 1800 60 33 107/53 73 100 07/06 1746 59 23 120/55 79 100 07/06 1743 60 26 98 07/06 1730 68 28 110/51 74 100 07/06 1715 66 25 120/59 85 100 07/06 1700 67 25 129/60 87 100 07/06 1645 69 26 130/63 90 91 07/06 1632 62 24 116/57 82 100 07/06 1600 65 36 119/59 85 100 07/06 1545 67 23 126/59 85 100 07/06 1530 72 35 118/56 81 92 07/06 1515 66 31 124/54 78 84 07/06 1500 98.2 Venti mask 15 07/06 1500 68 16 123/58 84 100 07/06 1445 63 36 125/59 85 100 07/06 1432 65 36 118/54 78 100 07/06 1430 68 30 100 07/06 1415 73 40 134/63 90 97 07/06 1400 67 24 134/63 90 100 07/06 1345 64 26 129/60 86 100 07/06 1330 77 19 143/60 94 100 07/06 1325 77 18 99 07/06 1315 76 15 142/66 95 100 07/06 1300 76 28 144/66 95 90 24 hour I O ending at 0700: 07/07 0700 07/06 1900 Intake Total 1761.10 2111.20 Output Total 2430 1200 Balance -668.90 911.20 Intake, IV 1461.10 1161.20 Intake, Oral 300 950 Output, 30 Drainage Output, Urine 2400 1200 PATIENT WEIGHT: Weight (lb): 163 Weight (oz): 5.48 Weight (kg): 74.091 Dietitian nutrition assessment The data set between the solid lines has been im ported from the dietitian's assessment. BMI Calculated: 28.0 Nutrition related diagnosis: Nutrition diagnosis details: Nutrition problem: Nutrition etiology: Nutrition signs and symptoms: Nutrition prescription: Dietitian name: Assessment completed: Physical Exam General appearance: awake Head/Eyes: atraumatic, clear cornea, EOMI, normo cephalic, PERRL Neck: full range of motion, non-tender, normal t hyroid Cardiovascular: bradycardic, tachycardic, No pal pable pedal pulses Respiratory: aerating well, clear to auscultatio n, symmetric expansion Abdomen: non-tender, normal bowel sounds, soft Extremities: decreased range of motion, ble w/o palpable pulses Musculoskeletal: decreased ROM Neuro/SNAKER DRIVING HORSES: alert, oriented X 3, normal speech Skin: dressing and brace over incision Lymphatics: no lymphadenopathy Results Findings/Data: Laboratory Tests 12/27 135 Chemistry Sodium (134 - 147 mmol/L) 137 Potassium (3.4 - 5.0 mmol/L) 4.2 Chloride (100 - 108 mmol/L) 107 Carbon Dioxide (21 - 32 mmol/L) 25 Anion Gap (4.0 - 15.0 GAP calc) 5.0 BUN (7 - 18 MG/DL) 19 H Creatinine (0.6 - 1.0 MG/DL) 0.9 Glomerular Filtr Rate (>60 estGFR) >=60 max es timate Glucose (70 - 110 MG/DL) 136 H Calcium (8.5 - 10.1 MG/DL) 7.6 L Phosphorus (2.5 - 4.9 MG/DL) 3.1 Magnesium (1.8 - 2.4 MG/DL) 2.1 Laboratory Tests 12/27 135 Hematology WBC (3.5 - 11.0 K/mm3) 7.2 RBC (4.70 - 6.10 M/mm3) 2.83 L Hgb (10.4 - 14.9 G/DL) 8.4 L Hct (31.5 - 44.1 %) 26.3 L MCV (84.5 - 98.6 Fl) 92.9 MCH (27.0 - 34.2 pg) 29.7 MCHC (31.5 - 34.0 G/DL) 31.9 RDW (11.5 - 14.5 SD) 13.5 Plt Count (150 - 450 K/mm3) 174 MPV (7.0 - 10.5 fL) 10.20 Neut % (Auto) (40 - 76 %) 83.6 H Lymph % (Auto) (20.5 - 51.1 %) 6.6 L [place] % (Auto) (1.7 - 9.3 %) 9.0 Eos % (Auto) (0.0 - 6.0 %) 0.1 Baso % (Auto) (0.0 - 2.0 %) 0.3 Neut # (Auto) (1.8 - 7.6 K/mm3) 6.1 Lymph # (Auto) (0.6 - 3.2 K/mm3) 0.5 L [place] # (Auto) (0.3 - 1.1 K/mm3) 0.7 Eos # (Auto) (0.0 - 0.4 K/mm3) 0.0 Baso # (Auto) (0.0 - 0.1 K/mm3) 0.0 Abs Immat Gran (auto) (0.00 - 0.03 x10 3/uL) 0 .03 Add Manual Diff (CRITERIA DIFF/SCN) NO Immature Gran % (0.0 - 5.0 %) 0.4 Nucleated RBC % (0.0 - 1.0 /100WBC%) 0.0 Radiology data: Recent Impressions: CAT SCAN - CTA CHEST FOR PE 12/25 1640 Report Impression - Status: SIGNED Entered: 12/25/2022 9120 IMPRESSION: No evidence of pulmonary embolus. Mild prominence of the main pulmonary artery be seen with pulmonary artery hypertension. Mild cardiomegaly. Low lung volumes with bilateral lung opacities l ikely related to atelectasis. Correlate clinically for pneumonia, aspiration or mild edema. Coronary artery calcification. Impression By: [email or web address] - Kelley Ogden MD Diagnosis, Assessment Plan Free Text DxA P Notes Free text DxA P notes: 77-year-old female patient w ith history of hypertension hypothyroidism, admitted for: Symptomatic bradycardia due to beta-cheryl give n secondary to arrhythmias- significantly improved, hold all beta-blockers, may transfer out of ICU #Arrhythmia, symptomatic-for which patient was started on metoprolol 25 mg every 6 hours the patient became hypotensive and devel oped bradycardia-resolved Patient reports recent cardiac work-up with a ca rdiologist prior to surgery Monitor closely on telemetry and treat yesica yoder TSH, troponin, and electrolytes pending Cardiology consult, appreciate input Transferred to ICU #Hypotension-resolved Given IV fluids Cardiology consult PAD No vascular intervention planned per Dr. Miller #Osteoarthritis, severe right lower extremity Status post right to do hip arthroplasty Admit to telemetry Routine vital signs Strict I's and O's Pain management with Had[place] and morphine as neede d PT OT evaluate and treat Dheeraj Wu following #Possible CAD Per patient and , her recent cardiac work -up shows some blockage. She could not describe the results of the cardiac wo rk-up Records requested from patient's cardiology Cardiology consulted here On aspirin and statin #Hypertension, controlled Resume home medications, hold BB #Hypothyroidism Resume home dose levothyroxine #Elevated D-dimer CTA neg for PE DVT prophylaxis with Lovenox Full code May transfer out of ICU Electronically Signed by Maida Schilling MD on 0 12/26/22 at 1259 RPT #: [id number] END OF REPORT 2022-12-26 10:25:00-00:00 [facility] ([facility]) Pulmonary Consultation Note REPORT#:[id number] REPORT STATUS: Signed DATE:12/26/22 TIME:1025 PATIENT: MALISSA BEAVERS UNIT #: [id number] ROOM/BED: [place] [address]1 : 45 AGE: 77 SEX: F ATTEND: Laz Schilling MD ADM AUTHOR: Pal Forrest MD * ALL edits or amendments must be made on the [employer]/computer document * History of Present Illness HPI Chief complaint: Shortness of breath and encephalopathy along wit h seizure HPI: 77-year-old female with a past medical h istory of hypertension, hypothyroidism who presented for elective right hip arthroplast y. The patient is status post successful right hip arthroplasty. In t he postoperative period, she was found to have regular tachycardia with a right bundle branch block. She was started on oral metoprolol 25 mg every 6 hours. Patient was bradycardic and seizing in the CT scan [facility] she was on nonrebreather mask and encephalopathic History - Adult longitudinal Past medical history: Reports: Hypertension, Thyroid disorder. Additional surgical history: Tonsillectomy hernia tubal ligation thyroidectomy Additional family history: Reports cardiac disease Alcohol use: Denies EtOH use Drug use: Denies recreational drugs Smoking status for patients 13 years old or olde r: Never Smoker Allergies: Coded Allergies: carisoprodol (From RELA) (Intermediate, REDNESS 12/18/22) codeine (Intermediate, NAUSEA 12/18/22) tetracycline (From ACHROMYCIN) (Intermediate, RE DNESS 12/18/22) Review of Systems Unable to obtain due to: encephalopathy Objective Physical Exam Vitals: Last Documented: Result Date Time Temp 36.0 12/26 0800 Pulse Ox 96 12/26 0700 B/P 137/64 12/26 0700 B/P Mean 92 12/26 0700 Pulse 68 12/26 0700 Resp 17 12/26 0700 FiO2 36 / 0650 O2 Delivery Nasal cannula 12/26 0650 O2 Flow Rate 4 / 0650 Results Findings/Data: Laboratory Tests 12/26/22 0136: [Embedded Image Not Available] Laboratory Tests 12/27 135 Chemistry Sodium (134 - 147 mmol/L) 137 Potassium (3.4 - 5.0 mmol/L) 4.2 Chloride (100 - 108 mmol/L) 107 Carbon Dioxide (21 - 32 mmol/L) 25 Anion Gap (4.0 - 15.0 GAP calc) 5.0 BUN (7 - 18 MG/DL) 19 H Creatinine (0.6 - 1.0 MG/DL) 0.9 Glomerular Filtr Rate (>60 estGFR) >=60 max est imate Glucose (70 - 110 MG/DL) 136 H Calcium (8.5 - 10.1 MG/DL) 7.6 L Phosphorus (2.5 - 4.9 MG/DL) 3.1 Magnesium (1.8 - 2.4 MG/DL) 2.1 Laboratory Tests 12/27 135 Hematology WBC (3.5 - 11.0 K/mm3) 7.2 RBC (4.70 - 6.10 M/mm3) 2.83 L Hgb (10.4 - 14.9 G/DL) 8.4 L Hct (31.5 - 44.1 %) 26.3 L MCV (84.5 - 98.6 Fl) 92.9 MCH (27.0 - 34.2 pg) 29.7 MCHC (31.5 - 34.0 G/DL) 31.9 RDW (11.5 - 14.5 SD) 13.5 Plt Count (150 - 450 K/mm3) 174 MPV (7.0 - 10.5 fL) 10.20 Neut % (Auto) (40 - 76 %) 83.6 H Lymph % (Auto) (20.5 - 51.1 %) 6.6 L [place] % (Auto) (1.7 - 9.3 %) 9.0 Eos % (Auto) (0.0 - 6.0 %) 0.1 Baso % (Auto) (0.0 - 2.0 %) 0.3 Neut # (Auto) (1.8 - 7.6 K/mm3) 6.1 Lymph # (Auto) (0.6 - 3.2 K/mm3) 0.5 L [place] # (Auto) (0.3 - 1.1 K/mm3) 0.7 Eos # (Auto) (0.0 - 0.4 K/mm3) 0.0 Baso # (Auto) (0.0 - 0.1 K/mm3) 0.0 Abs Immat Gran (auto) (0.00 - 0.03 x10 3/uL) 0. 03 Add Manual Diff (CRITERIA DIFF/SCN) NO Immature Gran % (0.0 - 5.0 %) 0.4 Nucleated RBC % (0.0 - 1.0 /100WBC%) 0.0 Radiology Data: Recent Impressions: RADIOLOGY - XR CHEST 1 V 12/25 1040 Report Impression - Status: SIGNED Entered: 12/25/2022 1101 IMPRESSION: Segmental atelectasis in both lung bases. Impression By: Antony Reyes M.D. RADIOLOGY - XR CHEST 1 V 12/25 1136 Report Impression - Status: SIGNED Entered: 12/25/2022 1154 IMPRESSION: Right-sided PICC line tip is projected over the cavoatrial junction. Impression By: [email or web address] - Paolo Miller M.D. CAT SCAN - CTA CHEST FOR PE 12/25 1640 Report Impression - Status: SIGNED Entered: 12/25/2022 1720 IMPRESSION: No evidence of pulmonary embolus. Mild prominence of the main pulmonary artery be seen with pulmonary artery hypertension. Mild cardiomegaly. Low lung volumes with bilateral lung opacities l ikely related to atelectasis. Correlate clinically for pneumonia, aspiration or mild edema. Coronary artery calcification. Impression By: [email or web address] - Kelley Ogden MD Free Text Obj Notes Free Text Obj Notes: General appearance: Alert and oriented not in di stress Head and neck. Normocephalic atraumatic, no pall or no jaundice, no goiter CV: S1-S2 regular rate and rhythm, no murmur Lungs: Fair air entry bilaterally, no rales no w heezes no rhonchi Abdomen: Soft lax nontender, no masses Extremities: No lower limb edema, no cyanosis no clubbing Neurologic: Alert and oriented, intact cranial n erves, no focal deficit Skin: Intact, no lesions Lymphatic: No lymphadenopathy appreciated Diagnosis, Assessment Plan Free Text DxA P Notes Free Text DxA P Notes: 1. Symptomatic bradycardia 2. Shock likely cardiogenic due to bradycardia 3. Encephalopathy likely due to medications 4. Status post hip arthroplasty Seen and examined Nonrebreather mask Evidence of hypercapnia I started patient on dopamine Close ICU monitoring I ordered CTA to be held ini tially to control her hemodynamics after controlling him hemodynamics CTA was ordered and done and sh owed no evidence of pulm embolism Follow-up input and output DC beta-blockers Cardiology on board Consult EP Monitor closely Discussed with patient and ICU staff Critical care time 32 minutes Electronically Signed by Pal Forrest MD on 01/11 at 1028 RPT #: [id number] END OF REPORT 2022-12-26 10:22:00-00:00 [facility] ([facility]) Pulmonology Progress Note REPORT#:[id number] REPORT STATUS: Signed DATE:12/26/22 TIME:1022 PATIENT: MALISSA BEAVERS UNIT #: [id number] ROOM/BED: [place] [id number] : 45 AGE: 77 SEX: F ATTEND: Laz Schilling MD ADM AUTHOR: Pal Forrest MD * ALL edits or amendments must be made on the [employer]/computer document * Subjective Chief complaint: Less shortness of breath intact mental status on minimal oxygen requirement Review of Systems ROS Eyes: Denies: diplopia, eye pain. Respiratory: Denies: pleurisy, pleuritic pain. GI: Denies: hematemesis, hematochezia. Musculoskeletal: Reports: joint pain, myalgias. Objective General VS/I O: Last Documented: Result Date Time Temp 36.0 12/26 08 Pulse Ox 96 12/26 699 B/P 137/64 12/26 0700 B/P Mean 92 12/26 07 Pulse 68 12/26 0700 Resp 17 12/26 07 FiO2 36 / 0650 O2 Delivery Nasal cannula 12/26 0650 O2 Flow Rate 4 12/26 0650 24 hour I O ending at 0700: 12/26 0700 / 1900 Intake Total 1761.10 2111.20 Output Total 2430 1200 Balance -668.90 911.20 Intake, IV 1461.10 1161.20 Intake, Oral 300 950 Output, 30 Drainage Output, Urine 2400 1200 PATIENT WEIGHT: Weight (lb): 163 Weight (oz): 5.48 Weight (kg): 74.091 Medications: This active Meds + DC'd Last 24 Hrs Famotidine (PEPCID) 20 MG BID IV Sodium Chloride (SODIUM CHLORIDE) 10 ML BID IV Enoxaparin Sodium (lovENOX) 74 MG Q12HR@1800,060 0 SUBQ Lidocaine HCl (XYLOCAINE) 5 ML ONCE ONE LOCAL ( DC) Sodium Chloride (SODIUM CHLORIDE) 10 ML ASDIR MT N IV Dopamine HCl/Dextrose (DOPamine 400MG IN 5% DEXT BRO) 250 ML ASDIR IV Iopamidol (ISOVUE-370) 100 ML ONCE PRN IV Sodium Chloride (SODIUM CHLORIDE 0.9%) 100 ML ON CE PRN IV Sodium Chloride (0.9% Sodium Chloride) 1,000 ML .Q8H IV (DC) Docusate Sodium (COLACE) 100 MG BID PO Meloxicam (MOBIC) 15 MG DAILY PO Mupirocin (BACTROBAN NASAL-ADULT ICU/KYLER MRSA PATIENTS) 1 APPLIC 0900,1700 NASAL Pregabalin (LYRICA) 75 MG BID PO (DC) Norepinephrine/Dextrose (LEVOPHED 4 MG/250 ML) 2 50 ML ASDIR IV Levothyroxine Sodium (SYNTHROID) 150 MCG DAILY@0 600 PO Sodium Chloride (0.9% Sodium Chloride) 1,000 ML .[id number] IV Metoprolol Tartrate (LOPRESSOR) 25 MG Q6H PO (DC ) Atorvastatin Calcium (LIPITOR) 20 MG BEDTIME PO Celecoxib (CeleBREX) 200 MG 0900,2100 PO Dexamethasone (DECADRON) 1 MG TID PO Gabapentin (NEURONTIN) 600 MG TID PO Cefazolin Sodium (KEFZOL) 1 GM Q8HR IV Sterile Water (WATER FOR INJECTION) 10 ML Ondansetron HCl (ZOFRAN) 8 MG Q8H PRN PRN PO Ondansetron HCl (ZOFRAN) 8 MG Q8H PRN PRN IV Acetaminophen (TYLENOL) 650 MG Q4H PRN PRN PO Hydrocodone Bitart/Acetaminophen (NORCO 7.5/325) 1 TAB Q4H PRN PRN PO Hydrocodone Bitart/Acetaminophen (NORCO 7.5/325) 2 TAB Q4H PRN PRN PO Morphine Sulfate (morphine Sulfate) 2 MG Q2H PRN PRN IV Results Findings/Data: Laboratory Tests 12/26/22 0136: [Embedded Image Not Available] Laboratory Tests 12/27 135 Chemistry Sodium (134 - 147 mmol/L) 137 Potassium (3.4 - 5.0 mmol/L) 4.2 Chloride (100 - 108 mmol/L) 107 Carbon Dioxide (21 - 32 mmol/L) 25 Anion Gap (4.0 - 15.0 GAP calc) 5.0 BUN (7 - 18 MG/DL) 19 H Creatinine (0.6 - 1.0 MG/DL) 0.9 Glomerular Filtr Rate (>60 estGFR) >=60 max est imate Glucose (70 - 110 MG/DL) 136 H Calcium (8.5 - 10.1 MG/DL) 7.6 L Phosphorus (2.5 - 4.9 MG/DL) 3.1 Magnesium (1.8 - 2.4 MG/DL) 2.1 Laboratory Tests 12/26 0136 Hematology WBC (3.5 - 11.0 K/mm3) 7.2 RBC (4.70 - 6.10 M/mm3) 2.83 L Hgb (10.4 - 14.9 G/DL) 8.4 L Hct (31.5 - 44.1 %) 26.3 L MCV (84.5 - 98.6 Fl) 92.9 MCH (27.0 - 34.2 pg) 29.7 MCHC (31.5 - 34.0 G/DL) 31.9 RDW (11.5 - 14.5 SD) 13.5 Plt Count (150 - 450 K/mm3) 174 MPV (7.0 - 10.5 fL) 10.20 Neut % (Auto) (40 - 76 %) 83.6 H Lymph % (Auto) (20.5 - 51.1 %) 6.6 L Coos % (Auto) (1.7 - 9.3 %) 9.0 Eos % (Auto) (0.0 - 6.0 %) 0.1 Baso % (Auto) (0.0 - 2.0 %) 0.3 Neut # (Auto) (1.8 - 7.6 K/mm3) 6.1 Lymph # (Auto) (0.6 - 3.2 K/mm3) 0.5 L Coos # (Auto) (0.3 - 1.1 K/mm3) 0.7 Eos # (Auto) (0.0 - 0.4 K/mm3) 0.0 Baso # (Auto) (0.0 - 0.1 K/mm3) 0.0 Abs Immat Gran (auto) (0.00 - 0.03 x10 3/uL) 0. 03 Add Manual Diff (CRITERIA DIFF/SCN) NO Immature Gran % (0.0 - 5.0 %) 0.4 Nucleated RBC % (0.0 - 1.0 /100WBC%) 0.0 Radiology data: Recent Impressions: RADIOLOGY - XR CHEST 1 V 12/25 1040 Report Impression - Status: SIGNED Entered: 12/25/2022 1101 IMPRESSION: Segmental atelectasis in both lung bases. Impression By: Antony Reyes M.D. RADIOLOGY - XR CHEST 1 V 12/25 1136 Report Impression - Status: SIGNED Entered: 12/25/2022 1154 IMPRESSION: Right-sided PICC line tip is projected over the cavoatrial junction. Impression By: [email or web address] - Paolo Miller M.D. CAT SCAN - CTA CHEST FOR PE 12/25 1640 Report Impression - Status: SIGNED Entered: 12/25/2022 1720 IMPRESSION: No evidence of pulmonary embolus. Mild prominence of the main pulmonary artery be seen with pulmonary artery hypertension. Mild cardiomegaly. Low lung volumes with bilateral lung opacities l ikely related to atelectasis. Correlate clinically for pneumonia, aspiration or mild edema. Coronary artery calcification. Impression By: [email or web address] - Kelley Ogden MD Free Text Obj Notes Free Text Obj Notes: General appearance: Alert and oriented not in di stress Head and neck. Normocephalic atraumatic, no pall or no jaundice, no goiter CV: S1-S2 regular rate and rhythm, no murmur Lungs: Fair air entry bilaterally, no rales no w heezes no rhonchi Abdomen: Soft lax nontender, no masses Extremities: No lower limb edema, no cyanosis no clubbing Neurologic: Alert and oriented, intact cranial n erves, no focal deficit Skin: Intact, no lesions Lymphatic: No lymphadenopathy appreciated Diagnosis, Assessment Plan Hospital course to date: 1. Status post encephalopathy and seizure 2/ , bradycardia with intermittent tachycardia 3. Status post hip surgery Seen and examined Patient could be downgraded to IMU Monitor heart rate EP and cardiology are on board Discussed with EP and ID and need for pacemaker at this point PT OT CTA reviewed no evidence of PE Input and output monitoring Supportive care Discussed with patient and family Electronically Signed by Pal Forrest MD on 01/11 at 1025 RPT #: [id number] END OF REPORT 2022-12-25 19:24:00-00:00 [facility] ([facility]) Cardiology Consultation REPORT#:[id number] REPORT STATUS: Signed DATE:12/25/22 TIME:1923 PATIENT: MALISSA BEAVERS UNIT #: [id number] ROOM/BED: [facility]-1 : 45 AGE: 77 SEX: F ATTEND: Laz Schilling MD ADM AUTHOR: Josesito Arce MD * ALL edits or amendments must be made on the [employer] document * See Addendum History of Present Illness HPI Requesting Clinician: Dr. Schilling Reason for consult: Bradycardia HPI: 77-year-old female with a past medical h istory of hypertension, hypothyroidism who presented for elective right hip arthroplast y. The patient is status post successful right hip arthroplasty. In the postop erative period, she was found to have regular tachycardia with a right bundle branch block. She was started on oral metoprolol 25 mg every 6 hours. The chuck ent then was noted to have bradycardia with heart rate in the low 4 0s. Rhythm was sinus. She was noted to be increasingly short of breath. The patient is currently with oxygen saturation of 87% on a nonrebreather. Sh e denies chest pain or palpitations at this time. She reports that she underwent cardia c evaluation for clearance prior to surgery. She also describes that she wa s told she had a 30% blockage in her coronary, however she denies undergoing h eart catheterization. History - Adult longitudinal Past medical history: Reports: Hypertension, Thyroid disorder. Additional surgical history: Tonsillectomy hernia tubal ligation thyroidectomy Additional family history: Reports cardiac disease Alcohol use: Denies EtOH use Drug use: Denies recreational drugs Smoking status for patients 13 years old or olde r: Never Smoker Allergies: Coded Allergies: carisoprodol (From RELA) (Intermediate, REDNESS 12/18/22) codeine (Intermediate, NAUSEA 12/18/22) tetracycline (From ACHROMYCIN) (Intermediate, RE DNESS 12/18/22) Review of Systems Free Text ROS Notes Free Text ROS Notes: General: Denies fatigue, weight changes, fever, chills Eyes: Denies discharge, pain, visual changes ENT: denies epistaxis, sore throat, tinnitus Pulmonary: + shortness of breath, no cough, whee zing, increased work of breathing Cardiovascular: Denies chest pain, + shortness of breath, no palpitations, lower extremity edema, syncope Gastrointestinal: Denies abdominal pain, diarrhe a, nausea, vomiting, melena Endocrine: denies intolerance to heat or cold te mperatures, denies polyuria, polydipsia, polyphasia Neurology: Denies headache, numbness, or weaknes s Musculoskeletal: Denies joint stiffness or pain Psychiatry: Denies depression, suicidal ideation Objective General VS/I O: Vital Signs: Date Time Temp Pulse Resp B/P B/P Pulse O2 O2 F low FiO2 Mean Ox Delivery Rate 12/25 2129 76 27 133/60 86 93 07/06 5 70 15 117/53 82 95 07/06 2100 72 14 128/60 86 89 07/06 2044 65 16 116/57 82 92 07/06 2041 69 36 112/55 79 97 07/06 2029 56 15 77/37 53 97 07/06 2014 57 20 88/44 63 97 07/06 1999 36.3 Nasal 4 cannula 12/26 1999 Nasal cannula 12/26 1999 58 22 90/48 66 97 07/06 1945 57 21 98/51 70 97 07/06 1934 95 Nasal 4 36 cannula 07/ 1930 58 22 107/53 76 97 07/06 1916 59 24 97/47 68 99 07/06 1900 59 24 108/53 76 100 07/06 1836 58 23 97/49 71 97 07/06 1830 60 21 96/46 67 98 07/06 1815 68 36 106/49 71 82 07/06 1800 60 33 107/53 73 100 07/06 1746 59 23 120/55 79 100 07/06 1743 60 26 98 07/06 1730 68 28 110/51 74 100 07/06 1715 66 25 120/59 85 100 07/06 1700 67 25 129/60 87 100 07/06 1645 69 26 130/63 90 91 07/06 1632 62 24 116/57 82 100 07/06 1600 65 36 119/59 85 100 07/06 1545 67 23 126/59 85 100 07/06 1530 72 35 118/56 81 92 07/06 1515 66 31 124/54 78 84 07/06 1500 36.8 Venti mask 15 07/06 1500 68 16 123/58 84 100 07/06 1445 63 36 125/59 85 100 07/06 1432 65 36 118/54 78 100 07/06 1430 68 30 100 07/06 1415 73 40 134/63 90 97 07/06 1400 67 24 134/63 90 100 07/06 1345 64 26 129/60 86 100 07/06 1330 77 19 143/60 94 100 07/06 1325 77 18 99 07/06 1315 76 15 142/66 95 100 07/06 1300 76 28 144/66 95 90 07/06 1245 72 20 143/65 94 90 07/06 1230 72 27 132/62 89 94 07/06 1215 71 26 133/55 86 99 07/06 1200 66 20 130/60 87 100 07/06 1146 60 35 110/55 79 100 07/06 1132 61 16 100 07/06 1130 59 16 121/57 82 100 07/06 1125 60 20 117/56 79 100 07/06 1120 60 19 116/57 81 100 07/06 1115 60 26 110/55 77 100 07/06 1110 61 26 103/57 76 100 07/06 1105 61 46 101/55 75 98 07/06 1100 62 24 103/53 75 100 07/06 1055 62 23 103/62 78 100 07/06 1050 61 25 109/52 75 99 07/06 1046 65 28 131/63 91 99 07/06 1040 66 34 104/64 78 98 07/06 1035 59 36 98/47 68 100 07/06 1033 55 33 95/44 63 93 07/06 1031 56 27 104/36 52 81 07/06 1028 46 32 119/56 81 96 07/06 1026 49 36 104/60 77 89 07/06 1025 45 23 100 07/06 1024 53 20 130/61 88 100 07/06 1022 46 22 118/55 79 98 07/06 1020 41 17 111/52 75 100 07/06 1019 43 22 115/56 81 94 07/06 1016 41 22 124/58 84 100 07/06 1015 43 22 134/60 87 98 07/06 1012 44 17 103/52 75 100 07/06 1010 43 17 109/55 69 99 07/06 1000 Venti mask 15 07/06 1000 36.7 Venti mask 07/06 0832 96 Nasal 4 cannula 07/06 0654 54 81/49 59.5 96 07/06 0538 125 95/63 74.0 99 07/06 0308 132 90/58 69.1 97 07/06 0111 Nasal 4 cannula 07/06 0037 135 91/61 71.3 97 24 hour I O ending at 0700: 07/06 0700 07 1900 Intake Total Output Total 1360 Balance -1360 Number 1 Incontinent Voids Output, 160 Drainage Output, Emesis Output, Urine 1200 PATIENT WEIGHT: Weight (lb): 163 Weight (oz): 5.48 Weight (kg): 74.091 Physical Exam General appearance: alert, awake, oriented Head/Eyes: clear cornea, PERRL ENT: moist mucosal membranes, normal pharynx Neck: supple/no meningismus, no JVD Cardiovascular: CV assessment: regular rate and rhythm, no gall op, no murmur Respiratory: decreased breath sounds Abdomen: soft, non-tender, no distention Lower extremity: LE assessment: no clubbing, no cyanosis, no abdulaziz ma Neuro/[employer]ES: alert, oriented X 3, CN II-XII intact Skin: dry, no rash Diagnosis, Assessment Plan Problem List/A P: 1. Sinus tachycardia 2. Hip arthritis 3. Sinus bradycardia 4. Acute hypoxemic respiratory failure 5. Coronary artery disease Free Text DxA P Notes Free Text DxA P Notes: Patient with arrhythmia following hip replacemen t surgery Was started on metoprolol 25 mg p.o. every 6 wit h subsequent bradycardia Recommend holding all beta-blockers at this time We will plan to restart metoprolol 12.5 mg p.o. twice daily tomorrow Recommend CTA chest to evaluate for PE DVT prophylaxis per orthopedics Recommend aspirin, high intensity statin Trend troponin Continue to monitor on telemetry Electronically Signed by Josesito Arce MD on 12/12 at 2356 Addendum 1: 12/25/22 2358 by Josesito Arce MD Patient on dopamine, suspect that we will be able to wean overnight. Will start low dose bblocker in AM if able to successfully wean off of dopamine. Electronically Signed by Josesito Arce MD on 01/11 at 0000 RPT #: [id number] END OF REPORT 2022-12-25 17:42:00-00:00 [facility] ([facility] Orthopaedic Progress Note REPORT#:[id number] REPORT STATUS: Signed DATE:12/25/22 TIME:1742 PATIENT: MALISSA BEAVERS UNIT #: [id number] [address] AGE: 77 SEX: F ATTEND: Curtis Schilling MD ADM AUTHOR: Ryan Cárdenas MD * ALL edits or amendments must be made on the el [employer]/computer document * Subjective Chief complaint: pt in pain, xrays look great, cx negative but pe nding hemova 100c, hgb stil pending cr 1-4, just finished ct for PE and had incidence of passing out but looks beeter now, hopefully now PT can mobilize until independent, rtc 2-3 weeks after dc Electronically Signed by Ryan Cárdenas MD on at 1745 RPT #: [id number] END OF REPORT 2022-12-25 17:32:00-00:00 [id number] [facility] [id number] [place] [address] PATIENT NAME: MALISSA BEAVERS ADMIT DATE: 12/24 ACCOUNT NO: [id number] ROOM NO: [place] [address] AGE: 77 REPORT TYPE: eECHOCARDIOGRAM REPORT SEX: F ADMITTING PHYSICIAN: Maida Schilling MD ATTENDING PHYSICIAN: Madia Schilling MD *[facility]* [address] [place] [address] Transthoracic Echocardiogram Patient: Malissa Beavers Study Date: 12/25/2022 BP: 81 / 49 Location: [facility] URN: [id number] 200 : 1945 Age: 77 Height: 63.8 in / 162 cm Gender: F Weight: 163 lb / 74.1 kg BMI/BSA: 28.2 kg/m 2 / 1.85 m 2 *Ordering Physician: * Christy Daniel Msn *Interpreting Physician: * Chayito Diego MD *Optical Mechanic Apprentice: * Brenda Warren Indications: Tachycardia. Study data: Transthoracic echocardiogram. Proced ure: Transthoracic echocardiography was performed. Image quality wa s poor. The study was technically limited due to poor acoustic window availability. Complete 2D, complete spectral Doppler, and color Doppler . Location: ICU Patient status: Inpatient. Patient room number: ICU3. Study status: Routine. Findings Left ventricle: The cavity size is normal. Wall thickness is normal. Systolic function is normal. The estimated eject ion fraction is 55-60%. Wall motion is normal; there are no regional wal l motion abnormalities. Left ventricular diastolic function parameters a re normal. PATIENT NAME: MALISSA BEAVERS [id number] Right ventricle: The cavity size is normal. Syst olic function is normal. Left atrium: The atrium is normal in size. Right atrium: The atrium is normal in size. Aorta: Aortic root: The aortic root is normal in size. Aortic valve: The valve is structurally normal. The valve is trileaflet. There is no evidence of stenosis. Th ere is no regurgitation. Mitral valve: The valve is structurally normal. There is no evidence of stenosis. There is trivial regurgita tion. Tricuspid valve: The valve is structurally nikole l. There is mild-moderate regurgitation. Pulmonic valve: Not well visualized. There is no regurgitation. Pericardium: There is no pericardial effusion. Systemic veins: Inferior vena cava: The vessel is normal in size . Measurements Left ventricle Value Ref LITA, LAX 5.2 cm 3.8 - 5.2 ESD, LAX 3.7 cm 2.2 - 3.5 ESD/bsa, LAX 2.0 cm/m 2 1.3 - 2.1 FS, LAX 29 % 27 - 45 PW, ED 1.1 cm 0.6 - 0.9 IVS/PW, ED 0.91 --------- EF 55 % 54 - 74 IVRT 100 ms --------- LVOT Value Ref Diam, S 2.02 cm --------- Area 3.2 cm 2 --------- Peak stacey, S 1.11 m/sec --------- Mean stacey, S 0.81 m/sec --------- VTI, S 24.8 cm --------- Peak grad, S 5 mm Hg --------- Mean grad, S 3 mm Hg --------- SV 79 ml --------- SV/bsa 43 ml/m 2 --------- Ventricular septum Value Ref IVS, ED 1.0 cm 0.6 - 0.9 Right ventricle Value Ref Pressure, S 46 mm Hg --------- Left atrium Value Ref Vol/bsa, ES, 1-p A4C 36 ml/m 2 11 - 40 Vol/bsa, ES, A/L 41 ml/m 2 16 - 34 AP dim, ES MM 4.4 cm 2.7 - 3.8 LA/Ao root ratio, MM 1.1 --------- Aortic valve Value Ref PATIENT NAME: MALISSA BEAVERS [id number] Leaflet sep, MM 1.69 cm --------- Peak v, S 1.24 m/sec --------- Mean v, S 0.91 m/sec --------- VTI, S 27.5 cm --------- Mean grad, S 3.6 mm Hg --------- Peak grad, S 6.2 mm Hg --------- LVOT/AV, VTI ratio 0.9 --------- MAIRA, VTI 2.89 cm 2 --------- LVOT/AV, Vpeak ratio 0.89 --------- MAIRA, Vmax 2.85 cm 2 --------- Mitral valve Value Ref Peak E 0.87 m/sec --------- Peak A 0.59 m/sec --------- Decel time 175 ms --------- PHT 50 ms --------- Peak grad, D 3.0 mm Hg --------- Peak E/A ratio 1.47 --------- MVA, PHT 4.4 cm 2 --------- MR peak v 4.57 m/sec --------- Tricuspid valve Value Ref TR peak v 3 m/sec <=2.8 Peak RV-RA grad, S 36 mm Hg --------- Aortic root Value Ref Root diam, ED MM 4.04 cm --------- Pulmonary artery Value Ref Pressure, S 41.8 mm Hg --------- Systemic veins Value Ref Estimated CVP 10 mm Hg --------- Pulmonary veins Value Ref A rev duration 146 ms --------- Conclusions Summary: 1. Left ventricle: The cavity size is normal. Wa ll thickness is normal. Systolic function is normal. The estimated ejec tion fraction is 55-60%. Wall motion is normal; there are no reg ional wall motion abnormalities. Left ventricular diastolic funct ion parameters are normal. 2. Right ventricle: The RV pressure during systo le by Doppler is 46 mm Hg. 3. Tricuspid valve: There is mild-moderate regur gitation. Prepared and electronically signed by PATIENT NAME: MALISSA BEAVERS [id number] Chayito Diego MD 12/25/2022 17:32 Electronically Signed by MD caden Hansen n 12/25/22 at 1732 PATIENT NAME: MALISSA BEAVERS [id number] 11:52:00-00:00 [id number] [facility] [address] [place] [address] PATIENT NAME: MALISSA BEAVERS ADMIT DATE: 12/24 ACCOUNT NO: [id number] ROOM NO: [place] [address] AGE: 77 REPORT TYPE: CONSULTATION SEX: F ADMITTING PHYSICIAN: Maida Schilling MD ATTENDING PHYSICIAN: Maida Schilling MD CONSULTATION DATE: 12/25/2022 REQUESTING PHYSICIAN: Maida Schilling MD REASON FOR CONSULTATION: Abn ormal vascular exam and lower extremity neuropathy. HISTORY OF PRESENT ILLNESS: This is a 77-year-ol d woman, who presented to our hospital for elective hip surgery by Dr. Cárdenas. She underwent uneventful hip arthroplasty yesterday. Around midnight, rapid response was called on e patient when her heart rate jumped to 130s. A stat EKG, which showed right b undle branch block and QRS complex tachycardia. The pat ient has had an acute kidney injury, so a CTA could not be performed and there is no information technology officer available, so no venous ultrasound to rule out DVT could be performed. Therapeutic Lovenox was given. She was pending I [facility] to ICU transfer and was asymptomatic from all of this, this was just inc identally found tachycardia. Vascular Surgery is consulted because at some point, the nurses were trying to get a Doppler exam on the patient because her fe et were cool and they did not obtain a Doppler signal. A CTA was supposed to b e performed, but the patient had bradycardia associated with this, an d rapid response was called in the CAT scanner. She was then brought to the ICU. When I see her, she is completely asymptomatic, she says that she has neur opathy in both legs. She has motor and sensory in both legs. A complete review of syste ms was performed and is otherwise negative. Vascular Surgery is consulted for abnormal vascu lar exam. PAST MEDICAL HISTORY: 1. Hypertension. 2. Hyperlipidemia. 3. Arthritis. 4. Neuropathy. 5. Thyroid cancer. PAST SURGICAL HISTORY: Includes: 1. Tonsillectomy. 2. . 3. Hernia repair/cholecystectomy. 4. Tubal ligation. PATIENT NAME: MALISSA BEAVERS [id number] 5. Thyroidectomy. FAMILY HISTORY: Heart disease. SOCIAL HISTORY: The patient is a nonsmoker. Leonie augiar is involved in her care. She is independent with activities of daily jessica ng and she ambulates without assistive devices. MEDICATIONS: Inpatient medic ations include Lovenox therapeutic dose, meloxicam, Synthroid, atorvastatin, gabapentin. ALLERGIES: NO KNOWN DRUG ALLERGIES. REVIEW OF SYSTEMS: A complete review of systems is performed and is otherwise negative. PHYSICAL EXAMINATION: VITAL SIGNS: Temperature 36.4, pulse 41, blood pressure 81/36, and saturations are 100% on room air. The patient's BMI is 28.0. GENERAL: She is resting in bed comfortably, in n o acute distress. HEENT: Her head is atraumatic and normocephalic. NECK: Has no jugular venous distention. Neck is supple. CHEST: Has symmetric expansion. There are no acc essory muscle use. ABDOMEN: Soft, nontender, nondistended. EXTREMITIES: All 4 extremities are warm. Feet ar e little cool to touch. NEUROLOGIC: Cranial nerves II through XII are in tact. She has no motor or sensory in the feet bilaterally. Her ran ge of motion, unable to assess because the patient is immobilized with abductor pillow, but in the feet and toes. The patient can wiggle her toes and move her ankles passively and actively. LYMPHATICS: No inguinal or cervical lymphadenopa thy. PULSE: The patient has biphasic DT signals in bi lateral lower extremities. LABORATORY DATA: Remarkable for white blood cell count of 10.9, hemoglobin of 8.5, BUN of 23, creatinine of 1.0. I personally reviewed and evaluated the patient's chest x-ray, which demonstrates atelec tasis and cardiomegaly. ASSESSMENT: This is a 77-year-old woman, likely with chronic peripheral arterial disease, who presents for evaluation af ter a hip arthroplasty. PLAN: The patient needs no further vascular test ing. She has Doppler signals in her feet. Her feet are not mottled or cold. S he has no motor or sensory loss. This is likely just peripheral arterial di sease. I can follow up the patient in the office in a month. Dictated By: Sánchez Miller MD Date Dictated: 12/25/2022 11:52:46 Date Transcribed: 12/25/2022 12:50:42 /ATF Receipt ID: [id number] Authenticated by Sánchez Miller MD On 12/25/2022 10 :04:33 PM PATIENT NAME: MALISSA BEAVERS [id number] Electronically Signed by Sánchez Miller MD on 12/12 at 1004 PATIENT NAME: MALISSA BEAVERS [id number] 09:14:00-00:00 [facility] ([facility]) Hospitalist Progress Note REPORT#:[id number] REPORT STATUS: Signed DATE:12/25/22 TIME:913 PATIENT: MALISSA BEAVERS UNIT #: [id number] ROOM/BED: [place] [address] : 45 AGE: 77 SEX: F ATTEND: Laz Schilling MD ADM AUTHOR: Christy Daniel MSN * ALL edits or amendments must be made on the [employer]/computer document * Subjective Chief complaint: Arrhythmia HPI: Patient admitted for postoperative manag ement of hip arthroplasty. She has had arrhythmia postprocedure. Sh eve was initially tachycardic in the 120s to 140s and beta-cheryl was ordered. Earlier today, she bec traci bradycardic and was symptomatic with. She was also hypotensive and w as started on Levophed. D- dimer significantly elevated now with CTA to rul e out PE. She is only therapeutic dose Lovenox at this time. She was o n prophylactic dose postoperatively. We are transferring her to ICU for close observation. Cardiology is consulted Review of Systems Constitutional: Reports: generalized weakness. Cardiovascular: Reports: palpitations. Musculoskeletal: Reports: extremity pain, extremity swelling. All systems rev neg: except as noted Objective General VS/I O: Vital Signs: Date Time Temp Pulse Resp B/P B/P Pulse O2 O2 F low FiO2 Mean Ox Delivery Rate 12/25 0832 96 Nasal 4 cannula 07/06 0654 54 81/49 59.5 96 07/06 0538 125 95/63 74.0 99 07/06 0308 132 90/58 69.1 97 07/06 0111 Nasal 4 cannula 07/06 0037 135 91/61 71.3 97 07/05 2336 98 Nasal 4 36 cannula 07/05 2249 137 93/68 76.3 98 07/05 2217 132 105/68 80.3 97 07/05 1932 97.9 129 17 94/64 74.1 97 Room air 07/05 1627 97.5 97 15 112/62 78.7 99 Nasal cannula 07/05 1537 141 18 101/63 75.7 96 Nasal 4 cannula 07/05 1452 97.5 92 18 147/76 99.8 92 07/05 1218 97.7 64 18 125/82 96 94 Nasal 4 cannula 07/05 1135 98.7 77 18 126/60 94 Nasal 4 cannula 07/05 1130 74 18 112/55 94 Nasal 4 cannula 07/05 1126 73 18 135/67 94 Nasal 5 cannula 07/05 1120 77 19 138/63 94 Nasal 5 cannula 07/05 1115 88 18 155/72 94 Nasal 5 cannula 07/05 1110 79 21 152/70 93 Nasal 5 cannula 07/05 1105 83 17 151/59 94 Simple 5 mask 07/05 1102 Simple 4 mask 07/05 1100 86 16 170/76 94 Simple 6 mask 07/05 1052 97.7 85 16 139/69 95 Simple 5 mask 24 hour I O ending at 0700: 07/06 0700 07/05 1900 Intake Total Output Total 1360 Balance -1360 Number 1 Incontinent Voids Output, 160 Drainage Output, Emesis Output, Urine 1200 PATIENT WEIGHT: Weight (lb): 163 Weight (oz): 5.48 Weight (kg): 74.091 Medications: Active Meds + DC'd Last 24 Hrs Sodium Chloride (0.9% Sodium Chloride) 1,000 ML .Q8H IV Docusate Sodium (COLACE) 100 MG BID PO Docusate Sodium (COLACE) 100 MG BID PO (CAN) Meloxicam (MOBIC) 15 MG DAILY PO Metoprolol Succinate (TOPROL XL) 25 MG DAILY PO (CAN) Mupirocin (BACTROBAN NASAL-ADULT ICU/KYLER MRSA PATIENTS) 1 APPLIC 0900,1700 NASAL Pregabalin (LYRICA) 75 MG BID PO Pregabalin (LYRICA) 75 MG BID PO (CAN) Norepinephrine/Dextrose (LEVOPHED 4 MG/250 ML) 2 50 ML ASDIR IV Enoxaparin Sodium (lovENOX) 40 MG Q24H SUBQ (DC) Levothyroxine Sodium (SYNTHROID) 150 MCG DAILY@0 600 PO Enoxaparin Sodium (lovENOX) 74.091 MG ONCE ONE S UBQ (DC) Enoxaparin Sodium (lovENOX) 74.091 MG Q12H SUBQ (PEND) Sodium Chloride (0.9% Sodium Chloride) 1,000 ML .[id number] IV Metoprolol Tartrate (LOPRESSOR) 25 MG Q6H PO Sodium Chloride (0.9% Sodium Chloride) 500 ML SUZETTE NATHAN IV (DC) Atorvastatin Calcium (LIPITOR) 20 MG BEDTIME PO Celecoxib (CeleBREX) 200 MG 0900,2100 PO Dexamethasone (DECADRON) 1 MG TID PO Docusate Sodium (COLACE) 100 MG BID PO (CAN) Gabapentin (NEURONTIN) 600 MG TID PO Metoprolol Tartrate (LOPRESSOR) 5 MG ONCE ONE IV (DC) Cefazolin Sodium (KEFZOL) 1 GM Q8HR IV Sterile Water (WATER FOR INJECTION) 10 ML Cefazolin Sodium (KEFZOL) 2 GM PREOP ASDIR IV (D C) Acetaminophen (TYLENOL EXTRA STRENGTH) 1,000 MG Q6H PO (DC) Hydrocodone Bitart/Acetaminophen (NORCO 5/325) 1 TAB PACU ONCE PRN PO ( DC) Hydrocodone Bitart/Acetaminophen (NORCO 10/325) 1 TAB PACU ONCE PRN PO ( DC) Hydromorphone HCl (DILAUDID) 0.5 MG PACU Q10MIN PRN PRN IV (DC) Insulin Human Lispro (HUMALOG) 0 PACU ONCE PRN S UBQ (DC) Labetalol HCl (TRANDATE) 5 MG PACU Q10MIN PRN MT N IV (DC) Lactated Ringer's (LACTATED RINGERS) 1,000 ML DIR IV (DC) Meperidine HCl (DEMEROL) 12.5 MG PACU ONCE PRN I V (DC) Ondansetron HCl (ZOFRAN) 4 MG PACU ONCE PRN IV ( DC) Ondansetron HCl (ZOFRAN) 8 MG Q8H PRN PRN PO Ondansetron HCl (ZOFRAN) 8 MG Q8H PRN PRN IV Acetaminophen (TYLENOL) 650 MG Q4H PRN PRN PO Hydrocodone Bitart/Acetaminophen (NORCO 7.5/325) 1 TAB Q4H PRN PRN PO Hydrocodone Bitart/Acetaminophen (NORCO 7.5/325) 2 TAB Q4H PRN PRN PO Morphine Sulfate (morphine Sulfate) 2 MG Q2H PRN PRN IV Acetaminophen (TYLENOL EXTRA STRENGTH) 1,000 MG PREOP ONCE PO (DC) Celecoxib (CeleBREX) 200 MG PREOP ONCE PO (DC) Gabapentin (NEURONTIN) 200 MG PREOP ONCE PO (DC) Dietitian nutrition assessment The data set between the solid lines has been im ported from the dietitian's assessment. BMI Calculated: 28.0 Nutrition related diagnosis: Nutrition diagnosis details: Nutrition problem: Nutrition etiology: Nutrition signs and symptoms: Nutrition prescription: Dietitian name: Assessment completed: Physical Exam General appearance: alert, awake, oriented Head/Eyes: atraumatic, clear cornea, EOMI, normo cephalic, PERRL Neck: full range of motion, non-tender, normal t hyroid Cardiovascular: bradycardic, tachycardic, No pal pable pedal pulses Respiratory: aerating well, clear to auscultatio n, symmetric expansion Abdomen: non-tender, normal bowel sounds, soft Extremities: decreased range of motion, ble w/o palpable pulses Musculoskeletal: decreased ROM Neuro/SNAKER DRIVING HORSES: alert, oriented X 3, normal speech Skin: dressing and brace over incision Results Findings/Data: Laboratory Tests 12/25 2233 1616 1616 Chemistry Sodium (134 - 147 mmol/L) 133 L 135 Potassium (3.4 - 5.0 mmol/L) 4.3 4.7 Chloride (100 - 108 mmol/L) 103 102 Carbon Dioxide (21 - 32 mmol/L) 24 23 Anion Gap (4.0 - 15.0 GAP calc) 6.0 10.0 BUN (7 - 18 MG/DL) 23 H 24 H Creatinine (0.6 - 1.0 MG/DL) 1.0 1.3 H Glomerular Filtr Rate (>60 estGFR) 58 L 42 L Glucose (70 - 110 MG/DL) 128 H 192 H Calcium (8.5 - 10.1 MG/DL) 8.0 L 8.2 L Magnesium (1.8 - 2.4 MG/DL) 1.9 Troponin I High Sens (0 - 54 ng/L) 10.9 10.6 TSH (0.340 - 4.820 mcIU/ML) 0.878 Laboratory Tests 12/24 2233 Coagulation INR (0.8 - 1.2 INR Unit) 1.03 PTT (Rafael) (26 - 35 SECONDS) 27.0 PT Patient/Control Mix (9.3 - 12.9 SECONDS) 11 .4 Fibrinogen (185 - 453 mg/dL) 357 D-Dimer (215 - 500 ng/mLFEU) 2574 *H Laboratory Tests 12/25 2233 Hematology WBC (3.5 - 11.0 K/mm3) 10.9 13.9 H RBC (4.70 - 6.10 M/mm3) 2.84 L 3.15 L Hgb (10.4 - 14.9 G/DL) 8.5 L 9.4 L Hct (31.5 - 44.1 %) 26.2 L 28.8 L MCV (84.5 - 98.6 Fl) 92.3 91.4 MCH (27.0 - 34.2 pg) 29.9 29.8 MCHC (31.5 - 34.0 G/DL) 32.4 32.6 RDW (11.5 - 14.5 SD) 13.9 13.5 Plt Count (150 - 450 K/mm3) 279 284 MPV (7.0 - 10.5 fL) 10.80 H 10.70 H Neut % (Auto) (40 - 76 %) 83.6 H Lymph % (Auto) (20.5 - 51.1 %) 7.1 L Coos % (Auto) (1.7 - 9.3 %) 8.8 Eos % (Auto) (0.0 - 6.0 %) 0.0 Baso % (Auto) (0.0 - 2.0 %) 0.1 Neut # (Auto) (1.8 - 7.6 K/mm3) 9.1 H Lymph # (Auto) (0.6 - 3.2 K/mm3) 0.8 Coos # (Auto) (0.3 - 1.1 K/mm3) 1.0 Eos # (Auto) (0.0 - 0.4 K/mm3) 0.0 Baso # (Auto) (0.0 - 0.1 K/mm3) 0.0 Abs Immat Gran (auto) (0.00 - 0.03 x10 3/uL) 0. 04 H Add Manual Diff (CRITERIA DIFF/SCN) NO Immature Gran % (0.0 - 5.0 %) 0.4 Nucleated RBC % (0.0 - 1.0 /100WBC%) 0.0 Radiology data: Recent Impressions: RADIOLOGY - XR FLUOROSCOPY 0-60 MIN 12/24 1028 Report Impression - Status: SIGNED Entered: 12/24/20221038 IMPRESSION: 1. As above. Reference air kerma: 3.7 mGy Impression By: [email or web address] - Gonsalo Vaughn MD RADIOLOGY - XR PELVIS 12/25 2011 Report Impression - Status: SIGNED Entered: 12/24/20222022 Impression: 1. Right hip prosthesis. No evidence of complica tion. 2.Air-filled nondistended small bowel loops in t he pelvis, consistent with ileus. Impression By: Romina Puente Diagnosis, Assessment Plan Free Text DxA P Notes Free text DxA P notes: 77-year-old female patient w ith history of hypertension hypothyroidism, admitted for: #Arrhythmia, symptomatic Patient fluctuates from tachycardia in the 140s to bradycardias in the 40s to 50s Patient reports recent cardiac work-up with a ca rdiologist prior to surgery Requests cardiac work-up from the cath cardiolog y Monitor closely on telemetry and treat appropria tely TSH, troponin, and electrolytes pending Cardiology consult, appreciate input Transferred to ICU #Hypotension Given IV fluids We will start on vasopressor if refractory to IV fluids Cardiology consult #?PAD Unable to palpate pedal pulses even with the Dop pler we could not get a pulse Bilateral lower extremities cold Arterial Doppler ordered Consult vascular, Dr. Miller #Osteoarthritis, severe right lower extremity Status post right to do hip arthroplasty Admit to telemetry Routine vital signs Strict I's and O's Currently n.p.o. postoperatively we will advance diet as tolerated Pain management with Hadley and morphine as neede d PT OT evaluate and treat Dheeraj Wu following #Possible CAD Per patient and , her recent cardiac work -up shows some blockage. She could not describe the results of the cardiac wo rk-up Records requested from patient's cardiology Cardiology consulted here On aspirin and statin #Hypertension, controlled Resume home medications, metoprolol Hydralazine as needed #Hypothyroidism Resume home dose levothyroxine #Elevated D-dimer CTA to rule out PE pending DVT prophylaxis with Lovenox Full code Plan of care discussed with patient and all ques tions addressed Discussed patient's findings with ophthalmic medical assistant Dr. Arce and vascular Dr. Miller. Dr. Forrest also on pt's case Electronically Signed by Christy Daniel MSN o n 12/25/22 at 1024 Electronically Signed by Maida Schilling MD on 0 12/25/22 at 1651 RPT #: [id number] END OF REPORT 2022-12-25 06:56:00-00:00 [id number] [facility] [address] [place] [address] PATIENT NAME: MALISSA BEAVERS ADMIT DATE: 12/24 ACCOUNT NO: [id number] ROOM NO: [facility]03 AGE: 77 REPORT TYPE: eELECTROCARDIOGRAM SEX: F ADMITTING PHYSICIAN: Maida Schilling MD ATTENDING PHYSICIAN: Maida Schilling MD Order: [id number] Test Reason : wide QRS complex tachycardia Test Date/Time Stamp: ThuDec 25 2022 06:56:11 Blood Pressure : / mmHG Vent. Rate : 050 BPM Atrial Rate : 073 BPM P-R Int : 000 ms QRS Dur : 138 ms QT Int : 504 ms P-R-T Axes : 069 076 074 degree s QTc Int : 459 ms Undetermined rhythm Right bundle branch block Abnormal ECG When compared with ECG of 24-DEC-2022 22:31, (Un confirmed) Current undetermined rhythm precludes rhythm com parison, needs review Confirmed by Chayito Diego ([id number]) on 12/25/2022 5:37:21 PM Referred By: Ryan Cárdenas Confirmed by:Chayito Lei Electronically Signed by Chayito Diego MD o n 12/25/22 at 1735 PATIENT NAME: MALISSA BEAVERS ACCOUNT #: [id number] 2022-12-24 23:58:00-00:00 [facility] ([facility]) Clinical Note REPORT#:[id number] REPORT STATUS: Signed DATE:12/24/22 TIME:2358 PATIENT: MALISSA BEAVERS UNIT #: [id number] ROOM/BED: [facility]03-1 : 45 AGE: 77 SEX: F ATTEND: Laz Schilling MD ADM AUTHOR: Roseanne Sommer * ALL edits or amendments must be made on the el ectronic/computer document * See Addendum Clinical Note Note: I was notified by RN that patient's HR is in the 130s. I ordered a STAT EKG, that shows wide QRS complex tachycardia with RBBB. Repeated series of EKG with same findings. Patient baseline back in 12/18/22 was NSR. Patient is s/p hip surgery earlier today. Ordered STAT D dimer, whi ch is elevated. Unable to performed CTA chest for now d/t current BEVERLEY, Ordered STAT Venous ultrasound to r /o DVT. Will repeat renal function at AM if impr colleen will order CTA chest PE protocol. Pending venous US due to no information technology officer available. I contacted Dr. Deluna t he resource economist cardiologistv and discussed pt case with him as well as new EKG findi ngs. He gave orders for Metoprolo 25mg PO Q6HRS and IV fluid with no further recommendations. I will consult pulmonology f or VQ scan if unable to perform CTA chest PE due to BEVERLEY. Pending AM labs. V/Q scan ordered. Therapeutic dose Lovonex 1mg/kg q12hrs given. Pe nding IMU/ICU transfer. Patient continued to be asymtomatic all night. Electronically Signed by Roseanne Sommer 12/25/22 at 1048 Electronically Signed by Maida Schilling MD on 0 12/25/22 at 1651 Addendum 1: 12/25/22 1050 by Roseanne Sommer APRN METALS ANALYST Patient report recent cardia c work up for surgery clearance. She states she had a nuclear stress test done. That indicated about 30% stenosis to posterior portion of her RCA according to her ophthalmic medical assistant , who cleared her for her hip surgery. Electronically Signed by Roseanne Sommer 12/25/22 at 1051 RPT #: [id number] END OF REPORT 2022-12-24 22:31:00-00:00 [id number] [facility] [id number] [place] [address] PATIENT NAME: MALISSA BEAVERS ADMIT DATE: 12/24 ACCOUNT NO: [id number] ROOM NO: ICU03 AGE: 77 REPORT TYPE: eELECTROCARDIOGRAM SEX: F ADMITTING PHYSICIAN: Maida Schilling MD ATTENDING PHYSICIAN: Maida Schilling MD Order: [id number] Test Reason : tachycardia on monitor Test Date/Time Stamp: ThuDec 24 2022 22:31:43 Blood Pressure : / mmHG Vent. Rate : 132 BPM Atrial Rate : 000 BPM P-R Int : 000 ms QRS Dur : 130 ms QT Int : 356 ms P-R-T Axes : 000 078 006 degree s QTc Int : 527 ms Wide QRS tachycardia Right bundle branch block Abnormal ECG When compared with ECG of 24-DEC-2022 21:20, (Un confirmed) No significant change was found Confirmed by Chayito Diego ([id number]) on 12/25/2022 5:36:57 PM Referred By: Ryan Cárdenas Confirmed by:Chayito Lei Electronically Signed by Chayito Diego MD o n 12/25/22 at 1736 PATIENT NAME: MALISSA BEAVERS [id number] 21:20:00-00:00 [id number] [place] [address] PATIENT NAME: MALISSA BEAVERS ADMIT DATE: 12/24 ACCOUNT NO: [id number] ROOM NO: L.ICU03 AGE: 77 REPORT TYPE: eELECTROCARDIOGRAM SEX: F ADMITTING PHYSICIAN: Maida Schilling MD ATTENDING PHYSICIAN: Maida Schilling MD Order: [id number] Test Reason : tachycardia Test Date/Time Stamp: ThuDec 24 2022 21:20:08 Blood Pressure : / mmHG Vent. Rate : 129 BPM Atrial Rate : 000 BPM P-R Int : 000 ms QRS Dur : 136 ms QT Int : 374 ms P-R-T Axes : 000 082 018 degree s QTc Int : 547 ms Wide QRS tachycardia Right bundle branch block Abnormal ECG When compared with ECG of 24-DEC-2022 16:00, (Un confirmed) No significant change was found Confirmed by Chayito Diego ([id number]) on 12/25/2022 5:36:51 PM Referred By: Ryan Cárdenas Confirmed by:Chayito Lei Electronically Signed by Chayito Diego MD o n 12/25/22 at 1736 PATIENT NAME: MALISSA BEAVERS ACCOUNT #: [id number] 2022-12-24 16:00:00-00:00 [id number] [facility] [address] [place] [address] PATIENT NAME: MALISSA BEAVERS ADMIT DATE: 12/24 ACCOUNT NO: [id number] ROOM NO: [place] [address] AGE: 77 REPORT TYPE: eELECTROCARDIOGRAM SEX: F ADMITTING PHYSICIAN: Maida Schilling MD ATTENDING PHYSICIAN: Maida Schilling MD Order: [id number] Test Reason : PALPITATIONS Test Date/Time Stamp: ThuDec 24 2022 16:00:06 Blood Pressure : / mmHG Vent. Rate : 142 BPM Atrial Rate : 000 BPM P-R Int : 000 ms QRS Dur : 136 ms QT Int : 342 ms P-R-T Axes : 000 080 -32 degree s QTc Int : 526 ms Wide QRS tachycardia Right bundle branch block T wave abnormality, consider inferior ischemia Abnormal ECG When compared with ECG of 18-DEC-2022 11:09, (Un confirmed) Wide QRS tachycardia has replaced Sinus rhythm Vent. rate has increased BY 73 BPM Confirmed by Chayito Diego ([id number]) on 12/25/2022 4:30:47 PM Referred By: Ryan Cárdenas Confirmed by:Chayito Lei Electronically Signed by Chayito Diego MD o n 12/25/22 at 1630 PATIENT NAME: MALISSA BEAVERS [id number] 11:22:00-00:00 [facility] ([facility]) History Physical - Adult REPORT#:[id number] REPORT STATUS: Signed DATE:12/24/22 TIME:1122 PATIENT: MALISSA BEAVERS UNIT #: [id number] ROOM/BED: [place] [address] : 45 AGE: 77 SEX: F ATTEND: Laz Schilling MD ADM AUTHOR: Christy Daniel MSN * ALL edits or amendments must be made on the [employer]/computer document * See Addendum History of Present Illness HPI Chief complaint: Extremity Pain PCP: PCP: Ryan Cárdenas MD HPI: 77 years old female patient with past medical hi story of hypertension hypothyroidism, admitted to the hospital for treva gical management of arthritic pain of the right lower extremity. Patie nt says she has had the extremity pain for a long time before she w as referred to Dr. Cárdenas. Currently she is status post right hip arthroplasty. Postoperatively, sh e reports pain to that extremity and dry mouth. Vital signs stable. We are admitting her for postoperative management History Past medical history: Reports: Hypertension, Thyroid disorder. Alcohol use: Denies EtOH use Drug use: Denies recreational drugs Smoking status for patients 13 years old or olde r: Never Smoker Medication/Allergy-Vaccine Hx Medications: Home Medications: Medication Dose/Rte/Freq Days Qty Entered Last Max Daily Dose Reviewed LEVOTHYROXINE 150 MCG PO DAILY 12/18/22 (SYNTHROID) 1228 Strength: 150 MCG TAB LEVOTHYROXINE 150 MCG PO DAILY 12/18/22 (SYNTHROID) 1231 Strength: 150 MCG TAB METOPROLOL SUCC XL 25 MG PO DAILY 12/18/22 (TOPROL XL) 1232 Strength: 25 MG TAB.SR.24H dexAMETHasone 1 MG PO TID 12/18/22 Strength: 0.5 MG TAB 1233 MELOXICAM (MOBIC) 15 MG PO DAILY 12/18/22 Strength: 15 MG TAB 1233 ATORVASTATIN (LIPITOR) 20 MG PO DAILY 12/18/22 Strength: 20 MG TAB 1234 azaTHIOprine (IMURAN) 50 MG PO DAILY 12/18/22 Strength: 50 MG TAB 1234 GABAPENTIN (NEURONTIN) 600 MG PO TID 12/18/22 Strength: 600 MG TAB 1235 ACETAMINOPHEN (TYLENOL) 325 MG PO 12/18/22 Strength: 325 MG TAB Q6H PRN PRN PAIN 1235 [KRILL OIL] 350 MG PO DAILY 12/18/22 Strength: 1237 [VIT D] 7,000 MG PO DAILY 12/18/22 Strength: 1238 RED YEAST RICE EXTRACT 1,200 MG PO BID 12/18/22 (RED YEAST 600MG RICE 1238 EXTRACT) Strength: 600 MG CAP CALCIUM CARBONATE 600 MG PO BID 12/18/22 (CALTRATE 600 MG) 1239 Strength: 600 MG CALCIUM (1,500 MG) TAB POTASSIUM GLUCONATE 99 MG PO DAILY 12/18/22 (POTASSIUM) 1240 Strength: 595 MG (99 MG) TAB VIT 1 CAP PO DAILY 12/18/22 C/E/ZN/COPPR/LUTEIN/ZEAXAN 1240 (OCUVITE LUTEIN) Strength: 60 MG-13.5 MG-15 MG-2 MG-6 MG CAP Current Hospital Medications: Anti-Infective Agents Sig/Delia Start time Last Medication Dose Route Stop Time Status Admin Cefazolin Sodium 1 GM Q8HR 12/24 1400 AC (KEFZOL) IV 12/29 1359 Sterile Water 10 ML (WATER FOR INJECTION) Cefazolin Sodium 2 GM PREOP ASDIR 12/24 1145 C KD (KEFZOL) IV 12/24 2300 Cefazolin Sodium 0 .STK-MED ONE 12/24 0825 DC (KEFZOL) .ROUTE Autonomic Drugs Sig/Delia Start time Last Medication Dose Route Stop Time Status Admin Rocuronium [place] 0 .STK-MED ONE 12/24 0712 D C (ZEMURON) .ROUTE Blood Formation,Coagulation Sig/Delia Start time Last Medication Dose Route Stop Time Status Admin Heparin Sodium 0 .STK-MED ONE 12/24 0834 DC (Porcine) .ROUTE (HEPARIN SODIUM) Heparin Sodium 0 .STK-MED ONE 12/24 0700 DC (Porcine) .ROUTE (HEPARIN SODIUM) Cardiovascular Drugs Sig/Delia Start time Last Medication Dose Route Stop Time Status Admin Labetalol HCl 5 MG PACU Q10MIN PRN PRN 12/24 10 00 AC (TRANDATE) IV 12/24 2300 Lidocaine HCl 0 .STK-MED ONE 12/24 0712 DC (XYLOCAINE) .ROUTE Central Nervous System Agents Sig/Delia Start time Last Medication Dose Route Stop Time Status Admin Pregabalin 75 MG BID 12/25 0900 AC (LYRICA) PO 12/26 2100 Pregabalin 75 MG BID 12/25 899 CAN (LYRICA) PO 12/26 2100 Celecoxib 200 MG 09,12/24 2100 AC (CeleBREX) PO 12/31 0901 Acetaminophen 1,000 MG Q6H 12/24 1000 DC (TYLENOL EXTRA PO 12/24 1001 STRENGTH) Hydrocodone Bitart/ 1 TAB PACU ONCE PRN 12/24 1 000 AC Acetaminophen PO 12/24 2300 (NORCO 5/325) Hydrocodone Bitart/ 1 TAB PACU ONCE PRN 12/24 1 000 AC Acetaminophen PO 12/24 2300 (NORCO 10/325) Hydromorphone HCl 0.5 MG PACU Q10MIN PRN PRN 1000 AC (DILAUDID) IV 12/24 2300 Meperidine HCl 12.5 MG PACU ONCE PRN 12/24 1000 AC (DEMEROL) IV 12/24 2300 Acetaminophen 650 MG Q4H PRN PRN 12/24 0845 AC (TYLENOL) PO 01/23 0844 Hydrocodone Bitart/ 1 TAB Q4H PRN PRN 12/24 08 45 AC Acetaminophen PO 01/03 0844 (NORCO 7.5/325) Hydrocodone Bitart/ 2 TAB Q4H PRN PRN 12/24 084 5 AC Acetaminophen PO 01/03 0844 (NORCO 7.5/325) Morphine Sulfate 2 MG Q2H PRN PRN 12/24 0845 AC (morphine Sulfate) IV 12/27 0844 Hydromorphone HCl 0 .STK-MED ONE 12/24 0713 DC (DILAUDID) .ROUTE Fentanyl Citrate 0 .STK-MED ONE 12/25 711 DC (SUBLIMAZE) .ROUTE Propofol 20 ML .STK-MED ONE 12/25 711 DC (DIPRIVAN) IV Acetaminophen 1,000 MG PREOP ONCE 12/24 599 CK D 12/24 (TYLENOL EXTRA PO 01/23 559 0631 STRENGTH) Celecoxib 200 MG PREOP ONCE 12/24 06 CKD (CeleBREX) PO Gabapentin 200 MG PREOP ONCE 12/24 599 CKD (NEURONTIN) PO 01/23 559 0631 Electrolytic, Caloric, And Brian Sig/Delia Start time Last Medication Dose Route Stop Time Status Admin Lactated Ringer's 1,000 ML ASDIR 12/24 1000 AC (LACTATED RINGERS) IV Eye, Ear, Nose And Throat (Een Sig/Delia Start time Last Medication Dose Route Stop Time Status Admin Dexamethasone Sodium 0 .STK-MED ONE 12/24 0712 DC Phosphate .ROUTE (DECADRON) Gastrointestinal Drugs Sig/Delia Start time Last Medication Dose Route Stop Time Status Admin Docusate Sodium 100 MG BID 12/25 0900 AC (COLACE) PO 01/24 0859 Docusate Sodium 100 MG BID 12/25 0900 CAN (COLACE) PO 01/24 0859 Docusate Sodium 100 MG BID 12/24 1700 CAN (COLACE) PO 01/23 1659 Ondansetron HCl 4 MG PACU ONCE PRN 12/24 1000 A C (ZOFRAN) IV 12/24 2300 Ondansetron HCl 8 MG Q8H PRN PRN 12/24 1000 AC (ZOFRAN) PO 01/22 1829 Ondansetron HCl 8 MG Q8H PRN PRN 12/24 1000 AC 12/24 (ZOFRAN) IV 01/22 1829 1117 Ondansetron HCl 0 .STK-MED ONE 12/24 0712 DC (ZOFRAN) .ROUTE Hormones And Synthetic Substit Sig/Delia Start time Last Medication Dose Route Stop Time Status Admin Insulin Human Lispro 0 PACU ONCE PRN 12/24 1000 AC (HUMALOG) SUBQ 12/24 2300 Local Anesthetics (Parenteral) Sig/Delia Start time Last Medication Dose Route Stop Time Status Admin Bupivacaine HCl 0 .STK-MED ONE 12/24 0711 DC (MARCAINE 0.5%) .ROUTE Bupivacaine HCl 0 .STK-MED ONE 12/24 0711 DC (MARCAINE 0.25%) .ROUTE Allergies: Coded Allergies: carisoprodol (From RELA) (Intermediate, REDNESS 12/18/22) codeine (Intermediate, NAUSEA 12/18/22) tetracycline (From ACHROMYCIN) (Intermediate, RE DNESS 12/18/22) Review of Systems Constitutional: Reports: generalized weakness. Musculoskeletal: Extremity pain: Reports: right upper. All systems rev neg: except as marked Physical Exam VS/I O Vital Signs: Date Time Temp Pulse Resp B/P B/P Pulse O2 O2 F low FiO2 Mean Ox Delivery Rate 12/24 1126 73 18 135/67 94 Nasal 5 cannula 12/24 1120 77 19 138/63 94 Nasal 5 cannula 12/24 1115 88 18 155/72 94 Nasal 5 cannula 12/24 1110 79 21 152/70 93 Nasal 5 cannula 12/24 1105 83 17 151/59 94 Simple 5 mask 12/24 1102 Simple 4 mask 12/24 1100 86 16 170/76 94 Simple 6 mask 12/24 1052 97.7 85 16 139/69 95 Simple 5 mask 12/24 0634 97.0 58 16 123/66 98 PATIENT WEIGHT: Weight (lb): 163 Weight (oz): 5.48 Weight (kg): 74.091 General appearance: alert, awake, oriented Head/Eyes: atraumatic, clear cornea, EOMI, normo cephalic ENT: normal ear left, normal ear right, normal n ose Neck: full range of motion, non-tender, no JVD Cardiovascular: normal capillary refill, regular rate rhythm, normal heart sounds Respiratory: on oxygen, clear to auscultation, n o distress, no tenderness, aerating well Abdomen/GI: active bowel sounds, soft, non-tende r Extremities: decreased range of motion, normal capillary refill, no clubbing, no cyanosis Musculoskeletal: decreased ROM Neuro/SNAKER DRIVING HORSES: alert, oriented X 3, normal speech Skin: normal color, RLE dressing CDI Psychiatry: normal affect Results Radiology data: Recent Impressions: RADIOLOGY - XR FLUOROSCOPY 0-60 MIN 12/24 1029 Report Impression - Status: SIGNED Entered: 12/24/2022 1039 IMPRESSION: 1. As above. Reference air kerma: 3.7 mGy Impression By: [email or web address] - Gonsalo Vaughn MD Diagnosis, Assessment Plan Free Text DxA P Notes Free Text DxA P Notes: 77-year-old female patient w ith history of hypertension hypothyroidism, admitted for: #Osteoarthritis, severe right lower extremity Status post right to do hip arthroplasty Admit to telemetry Routine vital signs Strict I's and O's Currently n.p.o. postoperatively we will advance diet as tolerated Pain management with Hadley and morphine as neede d PT OT evaluate and treat Dheeraj Wu following #Hypertension, controlled Resume home medications, metoprolol Hydralazine as needed #Hypothyroidism Resume home dose levothyroxine DVT prophylaxis with Lovenox Full code Plan of care discussed with patient and all ques tions addressed Electronically Signed by Christy Daniel MSN o n 12/24/22 at 1136 Electronically Signed by Maida Schilling MD on 0 12/24/22 at 1700 Addendum 1: 12/24/22 1605 by Christy Daniel M SN #Tacharrhythmia with bundle branch block Patient's heart rate sustaining in the 1 40s and EKG shows wide QRS tachycardia with right bundle branch block Troponin, EKG, echo, TSH and magnesium pending Cardiology consult Monitor on telemetry Electronically Signed by Christy Daniel MSN o n 12/24/22 at 1607 RPT #: [id number] END OF REPORT 2022-12-24 10:53:00-00:00 [id number] [facility] [address] [place] [address] PATIENT NAME: MALISSA BEAVERS ADMIT DATE: 12/24 ACCOUNT NO: [id number] ROOM NO: [facility] AGE: 77 REPORT TYPE: OPERATIVE REPORT SEX: F ADMITTING PHYSICIAN: Maida Schilling MD ATTENDING PHYSICIAN: Maida Schilling MD OPERATION DATE: 12/24/2022 SURGEON: Ryan Cárdenas MD ANALYTICS INTERN: Gareth carrera surgical assistance. PREOPERATIVE DIAGNOSIS: The patient with end-stage osteoarthritis of the right hip. POSTOPERATIVE DIAGNOSIS: The patient with end-stage osteoarthritis of the right hip. PROCEDURES PERFORMED: Right total hip ar throplasty using the anterior approach with the Biomet system Check Ti, G7 4-hole cementless cup 62 mm with 4 screws, a 40 and 25 gave a great bite and two 20s gave a g ood bite with a 11 x 142 high offset Taperloc with a -6 36 mm head and an E1 l iner. ANESTHESIA: General. ESTIMATED BLOOD LOSS: 100 mL. COMPLICATIONS: None. DESCRIPTION OF PROCEDURE: The patient's right hi p was sterilely prepped and draped in the usual manner. A standard 1 0 cm incision just lateral to the ASIS down to the anterior part of the greater trochanter was made. We took this down to the tensor, the tensor was taken late rally and the rectus medially. We tied off two different branches o f the ascending branch to the lateral circumflex and then we created a medial and lateral flap of the capsule and then cut the femur or the neck just at the lesser trochanter, and t his measured about a 50, although I think that due to the osteophytes, it was probably bigger, especially after reaming. We cleaned of f the medial side of the greater trochanter, so that we could elevate it and make sure that was freed up. We then brought in the C-arm and used the C-arm with the 26 modifier on it to make sure that we centralized the pelvis and k ind of reamed at about 45 degrees of abduction with about 20 degrees of anteversion and medi alized it slightly and went up to a 61 and then put in a 62 cup, it gave us pre tty good implant with placement of it. There was lot of oozing from the bed, so it was quite vascular. We put 4 screws in. Really looking for a adam constantino screw, but there was 40 and 25 that gave a great bite and two 20s gave a good bite. We went ahead and put the E1 liner in. We did send cultures from the [facility] as well. We turned our attention to the femur. We rotated it 90 degrees lat erally, dropped it down to the floor and adducted it PATIENT NAME: MALISSA BEAVERS [id number] with a 2-prong behind the gr eater trochanter, then a Hohmann medially. We did a cookie cutter, followed by a pig tail and then a banana broach and tried to lateralize it and went up to 11 that gave us a f irm endpoint. We put the real 11 in and this was a little bit more prominent t stephenson I had wanted, but a -6 gave us the best reduction compared to the other side. We went ahead and put that in as well as the -6 head. We did the rest of the 3 liters of Pulsavac. We repaired the capsule with #5 Ethibond that we had tagged it with. We ran the tensor with a #1 Vicryl. We did 2-0 subcutic ular and yomaira in the skin. Each level of closure had copious amoun t of irrigation and strict hemostasis. The patient tolerated the procedure well and wa s extubated and taken to the recovery room in good condition. Dictated By: Ryan Cárdenas MD Date Dictated: 12/24/2022 10:53:40 Date Transcribed: 12/24/2022 11:42:23 KD/MIN Receipt ID: [id number] Authenticated and Edited by Ryan Cárdenas MD On 12/24/22 1:42:23 PM Electronically Signed by Ryan Cárdenas MD on 0 12/24/22 at 0145 PATIENT NAME: MALISSA BEAVERS [id number] 10:29:08-00:00 PROCEDURE: [place] Fluoroscopic-guided lumbar epidural steroid inje ction Conscious sedation HISTORY: Lumbar disc displacement. Pain with rad iculopathy. ROUNDING MACHINE TENDER: Yolanda. COMPLICATIONS: None. ANESTHESIA: Local lidocaine 1%, 10 mL. Versed and fentanyl IV, administered by the procedural nurse and monitored by me in the procedure nurse for 30 minutes Fluoroscopy time: 5.7 minutes DAP: [id number] mgy-cm2 Images: 6 TECHNIQUE/FINDINGS: Sterile barrier technique wa s followed including: Cap and mask, sterile gown, sterile gloves, and large sterile sheet. Hand hygiene, and 2% chlorhexidine for cutaneous antisepsis (or acceptable alternative antiseptics, per current guideline). After informed consent was o btained, the patient was brought to the fluoroscopy suite and placed in the prone position. Fluoroscopy was used to localize an appropriate area for insertion of a Tuohy need le to the epidural space. Th e lower back was prepped and draped in usual sterile fashion. A 25 gauge needle was used to administer local lidocaine into the subcutaneous soft tissues. Following this, a 2 2-gauge Tuohy needle was int roduced under fluoroscopy into the epidural space using a midline approach at the level of L4/L5. Confirmation of the needle position was made by a drop in air resistance and by injection of a small khoi ntity of nonionic contrast material. Following this a solution containing a mixture of Kenalog and bupivacaine was injected into the epidural space under fluoroscopy. The nee dle was then removed. Epidur al extension of contrast material was seen to the level of L3 superiorly and S1 inferiorly. The patient suffered no immediate complications. IMPRESSION: Successful fluoroscopic lumbar epidural steroid injection. 2021-10-17 10:29:08-00:00 PROCEDURE: [facility] [place] Fluoroscopic-guided lumbar epidural steroid inje ction Conscious sedation HISTORY: Lumbar disc displacement. Pain with rad iculopathy. ROUNDING MACHINE TENDER: Yolanda. COMPLICATIONS: None. ANESTHESIA: Local lidocaine 1%, 10 mL. Versed and fentanyl IV, administered by the procedural nurse and monitored by me in the procedure nurse for 30 minutes Fluoroscopy time: 5.7 minutes DAP: [id number] mgy-cm2 Images: 6 TECHNIQUE/FINDINGS: Sterile barrier technique wa s followed including: Cap and mask, sterile gown, sterile gloves, and large sterile sheet. Hand hygiene, and 2% chlorhexidine for cutaneous antisepsis (or acceptable alternative antiseptics, per current guideline). After informed consent was o btained, the patient was brought to the fluoroscopy suite and placed in the prone position. Fluoroscopy was used to localize an appropriate area for insertion of a Tuohy need le to the epidural space. Th e lower back was prepped and draped in usual sterile fashion. A 25 gauge needle was used to administer local lidocaine into the subcutaneous soft tissues. Following this, a 2 2-gauge Tuohy needle was int roduced under fluoroscopy into the epidural space using a midline approach at the level of L4/L5. Confirmation of the needle position was made by a drop in air resistance and by injection of a small khoi ntity of nonionic contrast material. Following this a solution containing a mixture of Kenalog and bupivacaine was injected into the epidural space under fluoroscopy. The nee dle was then removed. Epidur al extension of contrast material was seen to the level of L3 superiorly and S1 inferiorly. The patient suffered no immediate complications. IMPRESSION: Successful fluoroscopic lumbar epidural steroid injection. 2021-10-17 10:29:08-00:00 PROCEDURE: EN[facility] [place] Fluoroscopic-guided lumbar epidural steroid inje ction Conscious sedation HISTORY: Lumbar disc displacement. Pain with rad iculopathy. ROUNDING MACHINE TENDER: Yolanda. COMPLICATIONS: None. ANESTHESIA: Local lidocaine 1%, 10 mL. Versed and fentanyl IV, administered by the procedural nurse and monitored by me in the procedure nurse for 30 minutes Fluoroscopy time: 5.7 minutes DAP: [id number] mgy-cm2 Images: 6 TECHNIQUE/FINDINGS: Sterile barrier technique wa s followed including: Cap and mask, sterile gown, sterile gloves, and large sterile sheet. Hand hygiene, and 2% chlorhexidine for cutaneous antisepsis (or acceptable alternative antiseptics, per current guideline). After informed consent was o btained, the patient was brought to the fluoroscopy suite and placed in the prone position. Fluoroscopy was used to localize an appropriate area for insertion of a Tuohy need le to the epidural space. Th e lower back was prepped and draped in usual sterile fashion. A 25 gauge needle was used to administer local lidocaine into the subcutaneous soft tissues. Following this, a 2 2-gauge Tuohy needle was int roduced under fluoroscopy into the epidural space using a midline approach at the level of L4/L5. Confirmation of the needle position was made by a drop in air resistance and by injection of a small khoi ntity of nonionic contrast material. Following this a solution containing a mixture of Kenalog and bupivacaine was injected into the epidural space under fluoroscopy. The nee dle was then removed. Epidur al extension of contrast material was seen to the level of L3 superiorly and S1 inferiorly. The patient suffered no immediate complications. IMPRESSION: Successful fluoroscopic lumbar epidural steroid injection. 2020-07-20 09:43:45-00:00 PROCEDURE: EN[facility] [place] Fluoroscopic-guided lumbar epidural steroid inje ction Conscious sedation HISTORY: Lumbar disc displacement. Pain with rad iculopathy. ROUNDING MACHINE TENDER: Yolanda. COMPLICATIONS: None. ANESTHESIA: Local lidocaine 1%, 10 mL. Versed and fentanyl IV, administered by the procedural nurse and monitored by me in the procedure nurse for 30 minutes Fluoroscopy time: 5.7 minutes DAP: [id number] mgy-cm2 TECHNIQUE/FINDINGS: Sterile barrier technique wa s followed including: Cap and mask, sterile gown, sterile gloves, and large sterile sheet. Hand hygiene, and 2% chlorhexidine for cutaneous antisepsis (or acceptable alternative antiseptics, per current guideline). After informed consent was o btained, the patient was brought to the fluoroscopy suite and placed in the prone position. Fluoroscopy was used to localize an appropriate area for insertion of a Tuohy need le to the epidural space. Th e lower back was prepped and draped in usual sterile fashion. A 25 gauge needle was used to administer local lidocaine into the subcutaneous soft tissues. Following this, a 2 2-gauge Tuohy needle was int roduced under fluoroscopy into the epidural space using a midline approach at the level of L3/L4. Confirmation of the needle position was made by a drop in air resistance and by injection of a small khoi ntity of nonionic contrast material. Following this a solution containing a mixture of Kenalog and bupivacaine was injected into the epidural space under fluoroscopy. The nee dle was then removed. Epidur al extension of contrast material was seen to the level of L3 superiorly. The patient suffered no immediate complications. IMPRESSION: Successful fluoroscopic lumbar epidural steroid injection. 2020-07-20 09:43:45-00:00 PROCEDURE: [place] Fluoroscopic-guided lumbar epidural steroid inje ction Conscious sedation HISTORY: Lumbar disc displacement. Pain with rad iculopathy. ROUNDING MACHINE TENDER: Yolanda. COMPLICATIONS: None. ANESTHESIA: Local lidocaine 1%, 10 mL. Versed and fentanyl IV, administered by the procedural nurse and monitored by me in the procedure nurse for 30 minutes Fluoroscopy time: 5.7 minutes DAP: [id number] mgy-cm2 TECHNIQUE/FINDINGS: Sterile barrier technique wa s followed including: Cap and mask, sterile gown, sterile gloves, and large sterile sheet. Hand hygiene, and 2% chlorhexidine for cutaneous antisepsis (or acceptable alternative antiseptics, per current guideline). After informed consent was o btained, the patient was brought to the fluoroscopy suite and placed in the prone position. Fluoroscopy was used to localize an appropriate area for insertion of a Tuohy need le to the epidural space. Th e lower back was prepped and draped in usual sterile fashion. A 25 gauge needle was used to administer local lidocaine into the subcutaneous soft tissues. Following this, a 2 2-gauge Tuohy needle was int roduced under fluoroscopy into the epidural space using a midline approach at the level of L3/L4. Confirmation of the needle position was made by a drop in air resistance and by injection of a small khoi ntity of nonionic contrast material. Following this a solution containing a mixture of Kenalog and bupivacaine was injected into the epidural space under fluoroscopy. The nee dle was then removed. Epidur al extension of contrast material was seen to the level of L3 superiorly. The patient suffered no immediate complications. IMPRESSION: Successful fluoroscopic lumbar epidural steroid injection. 2020-07-20 09:43:45-00:00 PROCEDURE: [place] Fluoroscopic-guided lumbar epidural steroid inje ction Conscious sedation HISTORY: Lumbar disc displacement. Pain with rad iculopathy. ROUNDING MACHINE TENDER: Yolanda. COMPLICATIONS: None. ANESTHESIA: Local lidocaine 1%, 10 mL. Versed and fentanyl IV, administered by the procedural nurse and monitored by me in the procedure nurse for 30 minutes Fluoroscopy time: 5.7 minutes DAP: [id number] mgy-cm2 TECHNIQUE/FINDINGS: Sterile barrier technique wa s followed including: Cap and mask, sterile gown, sterile gloves, and large sterile sheet. Hand hygiene, and 2% chlorhexidine for cutaneous antisepsis (or acceptable alternative antiseptics, per current guideline). After informed consent was o btained, the patient was brought to the fluoroscopy suite and placed in the prone position. Fluoroscopy was used to localize an appropriate area for insertion of a Tuohy need le to the epidural space. Th e lower back was prepped and draped in usual sterile fashion. A 25 gauge needle was used to administer local lidocaine into the subcutaneous soft tissues. Following this, a 2 2-gauge Tuohy needle was int roduced under fluoroscopy into the epidural space using a midline approach at the level of L3/L4. Confirmation of the needle position was made by a drop in air resistance and by injection of a small khoi ntity of nonionic contrast material. Following this a solution containing a mixture of Kenalog and bupivacaine was injected into the epidural space under fluoroscopy. The nee dle was then removed. Epidur al extension of contrast material was seen to the level of L3 superiorly. The patient suffered no immediate complications.
[2023-01-01] MEDS ORDERED: DOCUSATE NA/SENNA CONC 1 TAB PO PRN (15:22)
[2023-01-01] MEDS ORDERED: ONDANSETRON 4 MG (ODT) TAB PO PRN (15:23)
[2023-01-01] MEDS: ENOXAPARIN 40 MG/0.4 ML SQ SCH (15:51)
[2023-01-01 16:47] LABS: Specific Gravity 1.014 (1.005-1.030); Urine Bacteria 20-50 /HPF (<20); Urine Bilirubin NEGATIVE (Negative); Urine Blood 2+ (Negative); Urine Clarity Extremely Turbid (Clear); Urine Color Light-Yellow (Yellow); Urine Crystals Unidentified Few /HPF (None Seen); Urine Glucose NEGATIVE (Negative); Urine Mucus Slight /HPF (None Seen); Urine Protein 1+ (Negative); Urine RBC 21-50 /HPF (None Seen); Urine Urobilinogen Normal (Normal); Urine WBC Clump Few /HPF (None Seen)
[2023-01-01] MEDS ORDERED: TRAMADOL HCL 50 MG TAB PO PRN (19:46)
[2023-01-01] MEDS: MAGNESIUM OXIDE 400 MG TAB PO SCH (20:29)
[2023-01-01] MEDS: dexAMETHasone 4 MG TAB PO SCH (20:29)
[2023-01-01] MEDS: ATORVASTATIN 20 MG TAB PO SCH (20:29)
[2023-01-01] MEDS: DOCUSATE NA 100 MG CAP PO SCH (20:29)
[2023-01-01] MEDS: CALCIUM CARBONATE 500 MG TAB PO SCH (20:29)
[2023-01-01] MEDS: MELATONIN 3 MG TABLET PO PRN (20:30)
[2023-01-01] MEDS: GABAPENTIN 400 MG CAP PO SCH (20:30)
[2023-01-01] MEDS: HYDROCODONE/APAP 5/325 MG TAB PO PRN (21:25)
--- NOTE | 2023-01-02 00:02 | HP ---
Date of Admission: 01/01/2023 Time Of Service: 1:00 p.m. Chief Complaint: "My hip is replaced and it hurts." History Of Present Illness: Ms. Oliva is a 77-year-old, right-handed, patient with hypertension , hypothyroidism, osteoarthritis, who was seen at [facility] on 12/24/2022 for elective right hip arthroplasty. She had surgery done successfully, but postoperatively had tachycardia. EKG showed r ight bundle-branch block and she had a CT angiogram of the chest, which ruled out pulmonary embolus. Doppler study of the right lower extremity, ruled out deep vein thrombosis. Her kidney function isaiah wed acute renal injury. She was transferred to the ICU and monitored. She had a seizure and was con fused after with the finding of encephalopathy. After 2 days in the ICU, she was transferred to the floor and began physical therapy and found to be at a level of moderate assistance, required to ambul ate 40 feet. Her hypotension has improved. She is treated with aspirin, statin. Had blood pressure managed. She did have anemia down to 7.4 and the hemoglobin probably was 7.6 on 12/30. The hematoc rit of 23.3. As a result of her hospital stay, had complications. She became significantly debilita dulce maria as noted by a short distance of ambulation and required moderate to maximum assistance to perform activities of daily living and mobilization. She was therefore determined to be a more appropriate candidate for acute inpatient rehabilitation and was admitted to the inpatient rehabilitation unit fo r physical and occupational therapy and if need be speech therapy. Past Medical History: Hypothyroidism, hypertension, osteoarthritis, and total hip arthroplasty on . Studies: EKG showed wide QRS complex tachycardia with right bundle-branch block. She was seen by [facility] pulmonary service prior to coming to [facility]. 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 Allergies: CODEINE AND TETRACYCLINE. Family History: Noncontributory. Social History: No alcohol, tobacco, or IV drug use. Patient lives with family. is at [facility]. Medications: Tylenol 1000 mg every 8 hours as needed, Lipitor 20 mg at bedtime, azathioprine 50 mg d aily, Os-Vito 500 mg twice daily, Decadron 1 mg 3 times daily, Colace 100 mg twice daily, Lovenox 40 m g subcutaneously daily, ferrous sulfate 325 mg daily, gabapentin 1200 mg twice daily, Synthroid 0.05 mg daily, magnesium oxide 400 mg twice daily, melatonin 3 mg at bedtime, Mobic 15 mg daily, Lopressor 12.5 mg daily, Hemocyte Plus 1 tablet daily, Ocuvite 1 tablet daily, Zofran 4 mg every 4 hours as ne eded, Senokot S 2 at bedtime. Review of Systems: Ms. Oliva reports some difficulty with bowel movements. Last one was about 3 days ago. Some pa in in the right hip and back and arm and some swelling in the right ankle, which is improved. Otherw ise systems review negative on a 10-point basis. Physical Examination: Vital Signs: Blood pressure 130/66, pulse of 68, temperature 98.1, respiratory rate 16. Weight 163 pounds, height 64 inches, BMI 27.97. General: Ms. Oliva is resting comfortably in bed after a recent arrival to inpatient unit. She is in no acute distress. HEENT: Appears normocephalic, atraumatic. Sclerae anicteric. Oropharynx is moist. Neck: Supple. Chest: Clear. Heart: Regular. Extremities: Show no significant edema or cyanosis. Despite the recent surgery, there is mild swell ing in the right lower extremity. Neuro: Cranial nerves: No focal deficits. On motor, she has giveaway weakness in the right side af ter her total hip arthroplasty on the right. She does have some knee pain on the right that leads to give-way, otherwise 5/5. Sensory exam: Stocking-glove loss. Reflexes are present. Laboratory Studies: White blood cell count 7.0, hemoglobin 7.6, hematocrit 23.2, platelets 200. Sod ium 139, potassium 4.0, glucose 109, BUN 17, creatinine 0.6, calcium 7.9. Magnesium 2.1. Current Level Of Functioning: Currently, eating, oral hygiene, set up assistance; maximum assistance for toilet, showering; upper body dressing, contact guard assistance, lower body dressing, independe nt level. Donning and doffing footwear, dependent level. Rolling from right to left and left to rig ht, moderate assistance required. Going from a sitting is lying, moderate assistance, lying to sitti ng on side of the bed, moderate assistance. Dse-qu-sfxvu moderate assistance. Moving from bed to ch air, moderate assistance. Toilet transfer, moderate assistance. Ambulation, moderate assistance wit h a rolling walker covering 40 feet. Rehabilitation And Medical Assessment And Plan: Ms. Oliva is in the rehabilitation unit with im pairment category of 03 brain dysfunction, nontraumatic. Her impairment group code is 02.1, nontraum atic. Etiologic diagnosis is seizure. Comorbidities are encephalopathy, anemia, bradycardia, jarrett ry artery disease, hypocalcemia, renal injury, and tachycardia. Other comorbidities, hypoxic respira tory failure and the total hip arthroplasty. Plan: 1.She will have physical and occupational therapy 3 hours a day, 5 of 7 days. For her encephalopath y, she will have speech therapy as needed 0.5 hours, 5 of 7 days. 2.Her comorbidities are addressed by continuing Senokot S for constipation, Zofran for nausea, Ocuvi te eyedrops as needed, Hemocyte Plus and ferrous sulfate for anemia, Lopressor 12.5 mg daily for her hypertension, Synthroid 0.05 mg daily for hypothyroidism, gabapentin 1200 mg twice daily for neuropat hy, Lovenox 40 mg subcutaneously daily for DVT prophylaxis and the extra-strength Tylenol 1000 mg maria dolores ry 8 hours as needed for pain, if need be tramadol 50 mg will be used. Impact Of Comorbids: She did have apparent seizure, so seizure precautions will be adhered to. Othe rwise, there is no evidence of deep vein thrombosis. She does have significant anemia. Hemoglobin a nd hematocrit to be followed and if need be, if hemoglobin drops below 7, 1 unit will be transfused. Rehab Specific Plan: 1.Ms. Oliva will have physical and occupational therapy for 3 hours a day 5 of 7 days. 2.If need be, speech therapy will be administered 0.5 hours, 5 of 7 days. 3.She will have prison as appropriate to address her comorbids as noted and to follow her v ital signs to administer all of the medications and attend to her specific nursing needs. 4.Ms. Oliva has a good understanding of her admission to the inpatient rehabilitation unit and has a potential to make good improvement and will need at least physical and occupational therapy, po tentially speech therapy as she improves. Additionally if services such as the nutrition service, [facility], renal service, ID services are required, will be consulted. 5.Given her complex medical condition and risk of further complications, rehabilitation cannot be sa gerard or effectively provided at the lower level of care such as prison. Barriers To Discharge: 1.Currently, recent seizure could be a barrier. However, no additional seizure reported and she is not on antiepileptic medications. She will be carefully monitored. 2.Severe anemia. If hemoglobin drops lower transfusion will be used. 3.Expected length of stay about 13 days. Disposition: Discharged home with . Prognosis: Good. Rehabilitation Goals: 1.Become independent with upper and lower body dressing and donning and doffing shoes. 2.Independent with transfers from bed to toilet, chair, to shower. 3.Independent performing toileting and showering. 4.Independent with ambulating 250 feet. 5.Independently, going up and down 5 steps. 6.Independent with cognitive functioning. I acknowledge I have personally performed the full physical examination on Ms. Oliva no later th an 24 hours after admission to the inpatient rehabilitation facility. I have determined that she is able to tolerate the above course of treatment at an intensive level for a reasonable period of time. A detailed individualized plan of care for her will be completed by hospital day 4 based on the pre admission screen, history and physical and therapy evaluations. AMANDA Voice ID: [id number]
[2023-01-02] MEDS: HYDROCODONE/APAP 5/325 MG TAB PO PRN (02:22)
[2023-01-02] MEDS: LEVOTHYROXINE SOD 0.05 MG TABLET PO SCH (05:05)
[2023-01-02] MEDS ORDERED: METOPROLOL TAR 25 MG TAB PO SCH (06:00)
[2023-01-02] MEDS ORDERED: LEVOTHYROXINE SOD 0.1 MG TAB PO SCH (06:30)
[2023-01-02] MEDS: ENOXAPARIN 40 MG/0.4 ML SQ SCH (07:29)
[2023-01-02 07:40] LABS: Absolute Lymphocytes (CBC) 1.1 K/uL (0.7-4.9); Lymphocytes % 9.8 % (15.3-44.8); MCV 90.6 fL (80-100); MPV 7.9 fL (7.6-11.3); RBC Red Blood Cell Count 2.87 M/uL (3.86-4.86)
[2023-01-02] MEDS ORDERED: OCCUVITE PO SCH (08:00)
[2023-01-02] MEDS: RED YEAST PO SCH (08:00)
[2023-01-02 08:06] LABS: Albumin 2.7 g/dL (3.4-5.0); Magnesium 2.3 mg/dL (1.6-2.4); Potassium 4.6 mEq/L (3.5-5.1); Prealbumin 17.9 mg/dL (20-40)
[2023-01-02] MEDS: FE SULF/FA/VIT B COMP & C TAB PO SCH (08:31)
[2023-01-02] MEDS: dexAMETHasone 4 MG TAB PO SCH ×3 (08:31→19:40)
[2023-01-02] MEDS: FERROUS SULFATE 325 MG TAB PO SCH (08:31)
[2023-01-02] MEDS: LIDOCAINE 4% PATCH TOP SCH (08:31)
[2023-01-02] MEDS: DOCUSATE NA 100 MG CAP PO SCH ×2 (08:32→19:39)
[2023-01-02] MEDS: CALCIUM CARBONATE 500 MG TAB PO SCH ×2 (08:32→19:40)
[2023-01-02] MEDS: OCUVITE (VIT A,C & E/LUTEIN/MINERAL) TABLET PO SCH (08:32)
[2023-01-02] MEDS: MAGNESIUM OXIDE 400 MG TAB PO SCH ×2 (09:35→19:39)
[2023-01-02] MEDS: METOPROLOL TAR 25 MG TAB PO SCH (09:37)
[2023-01-02] MEDS: GABAPENTIN 400 MG CAP PO SCH ×2 (09:37→19:39)
[2023-01-02] MEDS: AZATHIOPRINE 50 MG TABLET PO SCH (09:37)
[2023-01-02] MEDS: MELOXICAM 7.5 MG TAB PO SCH (09:44)
[2023-01-02] MEDS ORDERED: ACETAMINOPHEN 500 MG TAB PO PRN (10:29)
--- NOTE | 2023-01-02 13:55 | P.RH.PN ---
Estimated Length of Stay: 13 Expected Discharge Date: 01/10/23 Discharge Disposition Plan: Home Family Support: Yes [facility] Goal: Mobility, Transfers, Self Care Vital Signs: Last Vital Signs Temp 97.2 F 01/02/23 07:34 Pulse 74 01/02/23 09:37 Resp 16 01/02/23 07:34 BP 114/57 L 01/02/23 09:37 Pulse Ox 95 01/02/23 07:34 Laboratory: Laboratory Last Values WBC 11.00 thou/uL (4.3-10.9) H 01/02/23 07:17 RBC 2.87 M/uL (3.86-4.86) L 01/02/23 07:17 Hgb 8.6 g/dL (12.0-15.0) L 01/02/23 07:17 Hct 26.0 % (36.0-45.0) L 01/02/23 07:17 MCV 90.6 fL (80-100) 01/02/23 07:17 MCH 30.1 pg (27.0-35.0) 01/02/23 07:17 MCHC 33.2 g/dL (32.0-36.0) 01/02/23 07:17 RDW 14.7 % (12.1-15.2) 01/02/23 07:17 Plt Count 312 thou/uL (152-406) 01/02/23 07:17 MPV 7.9 fL (7.6-11.3) 01/02/23 07:17 Neutrophils % 79.2 % (41.7-73.7) H 01/02/23 07:17 Lymphocytes % 9.8 % (15.3-44.8) L 01/02/23 07:17 Monocytes % 8.0 % (3.3-12.3) 01/02/23 07:17 Eosinophils % 2.5 % (0-4.4) 01/02/23 07:17 Basophils % 0.5 % (0-1.3) 01/02/23 07:17 Absolute Neutrophils 8.7 K/uL (1.8-8.0) H 01/02/23 07:17 Absolute Lymphocytes 1.1 K/uL (0.7-4.9) 01/02/23 07:17 Absolute Monocytes 0.9 K/uL (0.1-1.3) 01/02/23 07:17 Absolute Eosinophils 0.3 K/uL (0-0.5) 01/02/23 07:17 Absolute Basophils 0.1 K/uL (0-0.5) 01/02/23 07:17 Sodium 135 mEq/L (136-145) L 01/02/23 07:17 Potassium 4.6 mEq/L (3.5-5.1) 01/02/23 07:17 Chloride 103 mEq/L (98-107) 01/02/23 07:17 Carbon Dioxide 30 mEq/L (21-32) 01/02/23 07:17 Anion Gap 6.6 mEq/L (5.0-15.0) 01/02/23 07:17 BUN 21 mg/dL (7-18) H 01/02/23 07:17 Creatinine 0.74 mg/dL (0.55-1.02) 01/02/23 07:17 Est GFR (CKD-EPI) 83 ml/min (=/>90) L 01/02/23 07:17 Glucose 101 mg/dL (74-106) 01/02/23 07:17 Calcium 8.5 mg/dL (8.5-10.1) 01/02/23 07:17 Magnesium 2.3 mg/dL (1.6-2.4) 01/02/23 07:17 Albumin 2.7 g/dL (3.4-5.0) L 01/02/23 07:17 Prealbumin 17.9 mg/dL (20-40) L 01/02/23 07:17 Urine Color Light-yellow (Yellow) 01/01/23 15:15 Urine Clarity Extremely turbid (Clear) H 01/01/23 15:15 Urine pH 6.0 (5.0-7.0) 01/01/23 15:15 Ur Specific [place] 1.014 (1.005-1.030) 01/01/23 15:15 Glucose (UA)(Auto) Negative (Negative) 01/01/23 15:15 Urine Ketones Negative (Negative) 01/01/23 15:15 Urine Blood 2+ (Negative) H 01/01/23 15:15 Urine Nitrite Negative (Negative) 01/01/23 15:15 Urine Bilirubin Negative (Negative) 01/01/23 15:15 Urine Urobilinogen Normal (Normal) 01/01/23 15:15 Ur Leukocyte Esterase 500 Ryan/uL (Negative) H 01/01/23 15:15 Urine RBC 21-50 /HPF (None Seen) H 01/01/23 15:15 Urine WBC >50 /HPF (<5) H 01/01/23 15:15 Urine WBC Clumps Few /HPF (None Seen) H 01/01/23 15:15 Ur Squamous Epith Cells <5 /HPF (None Seen) 01/01/23 15:15 U Non-Squamous Epi Cells <5 /HPF (None Seen) 01/01/23 15:15 Unidentified Crystals Few /HPF (None Seen) 01/01/23 15:15 Urine Bacteria 20-50 /HPF (<20) H 01/01/23 15:15 Hyaline Casts 0-5 /LPF (None Seen) 01/01/23 15:15 Urine Mucus Slight /HPF (None Seen) 01/01/23 15:15 Urine Culture Reflexed Reflexed 01/01/23 15:15 Urine Total Volume Cancelled 01/01/23 18:00 Urine Creatinine Cancelled 01/01/23 18:00 Creatinine Clearance Cancelled 01/01/23 18:00 Urine Total Protein 1+ (Negative) H 01/01/23 15:15 Weight: 162 lb Wound Present: No Closed Surgical Incision Present: No Negative Pressure Wound Therapy Present: No Physician Update: Hg is mildly low at 8.6. She is on hemocyte plus and ferrous sulfate. Will put back Tylenol to 1 gram q 8 hours. Walked 150' with min assistance using the RW. She has mild right hip weakness. Summary: Patient's care plan and alf goals have been reviewed and revised as necessary. Please see the Rehabilitation Signature page for all necessary signatures.
[2023-01-02] MEDS: ALBUTEROL 2.5 MG/3 ML NEB SOL NEB SCH ×2 (14:00→21:30)
--- NOTE | 2023-01-02 14:16 | RAD REPORT ---
EXAM DESCRIPTION: RAD - Chest Single View - 01/02/2023 1:58 pm CLINICAL HISTORY: cough COMPARISON: No comparisons FINDINGS: Lines: None. Lungs: No evidence of edema or pneumonia. Pleural: No significant pleural effusions or pneumothorax. Cardiac: The heart size is within normal limits. Mediastinum: Within normal limits. Bones: No acute fractures. Other: None IMPRESSION: No acute cardiopulmonary disease.
[2023-01-02] MEDS: ENSURE ENLIVE 237 ML CAN PO SCH (19:39)
[2023-01-02] MEDS: CRANBERRY FRUIT EXTRACT 200 MG CAP PO SCH (19:39)
[2023-01-02] MEDS: ATORVASTATIN 20 MG TAB PO SCH (19:41)
[2023-01-02] MEDS: MELATONIN 3 MG TABLET PO PRN (20:22)
[2023-01-02] MEDS: ACETAMINOPHEN 500 MG TAB PO PRN (20:23)
[2023-01-03] MEDS: ALBUTEROL 2.5 MG/3 ML NEB SOL NEB SCH ×4 (02:00→21:20)
[2023-01-03] MEDS: LEVOTHYROXINE SOD 0.05 MG TABLET PO SCH (07:54)
[2023-01-03] MEDS: ENOXAPARIN 40 MG/0.4 ML SQ SCH (07:55)
[2023-01-03] MEDS: GABAPENTIN 400 MG CAP PO SCH ×2 (07:55→19:38)
[2023-01-03] MEDS: MELOXICAM 7.5 MG TAB PO SCH (07:55)
[2023-01-03] MEDS: OCUVITE (VIT A,C & E/LUTEIN/MINERAL) TABLET PO SCH (07:55)
[2023-01-03] MEDS: LIDOCAINE 4% PATCH TOP SCH (07:55)
[2023-01-03] MEDS: CRANBERRY FRUIT EXTRACT 200 MG CAP PO SCH ×2 (07:55→19:39)
[2023-01-03] MEDS: METOPROLOL TAR 25 MG TAB PO SCH (07:56)
[2023-01-03] MEDS: FE SULF/FA/VIT B COMP & C TAB PO SCH (07:56)
[2023-01-03] MEDS: MAGNESIUM OXIDE 400 MG TAB PO SCH ×2 (07:56→19:39)
[2023-01-03] MEDS: AZATHIOPRINE 50 MG TABLET PO SCH (07:56)
[2023-01-03] MEDS: CALCIUM CARBONATE 500 MG TAB PO SCH ×2 (07:56→19:38)
[2023-01-03] MEDS: dexAMETHasone 4 MG TAB PO SCH ×3 (07:57→19:39)
[2023-01-03] MEDS: DOCUSATE NA 100 MG CAP PO SCH ×2 (07:58→19:38)
[2023-01-03] MEDS: FERROUS SULFATE 325 MG TAB PO SCH (07:58)
[2023-01-03] MEDS ORDERED: RED YEAST RICE PO SCH (08:00)
[2023-01-03] MEDS: RED YEAST PO SCH ×2 (08:00→14:10)
[2023-01-03] MEDS: KRILL OIL 500 MG PO SCH ×2 (08:00→14:10)
[2023-01-03] MEDS: ACETAMINOPHEN 500 MG TAB PO PRN ×3 (10:26→19:41)
[2023-01-03] MEDS: ENSURE ENLIVE 237 ML CAN PO SCH ×2 (10:26→19:39)
[2023-01-03] MEDS: ATORVASTATIN 20 MG TAB PO SCH (19:39)
[2023-01-03] MEDS: HYDROCODONE/APAP 5/325 MG TAB PO PRN (22:12)
[2023-01-04] MEDS: ALBUTEROL 2.5 MG/3 ML NEB SOL NEB SCH ×4 (02:00→22:05)
[2023-01-04] MEDS: LEVOTHYROXINE SOD 0.05 MG TABLET PO SCH (07:14)
[2023-01-04] MEDS: VIT D 50 MCG PO SCH (08:00)
[2023-01-04] MEDS: VIT D PO SCH (08:00)
[2023-01-04] MEDS: MAGNESIUM OXIDE 400 MG TAB PO SCH ×2 (08:05→20:37)
[2023-01-04] MEDS: GABAPENTIN 400 MG CAP PO SCH ×2 (08:05→20:36)
[2023-01-04] MEDS: ENOXAPARIN 40 MG/0.4 ML SQ SCH (08:05)
[2023-01-04] MEDS: METOPROLOL TAR 25 MG TAB PO SCH (08:06)
[2023-01-04] MEDS: MELOXICAM 7.5 MG TAB PO SCH (08:06)
[2023-01-04] MEDS: DOCUSATE NA 100 MG CAP PO SCH ×2 (08:07→20:36)
[2023-01-04] MEDS: CRANBERRY FRUIT EXTRACT 200 MG CAP PO SCH ×2 (08:07→20:36)
[2023-01-04] MEDS: LIDOCAINE 4% PATCH TOP SCH (08:07)
[2023-01-04] MEDS: OCUVITE (VIT A,C & E/LUTEIN/MINERAL) TABLET PO SCH (08:07)
[2023-01-04] MEDS: FERROUS SULFATE 325 MG TAB PO SCH (08:07)
[2023-01-04] MEDS: ENSURE ENLIVE 237 ML CAN PO SCH ×2 (08:07→20:38)
[2023-01-04] MEDS: AZATHIOPRINE 50 MG TABLET PO SCH (08:07)
[2023-01-04] MEDS: FE SULF/FA/VIT B COMP & C TAB PO SCH (08:07)
[2023-01-04] MEDS: CALCIUM CARBONATE 500 MG TAB PO SCH ×2 (08:07→20:37)
[2023-01-04] MEDS: RED YEAST PO SCH (08:08)
[2023-01-04] MEDS: KRILL OIL 500 MG PO SCH (08:09)
[2023-01-04] MEDS: dexAMETHasone 4 MG TAB PO SCH ×3 (08:10→20:37)
[2023-01-04] MEDS: levoFLOXacin 500 MG TAB PO SCH (12:06)
[2023-01-04] MEDS: ACETAMINOPHEN 500 MG TAB PO PRN ×2 (13:48→18:33)
--- NOTE | 2023-01-04 18:52 | PN ---
Subjective: Ms. Oliva denies any seizures. She is doing well. Total hip arthroplasty area isaiah ws no significant pain today. She is happy and at the bedside. Review of Systems: No fevers, chills. No significant myalgias, arthralgias, rash, headache, weight change. No other sy stems review positives. Mild edema in the right lower extremity where she had right hip arthroplasty . Laboratory Studies: No new laboratory studies. X-ray/imaging: No new x-rays or imaging since . When she had a chest x-ray done, the study show ed no acute cardiopulmonary processes. Medications: Tylenol 1000 mg every 8 hours, [place] 5/325 every 4 hours as needed, albuterol nebulizer 2.5 mg every 6 hours as needed, Lipitor 20 mg at bedtime, Imuran 50 mg daily, Os-Vito 500 mg twice da [place], Decadron 1 mg 3 times daily, Colace 100 mg twice daily, Lovenox 40 mg subcutaneously daily, ferr ous sulfate 325 mg daily, gabapentin 1200 mg twice daily, Synthroid 0.5 mg daily, levofloxacin 500 mg daily, magnesium oxide 400 mg twice daily, lidocaine patch apply topically daily as needed, Mobic 15 mg daily, melatonin 3 mg at bedtime, magnesium oxide 400 mg twice daily, Lopressor 12.5 mg daily, He mocyte Plus 1 tablet daily, Ocuvite 1 tablet daily, Ensure Enlive 237 mL twice daily, Zofran 4 mg maria dolores ry 4 hours as needed, Senokot-S 2 at bedtime. Current Functional Status: Currently, Ms. Oliva ambulated 110 feet, 50 feet, another 250 feet t wice with contact guard assistance using a rolling walker. Bed mobility with minimum assistance. Schwab pine sit transfer with a leg commercial credit analyst to lift her right lower extremity and she is min assist with that . Stand pivot transfer with contact guard assistance. In and out of the bed, standby assistance. U pper body dressing supervision, lower body dressing contact guard assistance. Donning and doffing so cks and footwear independent. Progress Towards Rehabilitation Goals: Ms. Oliva is making great progress towards her goals of becoming independent with upper and lower body dressing, transferring, toileting, showering, ambulati ng 250 feet with independence, up and down 10 steps with independence and performing all activities o f daily living with independence and continuing her independent cognitive functioning. Assessment: Ms. Oliva is a 77-year-old patient in the rehabilitation unit with a seizure, statu s post total hip arthroplasty on the right. No additional seizures and she is doing very well with t hat hip arthroplasty and mobilizing well. Pain is well managed. She does have comorbidities, hypoca lcemia, renal injury, tachycardia, hypoxic renal failure, bradycardia. Those are stably managed. Plan: 1.Continue with physical and occupational therapy 3 hours a day, 5 of 7 days. 2.She has multiple comorbid conditions, which are treated by medications as listed above and will al l be continued. In addition any issues such as any worsening potential anemia, followup with blood w ork. She is having Lovenox for DVT prophylaxis and that has continued. Comorbids That Are Continuing To Impact The Rehabilitation Process: She does have seizure following the hip arthroplasty, but no additional seizures, but seizure precautions will still be adhered to an d she is doing very well. No evidence of an infection. Postoperatively hemoglobin and hematocrit ar e doing very well. LB/MODL Voice ID: [id number] Report ID: [id number]
[2023-01-04] MEDS ORDERED: CIPROFLOXACIN HCL 500 MG TAB PO SCH (20:00)
[2023-01-04] MEDS: ATORVASTATIN 20 MG TAB PO SCH (20:36)
[2023-01-04] MEDS: HYDROCODONE/APAP 5/325 MG TAB PO PRN (20:37)
[2023-01-05] MEDS: ALBUTEROL 2.5 MG/3 ML NEB SOL NEB SCH ×4 (02:00→21:15)
[2023-01-05] MEDS: LEVOTHYROXINE SOD 0.05 MG TABLET PO SCH (06:30)
[2023-01-05] MEDS: OCUVITE (VIT A,C & E/LUTEIN/MINERAL) TABLET PO SCH (08:00)
[2023-01-05] MEDS: FE SULF/FA/VIT B COMP & C TAB PO SCH (08:00)
[2023-01-05] MEDS: CRANBERRY FRUIT EXTRACT 200 MG CAP PO SCH ×2 (08:00→20:02)
[2023-01-05] MEDS: FERROUS SULFATE 325 MG TAB PO SCH (08:00)
[2023-01-05] MEDS: MELOXICAM 7.5 MG TAB PO SCH (08:00)
[2023-01-05] MEDS: ENOXAPARIN 40 MG/0.4 ML SQ SCH (08:00)
[2023-01-05] MEDS: VIT D 50 MCG PO SCH (08:00)
[2023-01-05] MEDS: AZATHIOPRINE 50 MG TABLET PO SCH (08:00)
[2023-01-05] MEDS: DOCUSATE NA 100 MG CAP PO SCH ×2 (08:00→20:02)
[2023-01-05] MEDS: MAGNESIUM OXIDE 400 MG TAB PO SCH ×2 (08:00→20:02)
[2023-01-05] MEDS: METOPROLOL TAR 25 MG TAB PO SCH (08:00)
[2023-01-05] MEDS: levoFLOXacin 500 MG TAB PO SCH (08:00)
[2023-01-05] MEDS: GABAPENTIN 400 MG CAP PO SCH ×2 (08:00→20:02)
[2023-01-05] MEDS: CALCIUM CARBONATE 500 MG TAB PO SCH ×2 (08:00→20:02)
[2023-01-05] MEDS: ENSURE ENLIVE 237 ML CAN PO SCH ×2 (08:00→20:03)
[2023-01-05] MEDS: VIT D PO SCH (08:00)
[2023-01-05] MEDS: RED YEAST PO SCH (08:00)
[2023-01-05] MEDS: KRILL OIL 500 MG PO SCH (08:00)
[2023-01-05] MEDS: dexAMETHasone 4 MG TAB PO SCH ×3 (09:00→20:02)
[2023-01-05] MEDS: LIDOCAINE 4% PATCH TOP SCH (12:40)
[2023-01-05] MEDS: ACETAMINOPHEN 500 MG TAB PO PRN (14:47)
[2023-01-05] MEDS: ATORVASTATIN 20 MG TAB PO SCH (20:02)
[2023-01-05] MEDS: HYDROCODONE/APAP 5/325 MG TAB PO PRN (20:30)
[2023-01-06] MEDS: ALBUTEROL 2.5 MG/3 ML NEB SOL NEB SCH ×4 (02:45→20:25)
--- NOTE | 2023-01-06 03:23 | PN ---
Date of Progress Note: 01/05/2023 Time Of Service: 1:30 p.m. Subjective: Ms. Oliva is doing well. Some mild pain at the surgical site. No seizures. No ne w complaints. Review of Systems: Mild myalgias and arthralgias. Otherwise, no fevers, chills, nausea, or vomiting. Some mild edema i n the right lower extremity arthroplasty area that is more proximal than distal. Laboratory Studies: No new laboratory studies. X-ray/imaging: No new x-rays or imaging. Medications: Her medications have been reviewed and remain unchanged. Current Functional Status: Today, she did [id number] transfers independently, stand pivot transfe rs with contact guard assistance. She ambulated 175 feet twice and 250 feet once with a rolling walk er with contact guard assistance. She mobilized a wheelchair 250 feet with standby assistance with o ccupational therapy; supervision for bed, mobility, and shower transfers; upper and lower body dressi ng, supervision. Progress Towards Rehabilitation Goals: Ms. Oliva is making actually good progress overall with physical and occupational therapy and towards goals of becoming modified independent with upper body dressing, transferring, toileting, showering, and ambulating 250 feet with modified independence, in addition to performing all cognitive functioning independently. Assessment And Plan: Ms. Oliva is a 77-year-old patient in rehabilitation unit with right hip a rthroplasty and a seizure following surgery. She is doing well. No additional seizures and hip arth roplasty healing well, and she is mobilizing very well. She has comorbid conditions, hypocalcemia, r enal injury, tachycardia, hypoxic renal injury, which is improving, and bradycardia. Plan: 1.Continue with Physical and Occupational Therapy for 3 hours a day, 5 to 7 days. 2.She has multiple medications as noted, which are continued to address her comorbid conditions, inc luding Lipitor, azathioprine, Os-Vito. She has Decadron, Colace, ferrous sulfate, gabapentin, and lev ofloxacin to continue from 01/04 to 01/10. Comorbidities That Continue To Impact The Rehabilitation Process: At this point, the single seizure has not negatively impacted her rehabilitation, and she is doing very well. Her swelling in the righ t lower extremity is minimally impacting her recovery, and she has no evidence of deep vein thrombus there. Has no pain in the calf with ambulation. No additional or excessive swelling noted in the ri ght calf area. ZION/GIOVANA Voice ID: [id number] Report ID: [id number]
[2023-01-06] MEDS: LEVOTHYROXINE SOD 0.05 MG TABLET PO SCH (06:57)
[2023-01-06] MEDS: ENSURE ENLIVE 237 ML CAN PO SCH ×2 (07:49→19:19)
[2023-01-06] MEDS: MAGNESIUM OXIDE 400 MG TAB PO SCH ×2 (07:49→19:19)
[2023-01-06] MEDS: LIDOCAINE 4% PATCH TOP SCH (07:49)
[2023-01-06] MEDS: ENOXAPARIN 40 MG/0.4 ML SQ SCH (07:50)
[2023-01-06] MEDS: AZATHIOPRINE 50 MG TABLET PO SCH (07:50)
[2023-01-06] MEDS: MELOXICAM 7.5 MG TAB PO SCH (07:50)
[2023-01-06] MEDS: CALCIUM CARBONATE 500 MG TAB PO SCH ×2 (07:50→19:17)
[2023-01-06] MEDS: METOPROLOL TAR 25 MG TAB PO SCH (07:50)
[2023-01-06] MEDS: FE SULF/FA/VIT B COMP & C TAB PO SCH (07:51)
[2023-01-06] MEDS: levoFLOXacin 500 MG TAB PO SCH (07:51)
[2023-01-06] MEDS: CRANBERRY FRUIT EXTRACT 200 MG CAP PO SCH ×2 (07:51→19:19)
[2023-01-06] MEDS: OCUVITE (VIT A,C & E/LUTEIN/MINERAL) TABLET PO SCH (07:51)
[2023-01-06] MEDS: GABAPENTIN 400 MG CAP PO SCH ×2 (07:52→19:17)
[2023-01-06] MEDS: FERROUS SULFATE 325 MG TAB PO SCH (07:52)
[2023-01-06] MEDS: dexAMETHasone 4 MG TAB PO SCH ×3 (07:52→19:18)
[2023-01-06] MEDS: DOCUSATE NA 100 MG CAP PO SCH ×2 (07:52→19:19)
[2023-01-06] MEDS: RED YEAST PO SCH (07:53)
[2023-01-06] MEDS: VIT D PO SCH (07:53)
[2023-01-06] MEDS: VIT D 50 MCG PO SCH (07:54)
[2023-01-06] MEDS: KRILL OIL 500 MG PO SCH (07:54)
[2023-01-06] MEDS: ACETAMINOPHEN 500 MG TAB PO PRN ×2 (08:31→16:45)
[2023-01-06] MEDS ORDERED: levoFLOXacin 250 MG TAB PO ONE (18:00)
[2023-01-06] MEDS: MELATONIN 3 MG TABLET PO PRN (19:18)
[2023-01-06] MEDS: ATORVASTATIN 20 MG TAB PO SCH (19:18)
[2023-01-06] MEDS: HYDROCODONE/APAP 5/325 MG TAB PO PRN (21:06)
--- NOTE | 2023-01-07 00:59 | PN ---
Date of Progress Note: 01/06/2023 Time Of Service: 1:30 p.m. Subjective: Ms. Oliva is resting comfortably in bed in between therapy sessions. She has no ne w complaints. Review of Systems: Mild arthralgias, myalgias in the lower extremities and at her hip surgical site, mild pain, but well managed by oral medications. No other complaints. Physical Examination: Vital Signs: Blood pressure 125/58, pulse 70, respiratory rate 16, temperature 97.7, oxygen saturati on 97%. Extremities: Her right hip surgical site has good hemostasis. Mild edema in the right lower extremi ty. No other changes on her examination. Laboratory Studies: No new laboratory studies. X-ray/imaging: No new x-rays or imaging. Medications: Medications have been reviewed and remained unchanged. Current Functional Status: Today, she ambulated 175 feet twice and 250 feet mobilized with a rolling walker with contact guard assistance. However, it should be noted she did leave today to go for treva gical followup and she left around 9:15 a.m. and did not return by 4:30. Therefore, all 3 hours of p hysical therapy was not completed today and that will be made up for tomorrow. Otherwise, she is doi ng well in terms of her functional status. Progress Towards Rehabilitation Goals: Ms. Oliva is making good progress overall towards her go als of becoming independent with upper and lower body dressing, toileting, transferring, showering, a nd mobilizing 250 feet with modified independence up and down 5 steps with modified independence and continuing former cognitive functioning with modified independence. Assessment: Ms. Oliva was in the rehabilitation unit with right total hip arthroplasty. She hamm d a seizure following surgery and no more seizures and is doing very well from that standpoint. As n oted today, she did follow up with her surgeon in [place] and was unable to complete all 3 hours of p hysical and occupational therapy as she left around 9:15 and did not return until after 4:30 p.m. Ag ain, therapy will be made up tomorrow. She has comorbids including hypoglycemia, renal injury, tachy cardia, and bradycardias, which are well managed. Plan: 1.Continue with physical and occupational therapy for 3 hours a day, 5 of 7 days. 2.Continue with medications to address her comorbid conditions as noted above. Comorbids That Continue To Impact Her Rehabilitation: The risk of additional seizures have not mater ialized and she has not had additional seizures, but the seizure precautions will still be adhered to . That does not impact in a negative way her rehabilitation. She is doing very well otherwise. ZION/GIOVANA Voice ID: [id number] Report ID: [id number]
[2023-01-07] MEDS: ALBUTEROL 2.5 MG/3 ML NEB SOL NEB SCH ×2 (02:05→08:00)
[2023-01-07] MEDS: LEVOTHYROXINE SOD 0.05 MG TABLET PO SCH (05:08)
[2023-01-07] MEDS: RED YEAST PO SCH (07:43)
[2023-01-07] MEDS: KRILL OIL 500 MG PO SCH (07:44)
[2023-01-07] MEDS: ENOXAPARIN 40 MG/0.4 ML SQ SCH (07:45)
[2023-01-07] MEDS: AZATHIOPRINE 50 MG TABLET PO SCH (07:46)
[2023-01-07] MEDS: MAGNESIUM OXIDE 400 MG TAB PO SCH ×2 (07:46→19:34)
[2023-01-07] MEDS: CALCIUM CARBONATE 500 MG TAB PO SCH ×2 (07:46→19:31)
[2023-01-07] MEDS: CRANBERRY FRUIT EXTRACT 200 MG CAP PO SCH ×2 (07:46→19:32)
[2023-01-07] MEDS: FERROUS SULFATE 325 MG TAB PO SCH (07:46)
[2023-01-07] MEDS: METOPROLOL TAR 25 MG TAB PO SCH (07:47)
[2023-01-07] MEDS: dexAMETHasone 4 MG TAB PO SCH ×3 (07:48→19:33)
[2023-01-07] MEDS: OCUVITE (VIT A,C & E/LUTEIN/MINERAL) TABLET PO SCH (07:48)
[2023-01-07] MEDS: GABAPENTIN 400 MG CAP PO SCH ×2 (07:48→19:31)
[2023-01-07] MEDS: FE SULF/FA/VIT B COMP & C TAB PO SCH (07:48)
[2023-01-07] MEDS: MELOXICAM 7.5 MG TAB PO SCH (07:49)
[2023-01-07] MEDS: DOCUSATE NA 100 MG CAP PO SCH ×2 (07:49→19:32)
[2023-01-07] MEDS: ENSURE ENLIVE 237 ML CAN PO SCH ×2 (07:49→19:34)
[2023-01-07] MEDS: VIT D PO SCH (07:52)
[2023-01-07] MEDS: VIT D 50 MCG PO SCH (07:52)
[2023-01-07] MEDS: levoFLOXacin 750 MG TAB PO SCH (07:58)
[2023-01-07] MEDS: LIDOCAINE 4% PATCH TOP SCH (07:58)
[2023-01-07] MEDS ORDERED: ALBUTEROL 2.5 MG/3 ML NEB SOL NEB PRN (08:09)
[2023-01-07] MEDS: ACETAMINOPHEN 500 MG TAB PO PRN ×2 (09:03→14:18)
[2023-01-07] MEDS: CEPHALEXIN 500 MG PO SCH ×3 (12:41→19:36)
[2023-01-07] MEDS ORDERED: CEPHALEXIN 500 MG PO SCH (13:00)
[2023-01-07] MEDS ORDERED: POLYETHYL GLY 3350 17 GM/DOSE PO PRN (14:38)
[2023-01-07] MEDS: HYDROCODONE/APAP 5/325 MG TAB PO PRN (19:31)
[2023-01-07] MEDS: ATORVASTATIN 20 MG TAB PO SCH (19:32)
[2023-01-07 21:15] VITALS: TEMP 97.4
[2023-01-08] MEDS: LEVOTHYROXINE SOD 0.05 MG TABLET PO SCH (05:27)
[2023-01-08] MEDS: ACETAMINOPHEN 500 MG TAB PO PRN (05:31)
[2023-01-08 06:46] VITALS: BP 121/58
[2023-01-08] MEDS: LIDOCAINE 4% PATCH TOP SCH (07:20)
[2023-01-08] MEDS: ENOXAPARIN 40 MG/0.4 ML SQ SCH (07:20)
[2023-01-08] MEDS: levoFLOXacin 750 MG TAB PO SCH (07:20)
[2023-01-08] MEDS: CRANBERRY FRUIT EXTRACT 200 MG CAP PO SCH (07:21)
[2023-01-08] MEDS: METOPROLOL TAR 25 MG TAB PO SCH (07:21)
[2023-01-08] MEDS: FERROUS SULFATE 325 MG TAB PO SCH (07:21)
[2023-01-08] MEDS: MELOXICAM 7.5 MG TAB PO SCH (07:21)
[2023-01-08] MEDS: OCUVITE (VIT A,C & E/LUTEIN/MINERAL) TABLET PO SCH (07:22)
[2023-01-08] MEDS: MAGNESIUM OXIDE 400 MG TAB PO SCH (07:22)
[2023-01-08] MEDS: ENSURE ENLIVE 237 ML CAN PO SCH (07:22)
[2023-01-08] MEDS: CALCIUM CARBONATE 500 MG TAB PO SCH (07:22)
[2023-01-08] MEDS: DOCUSATE NA 100 MG CAP PO SCH (07:22)
[2023-01-08] MEDS: GABAPENTIN 400 MG CAP PO SCH (07:22)
[2023-01-08] MEDS: dexAMETHasone 4 MG TAB PO SCH (07:23)
[2023-01-08] MEDS: AZATHIOPRINE 50 MG TABLET PO SCH (07:23)
[2023-01-08] MEDS: FE SULF/FA/VIT B COMP & C TAB PO SCH (07:23)
[2023-01-08] MEDS: VIT D 50 MCG PO SCH (07:25)
[2023-01-08] MEDS: KRILL OIL 500 MG PO SCH (07:25)
[2023-01-08] MEDS: RED YEAST PO SCH (07:25)
[2023-01-08] MEDS: VIT D PO SCH (07:25)
[2023-01-08] MEDS: CEPHALEXIN 500 MG PO SCH (08:17)
[2023-01-08 08:43] LABS: Lymphocytes % 18.8 % (15.3-44.8); MCV 91.4 fL (80-100); MPV 7.8 fL (7.6-11.3); RBC Red Blood Cell Count 3.06 M/uL (3.86-4.86)
[2023-01-08 09:13] LABS: Albumin 3.2 g/dL (3.4-5.0); Magnesium 2.4 mg/dL (1.6-2.4); Potassium 4.3 mEq/L (3.5-5.1); Prealbumin 27.6 mg/dL (20-40)
== END 2023-01-08 10:15 | disposition home health service (06) | DRG 948 ==
LOC: 5TH 13:35
PROVIDERS: ADMIT Psychiatry & Neurology Neurology with Special Qualifications in Child Neurology; ATTEND Psychiatry & Neurology Neurology with Special Qualifications in Child Neurology
DX: R53.81 Other malaise (principal); G93.40 Encephalopathy, unspecified; E03.9 Hypothyroidism, unspecified; I10 Essential (primary) hypertension; M19.90 Unspecified osteoarthritis, unspecified site; R56.9 Unspecified convulsions; D64.9 Anemia, unspecified; R00.1 Bradycardia, unspecified; I25.10 Atherosclerotic heart disease of native coronary artery without angina pectoris; E83.51 Hypocalcemia; R00.0 Tachycardia, unspecified; Z96.649 Presence of unspecified artificial hip joint
CPT/HCPCS: 36415; 71045; 80048; 81001; 82040; 83735; 84134; 85025; 87077; 87086; 87088; 87186; 94640; 97110; 97116; 97163; 97165; 97530; 97542; J1650; J2001; J7500; J7613; J8540